=== PATIENT | female | born 1945 | race Caucasian/White ===

== ENCOUNTER 2020-06-01 23:47 | Inpatient (IN) | payer MEDICARE, SELFPAY ==
[2020-06-02] VITALS (10 sets, daily range): BP systolic 89–147; BP diastolic 38–103; PULSE 60–75; RESP 15–21; TEMP 36.6–37.6; O2SAT 94–99; BMI 29.6; BMI 32.3
--- NOTE | 2020-06-02 00:19 | ECG_ITS ---
Test Reason : WEAKNESS Blood Pressure : / mmHG Vent. Rate : 063 BPM Atrial Rate : 063 BPM P-R Int : 222 ms QRS Dur : 092 ms QT Int : 466 ms P-R-T Axes : 085 000 004 degrees QTc Int : 476 ms Sinus rhythm with sinus arrhythmia with 1st degree A-V block RSR' or QR pattern in V1 suggests right ventricular conduction delay Nonspecific ST abnormality Abnormal ECG When compared with ECG of 30-MAY-2017 18:22, [place] interval has increased ST now depressed in Anterior leads Referred By: Suzanna Gregg Electronically Signed By:AUBRIE RAINES MD
--- NOTE | 2020-06-02 00:27 | CT_ITS ---
EXAM: NONCONTRAST CT OF THE CHEST; NONCONTRAST CT OF THE ABDOMEN AND PELVIS INDICATION: Shortness of breath, difficulty walking COMPARISON: 04/10/2008 TECHNIQUE: No IV contrast was utilized. Multidetector helical imaging was performed through the chest, abdomen, and pelvis. Coronal and sagittal reformatted images were created at the technologist workstation. DOSE LOWERING TECHNIQUES: This CT examination was performed using dose optimization techniques as appropriate, variously including the following: - Automated exposure control - Adjustment of mA and/or kV according to patient size (this includes techniques or standardized protocols for targeted exams were dose is matched to indication/reason for exam; i.e. extremities or head) - Use of iterative reconstruction technique DLP: 1110 mGy-cm FINDINGS: Chest: No regions of consolidation bilaterally. There are 2 tiny nodules in the right lower lobe laterally on image 298/460 measuring 2 mm each. No pneumothorax or pleural effusion. The visualized thyroid gland is unremarkable. There are subcentimeter mediastinal lymph nodes within the range of normal variation. Cardiac size is within normal limits; no pericardial effusion. Coronary artery calcifications are present. Scattered atherosclerotic calcifications are present along the aorta. No axillary lymphadenopathy is present. Abdomen/Pelvis: The liver is homogeneous in attenuation without intrahepatic biliary ductal dilatation. The gallbladder is unremarkable. The unenhanced spleen, pancreas, and adrenal glands are within normal limits. No hydronephrosis bilaterally. There is a 3 mm calculus in the mid right kidney. No obstructing ureteral calculi are present. There is asymmetric left-sided perinephric stranding. The urinary bladder is unremarkable. The uterus and adnexa are unremarkable. The small and large bowel are unremarkable without evidence of obstruction or pericolonic inflammatory change. The appendix is unremarkable. No free fluid or free air is present. There is atherosclerotic calcification along the aorta. No retroperitoneal or pelvic lymphadenopathy is seen. No acute osseous findings. There is moderate degenerative change of the right hip and mild degenerative change of the left hip. Small fat-containing umbilical hernia is noted. CT/CT abdomen pelvis wo con IMPRESSION: 1. Asymmetric left-sided perinephric stranding, of uncertain etiology. Correlation with urinalysis is recommended, as pyelonephritis is a possibility with this appearance. No hydronephrosis. 2. Nonobstructing 3 mm right renal calculus. 3. Tiny right lower lobe lung nodules, nonspecific. According to the UPDATED 2017 Fleischner Society recommendations, the advised follow-up imaging for solid nodules < 6 mm is: LOW RISK PATIENT: No routine follow-up. HIGH RISK PATIENT: Optional CT at 12 months.
--- NOTE | 2020-06-02 00:30 | ED.SOB ---
HPI - SOB/Dyspnea General Chief Complaint: Weakness Stated Complaint: leg swelling Time Seen by Provider: 06/02/20 00:19 Source: patient and EMS Mode of arrival: EMS Limitations: no limitations History of Present Illness HPI Narrative: 75-year-old female presents via EMS for shortness of breath, and overall feeling unwell. States that she has been feeling short of breath for 1 year, and reports a gradual decline in function. She presents today because shortness of breath has increased and she was having a difficult time walking. She is having a difficult time answering questions, appears to be word searching but answers with appropriate responses. She states to have chest pain, palpitations, weakness, and cough. MD elicited complaint: shortness of breath and chest pain Pertinent past history: COPD and diabetes Onset (ago): month(s) Timing: constant Severity: moderate Exacerbating factors: exertion and movement Relieving factors: nothing Known history of: diabetes Associated symptoms: cough and wheezing Treatment prior to arrival: none Related Data Home Medications Medication Instructions Recorded Confirmed losartan 06/02/20 Allergies Allergy/AdvReac Type Severity Reaction Status Date / Time latex [Latex] Allergy Mild UNKNOWN Verified 06/02/20 00:47 morphine [Morphine] Allergy Mild VOMITING Verified 06/02/20 00:47 penicillin G Allergy Unknown Rash Verified 06/02/20 00:47 codeine [Codeine] AdvReac Mild VOMITING Verified 06/02/20 00:47 procaine [From Novocain] AdvReac Mild VOMITING Verified 06/02/20 00:47 Review of Systems Review of Systems: Constitutional: No Fever, No Chills ENT/Mouth: No sore throat, No Rhinorrhea, No Swallowing Difficulty Eyes: No Eye Pain, No Swelling, No Redness Cardiovascular: Positive Chest Pain, positive SOB, No Orthopnea, positive Edema Respiratory: positive Cough, No Sputum, positive Wheezing, positive dyspnea Gastrointestinal: No Nausea, No Vomiting, No Diarrhea, No abdominal Pain, No Hematochezia, No Melena Genitourinary: No Dysuria, No Urinary Frequency, No Hematuria Musculoskeletal: No joint pain, No Myalgias Skin: No Skin Lesions, No rash Neuro: positive Weakness, No Numbness, No Dizziness, No Headache Psych: No Anxiety/Panic, No Depression Heme/Lymph: No Bruising, No Lymphadenopathy Endocrine: No Polyuria, No Polydipsia Yes all other systems are reviewed and are negative [facility] Past Medical History Attestation statement: The following information was validated with the patient. Medical History (Updated 06/02/20 @ 03:01 by Suzanna Gregg NP) Hypertension Stroke Surgical History History of knee surgery Social History Social History Smoking Status: Former smoker Use of substances other than those prescribed or required for medical reasons: No Advance Directives: No Physical Exam Vital Signs: Vital Signs: Vital Signs Temp Pulse Resp BP Pulse Ox 06/02/20 02:00 63 16 119/40 L 98 06/02/20 00:32 99.7 F 61 18 89/38 L 94 06/02/20 00:10 99.7 F 61 15 100/84 94 Body Mass Index 29.6 Appearance: Alert. Oriented X3. moderate distress. Head: Normal external exam. Normocephalic. Atraumatic. Eyes: PERRLA. EOMI. Conjunctiva and sclera normal. Eyelids normal. ENT: TM's Normal. Pharynx normal. Uvula midline. Moist mucous membranes. No trismus noted. No drooling noted. No muffled voice noted. Neck: Normal inspection. Neck supple. No adenopathy. No meningeal signs. No neck mass noted. CVS: Normal heart rate and rhythm. Heart sound normal. No murmurs noted. Pulses equal to all extremities. Respiratory: No respiratory distress. Painless inspiration. Breath sounds normal. No wheezes/rales/rhonchi noted. Chest nontender. No accessory muscle usage noted or decreased air movement noted. Abdomen: Soft and nontender. Bowel sounds normal in all 4 quadrants. No distention noted. No organomegaly noted. No visible injury noted. Back: No CVA tenderness. Full range of motion noted. Skin: Skin warm and dry. Normal skin color. Normal skin turgor. No rashes/lesions/lacerations noted. Extremities: No lower extremity edema. Extremities exhibit normal range of motion. Extremities nontender. Neuro: cranial nerves 2-12 intact, no focal neural deficits, strength 5/5 to all extremities, No motor deficit. No sensory deficit. Reflexes normal. Course Course Course Narrative: 75-year-old female with history of stroke, hypertension, diabetes, and chronic anemia presents with multiple complaints. Patient is hypotensive, while she is not tachycardic she is on losartan and other blood pressure medications that regulate heart rate, does not have any acute findings on physical exam however I feel that she is confused and possibly septic. initial orders include fluid resuscitation of 2 L, 2 IVs, chest and abdominal CT, culture, lactic acid and straight cath for urine. CT scan is positive for pyelonephritis and perinephric stranding. Labs are still pending. Reevaluation(s) Reevaluation #1: lab values obtained, patient does meet severe sepsis criteria, 3 L of normal saline infusing, order of ceftriaxone pending infusion. Dr. Lior Basilio at bedside for evaluation and admission. Potassium is 3.2 will replete with 20 mEq of Klor-Con, BUN 49 prior value on 03/21 was 36, creatinine 3.05 prior lab value on 03/21 was 1.75. blood pressures are improving heart rate remains in the 60s , lactic acid is 0.8. Patient will be admitted for pyelonephritis, sepsis, and acute on chronic kidney injury. Time: 02:13 Consultations Consultation #1: Lior Basilio Time: 02:13 MDM - SOB/Dyspnea MDM Narrative Medical decision making narrative: Sepsis, UTI, NERY Differential Diagnosis Differential diagnosis: Likely acute exacerbation of chronic obstructive airways disease, congestive heart failure, pneumonia, asthma with exacerbation, pulmonary embolism, pleural effusion and anemia Medical Records Attestation: I reviewed the patient's medical records. Lab Data Attestation: I reviewed the patient's lab results. Result diagrams: 06/02/20 01:18 06/02/20 01:17 Labs: Lab Results 06/02/20 06/02/20 06/02/20 Range/Units 01:17 01:17 01:17 WBC (4.8-10.8) X10*3/uL RBC (4.20-5.50) X10*6/uL Hgb (12.0-16.0) g/dl Hct (37-47) % MCV (80-98) fL MCH (27.0-33.0) pg MCHC (31.0-35.0) g/dl RDW (11.0-16.0) % Plt Count (160-400) X10*3/uL MPV (9.4-12.3) fL Immature Gran % (Auto) (0.0-0.4) % Neut % (Auto) (45-73) % Lymph % (Auto) (20-40) % [place] % (Auto) (2-11) % Eos % (Auto) (0-4) % Baso % (Auto) (0-2) % Lymph # (Auto) (1.2-4.9) X10*3/uL [place] # (Auto) (0.1-1.2) X10*3/uL Eos # (Auto) (0.0-0.4) X10*3/uL Baso # (Auto) (0.0-0.2) X10*3/uL Abs Immat Gran (auto) (0.00-0.03) X10*3/uL Absolute Neuts (auto) (2.0-8.3) X10*3/uL Absolute Nucleated RBC (0.0-0.012) X10*3/uL Nucleated RBC % (auto) (0.0-0.2) /100WBC PT (10.8-13.0) SEC INR (0.9-1.1) APTT (24.1-38.0) SEC Sodium 135 (135-145) mmol/L Potassium 3.2 L (3.3-5.1) mmol/l Chloride 101 (96-108) mmol/L Carbon Dioxide 21 L (22-29) mmol/L Anion Gap 16 (12-20) BUN 49 H (9-16) mg/dL Creatinine 3.05 H (0.5-1.4) mg/dL Estim Creat Clear Calc 17.9 Estimated GFR 15 Random Glucose 145 H (60-115) mg/dL Lactic Acid 0.8 (0.5-2.0) mmol/L Calcium 7.7 L (8.4-10.2) mg/dL Total Bilirubin 0.2 (0.0-1.0) mg/dL Direct Bilirubin < 0.2 (0.0-0.5) mg/dL AST 32 H (5-31) U/L ALT 40 H (0-31) U/L Alkaline Phosphatase 134 H (39-117) U/L Troponin I High Sens 8.0 (<3.5-17.0) ng/L B-Natriuretic Peptide 206 H (<100) pg/mL Total Protein 5.9 L (6.5-8.0) g/dL Albumin 3.4 L (3.5-5.0) g/dL Lipase 14 (8-78) U/L 06/02/20 06/02/20 Range/Units 01:18 01:18 WBC 17.2 H (4.8-10.8) X10*3/uL RBC 3.01 L (4.20-5.50) X10*6/uL Hgb 8.0 L (12.0-16.0) g/dl Hct 25.1 L (37-47) % MCV 83.4 (80-98) fL MCH 26.6 L (27.0-33.0) pg MCHC 31.9 (31.0-35.0) g/dl RDW 14.7 (11.0-16.0) % Plt Count 339 (160-400) X10*3/uL MPV 9.2 L (9.4-12.3) fL Immature Gran % (Auto) 1.3 H (0.0-0.4) % Neut % (Auto) 84.8 H (45-73) % Lymph % (Auto) 7.4 L (20-40) % [place] % (Auto) 5.9 (2-11) % Eos % (Auto) 0.5 (0-4) % Baso % (Auto) 0.1 (0-2) % Lymph # (Auto) 1.3 (1.2-4.9) X10*3/uL [place] # (Auto) 1.0 (0.1-1.2) X10*3/uL Eos # (Auto) 0.1 (0.0-0.4) X10*3/uL Baso # (Auto) 0.0 (0.0-0.2) X10*3/uL Abs Immat Gran (auto) 0.23 H (0.00-0.03) X10*3/uL Absolute Neuts (auto) 14.6 H (2.0-8.3) X10*3/uL Absolute Nucleated RBC 0.000 (0.0-0.012) X10*3/uL Nucleated RBC % (auto) 0.0 (0.0-0.2) /100WBC PT 14.9 H (10.8-13.0) SEC INR 1.3 H (0.9-1.1) APTT 29.9 (24.1-38.0) SEC Sodium (135-145) mmol/L Potassium (3.3-5.1) mmol/l Chloride (96-108) mmol/L Carbon Dioxide (22-29) mmol/L Anion Gap (12-20) BUN (9-16) mg/dL Creatinine (0.5-1.4) mg/dL Estim Creat Clear Calc Estimated GFR Random Glucose (60-115) mg/dL Lactic Acid (0.5-2.0) mmol/L Calcium (8.4-10.2) mg/dL Total Bilirubin (0.0-1.0) mg/dL Direct Bilirubin (0.0-0.5) mg/dL AST (5-31) U/L ALT (0-31) U/L Alkaline Phosphatase (39-117) U/L Troponin I High Sens (<3.5-17.0) ng/L B-Natriuretic Peptide (<100) pg/mL Total Protein (6.5-8.0) g/dL Albumin (3.5-5.0) g/dL Lipase (8-78) U/L Imaging Data CT scan - abdomen: Attestation: I personally reviewed and interpreted this imaging study as follows: Radiologist's impression: FINDINGS: Chest: No regions of consolidation bilaterally. There are 2 tiny nodules in the right lower lobe laterally on image 298/460 measuring 2 mm each. No pneumothorax or pleural effusion. The visualized thyroid gland is unremarkable. There are subcentimeter mediastinal lymph nodes within the range of normal variation. Cardiac size is within normal limits; no pericardial effusion. Coronary artery calcifications are present. Scattered atherosclerotic calcifications are present along the aorta. No axillary lymphadenopathy is present. Abdomen/Pelvis: The liver is homogeneous in attenuation without intrahepatic biliary ductal dilatation. The gallbladder is unremarkable. The unenhanced spleen, pancreas, and adrenal glands are within normal limits. No hydronephrosis bilaterally. There is a 3 mm calculus in the mid right kidney. No obstructing ureteral calculi are present. There is asymmetric left-sided perinephric stranding. The urinary bladder is unremarkable. The uterus and adnexa are unremarkable. The small and large bowel are unremarkable without evidence of obstruction or pericolonic inflammatory change. The appendix is unremarkable. No free fluid or free air is present. There is atherosclerotic calcification along the aorta. No retroperitoneal or pelvic lymphadenopathy is seen. No acute osseous findings. There is moderate degenerative change of the right hip and mild degenerative change of the left hip. Small fat-containing umbilical hernia is noted. CT/CT abdomen pelvis wo con IMPRESSION: 1. Asymmetric left-sided perinephric stranding, of uncertain etiology. Correlation with urinalysis is recommended, as pyelonephritis is a possibility with this appearance. No hydronephrosis. 2. Nonobstructing 3 mm right renal calculus. 3. Tiny right lower lobe lung nodules, nonspecific. According to the UPDATED 2017 Fleischner Society recommendations, the advised follow-up imaging for solid nodules < 6 mm is: LOW RISK PATIENT: No routine follow-up. HIGH RISK PATIENT: Optional CT at [address] scan - chest: Attestation: I personally reviewed and interpreted this imaging study as follows: Radiologist's impression: FINDINGS: Chest: No regions of consolidation bilaterally. There are 2 tiny nodules in the right lower lobe laterally on image 298/460 measuring 2 mm each. No pneumothorax or pleural effusion. The visualized thyroid gland is unremarkable. There are subcentimeter mediastinal lymph nodes within the range of normal variation. Cardiac size is within normal limits; no pericardial effusion. Coronary artery calcifications are present. Scattered atherosclerotic calcifications are present along the aorta. No axillary lymphadenopathy is present. Abdomen/Pelvis: The liver is homogeneous in attenuation without intrahepatic biliary ductal dilatation. The gallbladder is unremarkable. The unenhanced spleen, pancreas, and adrenal glands are within normal limits. No hydronephrosis bilaterally. There is a 3 mm calculus in the mid right kidney. No obstructing ureteral calculi are present. There is asymmetric left-sided perinephric stranding. The urinary bladder is unremarkable. The uterus and adnexa are unremarkable. The small and large bowel are unremarkable without evidence of obstruction or pericolonic inflammatory change. The appendix is unremarkable. No free fluid or free air is present. There is atherosclerotic calcification along the aorta. No retroperitoneal or pelvic lymphadenopathy is seen. No acute osseous findings. There is moderate degenerative change of the right hip and mild degenerative change of the left hip. Small fat-containing umbilical hernia is noted. CT/CT abdomen pelvis wo con IMPRESSION: 1. Asymmetric left-sided perinephric stranding, of uncertain etiology. Correlation with urinalysis is recommended, as pyelonephritis is a possibility with this appearance. No hydronephrosis. 2. Nonobstructing 3 mm right renal calculus. 3. Tiny right lower lobe lung nodules, nonspecific. According to the UPDATED 2017 Fleischner Society recommendations, the advised follow-up imaging for solid nodules < 6 mm is: LOW RISK PATIENT: No routine follow-up. HIGH RISK PATIENT: Optional CT at 12 months. ECG Data Attestation: I personally reviewed and interpreted this ECG as follows: ECG interpretation date: 06/02/20 ECG interpretation time: 02:32 Prior ECG tracings: available for review Interpretation: Vent. Rate : 063 BPM Atrial Rate : 063 BPM P-R Int : 222 ms QRS Dur : 092 ms QT Int : 466 ms P-R-T Axes : 085 000 004 degrees QTc Int : 476 ms Sinus rhythm with sinus arrhythmia with 1st degree A-V block Otherwise normal ECG When compared with ECG of 30-MAY-2017 18:22, [place] interval has increased ST now depressed in Anterior leads Nonspecific T wave abnormality now evident in Anterior leads Critical Care Time Critical Care Time Critical Care Time: Yes Total Critical Care Time: 65 Attestation: I have personally provided critical care time exclusive of time spent on separately billable procedures. Time includes review of laboratory data, radiology results, discussion with consultants, and monitoring for potential decompensation. Interventions were performed as documented. Discharge Plan Discharge Clinical Impression: Pyelonephritis, Acute kidney injury superimposed on CKD Sepsis Qualifiers: Sepsis type: sepsis due to unspecified organism Sepsis acute organ dysfunction status: with acute organ dysfunction Severe sepsis acute organ dysfunction type: acute renal failure Acute renal failure type: unspecified Severe sepsis shock status: without septic shock Qualified Code(s): A41.9 - Sepsis, unspecified organism Patient Disposition: Admitted As Inpatient
[2020-06-02] MEDS: 0.9 % Sodium Chloride 1,000 ML 999 ML IVCONT ×3 (01:00→02:15)
[2020-06-02 01:26] LABS: MANUAL DIFF FLAG NO
[2020-06-02 01:27] LABS: Basophils Percent Auto 0.1 % (0-2); Eosinophils Absolute Auto 0.1 X10*3/uL (0.0-0.4); Eosinophils Percent Auto 0.5 % (0-4); Hematocrit 25.1 % (37-47); Imm Gran Abs Auto 0.23 X10*3/uL (0.00-0.03); Imm Gran Pct Auto 1.3 % (0.0-0.4); Lymphocytes Absolute Auto 1.3 X10*3/uL (1.2-4.9); Lymphocytes Percent Auto 7.4 % (20-40); Mean Corpuscular HGB Conc 31.9 g/dl (31.0-35.0); Mean Corpuscular Hemoglobin 26.6 pg (27.0-33.0); Mean Corpuscular Volume 83.4 fL (80-98); Mean Platelet Volume 9.2 fL (9.4-12.3); Monocytes Percent Auto 5.9 % (2-11); Neutrophils Absolute Auto 14.6 X10*3/uL (2.0-8.3); Neutrophils Percent Auto 84.8 % (45-73); Platelet Count 339 X10*3/uL (160-400); Red Blood Count 3.01 X10*6/uL (4.20-5.50); Red Cell Distribution Width 14.7 % (11.0-16.0); White Blood Count 17.2 X10*3/uL (4.8-10.8)
[2020-06-02 01:44] LABS: Lactic Acid 0.8 mmol/L (0.5-2.0)
[2020-06-02 01:51] LABS: Alanine Aminotransferase 40 U/L (0-31); Albumin Level 3.4 g/dL (3.5-5.0); Alkaline Phosphatase 134 U/L (39-117); Anion Gap 16 (12-20); Aspartate Amino Transferase 32 U/L (5-31); Bilirubin Direct < 0.2 mg/dL (0.0-0.5); Bilirubin Total 0.2 mg/dL (0.0-1.0); Blood Urea Nitrogen 49 mg/dL (9-16); Calcium 7.7 mg/dL (8.4-10.2); Carbon Dioxide 21 mmol/L (22-29); Chloride 101 mmol/L (96-108); Creatinine Clr Calc Pharmacy 17.9; Estimated Glomerular Filt Rate 15; Glucose Random 145 mg/dL (60-115); Lipase 14 U/L (8-78); Potassium 3.2 mmol/l (3.3-5.1); Sodium 135 mmol/L (135-145); Total Protein 5.9 g/dL (6.5-8.0)
[2020-06-02 01:53] LABS: B Type Natriuretic Peptide 206 pg/mL (<100)
--- NOTE | 2020-06-02 02:34 | PM.IMHP ---
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 Patient reports that for the past 2 days has been feeling malaise with associated fever, chills and nausea. Patient reports intermitted abdominal pain, diffuse with associated left sided back pain at times. Had difficulty urinating at some point which resolved later on. Patient denies any chest pain, SOB, vomiting, diarrhea, constipation, sick contacts or any recent travel. On presentation patient is noted to be hypotensive which was corrected after aggressive IV hydration. Labs showing WBC Of 17.2, Hgb oi 8 (baseline of 12), K of 3.2, Cr of 3.05 (baseline of 1.7), Ca of 7.7 and elevated LFT's./Alk phosp. CT abdomen concerning for left sided pyelonephritis. UA pending. Decision for admissino given. Patient seen and examined face to face, laying down in bed in mild discomfort. ROS as above otherwise negative. Physical exam unremarkable, no evidence of left CV tenderness. 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 PSX: Brain aneurysm repair Toxic habits: NO hx of alcohol abuse, smoking or IVDA Review of Systems Constitutional: Constitutional: Reports as per [facility] Medical History (Updated 06/02/20 @ 03:01 by Suzanna Gregg NP) Hypertension Stroke Functional capacity: independent ambulation Family history: reviewed and not pertinent Surgical History History of knee surgery Social History Smoking Status: Former smoker Use of substances other than those prescribed or required for medical reasons: No Advance Directives: No Meds Allergies Allergy/AdvReac Type Severity Reaction Status Date / Time latex [Latex] Allergy Mild UNKNOWN Verified 06/02/20 00:47 morphine [Morphine] Allergy Mild VOMITING Verified 06/02/20 00:47 penicillin G Allergy Unknown Rash Verified 06/02/20 00:47 codeine [Codeine] AdvReac Mild VOMITING Verified 06/02/20 00:47 procaine [From Novocain] AdvReac Mild VOMITING Verified 06/02/20 00:47 Home Medications Medication Instructions Recorded Confirmed Type losartan 06/02/20 History Physical Exam Vital Signs and Narrative: Vital Signs: Last Vital Signs Temp 99.7 F 06/02/20 00:32 Pulse 63 06/02/20 02:00 Resp 16 06/02/20 02:00 BP 119/40 L 06/02/20 02:00 Pulse Ox 98 06/02/20 02:00 Body Mass Index 29.6 Const: General: cooperative, healthy appearing and comfortable Orientation/consciousness: patient oriented x3 HENMT: Head: Yes normal to inspection Eyes: General: appearance normal, both eyes and all related structures Neck: Yes normal visual inspection Chest: Chest palpation & inspection: normal inspection of the chest Resp: Effort & Inspection: normal respiratory effort Cardio: Jugular venous distension: no JVD Rate: regular rate Rhythm: regular rhythm Heart sounds: S1 normal heart sound present and S2 normal heart sound present GI: Inspection: Yes normal to inspection : General: Yes no CVA tenderness Back/Spine/Pelvis: Back: no CVA tenderness Skin: General skin exam: no rashes or lesions noted Neuro: General: patient oriented x3 Extrem: General: Yes normal to inspection Psych: Appearance: grossly normal and well kempt Results Labs Labs: Laboratory Tests 06/02/20 06/02/20 06/02/20 01:17 01:17 01:17 WBC RBC Hgb Hct MCV MCH MCHC RDW Plt Count MPV Immature Gran % (Auto) Neut % (Auto) Lymph % (Auto) [place] % (Auto) Eos % (Auto) Baso % (Auto) Lymph # (Auto) [place] # (Auto) Eos # (Auto) Baso # (Auto) Abs Immat Gran (auto) Absolute Neuts (auto) Absolute Nucleated RBC Nucleated RBC % (auto) Sodium 135 Potassium 3.2 L Chloride 101 Carbon Dioxide 21 L Anion Gap 16 BUN 49 H Creatinine 3.05 H Estim Creat Clear Calc 17.9 Estimated GFR 15 Random Glucose 145 H Lactic Acid 0.8 Calcium 7.7 L Total Bilirubin 0.2 Direct Bilirubin < 0.2 AST 32 H ALT 40 H Alkaline Phosphatase 134 H Troponin I High Sens 8.0 B-Natriuretic Peptide 206 H Total Protein 5.9 L Albumin 3.4 L Lipase 14 10/23/20 01:18 WBC 17.2 H RBC 3.01 L Hgb 8.0 L Hct 25.1 L MCV 83.4 MCH 26.6 L MCHC 31.9 RDW 14.7 Plt Count 339 MPV 9.2 L Immature Gran % (Auto) 1.3 H Neut % (Auto) 84.8 H Lymph % (Auto) 7.4 L [place] % (Auto) 5.9 Eos % (Auto) 0.5 Baso % (Auto) 0.1 Lymph # (Auto) 1.3 [place] # (Auto) 1.0 Eos # (Auto) 0.1 Baso # (Auto) 0.0 Abs Immat Gran (auto) 0.23 H Absolute Neuts (auto) 14.6 H Absolute Nucleated RBC 0.000 Nucleated RBC % (auto) 0.0 Sodium Potassium Chloride Carbon Dioxide Anion Gap BUN Creatinine Estim Creat Clear Calc Estimated GFR Random Glucose Lactic Acid Calcium Total Bilirubin Direct Bilirubin AST ALT Alkaline Phosphatase Troponin I High Sens B-Natriuretic Peptide Total Protein Albumin Lipase Assessment and Plan (1) Pyelonephritis: Status: Acute Sepsis criteria not met S/p IV hydration in the ED aggressively as well as Rocephin for gram neg coverage Continue with Rocephin as ordered Follow up Bx, UA and Ucx Keep MAP >65 mmHg Infectious disease consult in the ED (Medication reconciliation not done per ED givent that are unable to confirm with outpatient pharmacy at this time. Reconciliation of meds to be done with outpatient pharmacy in the am) (2) Hypokalemia: Status: Acute K of 3.2. ED ordered PO 20 mEq given Renal dysfunction Follow up repeat BMP in the am and monitor electrolytes and renal function closely (3) Acute kidney injury superimposed on CKD: Status: Acute Baseline creatinine of 1.7 now 3.05 likely due to dehydration Follow up repeat BMP after hydration Nephrology consult in the am (4) Anemia: Status: Acute Hgb of 8 Follow up anemia work up (5) Stroke: Status: Acute HX (6) Hypertension: Status: Acute Continue with home BP meds (7) Elevated liver function tests: Status: Acute No evidence of biliary obstruction on imaging folllow up hepatitis work up
[2020-06-02] MEDS: cefTRIAXone sodium 1 GM in 0.9 % Sodium Chloride 50 ML IV (02:36)
[2020-06-02 02:48] LABS: INTERNATIONAL NORM RATIO 1.3 (0.9-1.1); Prothrombin Time 14.9 SEC (10.8-13.0)
[2020-06-02 02:52] LABS: Partial Thromboplastin Time 29.9 SEC (24.1-38.0)
[2020-06-02 03:26] LABS: Glucose Urine UA NEG (NEG); Leukocyte Esterase Urine 1+ (NEG); Nitrite Urine NEG (NEG); PH 5.5 (5.0-8.0); Urine Blood TRACE (NEG); Urine Ketones NEG (NEG); Urine Protein TRACE MG/DL (NEG-TRACE)
[2020-06-02 03:35] LABS: Appearance Urine HAZY; Color Urine STRAW
[2020-06-02 03:51] LABS: Bacteria Urine 1+ /LPF; RBC Urine 0-2 /HPF (0); Squamous Epithelial Cell Urine TRACE /LPF; WBC Urine 30-49 /HPF (0-4)
--- NOTE | 2020-06-02 04:42 | PC.NURSE ---
called to floor to give report and informed that nurse would get back to me
[2020-06-02 07:52] LABS: SARS COV2 PCR INHOUSE NEGATIVE (Negative)
[2020-06-02] MEDS: 0.9 % Sodium Chloride Flush 3 ML SYRINGE IVFLUSH ×3 (08:36→22:32)
[2020-06-02] MEDS: Heparin Sodium,Porcine 5,000 UNIT/ML VIAL 5000 UNIT SUBCUT ×3 (08:36→22:30)
--- NOTE | 2020-06-02 09:41 | MHC.CM.PN ---
IMM 06/01/20 FEMALE 74 DX SEPSIS PYELO LE EDEMA. Lives alone, she is independent all functional mobility. She uses a cane outside. NO HCP. Education provided Pt declined. 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 She states that she has a BLOOD CARD NO BLOOD TRANSFUSION [employer] DP home no services Pt will arrange transport vs [facility]. CM will follow.
[2020-06-02 10:02] LABS: MANUAL DIFF FLAG NO
[2020-06-02 10:05] LABS: Basophils Percent Auto 0.2 % (0-2); Eosinophils Absolute Auto 0.1 X10*3/uL (0.0-0.4); Eosinophils Percent Auto 0.6 % (0-4); Hematocrit 25.1 % (37-47); Hemoglobin 8.1 g/dl (12.0-16.0); Imm Gran Abs Auto 0.14 X10*3/uL (0.00-0.03); Immature Retic Fraction 11.3 % (3.0-15.9); Lymphocytes Absolute Auto 1.5 X10*3/uL (1.2-4.9); Lymphocytes Percent Auto 10.4 % (20-40); Mean Corpuscular HGB Conc 32.3 g/dl (31.0-35.0); Mean Corpuscular Hemoglobin 27.2 pg (27.0-33.0); Mean Corpuscular Volume 84.2 fL (80-98); Mean Platelet Volume 9.2 fL (9.4-12.3); Monocytes Absolute Auto 0.7 X10*3/uL (0.1-1.2); Monocytes Percent Auto 5.2 % (2-11); Neutrophils Absolute Auto 11.8 X10*3/uL (2.0-8.3); Neutrophils Percent Auto 82.6 % (45-73); Platelet Count 323 X10*3/uL (160-400); Red Blood Count 2.98 X10*6/uL (4.20-5.50); Red Cell Distribution Width 14.8 % (11.0-16.0); Retic HGB Equivalent 26.1 pg (30.0-35.0); Reticulocyte Percent 0.8 % (0.5-1.8); Reticulocytes Absolute 0.022 X10*6/uL (0.026-0.095); White Blood Count 14.3 X10*3/uL (4.8-10.8)
[2020-06-02] MEDS: Acetaminophen 325 MG TABLET 650 MG PO (10:10)
[2020-06-02 10:36] LABS: Anion Gap 16 (12-20); Blood Urea Nitrogen 42 mg/dL (9-16); Calcium 7.6 mg/dL (8.4-10.2); Carbon Dioxide 20 mmol/L (22-29); Chloride 106 mmol/L (96-108); Creatinine Clr Calc Pharmacy 24.1; Estimated Glomerular Filt Rate 21; Glucose Random 83 mg/dL (60-115); Iron 16 mcg/dL (30-160); Percent Iron Saturation 7 % (15-50); Potassium 3.1 mmol/l (3.3-5.1); Sodium 139 mmol/L (135-145); Total Iron Binding Capacity 229 mcg/dL (228-428); Unsaturated Iron Binding 213 ug/dL
[2020-06-02 10:53] LABS: Ferritin 249 ng/mL (10-250)
[2020-06-02] MEDS: Flu Vacc QS2020-21(6mos up)/PF 0.5 ML SYRINGE IM (10:55)
--- NOTE | 2020-06-02 11:58 | P.CONNP_ITS ---
History of Present Illness Reason for Consult Consult date: 06/02/20 Reason for consult: NERY Chief Complaint Chief complaint: leg swelling/SEPSIS SECONDARY TO PYELONEPHRITIS History of Present Illness Narrative: Adm with sev day gen naliase note sdehydration n adm and NERY and ques UTI. Overall feeling better now with IVF. Deneis GH/dyurs. 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 PSX: Brain aneurysm repair Review of Systems Review of Systems Yes all other systems are reviewed and are negative [facility] Past Medical History Medical History (Updated 06/02/20 @ 03:01 by Suzanna Gregg NP) Hypertension Stroke Functional capacity: independent ambulation Family History Family history: reviewed and not pertinent Surgical History Surgical History History of knee surgery Social History Social History Household Members: None Do you presently have visiting nurse or other home services: Yes ([employer]) Smoking Status: Former smoker Smoked in Last 30 Days: No Use of substances other than those prescribed or required for medical reasons: No Currently Displaying Signs/Symptoms of Drug Intoxication Withdrawal: No Have you been hit, kicked, punched, or otherwise hurt by someone within the past year? If so, by whom?: No Do you feel safe in your current relationship?: No Current Relationship Is there a partner from a previous relationship who is making you feel unsafe now?: No Are you made to feel afraid or neglected: No [facility] Practices: Jehovahs witness Advance Directives: No Do you have thoughts of harming others: None Do you have a plan to hurt others: No Plan Recently lost weight without trying: No service: No Current occupational status: retired Meds Allergies Allergy/AdvReac Type Severity Reaction Status Date / Time latex [Latex] Allergy Mild UNKNOWN Verified 06/02/20 00:47 morphine [Morphine] Allergy Mild VOMITING Verified 06/02/20 00:47 penicillin G Allergy Unknown Rash Verified 06/02/20 00:47 codeine [Codeine] AdvReac Mild VOMITING Verified 06/02/20 00:47 procaine [From Novocain] AdvReac Mild VOMITING Verified 06/02/20 00:47 Home Medications Medication Instructions Recorded Confirmed Type albuterol sulfate 2.5 mg INHALATION Q8H PRN 06/02/20 06/02/20 History atenolol-chlorthalidone 1 tab PO DAILY 06/02/20 06/02/20 History clonidine HCl 0.2 mg PO DAILY 06/02/20 06/02/20 History fluticasone propionate [Flonase] 1 spray INTRANASAL DAILY 06/02/20 06/02/20 History levothyroxine 150 mcg PO DAILY 06/02/20 06/02/20 History simvastatin 20 mg PO BEDTIME 06/02/20 06/02/20 History tizanidine 6 mg PO BEDTIME 06/02/20 06/02/20 History valsartan 80 mg PO BEDTIME 06/02/20 06/02/20 History venlafaxine 150 mg PO DAILY 06/02/20 06/02/20 History verapamil 120 mg PO BEDTIME 06/02/20 06/02/20 History Physical Exam Vital Signs: Vital Signs Temp Pulse Resp BP Pulse Ox 06/02/20 11:43 98.6 F 71 20 135/79 95 06/02/20 08:00 98.6 F 63 20 127/63 97 06/02/20 06:24 75 18 126/65 96 06/02/20 04:17 63 15 125/68 96 06/02/20 02:00 63 16 119/40 L 98 06/02/20 00:32 99.7 F 61 18 89/38 L 94 06/02/20 00:10 99.7 F 61 15 100/84 94 Body Mass Index 32.3 Appearance: Alert. Oriented X3. moderate distress. Head: Normal external exam. Normocephalic. Atraumatic. Eyes: PERRLA. EOMI. Conjunctiva and sclera normal. Eyelids normal. ENT: TM's Normal. Pharynx normal. Uvula midline. Moist mucous membranes. No trismus noted. No drooling noted. No muffled voice noted. Neck: Normal inspection. Neck supple. No adenopathy. No meningeal signs. No neck mass noted. CVS: Normal heart rate and rhythm. Heart sound normal. No murmurs noted. Pulses equal to all extremities. Respiratory: No respiratory distress. Painless inspiration. Breath sounds normal. No wheezes/rales/rhonchi noted. Chest nontender. No accessory muscle usage noted or decreased air movement noted. Abdomen: Soft and nontender. Bowel sounds normal in all 4 quadrants. No distention noted. No organomegaly noted. No visible injury noted. Back: No CVA tenderness. Full range of motion noted. Skin: Skin warm and dry. Normal skin color. Normal skin turgor. No rashes/lesions/lacerations noted. Extremities: No lower extremity edema. Extremities exhibit normal range of motion. Extremities nontender. Neuro: cranial nerves 2-12 intact, no focal neural deficits, strength 5/5 to all extremities, No motor deficit. No sensory deficit. Reflexes normal. Const General: cooperative, healthy appearing and comfortable Orientation/consciousness: patient oriented x3 HENMT Head: Yes normal to inspection Eyes General: appearance normal, both eyes and all related structures Neck Neck: Yes normal visual inspection Chest Chest palpation & inspection: normal inspection of the chest Resp Effort & Inspection: normal respiratory effort Cardio Jugular venous distension: no JVD Rate: regular rate Rhythm: regular rhythm Heart sounds: S1 normal heart sound present and S2 normal heart sound present GI Inspection: Yes normal to inspection General: Yes no CVA tenderness Back/Spine/Pelvis Back: no CVA tenderness Skin General skin exam: no rashes or lesions noted Neuro General: patient oriented x3 Extrem General: Yes normal to inspection Psych Appearance: grossly normal and well kempt Results Lab Results Result Diagrams: 06/02/20 02:23 06/02/20 09:54 Lab results: Chemistry 06/02/20 06/02/20 01:17 09:54 Sodium 135 139 Potassium 3.2 L 3.1 L Carbon Dioxide 21 L 20 L BUN 49 H 42 H Creatinine 3.05 H 2.25 H Calcium 7.7 L 7.6 L Hematology 06/02/20 06/02/20 01:18 02:23 WBC 17.2 H 14.3 H Hgb 8.0 L 8.1 L Plt Count 339 323 Urinalysis 06/02/20 01:19 Urine Color STRAW Urine Appearance HAZY Urine pH 5.5 Ur Specific [place] 1.020 Urine Protein TRACE Urine Glucose (UA) NEG Urine Ketones NEG Urine Blood TRACE Urine Nitrite NEG Ur Leukocyte Esterase 1+ H Urine RBC 0-2 Urine WBC 30-49 H Ur Squamous Epith Cells TRACE Laboratory Tests 07/03/3003/21/20 06/02/20 12:15 13:15 01:17 Creatinine 1.45 H 1.75 H 3.05 H 06/02/20 09:54 Creatinine 2.25 H Assessment and Plan (1) Pyelonephritis: Status: Acute (2) Hypokalemia: Status: Acute (3) Acute kidney injury superimposed on CKD: Status: Acute (4) Anemia: Status: Acute (5) Stroke: Status: Acute (6) Hypertension: Status: Acute (7) Elevated liver function tests: Status: Acute 1, NERY: c/w dehydration with imporved renal func on IVF; ques sepsis assoc ATN; acute OBS/AIN/AGN all seem unlikely 2. CKD 3: bsl SCr 1.4 3. UTI REC: cont IVF; track UOP/reanl func; avoid NSAIDs; hold cozaar; replace K will follow with team
[2020-06-02] MEDS: 0.9 % Sodium Chloride 1,000 ML 80 ML IVCONT (12:34)
--- NOTE | 2020-06-02 16:01 | P.PNIM_ITS ---
Subjective Subjective Date of Service: 06/02/20 Interval History: seen and examined this Am reports feeling much better today compared to yesterday but still weak overall reports come back pain -- chronic for her denies any fevers or chills denies flank pain Review of Systems General - no fevers or chills Cardiovascular - no chest pain Respiratory - no shortness of breath or cough Abdominal- no abdominal pain, nausea, vomiting, diarrhea Physical Exam Vital Signs: Vital Signs: Vital Signs Temp Pulse Resp BP Pulse Ox 06/02/20 15:18 99 F 74 21 H 147/74 H 99 06/02/20 11:43 98.6 F 71 20 135/79 95 06/02/20 08:00 98.6 F 63 20 127/63 97 06/02/20 06:24 75 18 126/65 96 06/02/20 04:17 63 15 125/68 96 06/02/20 02:00 63 16 119/40 L 98 06/02/20 00:32 99.7 F 61 18 89/38 L 94 06/02/20 00:10 99.7 F 61 15 100/84 94 Body Mass Index 32.3 General - no acute distress, appears comfortable Cardiovascular - regular rate and rhythm, S1-S2 Lungs - normal respiratory effort, clear to auscultation bilaterally, no wheezing Abdomen - soft, nontender, no rebound regarding Extremities - no edema bilaterally Neuro - awake and alert, no focal deficits Objective Data Current Medications Generic Name Dose Route Start Last Admin Trade Name Freq PRN Reason Stop Dose Admin Acetaminophen 650 mg 06/02/20 09:53 06/02/20 10:10 Acetaminophen 325 Mg Tablet PO 650 mg Q6H PRN Administration Pain and Fever Heparin Sodium (Porcine) 5,000 unit 06/02/20 16:00 Heparin Sodium,Porcine 5,000 Unit/Ml Vial SUBCUT Q8H [facility] Ceftriaxone Sodium 1 gm/ 50 mls @ 100 mls/hr 06/02/20 06:00 06/02/20 08:37 Sodium Chloride IV Not Given Q24H [facility] Sodium Chloride 1,000 mls @ 80 mls/hr 06/02/20 12:15 06/02/20 12:34 Ns IVCONT 80 mls/hr .[id number] [facility] Administration Pharmacy Consult 1 each 06/02/20 08:18 Consult Rx Perform Med Rec MISCELLANE ONCE PRN Consult order Sodium Chloride 3 ml 06/02/20 08:00 06/02/20 08:36 0.9 % Sodium Chloride Flush 3 Ml Syringe IVFLUSH 3 ml QSHIFT KAILA Administration Labs CBC & Chem 7: 06/02/20 02:23 06/02/20 09:54 Assessment and Plan (1) Pyelonephritis: Status: Acute Assessment and Plan: This is a 75 yo F who presented to the hospital with complaints of generalized malaise and weakness over the last 1+ week. She was diagnosed with pyelonephritis, NERY on CKD and admitted for further treatment. 1. Pyelonephritis by imaging improving rocephin f/u cultures 2. NERY on CKD stage 3 improving with IVF hold ARB 3. HTN bp soft in the ED, now improving start verapmail tonight, add others slowly 4. Anemia ? of chronic disease monitor 5. history of brain aneurysm s/p rupture and repair (about 10 years ago) no new neuro deficits monitor 6. hypothyroidism synthroid Full Code DVT pptx, subcut. heparin
[2020-06-02 16:07] LABS: Creatinine Urine 77.62 mg/dL
[2020-06-02] MEDS: Potassium Chloride ER 20 MEQ TAB.ER.PRT 40 MEQ PO (16:58)
[2020-06-02] MEDS: TiZANidine HCL 4 MG TABLET 6 MG PO (21:57)
[2020-06-02] MEDS: Atorvastatin Calcium 10 MG TABLET PO (21:57)
[2020-06-02 22:25] LABS: OBS Int Ctl Valid YES; OBS1 POS (NEG)
[2020-06-02] MEDS: VerapamiL HCL SR 120 MG TABLET.ER PO (22:31)
[2020-06-03] VITALS (8 sets, daily range): BP systolic 111–159; BP diastolic 59–90; PULSE 62–83; RESP 16–20; TEMP 36.2–37.2; O2SAT 95–98
[2020-06-03] MEDS: 0.9 % Sodium Chloride 1,000 ML 80 ML IVCONT (05:51)
[2020-06-03] MEDS: cefTRIAXone sodium 1 GM in 0.9 % Sodium Chloride 50 ML IV (05:51)
[2020-06-03 06:53] LABS: MANUAL DIFF FLAG NO
[2020-06-03 07:17] LABS: Basophils Percent Auto 0.2 % (0-2); Eosinophils Absolute Auto 0.3 X10*3/uL (0.0-0.4); Eosinophils Percent Auto 2.6 % (0-4); Hematocrit 25.2 % (37-47); Hemoglobin 7.9 g/dl (12.0-16.0); Imm Gran Abs Auto 0.09 X10*3/uL (0.00-0.03); Imm Gran Pct Auto 0.9 % (0.0-0.4); Lymphocytes Absolute Auto 1.5 X10*3/uL (1.2-4.9); Mean Corpuscular HGB Conc 31.3 g/dl (31.0-35.0); Mean Corpuscular Hemoglobin 26.3 pg (27.0-33.0); Mean Platelet Volume 9.5 fL (9.4-12.3); Monocytes Absolute Auto 0.6 X10*3/uL (0.1-1.2); Monocytes Percent Auto 6.5 % (2-11); Neutrophils Absolute Auto 7.4 X10*3/uL (2.0-8.3); Neutrophils Percent Auto 74.8 % (45-73); Platelet Count 356 X10*3/uL (160-400); Red Cell Distribution Width 14.9 % (11.0-16.0); White Blood Count 9.9 X10*3/uL (4.8-10.8)
[2020-06-03] MEDS: Heparin Sodium,Porcine 5,000 UNIT/ML VIAL 5000 UNIT SUBCUT ×3 (08:03→22:34)
[2020-06-03] MEDS: Venlafaxine HCl ER 150 MG CAP.ER.24H PO (08:03)
[2020-06-03] MEDS: Levothyroxine Sodium 150 MCG TABLET PO (08:03)
[2020-06-03 08:13] LABS: Anion Gap 16 (12-20); Blood Urea Nitrogen 31 mg/dL (9-16); Calcium 7.8 mg/dL (8.4-10.2); Carbon Dioxide 19 mmol/L (22-29); Chloride 108 mmol/L (96-108); Creatinine Clr Calc Pharmacy 36.5; Estimated Glomerular Filt Rate 33; Glucose Random 98 mg/dL (60-115); Sodium 139 mmol/L (135-145)
[2020-06-03] MEDS: Fluticasone Propionate Nasal 16 GM SPRAY 1 SPRAY NOSTRIL-B (08:19)
--- NOTE | 2020-06-03 12:02 | P.PNIM_ITS ---
Subjective Subjective Interval History: seen and examined feeling better daily hoping to go home in the next day or two Physical Exam Vital Signs: Vital Signs: Vital Signs Temp Pulse Resp BP Pulse Ox 06/03/20 11:24 98.5 F 62 18 158/90 H 97 06/03/20 07:26 98.9 F 71 18 138/78 98 06/03/20 03:22 98.7 F 68 20 128/64 98 06/02/20 23:37 98.4 F 60 18 142/95 H 99 06/02/20 19:16 97.9 F 72 18 143/103 H 98 06/02/20 15:18 99 F 74 21 H 147/74 H 99 Body Mass Index 32.3 General - no acute distress, appears comfortable Cardiovascular - regular rate and rhythm, S1-S2 Lungs - normal respiratory effort, clear to auscultation bilaterally, no wheezing Abdomen - soft, nontender, no rebound regarding Extremities - no edema bilaterally Neuro - awake and alert, no focal deficits Objective Data Current Medications Generic Name Dose Route Start Last Admin Trade Name Aldoq PRN Reason Stop Dose Admin Acetaminophen 650 mg 06/02/20 09:53 06/02/20 10:10 Acetaminophen 325 Mg Tablet PO 650 mg Q6H PRN Administration Pain and Fever Atorvastatin Calcium 10 mg 06/02/20 21:00 06/02/20 21:57 Atorvastatin Calcium 10 Mg Tablet PO 10 mg BEDTIME KAILA Administration Fluticasone Propionate 1 spray 06/03/20 09:00 06/03/20 08:19 Fluticasone Propionate Nasal 16 Gm [place] NOSTRIL-B 1 spray DAILY KAILA Administration Heparin Sodium (Porcine) 5,000 unit 06/02/20 16:00 06/03/20 08:03 Heparin Sodium,Porcine 5,000 Unit/Ml Vial SUBCUT 5,000 unit Q8H [facility] Administration Ceftriaxone Sodium 1 gm/ 50 mls @ 100 mls/hr 06/02/20 06:00 06/03/20 06:27 Sodium Chloride IV Infused Q24H [facility] Infusion Sodium Chloride 1,000 mls @ 80 mls/hr 06/02/20 12:15 06/03/20 05:51 Ns IVCONT 80 mls/hr .[id number] [facility] Administration Levothyroxine Sodium 150 mcg 06/03/20 09:00 06/03/20 08:03 Levothyroxine Sodium 150 Mcg Tablet PO 150 mcg DAILY [facility] Administration Pharmacy Consult 1 each 06/02/20 08:18 Consult Rx Perform Med Rec MISCELLANE ONCE PRN Consult order Sodium Chloride 3 ml 06/02/20 08:00 06/03/20 08:07 0.9 % Sodium Chloride Flush 3 Ml Syringe IVFLUSH Not Given QSHIFT KAILA Tizanidine HCl 6 mg 06/02/20 21:00 06/02/20 21:57 Tizanidine Hcl 4 Mg Tablet PO 6 mg BEDTIME [facility] Administration Venlafaxine HCl 150 mg 06/03/20 09:00 06/03/20 08:03 Venlafaxine Hcl Er 150 Mg Cap.Er.24h PO 150 mg DAILY [facility]AILA Administration Verapamil HCl 120 mg 06/03/20 21:00 Verapamil Hcl Sr 120 Mg Tablet.Er PO BEDTIME [facility] Labs CBC & Chem 7: 06/03/20 05:54 06/03/20 05:54 Microbiology Microbiology Results: Microbiology 06/02/20 01:17 Blood - Venous Blood Culture - Preliminary No growth after 24 hours. 06/02/20 01:17 Blood - Venous Blood Culture - Preliminary No growth after 24 hours. Assessment and Plan (1) Pyelonephritis: Status: Acute Assessment and Plan: This is a 75 yo F who presented to the hospital with complaints of generalized malaise and weakness over the last 1+ week. She was diagnosed with pyelonephritis, NERY on CKD and admitted for further treatment. 1. Pyelonephritis urine C&s pending blood cx neg at 24 hours continue rocephin 2. NERY on CKD stage 3 improved, early at baseline with ivf 3. HTN bp rebounding now, added verapamil yesterday 4. Anemia ? of chronic disease monitor 5. history of brain aneurysm s/p rupture and repair (about 10 years ago) no new neuro deficits monitor 6. hypothyroidism synthroid Full Code DVT pptx, subcut. heparin
[2020-06-03] MEDS: atenoloL 50 MG TABLET PO (13:33)
--- NOTE | 2020-06-03 14:50 | PM.PNNEP ---
Subjective Subjective Interval history: seen and examined feeling better today hoping to go home Physical Exam Vital Signs: Vital Signs: Vital Signs Temp Pulse Resp BP Pulse Ox 06/03/20 13:40 67 159/88 H 97 06/03/20 13:33 67 159/88 H 06/03/20 11:24 98.5 F 62 18 158/90 H 97 06/03/20 07:26 98.9 F 71 18 138/78 98 06/03/20 03:22 98.7 F 68 20 128/64 98 06/02/20 23:37 98.4 F 60 18 142/95 H 99 06/02/20 19:16 97.9 F 72 18 143/103 H 98 06/02/20 15:18 99 F 74 21 H 147/74 H 99 Body Mass Index 32.3 Const: General: cooperative and comfortable HENMT: Head: Yes normal to inspection Ears: hearing grossly normal bilaterally Mouth: moist mucous membranes Eyes: General: appearance normal, both eyes and all related structures Chest: Chest palpation & inspection: normal inspection of the chest Resp: Effort & Inspection: normal respiratory effort Auscultation: diminished lung sounds Cardio: Jugular venous distension: no JVD Palpation: normal PMI Heart sounds: S1 normal heart sound present and S2 normal heart sound present GI: Inspection: Yes normal to inspection and Yes obesity Auscultation: normal bowel sounds Extrem: General: Yes normal to inspection Right upper extremity: no edema Assessment & Plan Assessment and plan (1) Acute kidney injury superimposed on CKD: Problem details: Creat is 1.5 stable Status: Acute (2) Hypokalemia: Problem details: Resolved Status: Acute (3) Hypertension: Problem details: Continue Valsartan and other BP meds Status: Acute Time Spent With Patient Time: Total time spent is greater than 50% in coordination of care (as documented) at patient's floor/unit and/or counseling patient:
[2020-06-03] MEDS: 0.9 % Sodium Chloride Flush 3 ML SYRINGE IVFLUSH ×2 (16:03→20:19)
[2020-06-03] MEDS: TiZANidine HCL 4 MG TABLET 6 MG PO (20:19)
[2020-06-03] MEDS: Atorvastatin Calcium 10 MG TABLET PO (20:19)
[2020-06-03] MEDS: VerapamiL HCL SR 120 MG TABLET.ER PO (22:33)
[2020-06-04 04:00] VITALS: BP 155/65; PULSE 66; RESP 16; TEMP 36.4; O2SAT 95
[2020-06-04] MEDS: cefTRIAXone sodium 1 GM in 0.9 % Sodium Chloride 50 ML IV (06:13)
[2020-06-04 08:00] VITALS: BP 157/70; PULSE 72; RESP 20; TEMP 37.1; O2SAT 98
[2020-06-04] MEDS: 0.9 % Sodium Chloride Flush 3 ML SYRINGE IVFLUSH (08:57)
[2020-06-04 09:28] VITALS: BP 157/70; PULSE 72
[2020-06-04] MEDS: atenoloL 50 MG TABLET PO (09:28)
[2020-06-04] MEDS: Venlafaxine HCl ER 150 MG CAP.ER.24H PO (09:29)
[2020-06-04] MEDS: Fluticasone Propionate Nasal 16 GM SPRAY 1 SPRAY NOSTRIL-B (09:29)
[2020-06-04] MEDS: Levothyroxine Sodium 150 MCG TABLET PO (09:29)
--- NOTE | 2020-06-04 10:05 | PM.DS ---
DS: Providers Provider Date of admission: 06/02/20 04:05 Primary care physician: Shravan Grant MD Consults: 06/02/20 04:42 Consult to Infectious Diseases Routine Consulting Provider: Infectious Disease Reason for consultation: Sepsis Has provider been notified: No Consult to Physician Routine Consulting Provider: Farhat Deleon Reason for consultation: NERY on CKD Has provider been notified: No DS: Diagnosis Discharge Diagnosis (1) Acute kidney injury superimposed on CKD: Status: Acute DS: Summary Hospital Course Hospital Course: HPI from the admission H&P: 75 y/o female with PMHX of HTN, CKD, Hypothyroidism, Migraines, 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 Patient reports that for the past 2 days has been feeling malaise with associated fever, chills and nausea. Patient reports intermitted abdominal pain, diffuse with associated left sided back pain at times. Had difficulty urinating at some point which resolved later on. Patient denies any chest pain, SOB, vomiting, diarrhea, constipation, sick contacts or any recent travel. On presentation patient is noted to be hypotensive which was corrected after aggressive IV hydration. Labs showing WBC Of 17.2, Hgb oi 8 (baseline of 12), K of 3.2, Cr of 3.05 (baseline of 1.7), Ca of 7.7 and elevated LFT's./Alk phosp. CT abdomen concerning for left sided pyelonephritis. UA pending. Decision for admissino given. Patient seen and examined face to face, laying down in bed in mild discomfort. ROS as above otherwise negative. Physical exam unremarkable, no evidence of left CV tenderness. Hospital Course - patient was started on IV ceftriaxone for her pyelonephritis and was started on intravenous fluids for acute on chronic kidney disease. Her valsartan was held. Over the course of 3 days in the hospital, patient has renal function improved towards baseline. Her urine cultures resulted positive for E coli which was sensitive to ceftriaxone and blood cultures are negative at 48 hours. She will be discharged home with p.o. cefuroxime for 11 more days, to complete a course of antibiotics for total of 14 days. In regards to her acute kidney injury and valsartan, nephrology was consulted to help guide management. At the time of discharge, her valsartan will be decreased from 80 mg to 40 mg. she will have repeat blood work completed in 4-5 days from discharge. Of note, patient was noted to be significantly anemic. There was no evidence of acute blood loss. this may be related to her chronic kidney disease, alternatively she should also be referred to GI if she has not had a screening colonoscopy. Additionally her imaging studies upon admission showed small right lower lobe lung nodules. Radiology recommendation was for: According to the UPDATED 2017 Fleischner Society recommendations, the advised follow-up imaging for solid nodules < 6 mm is: LOW RISK PATIENT: No routine follow-up. HIGH RISK PATIENT: Optional CT at 12 months. Time Spent with Patient Time attestation: Total time spent providing and/or coordinating discharge services: Physical Exam Vital Signs: Vital Signs: Vital Signs Temp Pulse Resp BP Pulse Ox 06/04/20 09:28 72 157/70 H 06/04/20 08:00 98.8 F 72 20 157/70 H 98 06/04/20 04:00 97.6 F 66 16 155/65 H 95 06/03/20 23:49 98.4 F 64 16 111/59 L 97 06/03/20 20:00 97.2 F 83 16 128/85 97 06/03/20 16:00 98.2 F 71 18 150/60 H 95 06/03/20 13:40 67 159/88 H 97 06/03/20 13:33 67 159/88 H 06/03/20 11:24 98.5 F 62 18 158/90 H 97 Body Mass Index 32.3 General - no acute distress, appears comfortable Cardiovascular - regular rate and rhythm, S1-S2 Lungs - normal respiratory effort, clear to auscultation bilaterally, no wheezing Abdomen - soft, nontender, no rebound regarding; no cva tenderness Extremities - no edema bilaterally Neuro - AAOx3 DS: Data Data Completed and Pending Labs on day of discharge: Preliminary micro results at discharge 06/02/20 01:17 Blood Culture - Preliminary Blood - Venous No growth after 48 hours. 06/02/20 01:17 Blood Culture - Preliminary Blood - Venous No growth after 48 hours. Sodium 139 Potassium 4.2 Chloride 1 weight Bicarb 19 BUN [address] scan - abdomen: Radiologist's impression: 1. Asymmetric left-sided perinephric stranding, of uncertain etiology. Correlation with urinalysis is recommended, as pyelonephritis is a possibility with this appearance. No hydronephrosis. 2. Nonobstructing 3 mm right renal calculus. 3. Tiny right lower lobe lung nodules, nonspecific. According to the UPDATED 2017 Fleischner Society recommendations, the advised follow-up imaging for solid nodules < 6 mm is: LOW RISK PATIENT: No routine follow-up. HIGH RISK PATIENT: Optional CT at 12 months. Discharge Plan Discharge Patient Disposition: Home, Self-Care Referrals: Shravan Grant MD [Primary Care Provider] - Discharge Medications: New cefuroxime axetil 500 mg tablet 500 mg PO Q12H Qty: 22 RF: 0 valsartan 40 mg tablet 40 mg PO DAILY Qty: 30 RF: 0 Continued verapamil 120 mg Tablet Extended Release 120 mg PO BEDTIME RF: 0 albuterol sulfate 2.5 mg /3 mL (0.083 %) Solution For Nebulization 2.5 mg INHALATION Q8H PRN (Reason: Shortness Of Breath Or Wheezing) RF: 0 atenolol-chlorthalidone 50-25 mg Tablet 1 tab PO DAILY RF: 0 venlafaxine 150 mg Capsule,Extended Release 24hr 150 mg PO DAILY RF: 0 clonidine HCl 0.2 mg Tablet 0.2 mg PO DAILY RF: 0 simvastatin 20 mg Tablet 20 mg PO BEDTIME RF: 0 levothyroxine 150 mcg Tablet 150 mcg PO DAILY RF: 0 fluticasone propionate 50 mcg/actuation [place],Suspension 1 spray INTRANASAL DAILY RF: 0 tizanidine 6 mg Capsule 6 mg PO BEDTIME RF: 0 Discontinued valsartan 80 mg Tablet 80 mg PO BEDTIME RF: 0 Discharge Orders: Discharge Order (Routine); Ordered 06/04/20 Ordered By: Bird Kuhn Diet: advance to your usual diet Activity on Discharge: As tolerated Other Ambulatory Orders: Basic Metabolic Panel (Routine) Timeframe: [id number] Facility: [facility] - Location: Laboratory Ordered By: Bird Kuhn Visit Report Forms: Patient Portal Discharge page Care Plan Goals: To have my kidney infection clear up. To follow up with my primary care doctor for anemia work up To follow up with my kidney doctor for my kidneys Health Concerns: Kidney Infection Anemia Kidney Disease Plan of Treatment: For your kidney infection -- complete 11 more days of antibiotics For your anemia -- follow up with your primary care doctor. You may need to have a colonoscopy if you have not recently For your Kidney disease -- follow up with your kidney doctor. Take Valsartan 40mg (stop taking Valsartan 80mg)
--- NOTE | 2020-06-04 10:53 | MHC.CM.PN ---
Addendum entered by Mirta Flores 06/04/20 11:00: AFSANEH spoke to . Pt has had her antibiotics for today and Valsartan should be started in three days. Pt informed Original Note: CM met with pt to discuss DC plan. Pt is aware of recommendations made by PT however she is not interested in any type of rehab including home PT. Pt reports her daughter will be staying with her and will assist her as needed. Pt does not have transportation home. Chair van was offered due to stability concerns however pt declines. Pt reports she would prefer a taxi and her daughter will come down to assist her out of the vehicle and into the building. Pt reports she uses [facility] because they deliver however they are not open on the weekends. MD informed Pt will discharge home today with no services taxi will be provided
[2020-06-04 12:00] VITALS: BP 176/88; PULSE 68; RESP 18; TEMP 37.2; O2SAT 97
[2020-06-05 08:32] LABS: HBsAGNum1 0.17 S/CO (0.00-0.99); Hepatitis B Surface Antigen Negative (Negative)
[2020-06-05 08:52] LABS: HBS Num1 0.31 mIU/mL (0-7.99); HBc Num1 0.08 S/CO (0.00-0.79); Hepatitis B Core Antibody Nonreactive (Nonreactive); ~Hepatitis B Surface Antibody NONREACTIVE (Nonreactive)
--- NOTE | 2020-06-05 09:09 | MHC.CM.PN ---
CM called [facility] ([phone]) and confirmed they received pts prescriptions that were sent yesterday and that they would be able to deliver them today. [facility] billing adjudicatorOlya, indicated they did have enough of the meds in stock to ensure the pt would receive them today. Pt was discharged home yesterday and refused any referrals. Pt also refused an ambulance ride home. Taxi was provided
== END 2020-06-04 14:08 | disposition home or self-care (01) | DRG 690 ==
LOC: HO.ED 06-02 03:01 → HO.IMC 06-02 04:18
PROVIDERS: Internal Medicine Nephrology; Nurse Practitioner Family; Student in an Organized Health Care Education/Training Program; Admitting Provider Internal Medicine; Emergency Provider Emergency Medicine; PCP Internal Medicine; Visit Provider Family Medicine
DX: N12 Tubulo-interstitial nephritis, not specified as acute or chronic (principal); I69.954 Hemiplegia and hemiparesis following unspecified cerebrovascular disease affecting left non-dominant side; I12.9 Hypertensive chronic kidney disease with stage 1 through stage 4 chronic kidney disease, or unspecified chronic kidney disease; N17.9 Acute kidney failure, unspecified; E03.9 Hypothyroidism, unspecified; E87.6 Hypokalemia; D63.1 Anemia in chronic kidney disease; Z20.828 Contact with and (suspected) exposure to other viral communicable diseases; N18.30 Chronic kidney disease, stage 3 unspecified; B96.20 Unspecified Escherichia coli [E. coli] as the cause of diseases classified elsewhere; E86.0 Dehydration; Z23 Encounter for immunization; Z87.891 Personal history of nicotine dependence; Z88.0 Allergy status to penicillin; Z88.5 Allergy status to narcotic agent; Z79.51 Long term (current) use of inhaled steroids; Z79.890 Hormone replacement therapy; Z79.899 Other long term (current) drug therapy
CPT/HCPCS: 36415; 71250; 74176; 80048; 80076; 81001; 82272; 82728; 83540; 83605; 83690; 83880; 84300; 84484; 85025; 85045; 85610; 85730; 86704; 86706; 87040; 87086; 87088; 87186; 87340; 87635; 90686; 93005; 96361; 96365; 97162; 99232; 99285; 99291; C1758

== ENCOUNTER 2020-10-16 12:06 | Outpatient (REF) | payer OTHER, SELFPAY ==
[2020-10-16 14:10] LABS: MANUAL DIFF FLAG NO
[2020-10-16 14:18] LABS: Basophils Absolute Auto 0.1 X10*3/uL (0.0-0.2); Basophils Percent Auto 0.4 % (0-2); Eosinophils Absolute Auto 0.3 X10*3/uL (0.0-0.4); Eosinophils Percent Auto 2.5 % (0-4); Hematocrit 32.7 % (37-47); Hemoglobin 10.2 g/dl (12.0-16.0); Imm Gran Abs Auto 0.08 X10*3/uL (0.00-0.03); Imm Gran Pct Auto 0.6 % (0.0-0.4); Lymphocytes Absolute Auto 1.7 X10*3/uL (1.2-4.9); Lymphocytes Percent Auto 13.6 % (20-40); Mean Corpuscular HGB Conc 31.2 g/dl (31.0-35.0); Mean Corpuscular Hemoglobin 26.5 pg (27.0-33.0); Mean Corpuscular Volume 84.9 fL (80-98); Mean Platelet Volume 9.8 fL (9.4-12.3); Monocytes Absolute Auto 0.7 X10*3/uL (0.1-1.2); Monocytes Percent Auto 5.5 % (2-11); Neutrophils Absolute Auto 9.6 X10*3/uL (2.0-8.3); Neutrophils Percent Auto 77.4 % (45-73); Platelet Count 366 X10*3/uL (160-400); Red Blood Count 3.85 X10*6/uL (4.20-5.50); White Blood Count 12.4 X10*3/uL (4.8-10.8)
[2020-10-16 14:34] LABS: Alanine Aminotransferase 12 U/L (0-31); Albumin Level 4.5 g/dL (3.5-5.0); Alkaline Phosphatase 114 U/L (39-117); Anion Gap 17 (12-20); Aspartate Amino Transferase 10 U/L (5-31); Bilirubin Direct < 0.2 mg/dL (0.0-0.5); Bilirubin Total 0.2 mg/dL (0.0-1.0); Blood Urea Nitrogen 68 mg/dL (9-16); Calcium 9.3 mg/dL (8.4-10.2); Carbon Dioxide 18 mmol/L (22-29); Chloride 109 mmol/L (96-108); Cholesterol 172 mg/dL; Estimated Glomerular Filt Rate 15; Glucose Fasting 100 mg/dL (60-99); HDL Cholesterol 39 mg/dL; LDL Cholesterol Calculated 94 mg/dl; Potassium 4.2 mmol/L (3.3-5.1); Sodium 140 mmol/L (135-145); Total Protein 7.1 g/dL (6.5-8.0); Triglycerides 197 mg/dL
[2020-10-16 14:57] LABS: TSH reflex Free T4 0.37 uIU/mL (0.32-4.0)
== END 2020-10-16 12:07 | disposition home or self-care (01) ==
LOC: HO.HMGCLDS 12:06
PROVIDERS: PCP Internal Medicine; Visit Provider Internal Medicine
DX: I12.9 Hypertensive chronic kidney disease with stage 1 through stage 4 chronic kidney disease, or unspecified chronic kidney disease (principal); N18.9 Chronic kidney disease, unspecified; F41.9 Anxiety disorder, unspecified; F32.9 Major depressive disorder, single episode, unspecified; E78.9 Disorder of lipoprotein metabolism, unspecified; E03.8 Other specified hypothyroidism; D64.9 Anemia, unspecified
CPT/HCPCS: 36415; 80048; 80061; 80076; 84443; 85025

== ENCOUNTER 2021-12-06 23:05 | Emergency (ER) | payer OTHER, SELFPAY ==
--- NOTE | ~2021-12-06 | XR_ITS ---
EXAMINATION: XR CHEST CLINICAL INFORMATION: Hypotension. COMPARISON: CT chest 06/02/2020. TECHNIQUE: Frontal view of the chest was obtained. FINDINGS: Normal appearance of the cardiomediastinal structures. Moderate aortic calcific atherosclerosis. No effusions or pneumothoraces. Normal pattern of pulmonary vasculature. No focal pulmonary consolidation. XR/XR chest 1V IMPRESSION: *No acute cardiopulmonary abnormalities. Lungs clear. *Moderate aortic calcific atherosclerosis.
[2021-12-06 23:32] VITALS: BP 104/62; BP 71/36; PULSE 63; PULSE 66; RESP 14; TEMP 36.6; O2SAT 98; O2SAT 99; BMI 27.4
--- NOTE | 2021-12-06 23:49 | ECG_ITS ---
Test Reason : CHEST PAIN Blood Pressure : / mmHG Vent. Rate : 061 BPM Atrial Rate : 000 BPM P-R Int : 000 ms QRS Dur : 086 ms QT Int : 420 ms P-R-T Axes : 000 -20 150 degrees QTc Int : 422 ms Artifact in tracing Atrial fibrillation Low voltage QRS Inferior infarct , age undetermined Abnormal ECG When compared with ECG of 02-JUN-2020 02:32, Atrial fibrillation has replaced Sinus rhythm QT has shortened Referred By: Daniela Perla Electronically Signed By:CAROLEE SANTOS
--- NOTE | 2021-12-06 23:53 | ED.GENADULT ---
HPI - General Adult General Chief complaint: General Medical Stated complaint: WEAKNESS Time Seen by Provider: 12/06/21 23:40 Source: patient and EMS Mode of arrival: EMS Limitations: no limitations History of Present Illness HPI narrative: Patient comes to the emergency room complaining of not feeling well. [facility] living. Patient states that for last 3 months since she started on some ?medication? every night patient feels weak. Today, patient had trouble getting out of the bathroom. Patient pulled the Life Alert of the bathroom, [facility] helped her up and brought her to the emergency room. Patient's initial blood pressure in the low 70s. Patient denies fever chills, no vomiting or diarrhea, no headache, no chest pain or shortness of breath, no abdominal pain or UTI symptoms. Also, patient states that for years she has been complaining of intermittent and neck locking episodes. Patient says that sometimes her neck ?locks? and then into releases. Patient states sometimes she has trouble holding her head. Patient states this is chronic, has been ongoing for years. Related Data Home Medications Medication Instructions Recorded Confirmed tizanidine 6 mg capsule 6 mg PO BEDTIME 06/02/20 08/29/21 venlafaxine 150 mg 150 mg PO DAILY 06/02/20 08/29/21 capsule,extended release 24 hr amlodipine 5 mg tablet 5 mg PO DAILY 08/29/21 08/29/21 ergocalciferol (vitamin D2) 1,250 1,250 mcg PO QWEEK 08/29/21 08/29/21 mcg (50,000 unit) capsule metoprolol succinate 25 mg 25 mg PO DAILY 08/29/21 08/29/21 tablet,extended release 24 hr topiramate 25 mg tablet 25 mg PO DAILY 08/29/21 08/29/21 Previous Rx's Medication Instructions Recorded valsartan 40 mg tablet 40 mg PO DAILY #28 tab 04/04/21 Updraft machine #1 ea 04/13/21 fluticasone furoate 200 1 inh INHALATION DAILY 30 Days #28 04/30/21 mcg-vilanterol 25 mcg/dose ea inhalation powder (Breo Ellipta) fluticasone propionate 50 1 spray INTRANASAL DAILY #16 g 10/19/21 mcg/actuation nasal spray,suspension simvastatin 20 mg tablet 20 mg PO BEDTIME 90 Days #90 tab 10/19/21 levothyroxine 150 mcg tablet 150 mcg PO DAILY 30 Days #90 tab 11/09/21 Allergies Allergy/AdvReac Type Severity Reaction Status Date / Time latex [Latex] Allergy Mild UNKNOWN Verified 08/29/21 15:33 morphine [Morphine] Allergy Mild VOMITING Verified 08/29/21 15:33 penicillin G Allergy Unknown Rash Verified 08/29/21 15:33 codeine [Codeine] AdvReac Mild VOMITING Verified 08/29/21 15:33 procaine [From Novocain] AdvReac Mild VOMITING Verified 08/29/21 15:33 Review of Systems Review of Systems: Constitutional : No Weight loss, No Fever, No Chills, No Night Sweats, complaining weakness every night after taking her night medication ENT/Mouth : No Hearing loss, No Ear Pain, No Nasal Congestion, No Sinus Pain, No Hoarseness, No sore throat, No Rhinorrhea, No Swallowing Difficulty Eyes: No Eye Pain, No Swelling, No Redness, No Foreign Body, No Discharge, No Vision Changes Cardiovascular : No Chest Pain, No SOB, No Dyspnea on Exertion, No Orthopnea, No Edema, No Palpitations Respiratory : No Cough, No Sputum, No Wheezing, No Smoke Exposure, No Dyspnea Gastrointestinal : No Nausea, No Vomiting, No Diarrhea, No Constipation, No abdominal Pain, No Hematochezia, No Melena Genitourinary : no irregular bleeding, No Dysuria, No Urinary Frequency, No Hematuria, No Urinary Incontinence, No Urgency, No Flank Pain, No Urinary Flow Changes, No Hesitancy Musculoskeletal : No joint pain, No Myalgias, No Joint Swelling Skin : No Skin Lesions, No rash Neuro : No Weakness, No Numbness, No Paresthesias, No Loss of Consciousness, No Dizziness, No Headache Psych : No Anxiety/Panic, No Depression, No SI/HI/AH/VH, No Social Issues, Heme/Lymph: No Bruising, No Bleeding,No Lymphadenopathy Endocrine : No Polyuria, No Polydipsia, No Temperature Intolerance [facility] Past Medical History Medical History Hypertension Stroke Surgical History History of knee surgery Family History Family History Father Tuberculosis Mother No problems noted. Other Substance use disorder Social History Social History Household Members: None Housing: Apartment Do you presently have visiting nurse or other home services: Yes ([employer]) Patient Tobacco Use Status: Former Tobacco user (50 years ago ) Tobacco use type: Cigarette Years Smoked: 10 years Advance Directives: No service: No Current occupational status: retired Physical Exam ED Vital Signs: Vital Signs - 24 hr 12/06/21 23:32 12/07/21 00:30 12/07/21 00:45 Temperature 97.9 F Pulse Rate 63 58 66 Respiratory Rate 14 14 15 Blood Pressure 71/36 L 70/36 L 93/46 L Pulse Oximetry 99 98 99 12/07/21 00:47 12/07/21 02:11 12/07/21 02:20 Temperature Pulse Rate 60 65 69 Respiratory Rate 14 14 Blood Pressure 93/54 L 92/59 L 111/57 L Pulse Oximetry 100 98 12/07/21 02:23 12/07/21 02:28 12/07/21 02:43 Temperature Pulse Rate 76 81 65 Respiratory Rate 14 Blood Pressure 114/64 122/51 L 114/55 L Pulse Oximetry 98 BMI result Body Mass Index 27.4 Const Other: Appearance: Alert. Oriented X3. No acute distress. Eyes: Pupils equal, round and reactive to light. ENT: Pharynx normal. Neck: Normal inspection. Neck supple. No lymph nodes noted. No crepitus CVS: Normal heart rate and rhythm. Pulses normal. Normal S1 and S2 Respiratory: No respiratory distress. Breath sounds normal. No Wheezing. No rales Abdomen: Soft and nontender. No rigidity. No distention. Skin: Skin warm and dry. Pale Extremities: No lower extremity edema. No Lacerations. No Rash Neuro: Oriented X 3. No motor deficit. No sensory deficit. Moving all extremities. No slurred speech. CN 2 through 12 grossly intact Psych: calm, cooperative, normal affect Course Course Course Narrative: Given the patient's history, it is likely that her hypotension is likely secondary to hypertensive medication. At this time, patient states that she has no idea what the name of the new medication is that is making her feel the same way every night since she started taking the medication. Patient is receiving IV fluids, labs pending. With fluids, patient's blood pressure improved to 122/51, heart rate 81. I discussed with the patient to stop taking metoprolol. Only take amlodipine 5 mg. Patient is close follow-up for blood pressure checks with her primary care physician. Regarding her neck, the spasm/locking episodes have been ongoing for several years. Patient will follow-up with her primary care physician, she will likely need an MRI. Patient's urine has +2 leukocyte esterase. However, patient has numerous epithelial cells and white blood cells. No UTI symptoms. At this time, antibiotic/treatment not recommended. Medical Decision Making Lab Data Result diagrams: 12/07/21 00:06 12/07/21 00:06 Labs: Lab Results 12/07/21 12/07/21 12/07/21 Range/Units 00:06 00:06 00:06 WBC 13.0 H (4.8-10.8) X10*3/uL RBC 3.84 L (4.20-5.50) X10*6/uL Hgb 9.8 L (12.0-16.0) g/dl Hct 31.6 L (37.0-47.0) % MCV 82.3 (80.0-98.0) fL MCH 25.5 L (27.0-33.0) pg MCHC 31.0 (31.0-35.0) g/dl RDW 15.7 (11.0-16.0) % Plt Count 446 H (160-400) X10*3/uL MPV 9.0 L (9.4-12.3) fL Immature Gran % (Auto) 0.8 H (0.0-0.4) % Neut % (Auto) 79.8 H (45-73) % Lymph % (Auto) 12.9 L (20-40) % [place] % (Auto) 5.5 (2-11) % Eos % (Auto) 0.8 (0-4) % Baso % (Auto) 0.2 (0-2) % Lymph # (Auto) 1.7 (1.2-4.9) X10*3/uL [place] # (Auto) 0.7 (0.1-1.2) X10*3/uL Eos # (Auto) 0.1 (0.0-0.4) X10*3/uL Baso # (Auto) 0.0 (0.0-0.2) X10*3/uL Abs Immat Gran (auto) 0.11 H (0.00-0.03) X10*3/uL Absolute Neuts (auto) 10.3 H (2.0-8.3) x10*3/uL Absolute Nucleated RBC 0.000 (0.0-0.012) X10*3/uL Nucleated RBC % (auto) 0.0 (0.0-0.2) /100WBC PT 13.1 H (9.9-13.0) SEC INR 1.2 H (0.9-1.1) Sodium 138 (135-145) mmol/L Potassium 4.0 (3.3-5.1) mmol/L Chloride 111 H (96-108) mmol/L Carbon Dioxide 18 L (22-29) mmol/L Anion Gap 13 (12-20) BUN 31 H (9-16) mg/dL Creatinine 1.79 H (0.5-1.4) mg/dL Estim Creat Clear Calc 28.9 Estimated GFR 28 Random Glucose 180 H (60-115) mg/dL Lactic Acid (0.5-2.0) mmol/L Lactic Acid F/U @ 2Hr (0.5-2.0) mmol/L Calcium 9.3 (8.4-10.2) mg/dL Magnesium 2.0 (1.6-2.6) mg/dL Total Bilirubin 0.2 (0.0-1.0) mg/dL Direct Bilirubin < 0.2 (0.0-0.5) mg/dL AST 13 (5-31) U/L ALT 16 (0-31) U/L Alkaline Phosphatase 116 (39-117) U/L Troponin I High Sens (<3.5-17.0) ng/L B-Natriuretic Peptide (<100) pg/mL Total Protein 6.1 L (6.5-8.0) g/dL Albumin 3.7 (3.5-5.0) g/dL TSH (0.32-4.0) uIU/mL Free T4 (0.71-1.85) ng/dL Urine Color Urine Appearance Urine pH (5.0-8.0) Ur Specific [place] (1.005-1.025) Urine Protein (NEG-TRACE) MG/DL Urine Glucose (UA) (NEG) MG/DL Urine Ketones (NEG) MG/DL Urine Blood (NEG) Urine Nitrite (NEG) Ur Leukocyte Esterase (NEG) Urine RBC (0) /HPF Urine WBC (0-4) /HPF Ur Squamous Epith Cells /LPF Urine Bacteria /LPF Urine Mucus /LPF Urine Opiates Screen (Not Detect) Urine Fentanyl Screen (Not Detect) Ur Barbiturates Screen (Not Detect) Ur Phencyclidine Scrn (Not Detect) Ur Amphetamines Screen (Not Detect) U Benzodiazepines Scrn (Not Detect) Urine Cocaine Screen (Not Detect) U Marijuana (THC) Screen (Not Detect) Ethyl Alcohol mg/dL COVID-19 (CRAIG) (Negative) COVID-19 Clin Com 12/07/21 12/07/21 12/07/21 Range/Units 00:06 00:06 00:06 WBC (4.8-10.8) X10*3/uL RBC (4.20-5.50) X10*6/uL Hgb (12.0-16.0) g/dl Hct (37.0-47.0) % MCV (80.0-98.0) fL MCH (27.0-33.0) pg MCHC (31.0-35.0) g/dl RDW (11.0-16.0) % Plt Count (160-400) X10*3/uL MPV (9.4-12.3) fL Immature Gran % (Auto) (0.0-0.4) % Neut % (Auto) (45-73) % Lymph % (Auto) (20-40) % [place] % (Auto) (2-11) % Eos % (Auto) (0-4) % Baso % (Auto) (0-2) % Lymph # (Auto) (1.2-4.9) X10*3/uL [place] # (Auto) (0.1-1.2) X10*3/uL Eos # (Auto) (0.0-0.4) X10*3/uL Baso # (Auto) (0.0-0.2) X10*3/uL Abs Immat Gran (auto) (0.00-0.03) X10*3/uL Absolute Neuts (auto) (2.0-8.3) x10*3/uL Absolute Nucleated RBC (0.0-0.012) X10*3/uL Nucleated RBC % (auto) (0.0-0.2) /100WBC PT (9.9-13.0) SEC INR (0.9-1.1) Sodium (135-145) mmol/L Potassium (3.3-5.1) mmol/L Chloride (96-108) mmol/L Carbon Dioxide (22-29) mmol/L Anion Gap (12-20) BUN (9-16) mg/dL Creatinine (0.5-1.4) mg/dL Estim Creat Clear Calc Estimated GFR Random Glucose (60-115) mg/dL Lactic Acid 2.3 H* (0.5-2.0) mmol/L Lactic Acid F/U @ 2Hr (0.5-2.0) mmol/L Calcium (8.4-10.2) mg/dL Magnesium (1.6-2.6) mg/dL Total Bilirubin (0.0-1.0) mg/dL Direct Bilirubin (0.0-0.5) mg/dL AST (5-31) U/L ALT (0-31) U/L Alkaline Phosphatase (39-117) U/L Troponin I High Sens 9.9 (<3.5-17.0) ng/L B-Natriuretic Peptide 441 H (<100) pg/mL Total Protein (6.5-8.0) g/dL Albumin (3.5-5.0) g/dL TSH 0.04 L (0.32-4.0) uIU/mL Free T4 1.20 (0.71-1.85) ng/dL Urine Color Urine Appearance Urine pH (5.0-8.0) Ur Specific [place] (1.005-1.025) Urine Protein (NEG-TRACE) MG/DL Urine Glucose (UA) (NEG) MG/DL Urine Ketones (NEG) MG/DL Urine Blood (NEG) Urine Nitrite (NEG) Ur Leukocyte Esterase (NEG) Urine RBC (0) /HPF Urine WBC (0-4) /HPF Ur Squamous Epith Cells /LPF Urine Bacteria /LPF Urine Mucus /LPF Urine Opiates Screen (Not Detect) Urine Fentanyl Screen (Not Detect) Ur Barbiturates Screen (Not Detect) Ur Phencyclidine Scrn (Not Detect) Ur Amphetamines Screen (Not Detect) U Benzodiazepines Scrn (Not Detect) Urine Cocaine Screen (Not Detect) U Marijuana (THC) Screen (Not Detect) Ethyl Alcohol mg/dL COVID-19 (CRAIG) (Negative) COVID-19 Clin Com 12/07/21 12/07/21 12/07/21 Range/Units 00:06 00:06 02:45 WBC (4.8-10.8) X10*3/uL RBC (4.20-5.50) X10*6/uL Hgb (12.0-16.0) g/dl Hct (37.0-47.0) % MCV (80.0-98.0) fL MCH (27.0-33.0) pg MCHC (31.0-35.0) g/dl RDW (11.0-16.0) % Plt Count (160-400) X10*3/uL MPV (9.4-12.3) fL Immature Gran % (Auto) (0.0-0.4) % Neut % (Auto) (45-73) % Lymph % (Auto) (20-40) % [place] % (Auto) (2-11) % Eos % (Auto) (0-4) % Baso % (Auto) (0-2) % Lymph # (Auto) (1.2-4.9) X10*3/uL [place] # (Auto) (0.1-1.2) X10*3/uL Eos # (Auto) (0.0-0.4) X10*3/uL Baso # (Auto) (0.0-0.2) X10*3/uL Abs Immat Gran (auto) (0.00-0.03) X10*3/uL Absolute Neuts (auto) (2.0-8.3) x10*3/uL Absolute Nucleated RBC (0.0-0.012) X10*3/uL Nucleated RBC % (auto) (0.0-0.2) /100WBC PT (9.9-13.0) SEC INR (0.9-1.1) Sodium (135-145) mmol/L Potassium (3.3-5.1) mmol/L Chloride (96-108) mmol/L Carbon Dioxide (22-29) mmol/L Anion Gap (12-20) BUN (9-16) mg/dL Creatinine (0.5-1.4) mg/dL Estim Creat Clear Calc Estimated GFR Random Glucose (60-115) mg/dL Lactic Acid (0.5-2.0) mmol/L Lactic Acid F/U @ 2Hr 1.9 (0.5-2.0) mmol/L Calcium (8.4-10.2) mg/dL Magnesium (1.6-2.6) mg/dL Total Bilirubin (0.0-1.0) mg/dL Direct Bilirubin (0.0-0.5) mg/dL AST (5-31) U/L ALT (0-31) U/L Alkaline Phosphatase (39-117) U/L Troponin I High Sens (<3.5-17.0) ng/L B-Natriuretic Peptide (<100) pg/mL Total Protein (6.5-8.0) g/dL Albumin (3.5-5.0) g/dL TSH (0.32-4.0) uIU/mL Free T4 (0.71-1.85) ng/dL Urine Color Urine Appearance Urine pH (5.0-8.0) Ur Specific [place] (1.005-1.025) Urine Protein (NEG-TRACE) MG/DL Urine Glucose (UA) (NEG) MG/DL Urine Ketones (NEG) MG/DL Urine Blood (NEG) Urine Nitrite (NEG) Ur Leukocyte Esterase (NEG) Urine RBC (0) /HPF Urine WBC (0-4) /HPF Ur Squamous Epith Cells /LPF Urine Bacteria /LPF Urine Mucus /LPF Urine Opiates Screen (Not Detect) Urine Fentanyl Screen (Not Detect) Ur Barbiturates Screen (Not Detect) Ur Phencyclidine Scrn (Not Detect) Ur Amphetamines Screen (Not Detect) U Benzodiazepines Scrn (Not Detect) Urine Cocaine Screen (Not Detect) U Marijuana (THC) Screen (Not Detect) Ethyl Alcohol < 10 mg/dL COVID-19 (CRAIG) Negative (Negative) COVID-19 Clin Com See Note 12/07/21 12/07/21 Range/Units Unknown Unknown WBC (4.8-10.8) X10*3/uL RBC (4.20-5.50) X10*6/uL Hgb (12.0-16.0) g/dl Hct (37.0-47.0) % MCV (80.0-98.0) fL MCH (27.0-33.0) pg MCHC (31.0-35.0) g/dl RDW (11.0-16.0) % Plt Count (160-400) X10*3/uL MPV (9.4-12.3) fL Immature Gran % (Auto) (0.0-0.4) % Neut % (Auto) (45-73) % Lymph % (Auto) (20-40) % [place] % (Auto) (2-11) % Eos % (Auto) (0-4) % Baso % (Auto) (0-2) % Lymph # (Auto) (1.2-4.9) X10*3/uL [place] # (Auto) (0.1-1.2) X10*3/uL Eos # (Auto) (0.0-0.4) X10*3/uL Baso # (Auto) (0.0-0.2) X10*3/uL Abs Immat Gran (auto) (0.00-0.03) X10*3/uL Absolute Neuts (auto) (2.0-8.3) x10*3/uL Absolute Nucleated RBC (0.0-0.012) X10*3/uL Nucleated RBC % (auto) (0.0-0.2) /100WBC PT (9.9-13.0) SEC INR (0.9-1.1) Sodium (135-145) mmol/L Potassium (3.3-5.1) mmol/L Chloride (96-108) mmol/L Carbon Dioxide (22-29) mmol/L Anion Gap (12-20) BUN (9-16) mg/dL Creatinine (0.5-1.4) mg/dL Estim Creat Clear Calc Estimated GFR Random Glucose (60-115) mg/dL Lactic Acid (0.5-2.0) mmol/L Lactic Acid F/U @ 2Hr (0.5-2.0) mmol/L Calcium (8.4-10.2) mg/dL Magnesium (1.6-2.6) mg/dL Total Bilirubin (0.0-1.0) mg/dL Direct Bilirubin (0.0-0.5) mg/dL AST (5-31) U/L ALT (0-31) U/L Alkaline Phosphatase (39-117) U/L Troponin I High Sens (<3.5-17.0) ng/L B-Natriuretic Peptide (<100) pg/mL Total Protein (6.5-8.0) g/dL Albumin (3.5-5.0) g/dL TSH (0.32-4.0) uIU/mL Free T4 (0.71-1.85) ng/dL Urine Color YELLOW Urine Appearance HAZY Urine pH 5.5 (5.0-8.0) Ur Specific [place] >= 1.030 H (1.005-1.025) Urine Protein TRACE (NEG-TRACE) MG/DL Urine Glucose (UA) NEG (NEG) MG/DL Urine Ketones 5 (NEG) MG/DL Urine Blood TRACE (NEG) Urine Nitrite NEG (NEG) Ur Leukocyte Esterase 2+ H (NEG) Urine RBC 0-2 (0) /HPF Urine WBC 10-14 H (0-4) /HPF Ur Squamous Epith Cells 3+ /LPF Urine Bacteria 1+ /LPF Urine Mucus 3+ /LPF Urine Opiates Screen Not Detected (Not Detect) Urine Fentanyl Screen Not Detected (Not Detect) Ur Barbiturates Screen Not Detected (Not Detect) Ur Phencyclidine Scrn Not Detected (Not Detect) Ur Amphetamines Screen Not Detected (Not Detect) U Benzodiazepines Scrn Not Detected (Not Detect) Urine Cocaine Screen Not Detected (Not Detect) U Marijuana (THC) Screen Not Detected (Not Detect) Ethyl Alcohol mg/dL COVID-19 (CRAIG) (Negative) COVID-19 Clin Com Discharge Plan Discharge Clinical Impression: Orthostatic hypotension Patient Disposition: Home, Self-Care Instructions: Hypotension (ED) Additional Instructions: Please discontinue taking metoprolol. Only take amlodipine 5 mg. Please follow-up with your primary care physician tomorrow. If you have any worsening or new symptoms, please return to the emergency room or call 911 Prescriptions: No Action valsartan 40 mg tablet 40 mg PO DAILY Qty: 28 0RF (DME) Updraft machine See Rx Instructions .Route .MEDSUPPLY Qty: 1 0RF Rx Instructions: As directed Breo Ellipta 200-25 mcg/dose blister with device 1 inh inhalation DAILY 30 Days Qty: 28 2RF fluticasone propionate 50 mcg/actuation spray,suspension 1 spray intranasal DAILY Qty: 16 5RF simvastatin 20 mg tablet 20 mg PO BEDTIME 90 Days Qty: 90 0RF levothyroxine 150 mcg tablet 150 mcg PO DAILY 30 Days Qty: 90 0RF venlafaxine 150 mg Capsule,Extended Release 24hr 150 mg PO DAILY 0RF tizanidine 6 mg Capsule 6 mg PO BEDTIME 0RF topiramate 25 mg tablet 25 mg PO DAILY 0RF metoprolol succinate 25 mg tablet extended release 24 hr 25 mg PO DAILY 0RF ergocalciferol (vitamin D2) 1,250 mcg (50,000 unit) capsule 1,250 mcg PO QWEEK 0RF amlodipine 5 mg tablet 5 mg PO DAILY 0RF
[2021-12-07] VITALS (10 sets, daily range): BP systolic 70–135; BP diastolic 36–64; PULSE 58–82; RESP 14–15; O2SAT 98–100
[2021-12-07] MEDS: 0.9 % Sodium Chloride 1,000 ML 999 ML IVCONT ×3 (00:10→02:43)
[2021-12-07 00:23] LABS: Basophils Percent Auto 0.2 % (0-2); Eosinophils Absolute Auto 0.1 X10*3/uL (0.0-0.4); Eosinophils Percent Auto 0.8 % (0-4); Hematocrit 31.6 % (37.0-47.0); Hemoglobin 9.8 g/dl (12.0-16.0); Imm Gran Abs Auto 0.11 X10*3/uL (0.00-0.03); Imm Gran Pct Auto 0.8 % (0.0-0.4); Lymphocytes Absolute Auto 1.7 X10*3/uL (1.2-4.9); Lymphocytes Percent Auto 12.9 % (20-40); MANUAL DIFF FLAG NO; Mean Corpuscular Hemoglobin 25.5 pg (27.0-33.0); Mean Corpuscular Volume 82.3 fL (80.0-98.0); Monocytes Absolute Auto 0.7 X10*3/uL (0.1-1.2); Monocytes Percent Auto 5.5 % (2-11); Neutrophils Absolute Auto 10.3 x10*3/uL (2.0-8.3); Neutrophils Percent Auto 79.8 % (45-73); Platelet Count 446 X10*3/uL (160-400); Red Blood Count 3.84 X10*6/uL (4.20-5.50); Red Cell Distribution Width 15.7 % (11.0-16.0)
[2021-12-07 00:37] LABS: Ethanol < 10 mg/dL
[2021-12-07 00:39] LABS: Alanine Aminotransferase 16 U/L (0-31); Albumin Level 3.7 g/dL (3.5-5.0); Alkaline Phosphatase 116 U/L (39-117); Anion Gap 13 (12-20); Aspartate Amino Transferase 13 U/L (5-31); Bilirubin Direct < 0.2 mg/dL (0.0-0.5); Bilirubin Total 0.2 mg/dL (0.0-1.0); Blood Urea Nitrogen 31 mg/dL (9-16); Calcium 9.3 mg/dL (8.4-10.2); Carbon Dioxide 18 mmol/L (22-29); Chloride 111 mmol/L (96-108); Creatinine Clr Calc Pharmacy 28.9; Estimated Glomerular Filt Rate 28; Glucose Random 180 mg/dL (60-115); Sodium 138 mmol/L (135-145); Total Protein 6.1 g/dL (6.5-8.0)
[2021-12-07 00:40] LABS: INTERNATIONAL NORM RATIO 1.2 (0.9-1.1); Lactic Acid 2.3 mmol/L (0.5-2.0); Prothrombin Time 13.1 SEC (9.9-13.0)
[2021-12-07 00:44] LABS: B Type Natriuretic Peptide 441 pg/mL (<100); Troponin-I High Sensitivity 9.9 ng/L (<3.5-17.0)
[2021-12-07 00:49] LABS: COVID-19 Test Negative (Negative)
[2021-12-07 00:59] LABS: TSH reflex Free T4 0.04 uIU/mL (0.32-4.0)
[2021-12-07 02:21] LABS: Reflex Lactate? Lactic Acid Added
[2021-12-07 02:52] LABS: Appearance Urine HAZY; Color Urine YELLOW; Glucose Urine UA NEG (NEG); Leukocyte Esterase Urine 2+ (NEG); Nitrite Urine NEG (NEG); PH 5.5 (5.0-8.0); Specific Gravity - Urine >= 1.030 (1.005-1.025); UACC Culture Trigger YES; Urine Blood TRACE (NEG); Urine Ketones 5 MG/DL (NEG); Urine Protein TRACE MG/DL (NEG-TRACE)
[2021-12-07 02:59] LABS: Amphetamine Screen Urine Not Detected (Not Detect); Bacteria Urine 1+ /LPF; Barbiturates, Urine Not Detected (Not Detect); Benzodiazepines Screen Urine Not Detected (Not Detect); Cannabinoid Screen Urine Not Detected (Not Detect); Cocaine Screen Urine Not Detected (Not Detect); Fentanyl, urine Not Detected (Not Detect); Mucus Urine 3+ /LPF; Opiate Screen Urine Not Detected (Not Detect); Phencyclidine Screen Urine Not Detected (Not Detect); RBC Urine 0-2 /HPF (0); Squamous Epithelial Cell Urine 3+ /LPF
[2021-12-07 03:07] LABS: ~Lactic Acid-LAB USE ONLY 1.9 mmol/L (0.5-2.0)
== END 2021-12-07 04:27 | disposition home or self-care (01) ==
PROVIDERS: Emergency Provider Emergency Medicine; PCP Internal Medicine
DX: I95.1 Orthostatic hypotension (principal); R07.89 Other chest pain; R06.02 Shortness of breath; Z20.822 Contact with and (suspected) exposure to COVID-19; Z79.899 Other long term (current) drug therapy; Z87.891 Personal history of nicotine dependence
CPT/HCPCS: 36415; 71045; 80048; 80076; 80307; 81001; 82077; 83605; 83735; 83880; 84439; 84443; 84484; 85025; 85610; 87040; 87086; 87635; 93005; 96360; 96361; 99284; 99285

== ENCOUNTER 2021-12-21 11:05 | Inpatient (IN) | payer OTHER, SELFPAY ==
[2021-12-21] VITALS (8 sets, daily range): BP systolic 133–189; BP diastolic 47–85; PULSE 62–115; RESP 16–22; TEMP 36.8–36.9; O2SAT 88–98; BMI 29.6
--- NOTE | ~2021-12-21 | XR_ITS ---
EXAMINATION: XR CHEST CLINICAL INFORMATION: Dyspnea. COMPARISON: None TECHNIQUE: Frontal view of the chest was obtained. FINDINGS: The lungs are hypoexpanded with increased bibasilar haziness and increased pulmonary vascularity suspicious for mild pulmonary vascular congestion. And the upper lungs are clear. The heart size is enlarged. No gross bony abnormality seen. XR/XR chest 1V IMPRESSION: Cardiomegaly with mild CHF.
--- NOTE | ~2021-12-21 | NM_ITS ---
EXAMINATION: PULMONARY PERFUSION STUDY CLINICAL INFORMATION: Dyspnea, elevated d-dimer. COMPARISON: No previous lung scan is available for comparison. A radiograph the chest dated 12/21/2021, the same date as this lung scan, is available for comparison. TECHNIQUE: Following the intravenous injection of 4.0 mCi Tc-99m MAA, the lungs were imaged in the anterior and posterior, left and right lateral and BHUTANESE, JENNINGS, LPO, and RPO projections using a gamma scintillation camera. FINDINGS: No segmental perfusion defects are present. There is homogeneous distribution of activity bilaterally. There are no focal anatomic appearing perfusion defects present. Subtle photopenic small rounded defects are present overlying the medial right mid lung on the anterior view and the left lingular region on the BHUTANESE view, and both of these correspond well to the location of ECG electrodes on the chest radiograph. NM/NM pul perfusion IMPRESSION: Normal radionuclide lung perfusion scan.
--- NOTE | 2021-12-21 11:18 | ED.SOB ---
HPI - SOB/Dyspnea General Chief Complaint: Dyspnea Stated Complaint: shortness of breath Time Seen by Provider: 12/21/21 11:18 Source: patient and old records reviewed Mode of arrival: EMS Limitations: no limitations History of Present Illness MD elicited complaint: shortness of breath and cough Pertinent past history: pneumonia Onset (ago): day(s) (3) Context: other (hx of asthma and recurrent pneumonia) Timing: progressively worsening Severity: moderate Exacerbating factors: lying flat and exertion Relieving factors: oxygen and rest Known history of: asthma and recurrent pneumonia Associated symptoms: cough, wheezing and sputum production Treatment prior to arrival: bronchodilator Related Data Home Medications Medication Instructions Recorded Confirmed tizanidine 6 mg capsule 6 mg PO BEDTIME 06/02/20 08/29/21 venlafaxine 150 mg 150 mg PO DAILY 06/02/20 08/29/21 capsule,extended release 24 hr amlodipine 5 mg tablet 5 mg PO DAILY 08/29/21 08/29/21 ergocalciferol (vitamin D2) 1,250 1,250 mcg PO QWEEK 08/29/21 08/29/21 mcg (50,000 unit) capsule metoprolol succinate 25 mg 25 mg PO DAILY 08/29/21 08/29/21 tablet,extended release 24 hr topiramate 25 mg tablet 25 mg PO DAILY 08/29/21 08/29/21 Previous Rx's Medication Instructions Recorded valsartan 40 mg tablet 40 mg PO DAILY #28 tab 04/04/21 Updraft machine #1 ea 04/13/21 fluticasone furoate 200 1 inh INHALATION DAILY 30 Days #28 04/30/21 mcg-vilanterol 25 mcg/dose ea inhalation powder (Breo Ellipta) fluticasone propionate 50 1 spray INTRANASAL DAILY #16 g 10/19/21 mcg/actuation nasal spray,suspension simvastatin 20 mg tablet 20 mg PO BEDTIME 90 Days #90 tab 10/19/21 levothyroxine 150 mcg tablet 150 mcg PO DAILY 30 Days #90 tab 11/09/21 Allergies Allergy/AdvReac Type Severity Reaction Status Date / Time latex [Latex] Allergy Mild UNKNOWN Verified 08/29/21 15:33 morphine [Morphine] Allergy Mild VOMITING Verified 08/29/21 15:33 penicillin G Allergy Unknown Rash Verified 08/29/21 15:33 codeine [Codeine] AdvReac Mild VOMITING Verified 08/29/21 15:33 procaine [From Novocain] AdvReac Mild VOMITING Verified 08/29/21 15:33 Review of Systems Review of Systems: Constitutional : No Fever, No Chills ENT/Mouth : No sore throat, No Rhinorrhea, No Swallowing Difficulty Eyes: No Eye Pain, No Swelling, No Redness Cardiovascular : No Chest Pain, positive SOB, No Orthopnea, no Edema Respiratory : pos Cough, No Sputum, pos Wheezing, positive dyspnea Gastrointestinal : No Nausea, No Vomiting, No Diarrhea, No abdominal Pain, No Hematochezia, No Melena Genitourinary : No Dysuria, No Urinary Frequency, No Hematuria Musculoskeletal : No joint pain, No Myalgias Skin : No Skin Lesions, No rash Neuro : No Weakness, No Numbness, No Dizziness, No Headache Psych : No Anxiety/Panic, No Depression Heme/Lymph: No Bruising, No Lymphadenopathy Endocrine : No Polyuria, No Polydipsia All other systems reviewed and are negative PMFSH Past Medical History Attestation statement: The following information was validated with the patient. Medical History Hypertension Stroke Surgical History History of knee surgery Family History Family History Father Tuberculosis Mother No problems noted. 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 Oriented X3. No acute distress. Eyes: Pupils equal, round and reactive to light. ENT: Pharynx normal. Neck: Normal inspection. Neck supple. CVS: bradycardic heart rate and rhythm. Pulses normal. Respiratory: No respiratory distress. Breath sounds diminished throughout with wheezes noted Abdomen: Soft and non-tender. Skin: Skin warm and dry. Normal skin color. Normal skin turgor. Extremities: No lower extremity edema. Neuro: Oriented X 3. No motor deficit. No sensory deficit. Course Course Course Narrative: 20mg IV lasix ordered - BNP elevated CXR with some pulm edema likely in and out of rapid afib at home hx of anemia in the past guiac negative patient 88% on RA responding to 2L NC MDM - SOB/Dyspnea MDM Narrative Medical decision making narrative: 76 yo female with hx of pneumonia, CKD, HLD, depression, asthma, HTN here with c/o dyspnea, wheezing, productive cough and GALVAN x 3 days. At this time found to be in initial rapid afib but now in slow afib on EKG - not on bblockers was in afib 12/07/21 on last visit but patient not aware noted on comparison EKG. She denies bleeding history but hx of brain aneurysm ?rupture in 2009. At this time will obtain basic labs, CXR for pneumonia, EKG, cultures, albuterol 5mg neb, IV steroids. Dispo per results and findings. Lab Data Result diagrams: 12/21/21 12:17 12/21/21 12:16 Labs: Lab Results 12/21/21 12/21/21 12/21/21 Range/Units 11:57 11:57 12:16 WBC (4.8-10.8) X10*3/uL RBC (4.20-5.50) X10*6/uL Hgb (12.0-16.0) g/dl Hct (37.0-47.0) % MCV (80.0-98.0) fL MCH (27.0-33.0) pg MCHC (31.0-35.0) g/dl RDW (11.0-16.0) % Plt Count (160-400) X10*3/uL MPV (9.4-12.3) fL Immature Gran % (Auto) (0.0-0.4) % Neut % (Auto) (45-73) % Lymph % (Auto) (20-40) % [place] % (Auto) (2-11) % Eos % (Auto) (0-4) % Baso % (Auto) (0-2) % Lymph # (Auto) (1.2-4.9) X10*3/uL [place] # (Auto) (0.1-1.2) X10*3/uL Eos # (Auto) (0.0-0.4) X10*3/uL Baso # (Auto) (0.0-0.2) X10*3/uL Abs Immat Gran (auto) (0.00-0.03) X10*3/uL Absolute Neuts (auto) (2.0-8.3) x10*3/uL Absolute Nucleated RBC (0.0-0.012) X10*3/uL Nucleated RBC % (auto) (0.0-0.2) /100WBC PT 13.5 H (9.9-13.0) SEC INR 1.2 H (0.9-1.1) D-Dimer High Sensitivty NG/ML Sodium 137 (135-145) mmol/L Potassium 3.8 (3.3-5.1) mmol/L Chloride 104 (96-108) mmol/L Carbon Dioxide 24 (22-29) mmol/L Anion Gap 13 (12-20) BUN 17 H (9-16) mg/dL Creatinine 1.01 (0.5-1.4) mg/dL Estim Creat Clear Calc 53.0 Estimated GFR 54 Random Glucose 131 H (60-115) mg/dL Lactic Acid 1.7 (0.5-2.0) mmol/L Calcium 9.0 (8.4-10.2) mg/dL Magnesium 2.0 (1.6-2.6) mg/dL Total Bilirubin 0.2 (0.0-1.0) mg/dL Direct Bilirubin < 0.2 (0.0-0.5) mg/dL AST 9 (5-31) U/L ALT 14 (0-31) U/L Alkaline Phosphatase 121 H (39-117) U/L Troponin I High Sens (<3.5-17.0) ng/L B-Natriuretic Peptide (<100) pg/mL Total Protein 6.0 L (6.5-8.0) g/dL Albumin 3.7 (3.5-5.0) g/dL Lipase 29 (8-78) U/L TSH (0.32-4.0) uIU/mL Free T4 (0.71-1.85) ng/dL Stool Occult Blood (NEGATIVE) COVID-19 (CRAIG) (Negative) COVID-19 Clin Com 12/21/21 12/21/21 12/21/21 Range/Units 12:16 12:16 12:16 WBC (4.8-10.8) X10*3/uL RBC (4.20-5.50) X10*6/uL Hgb (12.0-16.0) g/dl Hct (37.0-47.0) % MCV (80.0-98.0) fL MCH (27.0-33.0) pg MCHC (31.0-35.0) g/dl RDW (11.0-16.0) % Plt Count (160-400) X10*3/uL MPV (9.4-12.3) fL Immature Gran % (Auto) (0.0-0.4) % Neut % (Auto) (45-73) % Lymph % (Auto) (20-40) % [place] % (Auto) (2-11) % Eos % (Auto) (0-4) % Baso % (Auto) (0-2) % Lymph # (Auto) (1.2-4.9) X10*3/uL [place] # (Auto) (0.1-1.2) X10*3/uL Eos # (Auto) (0.0-0.4) X10*3/uL Baso # (Auto) (0.0-0.2) X10*3/uL Abs Immat Gran (auto) (0.00-0.03) X10*3/uL Absolute Neuts (auto) (2.0-8.3) x10*3/uL Absolute Nucleated RBC (0.0-0.012) X10*3/uL Nucleated RBC % (auto) (0.0-0.2) /100WBC PT (9.9-13.0) SEC INR (0.9-1.1) D-Dimer High Sensitivty 747 NG/ML Sodium (135-145) mmol/L Potassium (3.3-5.1) mmol/L Chloride (96-108) mmol/L Carbon Dioxide (22-29) mmol/L Anion Gap (12-20) BUN (9-16) mg/dL Creatinine (0.5-1.4) mg/dL Estim Creat Clear Calc Estimated GFR Random Glucose (60-115) mg/dL Lactic Acid (0.5-2.0) mmol/L Calcium (8.4-10.2) mg/dL Magnesium (1.6-2.6) mg/dL Total Bilirubin (0.0-1.0) mg/dL Direct Bilirubin (0.0-0.5) mg/dL AST (5-31) U/L ALT (0-31) U/L Alkaline Phosphatase (39-117) U/L Troponin I High Sens 4.6 D (<3.5-17.0) ng/L B-Natriuretic Peptide 568 H (<100) pg/mL Total Protein (6.5-8.0) g/dL Albumin (3.5-5.0) g/dL Lipase (8-78) U/L TSH (0.32-4.0) uIU/mL Free T4 (0.71-1.85) ng/dL Stool Occult Blood (NEGATIVE) COVID-19 (CRAIG) (Negative) COVID-19 Clin Com 12/21/21 12/21/21 12/21/21 Range/Units 12:17 12:17 12:41 WBC 10.6 (4.8-10.8) X10*3/uL RBC 3.09 L (4.20-5.50) X10*6/uL Hgb 7.9 L (12.0-16.0) g/dl Hct 25.5 L (37.0-47.0) % MCV 82.5 (80.0-98.0) fL MCH 25.6 L (27.0-33.0) pg MCHC 31.0 (31.0-35.0) g/dl RDW 15.5 (11.0-16.0) % Plt Count 340 (160-400) X10*3/uL MPV 8.9 L (9.4-12.3) fL Immature Gran % (Auto) 0.7 H (0.0-0.4) % Neut % (Auto) 80.4 H (45-73) % Lymph % (Auto) 11.7 L (20-40) % [place] % (Auto) 5.6 (2-11) % Eos % (Auto) 1.4 (0-4) % Baso % (Auto) 0.2 (0-2) % Lymph # (Auto) 1.2 (1.2-4.9) X10*3/uL [place] # (Auto) 0.6 (0.1-1.2) X10*3/uL Eos # (Auto) 0.2 (0.0-0.4) X10*3/uL Baso # (Auto) 0.0 (0.0-0.2) X10*3/uL Abs Immat Gran (auto) 0.07 H (0.00-0.03) X10*3/uL Absolute Neuts (auto) 8.5 H (2.0-8.3) x10*3/uL Absolute Nucleated RBC 0.000 (0.0-0.012) X10*3/uL Nucleated RBC % (auto) 0.0 (0.0-0.2) /100WBC PT (9.9-13.0) SEC INR (0.9-1.1) D-Dimer High Sensitivty NG/ML Sodium (135-145) mmol/L Potassium (3.3-5.1) mmol/L Chloride (96-108) mmol/L Carbon Dioxide (22-29) mmol/L Anion Gap (12-20) BUN (9-16) mg/dL Creatinine (0.5-1.4) mg/dL Estim Creat Clear Calc Estimated GFR Random Glucose (60-115) mg/dL Lactic Acid (0.5-2.0) mmol/L Calcium (8.4-10.2) mg/dL Magnesium (1.6-2.6) mg/dL Total Bilirubin (0.0-1.0) mg/dL Direct Bilirubin (0.0-0.5) mg/dL AST (5-31) U/L ALT (0-31) U/L Alkaline Phosphatase (39-117) U/L Troponin I High Sens (<3.5-17.0) ng/L B-Natriuretic Peptide (<100) pg/mL Total Protein (6.5-8.0) g/dL Albumin (3.5-5.0) g/dL Lipase (8-78) U/L TSH 0.14 L (0.32-4.0) uIU/mL Free T4 1.09 (0.71-1.85) ng/dL Stool Occult Blood (NEGATIVE) COVID-19 (CRAIG) Negative (Negative) COVID-19 Clin Com See Note 12/21/21 Range/Units 14:15 WBC (4.8-10.8) X10*3/uL RBC (4.20-5.50) X10*6/uL Hgb (12.0-16.0) g/dl Hct (37.0-47.0) % MCV (80.0-98.0) fL MCH (27.0-33.0) pg MCHC (31.0-35.0) g/dl RDW (11.0-16.0) % Plt Count (160-400) X10*3/uL MPV (9.4-12.3) fL Immature Gran % (Auto) (0.0-0.4) % Neut % (Auto) (45-73) % Lymph % (Auto) (20-40) % [place] % (Auto) (2-11) % Eos % (Auto) (0-4) % Baso % (Auto) (0-2) % Lymph # (Auto) (1.2-4.9) X10*3/uL [place] # (Auto) (0.1-1.2) X10*3/uL Eos # (Auto) (0.0-0.4) X10*3/uL Baso # (Auto) (0.0-0.2) X10*3/uL Abs Immat Gran (auto) (0.00-0.03) X10*3/uL Absolute Neuts (auto) (2.0-8.3) x10*3/uL Absolute Nucleated RBC (0.0-0.012) X10*3/uL Nucleated RBC % (auto) (0.0-0.2) /100WBC PT (9.9-13.0) SEC INR (0.9-1.1) D-Dimer High Sensitivty NG/ML Sodium (135-145) mmol/L Potassium (3.3-5.1) mmol/L Chloride (96-108) mmol/L Carbon Dioxide (22-29) mmol/L Anion Gap (12-20) BUN (9-16) mg/dL Creatinine (0.5-1.4) mg/dL Estim Creat Clear Calc Estimated GFR Random Glucose (60-115) mg/dL Lactic Acid (0.5-2.0) mmol/L Calcium (8.4-10.2) mg/dL Magnesium (1.6-2.6) mg/dL Total Bilirubin (0.0-1.0) mg/dL Direct Bilirubin (0.0-0.5) mg/dL AST (5-31) U/L ALT (0-31) U/L Alkaline Phosphatase (39-117) U/L Troponin I High Sens (<3.5-17.0) ng/L B-Natriuretic Peptide (<100) pg/mL Total Protein (6.5-8.0) g/dL Albumin (3.5-5.0) g/dL Lipase (8-78) U/L TSH (0.32-4.0) uIU/mL Free T4 (0.71-1.85) ng/dL Stool Occult Blood NEGATIVE (NEGATIVE) COVID-19 (CRAIG) (Negative) COVID-19 Clin Com ECG Data Attestation: I personally reviewed and interpreted this ECG as follows: ECG interpretation date: 12/21/21 ECG interpretation time: 11:38 Interpretation: Rate: 60 Rhythm: afib [place]: normal Normal QRS complex. ST T wave : normal no JASON qTC: normal prior studies: no prior known afib but was in afib on 12/07/21 The study has been interpreted contemporaneously by me. Discharge Plan Discharge Clinical Impression: A-fib, Congestive heart failure, Asthma with exacerbation, Chronic anemia, Hypoxia Prescriptions: No Action valsartan 40 mg tablet 40 mg PO DAILY Qty: 28 0RF (DME) Updraft machine See Rx Instructions .Route .MEDSUPPLY Qty: 1 0RF Rx Instructions: As directed Breo Ellipta 200-25 mcg/dose blister with device 1 inh inhalation DAILY 30 Days Qty: 28 2RF fluticasone propionate 50 mcg/actuation spray,suspension 1 spray intranasal DAILY Qty: 16 5RF simvastatin 20 mg tablet 20 mg PO BEDTIME 90 Days Qty: 90 0RF levothyroxine 150 mcg tablet 150 mcg PO DAILY 30 Days Qty: 90 0RF venlafaxine 150 mg Capsule,Extended Release 24hr 150 mg PO DAILY 0RF tizanidine 6 mg Capsule 6 mg PO BEDTIME 0RF topiramate 25 mg tablet 25 mg PO DAILY 0RF metoprolol succinate 25 mg tablet extended release 24 hr 25 mg PO DAILY 0RF ergocalciferol (vitamin D2) 1,250 mcg (50,000 unit) capsule 1,250 mcg PO QWEEK 0RF amlodipine 5 mg tablet 5 mg PO DAILY 0RF
--- NOTE | 2021-12-21 11:26 | ECG_ITS ---
Test Reason : SOB Blood Pressure : / mmHG Vent. Rate : 060 BPM Atrial Rate : 000 BPM P-R Int : 000 ms QRS Dur : 080 ms QT Int : 428 ms P-R-T Axes : 000 034 033 degrees QTc Int : 428 ms Atrial fibrillation Abnormal ECG When compared with ECG of 07-DEC-2021 00:01, Criteria for Inferior infarct are no longer Present Nonspecific T wave abnormality no longer evident in Inferior leads Nonspecific T wave abnormality no longer evident in Lateral leads Referred By: Camila Bobo Electronically Signed By:DAVID ORTEGA MD
[2021-12-21] MEDS: Albuterol Sulfate (0.083%) 2.5 MG/3 ML VIAL.NEB 5 MG INHALE (11:50)
[2021-12-21] MEDS: methylPREDNISolone Sod Succ 125 MG/2 ML VIAL IVPUSH (12:08)
[2021-12-21 12:12] LABS: INTERNATIONAL NORM RATIO 1.2 (0.9-1.1); Prothrombin Time 13.5 SEC (9.9-13.0)
[2021-12-21 12:17] LABS: Lactic Acid 1.7 mmol/L (0.5-2.0)
[2021-12-21 12:23] LABS: MANUAL DIFF FLAG NO
[2021-12-21 12:26] LABS: Basophils Percent Auto 0.2 % (0-2); Eosinophils Absolute Auto 0.2 X10*3/uL (0.0-0.4); Eosinophils Percent Auto 1.4 % (0-4); Hematocrit 25.5 % (37.0-47.0); Hemoglobin 7.9 g/dl (12.0-16.0); Imm Gran Abs Auto 0.07 X10*3/uL (0.00-0.03); Imm Gran Pct Auto 0.7 % (0.0-0.4); Lymphocytes Absolute Auto 1.2 X10*3/uL (1.2-4.9); Lymphocytes Percent Auto 11.7 % (20-40); Mean Corpuscular Hemoglobin 25.6 pg (27.0-33.0); Mean Corpuscular Volume 82.5 fL (80.0-98.0); Mean Platelet Volume 8.9 fL (9.4-12.3); Monocytes Absolute Auto 0.6 X10*3/uL (0.1-1.2); Monocytes Percent Auto 5.6 % (2-11); Neutrophils Absolute Auto 8.5 x10*3/uL (2.0-8.3); Neutrophils Percent Auto 80.4 % (45-73); Platelet Count 340 X10*3/uL (160-400); Red Blood Count 3.09 X10*6/uL (4.20-5.50); Red Cell Distribution Width 15.5 % (11.0-16.0); White Blood Count 10.6 X10*3/uL (4.8-10.8)
--- NOTE | 2021-12-21 12:30 | PC.NURSE ---
Pt reports improvement of SOB. last few weeks were intermittent SOB, aminah arms and legs paresthesias and weakness. pt denies body aches, fevers, cough.
[2021-12-21 12:40] LABS: Alanine Aminotransferase 14 U/L (0-31); Albumin Level 3.7 g/dL (3.5-5.0); Alkaline Phosphatase 121 U/L (39-117); Anion Gap 13 (12-20); Aspartate Amino Transferase 9 U/L (5-31); Bilirubin Direct < 0.2 mg/dL (0.0-0.5); Bilirubin Total 0.2 mg/dL (0.0-1.0); Blood Urea Nitrogen 17 mg/dL (9-16); Carbon Dioxide 24 mmol/L (22-29); Chloride 104 mmol/L (96-108); Estimated Glomerular Filt Rate 54; Glucose Random 131 mg/dL (60-115); Lipase 29 U/L (8-78); Potassium 3.8 mmol/L (3.3-5.1); Sodium 137 mmol/L (135-145)
[2021-12-21 12:43] LABS: B Type Natriuretic Peptide 568 pg/mL (<100); Troponin-I High Sensitivity 4.6 ng/L (<3.5-17.0)
[2021-12-21 12:48] LABS: D Dimer High Sensitivity 747 NG/ML
[2021-12-21 13:00] LABS: TSH reflex Free T4 0.14 uIU/mL (0.32-4.0)
[2021-12-21 13:08] LABS: COVID-19 Test Negative (Negative); IDNOW Serial# 9DB6401D
--- NOTE | 2021-12-21 13:35 | PC.NURSE ---
patient noted to be 88% RA. placed on 2L NC at this time
[2021-12-21 13:37] LABS: Free T4 (Free Thyroxine) 1.09 ng/dL (0.71-1.85)
[2021-12-21 14:26] LABS: OBS Int Ctl Valid YES; OBS1 NEGATIVE (NEGATIVE)
--- NOTE | 2021-12-21 14:33 | PC.NURSE ---
off unit to Nuc Med.
[2021-12-21] MEDS: Furosemide 20 MG/2 ML VIAL IVPUSH ×2 (15:21→18:04)
--- NOTE | 2021-12-21 15:34 | PHA.MEDREC ---
MED REC COMPLETE, NO ISSUES Pharmacy Consult ? Medication Reconciliation Pharmacy has completed the medication reconciliation.
--- NOTE | 2021-12-21 17:06 | P.HPHOSP_ITS ---
History of Present Illness Date of Service: 12/21/21 Chief Complaint: shortness of breath 76 yo female with hx of cerebral aneurysm ruptured in 2009 that was treated at [place] at that had prolonged coma state for nearly 4 months and is left with some left sided weakness. Other PMH include CKD, HLD, depression, asthma, HTN, hypothyroidism. She presents with dyspnea worse with exertion, wheezing, productive cough for about 3 days now. She was seen here in ED back last month and at that time ECG show AFIB, but treatment plan not well outlined at that time. She is noted to be in afib with RVR but now slow. She is also noted to be anemic but denies blood in stool. Ddimer is over 700, CXR shows cardiomegally and CHF, VQ scan is negaive for PE. Treated with IV Lasix, bronchodilators, steroid and overall feels better. Review of Systems Review of Systems: Gen: no fever Resp: no sob, no cough CV: no chest, no GALVAN, no leg edema GI: No n/v, no abd pain Neuro: No confusion Yes all other systems are reviewed and are negative [facility] Medical History (Updated 12/21/21 @ 17:12 by Ford Sullivan MD) Anxiety and depression Chronic anemia Chronic kidney disease Hypertension Major depression, recurrent Stroke Family History Father Tuberculosis Mother No problems noted. 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) Alcohol intake: never Patient Tobacco Use Status: Former Tobacco user Tobacco use type: Cigarette Years Smoked: 10 years Use of substances other than those prescribed or required for medical reasons: No Advance Directives: Yes Advance Directives on File: Yes Advance Directives Date on File: 12/21/21 service: No Current occupational status: retired Meds Allergies Allergy/AdvReac Type Severity Reaction Status Date / Time latex [Latex] Allergy Mild UNKNOWN Verified 08/29/21 15:33 morphine [Morphine] Allergy Mild VOMITING Verified 08/29/21 15:33 penicillin G Allergy Unknown Rash Verified 08/29/21 15:33 codeine [Codeine] AdvReac Mild VOMITING Verified 08/29/21 15:33 procaine [From Novocain] AdvReac Mild VOMITING Verified 08/29/21 15:33 Active Medications: Current Medications Pharmacy Consult (Consult Rx Perform Med Rec) 1 each MISCELLANE ONCE PRN PRN Reason: Consult order Home Medications Medication Instructions Recorded Confirmed Last Taken Type tizanidine 6 mg capsule 6 mg PO BEDTIME 06/02/20 12/21/21 12/20/21 History venlafaxine 150 mg 150 mg PO DAILY 06/02/20 12/21/21 12/20/21 History capsule,extended release 24 hr amlodipine 5 mg tablet 5 mg PO DAILY 08/29/21 12/21/21 12/20/21 History ergocalciferol (vitamin D2) 1,250 1,250 mcg PO MO@1000 08/29/21 12/21/21 12/17/21 History mcg (50,000 unit) capsule metoprolol succinate 25 mg 25 mg PO DAILY 08/29/21 12/21/21 12/20/21 History tablet,extended release 24 hr topiramate 25 mg tablet 25 mg PO BEDTIME 08/29/21 12/21/21 12/20/21 History fluticasone propionate 50 1 spray INTRANASAL BID 12/21/21 12/21/21 12/20/21 History mcg/actuation nasal spray,suspension spironolactone 50 mg tablet 50 mg PO DAILY 12/21/21 12/21/21 12/20/21 History Physical Exam Vital Signs and Narrative: Vital Signs: Last Vital Signs Temp 98.2 F 12/21/21 14:31 Pulse 86 12/21/21 14:31 Resp 16 12/21/21 14:31 BP 166/68 H 12/21/21 14:31 Pulse Ox 97 12/21/21 14:31 BMI result Body Mass Index 29.6 Const: Other: Constitutional: Alert, in no distress, overweight. Mental Status: Oriented to person, place and time. Eyes: Pupils are equal, round and reactive to light. Ear, Nose and Throat: Oropharynx clear, mucous membranes moist. Ears and nose without eformities. e. Respiratory: Clear to auscultation. No wheezing, rales or rhonchi. Cardiovascular: S1 S2 iregular iregular. No leg edema Gastrointestinal: Abdomen soft, non-tender, non-distended. Normal bowel sounds.? Neurologic: Cranial nerves II-XII grossly intact. No focal neurological deficits. Moves all extremities spontaneously.? Skin: No rashes or lesions.? Musculoskeletal: No cyanosis or clubbing. Psychiatric: Normal mood and affect? Results Labs CBC and Chem 7: 12/22/21 05:41 12/22/21 05:41 Labs: Laboratory Results - last 24 hr 12/21/21 12/21/21 12/21/21 11:57 11:57 12:16 Hgb MCV MCH MCHC RDW Plt Count MPV Immature Gran % (Auto) Neut % (Auto) Lymph % (Auto) [place] % (Auto) Eos % (Auto) Baso % (Auto) Lymph # (Auto) [place] # (Auto) Eos # (Auto) Baso # (Auto) Abs Immat Gran (auto) Absolute Neuts (auto) Absolute Nucleated RBC Nucleated RBC % (auto) PT 13.5 H INR 1.2 H D-Dimer High Sensitivty Anion Gap 13 Estim Creat Clear Calc 53.0 Estimated GFR 54 Random Glucose 131 H Lactic Acid 1.7 Calcium 9.0 Magnesium 2.0 Total Bilirubin 0.2 Direct Bilirubin < 0.2 AST 9 ALT 14 Alkaline Phosphatase 121 H Troponin I High Sens B-Natriuretic Peptide Total Protein 6.0 L Albumin 3.7 Lipase 29 TSH Free T4 Stool Occult Blood COVID-19 (CRAIG) COVID-19 [facility] 12/21/21 12/21/21 12/21/21 12:16 12:16 12:16 Hgb MCV MCH MCHC RDW Plt Count MPV Immature Gran % (Auto) Neut % (Auto) Lymph % (Auto) [place] % (Auto) Eos % (Auto) Baso % (Auto) Lymph # (Auto) [place] # (Auto) Eos # (Auto) Baso # (Auto) Abs Immat Gran (auto) Absolute Neuts (auto) Absolute Nucleated RBC Nucleated RBC % (auto) PT INR D-Dimer High Sensitivty 747 Anion Gap Estim Creat Clear Calc Estimated GFR Random Glucose Lactic Acid Calcium Magnesium Total Bilirubin Direct Bilirubin AST ALT Alkaline Phosphatase Troponin I High Sens 4.6 D B-Natriuretic Peptide 568 H Total Protein Albumin Lipase TSH Free T4 Stool Occult Blood COVID-19 (CRAIG) COVID-19 Clin Com 12/21/21 12/21/21 12/21/21 12:17 12:17 12:41 Hgb 7.9 L MCV 82.5 MCH 25.6 L MCHC 31.0 RDW 15.5 Plt Count 340 MPV 8.9 L Immature Gran % (Auto) 0.7 H Neut % (Auto) 80.4 H Lymph % (Auto) 11.7 L [place] % (Auto) 5.6 Eos % (Auto) 1.4 Baso % (Auto) 0.2 Lymph # (Auto) 1.2 [place] # (Auto) 0.6 Eos # (Auto) 0.2 Baso # (Auto) 0.0 Abs Immat Gran (auto) 0.07 H Absolute Neuts (auto) 8.5 H Absolute Nucleated RBC 0.000 Nucleated RBC % (auto) 0.0 PT INR D-Dimer High Sensitivty Anion Gap Estim Creat Clear Calc Estimated GFR Random Glucose Lactic Acid Calcium Magnesium Total Bilirubin Direct Bilirubin AST ALT Alkaline Phosphatase Troponin I High Sens B-Natriuretic Peptide Total Protein Albumin Lipase TSH 0.14 L Free T4 1.09 Stool Occult Blood COVID-19 (CRAIG) Negative COVID-19 Clin Com See Note 12/21/21 14:15 Hgb MCV MCH MCHC RDW Plt Count MPV Immature Gran % (Auto) Neut % (Auto) Lymph % (Auto) [place] % (Auto) Eos % (Auto) Baso % (Auto) Lymph # (Auto) [place] # (Auto) Eos # (Auto) Baso # (Auto) Abs Immat Gran (auto) Absolute Neuts (auto) Absolute Nucleated RBC Nucleated RBC % (auto) PT INR D-Dimer High Sensitivty Anion Gap Estim Creat Clear Calc Estimated GFR Random Glucose Lactic Acid Calcium Magnesium Total Bilirubin Direct Bilirubin AST ALT Alkaline Phosphatase Troponin I High Sens B-Natriuretic Peptide Total Protein Albumin Lipase TSH Free T4 Stool Occult Blood NEGATIVE COVID-19 (CRAIG) COVID-19 Clin Com Imaging Radiologist's Impressions: Impressions Chest X-Ray 12/21/21 12:47 IMPRESSION: Cardiomegaly with mild CHF. Pulmonary Perfusion Imaging 12/21/21 14:55 IMPRESSION: Normal radionuclide lung perfusion scan. Assessment and Plan (1) A-fib: Qualifiers: Atrial fibrillation type: unspecified Qualified Code(s): I48.91 - Unspecified atrial fibrillation Status: Acute (2) Congestive heart failure: Qualifiers: Heart failure chronicity: acute Heart failure type: unspecified Qualified Code(s): I50.9 - Heart failure, unspecified Status: Acute (3) Asthma with exacerbation: Qualifiers: Asthma persistence: persistent Asthma severity: mild Qualified Code(s): J45.31 - Mild persistent asthma with (acute) exacerbation Status: Acute (4) Anxiety and depression: Status: Inactive (5) Chronic anemia: Status: Acute Plan 76 yo female with hx of cerebral aneurysm ruptured in 2010 with residual left sided weakness, HTN, HLD, CKD, asthma here with Dyspnea, wheeze, and found to have CHF and AFIB with RVR. Dyspnea likely from AFIB, COPD, heart failure.. -Treat these underlying causes AFIB with RVR--Add Metoprolol for rate control, get echo tomorrow, cardiology consult. Hold anticoagulation for now given significant anemia, and rule GI bleed first Heart failure--nature unknown could systolic or diastolic--Echo will help differentiate. Lasix and monitor electrolytes, follow weight and I/O Anemia--Check occult blood, and consider GI and Heme eval HTN--She takes Norvasc, Metoprolol and Aldactone Asthma--bronchodilators, I don't think she needs steroid Anxiety--continue Effextor Hypothyroidism--continue levothyroxine, TSH is low Admission will span at least 2 midnight due new onset of heart failure that will need IV diuretics, fluid management, electrolytes monitoring, Aftiral fib that need medication adjustment for rate controll and cardiology evaluation and further testing. Quality Stroke Does the patient have a stroke diagnosis?: No VTE Prior VTE?: No VTE Risk Level:: Medical - moderate - high VTE Device Contraindication: N/A - Device Ordered VTE Drug Contraindication: Treatment Not Tolerated
[2021-12-21] MEDS: Metoprolol Tartrate 25 MG TABLET PO ×2 (18:04→23:30)
[2021-12-21 19:10] LABS: B Type Natriuretic Peptide 530 pg/mL (<100)
--- NOTE | 2021-12-21 19:37 | MHC.CM.PN ---
IMM 12/21. HCP on file. Pt is Jehovah Witness. No blood products. HCP#1 Kevin Goldstein ([phone]) & HCP #2 Cierra Clemons ([phone]). Pt is not vaccinated against COVID 19. Live alone with cat. Uses a cane. No Services. D/C plan is home without services. Family to transport. CM to follow for d/c needs
[2021-12-21] MEDS: Topiramate 25 MG TABLET PO (21:48)
[2021-12-21] MEDS: TiZANidine HCL 4 MG TABLET 6 MG PO (21:48)
[2021-12-21] MEDS: Fluticasone Propionate Nasal 16 GM SPRAY 1 SPRAY NOSTRIL-B (23:31)
[2021-12-21] MEDS: 0.9 % Sodium Chloride Flush 3 ML SYRINGE IVFLUSH (23:32)
[2021-12-22] VITALS (8 sets, daily range): BP systolic 141–175; BP diastolic 75–97; PULSE 61–90; RESP 16–20; TEMP 36.6–36.8; O2SAT 95–98
[2021-12-22] MEDS: Metoprolol Tartrate 25 MG TABLET PO ×3 (05:33→17:51)
[2021-12-22] MEDS: Levothyroxine Sodium 150 MCG TABLET PO (05:33)
[2021-12-22 06:56] LABS: MANUAL DIFF FLAG NO
[2021-12-22 07:04] LABS: Basophils Percent Auto 0.1 % (0-2); Hematocrit 25.1 % (37.0-47.0); Hemoglobin 7.9 g/dl (12.0-16.0); Imm Gran Abs Auto 0.09 X10*3/uL (0.00-0.03); Imm Gran Pct Auto 0.8 % (0.0-0.4); Lymphocytes Absolute Auto 0.8 X10*3/uL (1.2-4.9); Lymphocytes Percent Auto 7.3 % (20-40); Mean Corpuscular HGB Conc 31.5 g/dl (31.0-35.0); Mean Corpuscular Hemoglobin 25.2 pg (27.0-33.0); Mean Corpuscular Volume 79.9 fL (80.0-98.0); Mean Platelet Volume 9.4 fL (9.4-12.3); Monocytes Absolute Auto 0.3 X10*3/uL (0.1-1.2); Monocytes Percent Auto 2.7 % (2-11); Neutrophils Absolute Auto 9.5 x10*3/uL (2.0-8.3); Neutrophils Percent Auto 89.1 % (45-73); Platelet Count 405 X10*3/uL (160-400); Red Blood Count 3.14 X10*6/uL (4.20-5.50); Red Cell Distribution Width 15.5 % (11.0-16.0); White Blood Count 10.7 X10*3/uL (4.8-10.8)
[2021-12-22 07:31] LABS: Anion Gap 18 (12-20); Blood Urea Nitrogen 22 mg/dL (9-16); Calcium 9.6 mg/dL (8.4-10.2); Carbon Dioxide 24 mmol/L (22-29); Chloride 101 mmol/L (96-108); Creatinine Clr Calc Pharmacy 47.4; Estimated Glomerular Filt Rate 47; Glucose Random 179 mg/dL (60-115); Potassium 4.5 mmol/L (3.3-5.1); Sodium 138 mmol/L (135-145)
[2021-12-22] MEDS: Fluticasone/Vilanterol 200/25 BLST.W.DEV 1 PUFF INHALE (07:46)
[2021-12-22] MEDS: 0.9 % Sodium Chloride Flush 3 ML SYRINGE IVFLUSH ×2 (08:36→17:51)
[2021-12-22] MEDS: Fluticasone Propionate Nasal 16 GM SPRAY 1 SPRAY NOSTRIL-B ×2 (08:36→22:06)
[2021-12-22] MEDS: Spironolactone 25 MG TABLET 50 MG PO (08:36)
[2021-12-22] MEDS: Venlafaxine HCl ER 150 MG CAP.ER.24H PO (08:37)
[2021-12-22] MEDS: Furosemide 20 MG/2 ML VIAL IVPUSH ×2 (08:38→17:51)
--- NOTE | 2021-12-22 12:42 | HO.PM.IMPN ---
Subjective Subjective Date of Service: 12/22/21 Interval History: f/u on afib with RVR, heart failure interval history: she feels better, less sob, HR is better control Review of Systems no sob no palpitation Physical Exam Vital Signs: Vital Signs: Last Vital Signs Temp 97.8 F 12/22/21 11:28 Pulse 77 12/22/21 11:28 Resp 20 12/22/21 11:28 BP 175/78 H 12/22/21 11:28 Pulse Ox 98 12/22/21 11:28 BMI result Body Mass Index 29.6 Const: Other: General: AO X 3, no acute distress Resp: CTA bilateral CVS: S1,SS2, iregular iregular GI: +BS, NT, no distention Skin: No rash Neuro: motor grossly intact Psych: appropriate affect Objective Data Active Medications Ergocalciferol (Ergocalciferol (Vitamin D2) 1,250 Mcg Capsule) 1,250 mcg PO MO@1000 [facility] Fluticasone Propionate (Fluticasone Propionate Nasal 16 [address] [place]) 1 spray NOSTRIL-B BID [facility] Last Admin: 12/22/21 08:36 Dose: 1 spray Documented by: JOSE Fluticasone/Vilanterol (Fluticasone/Vilanterol 200/25 Blst.W.Dev) 1 puff INHALE DAILY [facility] Last Admin: 12/22/21 07:46 Dose: 1 puff Documented by: NGUYỄN Furosemide (Furosemide 20 Mg/2 Ml Vial) 20 mg IVPUSH BIDWM [facility]; Protocol Last Admin: 12/22/21 08:38 Dose: 20 mg Documented by: JOSE Levothyroxine Sodium (Levothyroxine Sodium 150 Mcg Tablet) 150 mcg PO DAILY@0600 [facility] Last Admin: 12/22/21 05:33 Dose: 150 mcg Documented by: PRATIK Metoprolol Tartrate (Metoprolol Tartrate 25 Mg Tablet) 25 mg PO Q6H [facility]; Protocol Last Admin: 12/22/21 11:32 Dose: 25 mg Documented by: JOSE Pharmacy Consult (Consult Rx Perform Med Rec) 1 each MISCELLANE ONCE PRN PRN Reason: Consult order Sodium Chloride (0.9 % Sodium Chloride Flush 3 Ml Syringe) 3 ml IVFLUSH QSHIFT [facility] Last Admin: 12/22/21 08:36 Dose: 3 ml Documented by: JOSE Spironolactone (Spironolactone 25 Mg Tablet) 50 mg PO DAILY [facility]; Protocol Last Admin: 12/22/21 08:36 Dose: 50 mg Documented by: JOSE Tizanidine HCl (Tizanidine Hcl 4 Mg Tablet) 6 mg PO BEDTIME [facility] Last Admin: 12/21/21 21:48 Dose: 6 mg Documented by: PRATIK Topiramate (Topiramate 25 Mg Tablet) 25 mg PO BEDTIME [facility] Last Admin: 12/21/21 21:48 Dose: 25 mg Documented by: PRATIK Venlafaxine HCl (Venlafaxine Hcl Er 150 Mg Cap.Er.24h) 150 mg PO DAILY [facility] Last Admin: 12/22/21 08:37 Dose: 150 mg Documented by: JOSE Labs CBC & Chem 7: 12/22/21 05:41 12/22/21 05:41 Labs: Laboratory Results - last 24 hr 12/21/21 12/21/21 12/21/21 12:16 12:16 12:16 MCV MCH MCHC RDW Plt Count MPV Immature Gran % (Auto) Neut % (Auto) Lymph % (Auto) [place] % (Auto) Eos % (Auto) Baso % (Auto) Lymph # (Auto) [place] # (Auto) Eos # (Auto) Baso # (Auto) Abs Immat Gran (auto) Absolute Neuts (auto) Absolute Nucleated RBC Nucleated RBC % (auto) D-Dimer High Sensitivty 747 Anion Gap Estim Creat Clear Calc Estimated GFR Random Glucose Calcium Troponin I High Sens 4.6 D B-Natriuretic Peptide 568 H TSH Free T4 Stool Occult Blood COVID-19 (CRAIG) COVID-19 Clin Com 12/21/21 12/21/21 12/21/21 12:17 12:41 14:15 MCV MCH MCHC RDW Plt Count MPV Immature Gran % (Auto) Neut % (Auto) Lymph % (Auto) [place] % (Auto) Eos % (Auto) Baso % (Auto) Lymph # (Auto) [place] # (Auto) Eos # (Auto) Baso # (Auto) Abs Immat Gran (auto) Absolute Neuts (auto) Absolute Nucleated RBC Nucleated RBC % (auto) D-Dimer High Sensitivty Anion Gap Estim Creat Clear Calc Estimated GFR Random Glucose Calcium Troponin I High Sens B-Natriuretic Peptide TSH 0.14 L Free T4 1.09 Stool Occult Blood NEGATIVE COVID-19 (CRAIG) Negative COVID-19 Clin Com See Note 12/21/21 12/22/21 12/22/21 18:43 05:41 05:41 MCV 79.9 L MCH 25.2 L MCHC 31.5 RDW 15.5 Plt Count 405 H MPV 9.4 Immature Gran % (Auto) 0.8 H Neut % (Auto) 89.1 H Lymph % (Auto) 7.3 L [place] % (Auto) 2.7 Eos % (Auto) 0.0 Baso % (Auto) 0.1 Lymph # (Auto) 0.8 L [place] # (Auto) 0.3 Eos # (Auto) 0.0 Baso # (Auto) 0.0 Abs Immat Gran (auto) 0.09 H Absolute Neuts (auto) 9.5 H Absolute Nucleated RBC 0.000 Nucleated RBC % (auto) 0.0 D-Dimer High Sensitivty Anion Gap 18 Estim Creat Clear Calc 47.4 Estimated GFR 47 Random Glucose 179 H Calcium 9.6 D Troponin I High Sens B-Natriuretic Peptide 530 H TSH Free T4 Stool Occult Blood COVID-19 (CRAIG) COVID-19 Clin Com 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 Dyspnea likely from AFIB, COPD, heart failure.. -Treat these underlying causes AFIB with RVR-- HR is better now, continue Metoprolol 25 Q6, is recommending echo, anticoagulation if no source of bled Heart failure--nature unknown could systolic or diastolic--Echo will help differentiate. Lasix and monitor electrolytes, follow weight and I/O Anemia--Check occult blood, GI and Heme consult for anemia work up so that she can be anticoagulated, check occult blood HTN--She takes Norvasc, Metoprolol and Aldactone Asthma--bronchodilators, I don't think she needs steroid Anxiety--continue Effextor Hypothyroidism--continue levothyroxine, TSH is low Need for inaptient: need fo iv diuretics for heart failure, med titration with cardiac monitoring for afib Quality Stroke Does the patient have a stroke diagnosis?: No VTE Prior VTE?: No VTE Risk Level:: Medical - moderate - high VTE Device Contraindication: N/A - Device Ordered VTE Drug Contraindication: Treatment Not Tolerated
--- NOTE | 2021-12-22 13:00 | CA_ITS ---
Transthoracic Echocardiogram Patient (Last, First, Middle): Sharon Lara D Gender: Female Date of : 1945 Age: 76 Procedure Date: 12/22/2021 Procedure Type: Transthoracic Echocardiogram Location: ER Height: 167.64 cm Weight: 83.01 kg BSA: 1.93 m2 Heart Rate: bpm BP: 175 / 78 mmHg [place]ane Compressor Operator: SHERRY Referring MD: Ford Sullivan MD Process Trainer: Mikael Gray MD Symptoms: new afib Study Quality: Fair ECG Rhythm: Atrial Fibrillation Conclusions: - 1. Normal LV systolic function is mild LVH with increased filling pressures. 2. Moderate left atrial enlargement 3. Normal cardiac valvular Dopplers 4. Normal RVSP with mildly elevated RA pressures 5. No pericardial effusion Findings Left Ventricle Normal left ventricular size and systolic function. There is mildly increased left ventricular wall thickness. The visually estimated ejection fraction is between 60-65%. Elevated filling pressures. E/E prime ratio is >15, consistent with elevated filling pressures. Right Ventricle Normal right ventricular cavity size and systolic function. Atria The left atrium is moderately dilated. There is no evidence of interatrial shunt. The right atrium is normal in size. Aortic Valve There is mild calcification of the aortic valve. There is no aortic valve stenosis. There is no aortic valve regurgitation. Mitral Valve There is mild anterior and posterior mitral leaflet thickening. There is trace mitral valve regurgitation. There is no mitral valve stenosis. Pulmonic Valve The pulmonic valve was not well visualized. Tricuspid Valve Normal tricuspid valve structure. There is mild tricuspid valve regurgitation. Mildly elevated right atrial pressure. There is no evidence of pulmonary hypertension. Great Vessels All visible segments of the aorta are normal in size. The pulmonary artery was not well visualized. Venous The inferior vena cava is mildly dilated and collapses less than 50% with inspiration. Pericardium/Pleural There is no evidence of pericardial effusion. Prior Study Comparison No prior study available for comparison. Measurements 2D Linear Measurements IVSd: 1.30 0.6-0.9/0.6-1.0 cm LVIDd: 4.38 3.9-5.3/4.2-5.9 cm LVIDd Index: 2.27 2.4-3.2/2.2-3.1 cm/m2 LVIDs: 2.90 2.0-3.6 cm LVPWd: 1.24 0.7-1.1 cm LA Diam: 3.90 2.7-3.8/3.0-4.0 cm LAIDs Index: 2.02 1.5-2.3 cm/m2 LV Mass: 257.24 67-162/88-224 g LV Mass Index: 133.29 43-95/49-115 g/m2 LVOT Diam: 2.00 3.0+(-)1.3 cm 2D Systolic Function EF 4C: 66.90 >55% EF 2C: 68.40 >55% EF BiP: 67.10 >55% Mitral Valve MV Pk E: 1.47 MV Decel Time: 166.00 E'Lateral: 8.59 E'Medial: 8.38 E/E' Med: 17.50 E/E' Lat: 17.10 PHT: 48.00 MVA PHT: 4.58 Decel [place]: 8.91 Aortic Valve AoV Pk Javier: 1.48 AoV Mn Javier: 1.04 AoV VTI: 0.33 AoV Pk Grad: 9.00 Aov Mn Grad: 5.00 MK Cont.VTI: 2.01 LVOT LVOT Pk Javier: 0.88 LVOT Mn Javier: 0.63 LVOT VTI: 0.21 LVOT Pk Grad: 3.00 LVOT Mn Grad: 2.00 LVOT Diam: 2.00 LVOT Area: 3.14 Diastolic Function MV Pk E: 1.47 E'Medial: 8.38 E/E' Med: 17.50 E' Laterial: 8.59 E/E' Lat: 17.10 Right Ventricle TAPSE (mm): 19.90 TVS' Javier: 11.70 Tricuspid Valve TR Pk Javier: 2.48 TR Pk Grad: 25.00 RA Press: 8.00 RVSP: 33.00 Great Vessels Aorta Sinus of Valsalva: 3.00 2.0-3.[address] [place]: 2.75 1.7-3.4 cm Ao Asc: 3.50 2.1-3.4 cm Ao Arch: 3.10 Updated in Other Vendor System with Status of Final Mikael Gray MD electronically signed on 12/24/2021 12:03:49 PM with status of Final
--- NOTE | 2021-12-22 13:18 | PM.CNCAR ---
History of Present Illness History of Present Illness Date of Service: 12/22/21 Requesting physician: Ford [facility] Consult reason: atrial fibrillation and congestive heart failure Chief complaint: AFIB with RVR, heart failure Narrative: I was consulted to see Hsaron in cardiology consultation today for detect atrial fibrillation as well as progressive symptoms of heart failure and decompensation. Patient 76-year-old female with prior history of cerebral aneurysm rupture in 2009 leading to left-sided persistent symptoms, anxiety, labile blood pressure, hyperlipidemia. She has intermittent issues with pulmonary infection as per her starting since the pandemic. She has never had diagnosis of COVID infection the past. Two weeks ago she present hospital with low blood pressure and that time she had EKG consistent with atrial fibrillation. However she was not aware of it. With the last 2 weeks she has been getting progressively more short of breath with minimal activity and also getting symptoms of orthopnea. She also complains of upper abdominal distension. No leg edema. She has not been measuring weight. She came to the hospital and was noted again to be in atrial fibrillation with rapid ventricular response and clinical findings consistent with congestive heart failure with elevated BNP. She was diuresed and treated with bronchodilators due to some bronchospastic airway disease. She says she feels a lot better and wants to go home today. She continues to have some abdominal distension appears to be short of breath. She is very anxious in the hospital. Rate is better controlled with metoprolol. Blood pressure is labile. She is negative balance with 2 L since admission. She also had on presentation chest tightness. Recently she has been getting left arm discomfort radiating to her jaw as well as both scapulae. Review of Systems Constitutional: Constitutional: Reports no additional constitutional complaints Eyes: Eyes: Reports no additional eye complaints Cardiovascular: Cardiovascular: Reports Abdominal Distension, Reports chest pain, Denies leg edema, Denies lightheadedness, Denies Loss of Consciousness, Denies palpitations, Reports dyspnea on exertion and Reports orthopnea Respiratory: Respiratory: Reports no additional respiratory complaints and Reports dyspnea on exertion Gastrointestinal: Gastrointestinal: Reports no additional gastrointestinal complaints Genitourinary: Genitourinary: Reports no additional female genitourinary complaints Musculoskeletal: Musculoskeletal: Reports no additional musculoskeletal complaints Integumentary/Breasts: Skin/Breast: Reports system reviewed and no additional complaints, except as docu Neurologic: Reports system reviewed and no additional complaints, except as documented Psychiatric: Psychiatric: Reports no additional psychiatric complaints Endocrine: Endocrine: Reports no additional endocrine complaints and Denies palpitations Hematologic/Lymphatic: Hematologic/Lymphatic: Reports no additional hematologic/lymphatic complaints ON LICENSE OF [facility] Past Medical History Medical History Anxiety and depression Chronic anemia Chronic kidney disease Hypertension Major depression, recurrent Stroke Family History Family History Father Tuberculosis Mother No problems noted. Other Substance use disorder Surgical History Surgical History History of knee surgery Social History Social History Household Members: None Housing: Apartment Do you presently have visiting nurse or other home services: Yes ([employer]) Alcohol intake: never Patient Tobacco Use Status: Former Tobacco user Tobacco use type: Cigarette Years Smoked: 10 years Use of substances other than those prescribed or required for medical reasons: No Advance Directives: Yes Advance Directives on File: Yes Advance Directives Date on File: 12/21/21 service: No Current occupational status: retired [employer] Allergies Allergy/AdvReac Type Severity Reaction Status Date / Time latex [Latex] Allergy Mild UNKNOWN Verified 08/29/21 15:33 morphine [Morphine] Allergy Mild VOMITING Verified 08/29/21 15:33 penicillin G Allergy Unknown Rash Verified 08/29/21 15:33 codeine [Codeine] AdvReac Mild VOMITING Verified 08/29/21 15:33 procaine [From Novocain] AdvReac Mild VOMITING Verified 08/29/21 15:33 Active Medications: Current Medications Ergocalciferol (Ergocalciferol (Vitamin D2) 1,250 Mcg Capsule) 1,250 mcg PO MO@1000 [facility] Fluticasone Propionate (Fluticasone Propionate Nasal 16 Gm [place]) 1 spray NOSTRIL-B BID [facility] Last Admin: 12/22/21 08:36 Dose: 1 spray Documented by: Fluticasone/Vilanterol (Fluticasone/Vilanterol 200/25 Blst.W.Dev) 1 puff INHALE DAILY [facility] Last Admin: 12/22/21 07:46 Dose: 1 puff Documented by: Furosemide (Furosemide 20 Mg/2 Ml Vial) 20 mg IVPUSH BIDWM [facility]; Protocol Last Admin: 12/22/21 08:38 Dose: 20 mg Documented by: Levothyroxine Sodium (Levothyroxine Sodium 150 Mcg Tablet) 150 mcg PO DAILY@0600 [facility] Last Admin: 12/22/21 05:33 Dose: 150 mcg Documented by: Metoprolol Tartrate (Metoprolol Tartrate 25 Mg Tablet) 25 mg PO Q6H [facility]; Protocol Last Admin: 12/22/21 11:32 Dose: 25 mg Documented by: Pharmacy Consult (Consult Rx Perform Med Rec) 1 each MISCELLANE ONCE PRN PRN Reason: Consult order Sodium Chloride (0.9 % Sodium Chloride Flush 3 Ml Syringe) 3 ml IVFLUSH QSHIFT [facility] Last Admin: 12/22/21 08:36 Dose: 3 ml Documented by: Spironolactone (Spironolactone 25 Mg Tablet) 50 mg PO DAILY [facility]; Protocol Last Admin: 12/22/21 08:36 Dose: 50 mg Documented by: Tizanidine HCl (Tizanidine Hcl 4 Mg Tablet) 6 mg PO BEDTIME [facility] Last Admin: 12/21/21 21:48 Dose: 6 mg Documented by: Topiramate (Topiramate 25 Mg Tablet) 25 mg PO BEDTIME [facility] Last Admin: 12/21/21 21:48 Dose: 25 mg Documented by: Venlafaxine HCl (Venlafaxine Hcl Er 150 Mg Cap.Er.24h) 150 mg PO DAILY [facility] Last Admin: 12/22/21 08:37 Dose: 150 mg Documented by: Home Medications Medication Instructions Recorded Confirmed Last Taken Type tizanidine 6 mg capsule 6 mg PO BEDTIME 06/02/20 12/21/21 12/20/21 History venlafaxine 150 mg 150 mg PO DAILY 06/02/20 12/21/21 12/20/21 History capsule,extended release 24 hr amlodipine 5 mg tablet 5 mg PO DAILY 08/29/21 12/21/21 12/20/21 History ergocalciferol (vitamin D2) 1,250 1,250 mcg PO MO@1000 08/29/21 12/21/21 12/17/21 History mcg (50,000 unit) capsule metoprolol succinate 25 mg 25 mg PO DAILY 08/29/21 12/21/21 12/20/21 History tablet,extended release 24 hr topiramate 25 mg tablet 25 mg PO BEDTIME 08/29/21 12/21/21 12/20/21 History fluticasone propionate 50 1 spray INTRANASAL BID 12/21/21 12/21/21 12/20/21 History mcg/actuation nasal spray,suspension spironolactone 50 mg tablet 50 mg PO DAILY 12/21/21 12/21/21 12/20/21 History Physical Exam Vital Signs: Vital Signs: Last Vital Signs Temp 97.8 F 12/22/21 11:28 Pulse 77 12/22/21 11:28 Resp 20 12/22/21 11:28 BP 175/78 H 12/22/21 11:28 Pulse Ox 98 12/22/21 11:28 BMI result Body Mass Index 29.6 Const: General: cooperative, comfortable, alert, awake, in distress mild and respiratory, anxious and other (Rest less) Nutritional Appearance: overweight Orientation/consciousness: patient oriented x3 HEENT: Head: Yes normocephalic and Yes atraumatic Neck: Neck: Yes trachea midline, Yes supple and Yes JVD Chest: Chest palpation & inspection: normal inspection of the chest Resp: Effort & Inspection: normal respiratory effort Auscultation: clear to auscultation bilaterally Cardio: Jugular venous distension: JVD Rhythm: abnormal rhythm irregularly irregular Heart sounds: S1 normal heart sound present, S2 normal heart sound present, no click, no gallops, no murmurs and no rubs GI: Auscultation: normal bowel sounds Skin: General skin exam: no rashes or lesions noted Neuro: General: patient oriented x3 and no focal motor deficits Extrem: General: No no clubbing, cyanosis or edema Objective Labs and Meds Result diagrams: 12/22/21 05:41 12/22/21 05:41 Lab results: Laboratory Results - last 24 hr 12/21/21 12/21/21 12/21/21 12:17 14:15 18:43 WBC RBC Hgb Hct MCV MCH MCHC RDW Plt Count MPV Immature Gran % (Auto) Neut % (Auto) Lymph % (Auto) [place] % (Auto) Eos % (Auto) Baso % (Auto) Lymph # (Auto) [place] # (Auto) Eos # (Auto) Baso # (Auto) Abs Immat Gran (auto) Absolute Neuts (auto) Absolute Nucleated RBC Nucleated RBC % (auto) Sodium Potassium Chloride Carbon Dioxide Anion Gap BUN Creatinine Estim Creat Clear Calc Estimated GFR Random Glucose Calcium B-Natriuretic Peptide 530 H Free T4 1.09 Stool Occult Blood NEGATIVE 12/22/21 12/22/21 05:41 05:41 WBC 10.7 RBC 3.14 L Hgb 7.9 L Hct 25.1 L MCV 79.9 L MCH 25.2 L MCHC 31.5 RDW 15.5 Plt Count 405 H MPV 9.4 Immature Gran % (Auto) 0.8 H Neut % (Auto) 89.1 H Lymph % (Auto) 7.3 L [place] % (Auto) 2.7 Eos % (Auto) 0.0 Baso % (Auto) 0.1 Lymph # (Auto) 0.8 L [place] # (Auto) 0.3 Eos # (Auto) 0.0 Baso # (Auto) 0.0 Abs Immat Gran (auto) 0.09 H Absolute Neuts (auto) 9.5 H Absolute Nucleated RBC 0.000 Nucleated RBC % (auto) 0.0 Sodium 138 Potassium 4.5 Chloride 101 Carbon Dioxide 24 Anion Gap 18 BUN 22 H Creatinine 1.13 Estim Creat Clear Calc 47.4 Estimated GFR 47 Random Glucose 179 H Calcium 9.6 D B-Natriuretic Peptide Free T4 Stool Occult Blood Imaging Radiologist's impression: Impressions Chest X-Ray 12/21/21 12:47 IMPRESSION: Cardiomegaly with mild CHF. Pulmonary Perfusion Imaging 12/21/21 14:55 IMPRESSION: Normal radionuclide lung perfusion scan. Assessment and Plan (1) Decompensated heart failure: Status: Acute Decompensated congestive after in this elderly woman with new onset atrial fibrillation with the last few weeks. Symptoms also presence in the last few weeks. Most likely due to loss of AV synchrony. Her risk factors include age as well as hypertension which is very labile and difficult control. Heart rate is now controlled on metoprolol therapy although I think eventually she require rhythm control approach. However currently she is significantly anemic which may be contributing to heart failure syndrome. Needs further workup for anemia to make sure this is not related to bleeding. Hematology consult needs to be pursued and if needed GI consult. Will hold off on oral anticoagulation for now but eventually she recall oral anticoagulation for stroke prevention. This was discussed with her. She understands. Better control blood pressure is advised. Continue Aldactone. Continue IV diuresis, she appears to be fluid overloaded. Strict intake and output chart needs to be pursued. Continue monitor renal function as well as BNP. Hopefully discharge by tomorrow. Echocardiogram hopefully will be done later today. (2) A-fib: Qualifiers: Atrial fibrillation type: unspecified Qualified Code(s): I48.91 - Unspecified atrial fibrillation Status: Acute Atrial fibrillation now rate controlled on metoprolol therapy. Continue the same. Her blood pressure is very labile and this is going be a difficult all clinical problem to solve. However she needs better blood pressure control to prevent recurrent heart failure syndrome. Continue Aldactone and metoprolol. Switch amlodipine to nighttime. If her blood pressure remained significantly elevated at nighttime may need addition of short-acting antihypertensive such as hydralazine. Currently not on oral anticoagulation due to significant anemia. Need better evaluation for anemia and consider Hematology consultation. If no contraindication for anticoagulation consider starting on anticoagulation therapy. Echocardiogram today. Will follow with you Procedures Date of Service Date of Service: 12/22/21
--- NOTE | 2021-12-22 19:29 | PC.NURSE ---
Took report from Jeanette to assume care of Pt, Pt resting, call light in reach.
[2021-12-22] MEDS: TiZANidine HCL 4 MG TABLET 6 MG PO (22:07)
[2021-12-22] MEDS: Topiramate 25 MG TABLET PO (22:08)
[2021-12-23] VITALS (11 sets, daily range): BP systolic 80–179; BP diastolic 39–95; PULSE 44–95; RESP 14–20; TEMP 35.6–37.1; O2SAT 94–99
--- NOTE | 2021-12-23 00:10 | PC.NURSE ---
Pt monitored heart rate 34-42, then 160-180 with V tach, Pt A+Ox3, Pt states she feels like she's having an anxiety attack, Pt cool pale diaphoretic BP 106/56, hr 56, Dr Holly made aware.
--- NOTE | 2021-12-23 00:35 | PC.NURSE ---
Pt A+Ox3, hr 32-42, bp 96/51, with chest pain, states she feels like the floor is vibrating cool pale and clammy, Pacer pads placed on PT, code cart at bedside, alarm adjuster Rosey and Dr Holly at bedside, Pt states its the Topamax that drops her heart rate and that it has happened before.
[2021-12-23] MEDS: Furosemide 20 MG/2 ML VIAL IVPUSH ×2 (07:36→17:16)
[2021-12-23] MEDS: 0.9 % Sodium Chloride Flush 3 ML SYRINGE IVFLUSH ×3 (07:37→23:29)
[2021-12-23] MEDS: Fluticasone/Vilanterol 200/25 BLST.W.DEV 1 PUFF INHALE (09:00)
[2021-12-23] MEDS: Venlafaxine HCl ER 150 MG CAP.ER.24H PO (09:50)
[2021-12-23] MEDS: Spironolactone 25 MG TABLET 50 MG PO (09:50)
--- NOTE | 2021-12-23 10:21 | PC.NURSE ---
Patient is alert and oriented x3, pleasant and cooperative. She complains of headache 4/[address] Sullivan update and will put order for Tylenol PRN. VSS. Lungs are diminished. O2 96% von )2 at 2 LPM NC. Pt reports occasional productive cough of thick whitish phlegm. Pt is able to use bedside commode independently.
[2021-12-23] MEDS: Fluticasone Propionate Nasal 16 GM SPRAY 1 SPRAY NOSTRIL-B ×2 (10:31→23:29)
--- NOTE | 2021-12-23 10:32 | PC.NURSE ---
Patient moved her bowels into bedside commode, large brown stool.
[2021-12-23 11:12] LABS: MANUAL DIFF FLAG NO
--- NOTE | 2021-12-23 11:13 | HO.PM.IMPN ---
Subjective Subjective Date of Service: 12/24/21 Interval History: f/u on afib with RVR, heart failure interval history: she feels better, less sob, HR is better control Review of Systems no sob no palpitation Physical Exam Vital Signs: Vital Signs: Last Vital Signs Temp 96.0 F L 12/23/21 08:30 Pulse 77 12/23/21 09:02 Resp 20 12/23/21 09:02 BP 170/74 H 12/23/21 08:30 Pulse Ox 95 12/23/21 08:30 BMI result Body Mass Index 29.6 Const: Other: General: AO X 3, no acute distress Resp: CTA bilateral CVS: S1,SS2, iregular iregular GI: +BS, NT, no distention Skin: No rash Neuro: motor grossly intact Psych: appropriate affect Objective Data Active Medications Ergocalciferol (Ergocalciferol (Vitamin D2) 1,250 Mcg Capsule) 1,250 mcg PO MO@1000 [facility] Fluticasone Propionate (Fluticasone Propionate Nasal 16 Gm [place]) 1 spray NOSTRIL-B BID [facility] Last Admin: 12/23/21 10:31 Dose: 1 spray Documented by: JAMAL Fluticasone/Vilanterol (Fluticasone/Vilanterol 200/25 Blst.W.Dev) 1 puff INHALE DAILY [facility] Last Admin: 12/23/21 09:00 Dose: 1 puff Documented by: NGUYỄN Furosemide (Furosemide 20 Mg/2 Ml Vial) 20 mg IVPUSH BIDWM [facility]; Protocol Last Admin: 12/23/21 07:36 Dose: 20 mg Documented by: JAMAL Levothyroxine Sodium (Levothyroxine Sodium 150 Mcg Tablet) 150 mcg PO DAILY@0600 [facility] Last Admin: 12/23/21 05:42 Dose: Not Given Documented by: PHUC Non-Admin Reason: Med Not Available Metoprolol Tartrate (Metoprolol Tartrate 25 Mg Tablet) 25 mg PO Q6H [facility]; Protocol Last Admin: 12/23/21 05:42 Dose: Not Given Documented by: PHUC Non-Admin Reason: Decreased Heart Rate Pharmacy Consult (Consult Rx Perform Med Rec) 1 each MISCELLANE ONCE PRN PRN Reason: Consult order Sodium Chloride (0.9 % Sodium Chloride Flush 3 Ml Syringe) 3 ml IVFLUSH QSHIFT [facility] Last Admin: 12/23/21 07:37 Dose: 3 ml Documented by: JAMAL Spironolactone (Spironolactone 25 Mg Tablet) 50 mg PO DAILY [facility]; Protocol Last Admin: 12/23/21 09:50 Dose: 50 mg Documented by: JAMAL Tizanidine HCl (Tizanidine Hcl 4 Mg Tablet) 6 mg PO BEDTIME [facility] Last Admin: 12/22/21 22:07 Dose: 6 mg Documented by: PHUC Topiramate (Topiramate 25 Mg Tablet) 25 mg PO BEDTIME [facility] Last Admin: 12/22/21 22:08 Dose: 25 mg Documented by: PHUC Venlafaxine HCl (Venlafaxine Hcl Er 150 Mg Cap.Er.24h) 150 mg PO DAILY [facility] Last Admin: 12/23/21 09:50 Dose: 150 mg Documented by: JAMAL Labs CBC & Chem 7: 12/23/21 11:06 12/22/21 05:41 Microbiology Microbiology Results: Microbiology 12/21/21 12:16 Blood Culture - Preliminary Blood - Venous No growth after 24 hours. 12/21/21 11:57 Blood Culture - Preliminary Blood - Venous No growth after 24 hours. 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 Dyspnea likely from AFIB, COPD, heart failure.. -Treat these underlying causes AFIB with RVR-- HR is better now, continue Metoprolol 25 Q6, is recommending echo, anticoagulation if no source of bled Heart failure--nature unknown could systolic or diastolic--Echo will help differentiate. Lasix and monitor electrolytes, follow weight and I/O Anemia--Check occult blood, GI and Heme consult for anemia work up so that she can be anticoagulated, check occult blood HTN--She takes Norvasc, Metoprolol and Aldactone Asthma--bronchodilators, I don't think she needs steroid Anxiety--continue Effextor Hypothyroidism--continue levothyroxine, TSH is low Need for inaptient: need fo iv diuretics for heart failure, med titration with cardiac monitoring for afib Quality Stroke Does the patient have a stroke diagnosis?: No VTE Prior VTE?: No VTE Risk Level:: Medical - moderate - high VTE Device Contraindication: N/A - Device Ordered VTE Drug Contraindication: Treatment Not Tolerated
[2021-12-23 11:16] LABS: Basophils Percent Auto 0.2 % (0-2); Eosinophils Absolute Auto 0.1 X10*3/uL (0.0-0.4); Eosinophils Percent Auto 0.6 % (0-4); Hematocrit 26.7 % (37.0-47.0); Hemoglobin 8.4 g/dl (12.0-16.0); Imm Gran Abs Auto 0.08 X10*3/uL (0.00-0.03); Imm Gran Pct Auto 0.6 % (0.0-0.4); Lymphocytes Absolute Auto 1.5 X10*3/uL (1.2-4.9); Lymphocytes Percent Auto 12.1 % (20-40); Mean Corpuscular HGB Conc 31.5 g/dl (31.0-35.0); Mean Corpuscular Volume 79.5 fL (80.0-98.0); Mean Platelet Volume 8.8 fL (9.4-12.3); Monocytes Absolute Auto 0.7 X10*3/uL (0.1-1.2); Monocytes Percent Auto 5.5 % (2-11); Neutrophils Absolute Auto 10.3 x10*3/uL (2.0-8.3); Platelet Count 401 X10*3/uL (160-400); Red Blood Count 3.36 X10*6/uL (4.20-5.50); Red Cell Distribution Width 15.5 % (11.0-16.0); White Blood Count 12.7 X10*3/uL (4.8-10.8)
[2021-12-23 11:30] LABS: Iron 24 mcg/dL (30-160); Percent Iron Saturation 7 % (15-50); Total Iron Binding Capacity 364 mcg/dL (228-428); Unsaturated Iron Binding 340 ug/dL
[2021-12-23 11:50] LABS: Ferritin 43 ng/mL (10-250)
[2021-12-23] MEDS: Metoprolol Tartrate 25 MG TABLET PO ×2 (12:49→17:20)
[2021-12-23] MEDS: Acetaminophen 325 MG TABLET 650 MG PO (12:51)
--- NOTE | 2021-12-23 13:53 | PM.PNCARD ---
Subjective Subjective Date of Service: 12/23/21 Principal diagnosis: CHF, atrial fibrillation Interval history: Patient is feeling well at current point time. Says has been diuresing well although eyes and nose are not well charted. Heart rate is controlled. Still remains significantly anemic. GI consult pending Review of Systems Constitutional: Reports no additional constitutional complaints Cardiovascular: Denies chest pain, Denies leg edema and Reports dyspnea on exertion Respiratory: Reports dyspnea on exertion Gastrointestinal: Reports no additional gastrointestinal complaints Genitourinary: Reports no additional female genitourinary complaints Musculoskeletal: Reports no additional musculoskeletal complaints Skin/Breast: Reports system reviewed and no additional complaints, except as docu Reports system reviewed and no additional complaints, except as documented Psychiatric: Reports no additional psychiatric complaints Endocrine: Reports no additional endocrine complaints Physical Exam Vital Signs: Last Vital Signs Temp 98.8 F 12/23/21 12:21 Pulse 77 12/23/21 12:21 Resp 18 12/23/21 12:21 BP 150/71 H 12/23/21 12:21 Pulse Ox 96 12/23/21 12:21 BMI result Body Mass Index 29.6 Const General: cooperative, comfortable, no acute distress, alert and awake Nutritional Appearance: overweight Orientation/consciousness: patient oriented x3 Neck Neck: Yes trachea midline, Yes supple and Yes no JVD Resp Effort & Inspection: normal respiratory effort Auscultation: clear to auscultation bilaterally Cardio Jugular venous distension: no JVD Rhythm: abnormal rhythm irregularly irregular Heart sounds: S1 normal heart sound present, S2 normal heart sound present, no click, no gallops and no murmurs GI Auscultation: normal bowel sounds Skin General skin exam: no rashes or lesions noted Neuro General: patient oriented x3 and no focal motor deficits Extrem General: Yes no clubbing, cyanosis or edema Objective Labs and Meds Result diagrams: 12/23/21 11:06 12/22/21 05:41 Lab results: Laboratory Results - last 24 hr 12/23/21 12/23/21 11:06 11:06 WBC 12.7 H RBC 3.36 L Hgb 8.4 L Hct 26.7 L MCV 79.5 L MCH 25.0 L MCHC 31.5 RDW 15.5 Plt Count 401 H MPV 8.8 L Immature Gran % (Auto) 0.6 H Neut % (Auto) 81.0 H Lymph % (Auto) 12.1 L [place] % (Auto) 5.5 Eos % (Auto) 0.6 Baso % (Auto) 0.2 Lymph # (Auto) 1.5 [place] # (Auto) 0.7 Eos # (Auto) 0.1 Baso # (Auto) 0.0 Abs Immat Gran (auto) 0.08 H Absolute Neuts (auto) 10.3 H Absolute Nucleated RBC 0.000 Nucleated RBC % (auto) 0.0 Iron 24 L TIBC 364 % Saturation 7 L Unsat Iron Binding 340 Ferritin 43 Progress Note: A&P Assessment and plan (1) Decompensated heart failure: Status: Acute Assessment and Plan: Decompensated heart failure in elderly woman due to atrial fibrillation loss of AV synchrony. Echocardiogram still pending and cannot be reviewed due to technical issues with the PAC system. Heart failure appears to be significantly well control at this point time. Continue oral diuretic regimen. Also contributed by significant anemia which needs to be corrected and worked up. Patient can be discharged home from cardiac perspective although I would prefer her to have a GI workup performed and Hematology consult obtain as inpatient if possible. Continue rate control approach. However eventually should pursue rhythm control approach as long as she can take oral anticoagulation therapy after clearance with GI and Hematology. (2) A-fib: Status: Acute Assessment and Plan: New onset atrial fibrillation of unclear duration. Although most likely contributing to heart failure syndrome due to loss of AV synchrony. Heart rate is well controlled at this point time. Cannot use oral anticoagulation given significant anemia possible iron deficiency anemia with GI cause. GI consult Hematology consult needs to be obtained. Once cleared should be started on oral anticoagulation can be done as outpatient. Will follow up as outpatient after Holter monitor. Risk of recurrent heart failure was discussed. Time Spent With Patient Time: Total time spent is greater than 50% in coordination of care (as documented) at patient's floor/unit and/or counseling patient: Progress Note: Quality Stroke Does the patient have a stroke diagnosis?: No Procedures Date of Service Date of Service: 12/23/21
--- NOTE | 2021-12-23 14:50 | PM.EVENT ---
Event Note Date of Service: 12/23/21 Event Note: GI Consult-Full note dictated-Hx via patient, RN, and EMR Imp: Anemia with borderline microcytic indices and iron deficiency of unclear etiology. She has no GI sx whatsoever and has had brown and Heme-negative stool here. Her low Hgb has been stable. She is a [employer] and has not received blood transfusions. She describes a colonoscopy at [facility] at least 5 years ago with removal of polyp by her report. She isn't sure if she had an upper endoscopy. She now requires anticoagulation for her atrial fibrillation. Denies aspirin, NSAIDs, tobacco, nor alcohol. Diff dx: Upper/Colon neoplasm, AVM's, celiac disease. Rec: EGD/Colonoscopy with MAC with me or Dr. Meyer on Friday, 12/25 as long as she is cleared by cardiology and hospitalists. Full consent is obtained for this, including risks of bleeding and perforation. Will start clear liquids and order prep for tomorrow. D/W patient and she is comfortable with this plan(although she wants to go home [place] due to her cat being by itself). Thanks
[2021-12-23] MEDS: TiZANidine HCL 4 MG TABLET 6 MG PO (20:45)
--- NOTE | 2021-12-23 21:05 | MHC.SHP ---
Pre-Procedural Eval Section A Date of Service: 12/25/21 The patient is an INPATIENT: Yes The History & Physical has been completed within 30 days and I have reviewed it.: Yes Section B Chief Complaint: AFIB with RVR, heart failure Allergies: Allergies Allergy/AdvReac Type Severity Reaction Status Date / Time latex [Latex] Allergy Mild UNKNOWN Verified 08/29/21 15:33 morphine [Morphine] Allergy Mild VOMITING Verified 08/29/21 15:33 penicillin G Allergy Unknown Rash Verified 08/29/21 15:33 codeine [Codeine] AdvReac Mild VOMITING Verified 08/29/21 15:33 procaine [From Novocain] AdvReac Mild VOMITING Verified 08/29/21 15:33 Plan I have reviewed the history and physical and performed a pertinent physical examination on my patient. No changes have occurred unless specified.
--- NOTE | 2021-12-23 23:13 | PM.EVENT ---
Event Note Date of Service: 12/23/21 Event Note: hypotension: Patient blood pressure 80/40. Giving gentle fluids total of 250 cc. Held Lasix, Aldactone, metoprolol for now. To be re-evaluated on the blood pressure before resuming Above meds.
--- NOTE | 2021-12-23 23:20 | PC.NURSE ---
Addendum entered by Natalee Styles RN 12/23/21 23:43: 23:42 IVF infusing to PIV, blood pressure rechecked now 93/48 and heart rate 59. Patient states she's feeling a little bit better . Will monitor closely. Original Note: Patient blood heart rate ranging between 47-60 blood pressure 82/39 and rechecked manually and 80/40. Patient states she feels tired and is diaphoretic. Dr Ambrocio called and at bedside. Verbal order for 500cc bag of NS IV fluids given, see MAR.
[2021-12-23] MEDS: 0.9 % Sodium Chloride 500 ML 250 ML IV (23:28)
[2021-12-24] VITALS (10 sets, daily range): BP systolic 98–173; BP diastolic 46–96; PULSE 55–90; RESP 16–22; TEMP 36.4–37.1; O2SAT 94–97
--- NOTE | 2021-12-24 03:30 | CONS_ITS ---
DATE OF SERVICE: 12/23/2021 REQUESTING PHYSICIAN: Ford Sullivan MD REASON FOR CONSULTATION: Iron-deficiency anemia. HISTORY OF PRESENT ILLNESS: The patient is a 76-year-old female, who was admitted here with new onset atrial fibrillation and difficulty breathing. She denies any preceding history of heart disease. She has been noted to be anemic, which actually is relatively chronic and has been present to some degree since 2019. In the early part of 2019, she had a normal CBC. But since that time, her hemoglobin has ranged between 8.0 and 9.8. She is a [employer] but has not required transfusions from a clinical standpoint. She had iron studies in May 2020, revealing an iron of 16 and an iron saturation of 7% with a ferritin of 249. The patient feels well from a GI standpoint. She has had brown stool here in the hospital, which has been heme negative. She enjoys a good appetite without any significant heartburn or dysphagia. She denies any abdominal pains. Her bowel movements are regular at home without any sign of melena nor hematochezia. She describes a colonoscopy over 5 years ago at [facility] with removal of perhaps a polyp. She cannot recall if she has ever had an upper endoscopy. She denies any history of ulcer disease. She denies any known family history of colorectal cancer nor celiac disease. She does not smoke, use any alcohol, use any aspirin, nor use any NSAIDs. Her atrial fibrillation has been stabilized here in the hospital and the plan is for eventual anticoagulation. She is a [employer]ism and therefore will not accept transfusions, but fortunately, her hemoglobin has been stable and she has not required any from a clinical standpoint. CURRENT MEDICATIONS: Here in the hospital include acetaminophen, vitamin D, Flonase, Lasix, levothyroxine, metoprolol, spironolactone, tizanidine, Topamax, and Effexor. PAST MEDICAL HISTORY: She describes a ruptured cerebral aneurysm with need for craniotomy about 10 years ago at [facility]. She denies any other surgeries. Recent diagnosis of atrial fibrillation and congestive heart failure. She does have a history of hypertension and hypothyroidism. She denies any history of [place], lung disease, nor diabetes. She does describe a history of some renal issues, for which she sees a ticket collector. She has depression. She does have left-sided weakness in relation to the ruptured cerebral aneurysm. SOCIAL HISTORY: She is single and lives by herself. She does not smoke nor use any alcohol. FAMILY HISTORY: Noncontributory. There is no family history of colorectal cancer nor celiac disease. REVIEW OF SYSTEMS: CONSTITUTIONAL: She has been feeling well up until the onset of her atrial fibrillation. Appetite is good. SKIN: Without rash. No pruritus. CARDIAC: No chest pain. PULMONARY: No cough, no hemoptysis. GI: As above. URINARY: No dysuria, hematuria. PHYSICAL EXAMINATION: GENERAL: The patient is a pleasant, alert, comfortable-appearing female, in no distress. SKIN: Warm and dry. She is pale. Anicteric sclerae. NECK: Supple without lymphadenopathy. CARDIAC: Normal S1, S2. ABDOMEN: Soft, nondistended, nontender. LABORATORY DATA: Normal electrolytes. BUN 22, creatinine 1.1. Iron is 24, iron saturation 7%, and ferritin of 43. B12 and folate levels are pending. PT 13.5 with INR of 1.2. White blood cell count 12.7, hemoglobin 8.4, MCV 79.5, platelets 401,000. Stool was Hemoccult negative, although she did have heme-positive stool in 2019. COVID was negative. IMPRESSION: The patient is a 76-year-old female with atrial fibrillation and congestive heart failure with a borderline microcytic anemia and iron deficiency. She is not have any localizing GI symptoms and has been Hemoccult negative with brown stool. Nonetheless, the concern would be for some type of chronic GI blood loss and the potential risks of initiating anticoagulation for the atrial fibrillation. As such, she will undergo upper endoscopy and colonoscopy to rule out etiologies such as GI neoplasm, angiodysplasias, or celiac disease with iron malabsorption. I did review the procedures in detail with the patient and advised her that this will be done by either myself or Dr. Meyer with monitored anesthesia care. Full consent has been obtained from her for both procedures, including risks of bleeding and perforation. I did advise her that it would be best to do them while she is an inpatient so as to do the procedures as soon as possible, so as to allow eventual anticoagulation for the atrial fibrillation. Once we are done with the procedures, she will be able to start some iron supplements. If the procedures, including duodenal biopsies, are negative, then I would recommend eventual outpatient small bowel video capsule study. This has all been discussed with the patient and she is comfortable with this plan. Thank you for the consultation. MD ANNA Vasquez/DONALD / [id number] MTDD
[2021-12-24] MEDS: Levothyroxine Sodium 150 MCG TABLET PO (06:06)
--- NOTE | 2021-12-24 07:44 | P.CNHO_ITS ---
Subjective - Subjective Chief complaint: Consult for: 1. Anemia. Holiness. Patient: new to practice Consult date: 12/24/21 Requesting Physician: Nate. Primary Care Provider: Shravan Grant MD Medical Summary: DIAGNOSIS: ANEMIA. RELIGION. HPI - Consult Narrative Reason for consult: Consult for: Anemia. Narrative: Sharon Lara is a pleasant 76 year old lady, who presented on 12/22 with shortness of breath. She has been noted to be anemic, which actually is relatively chronic and has been present to some degree since 2019. since 07/30, her hemoglobin has ranged between 8.0 and 9.8. She had iron studies in May 2020, revealing an iron of 16 and an iron saturation of 7% with a ferritin of 249. CBC on 12/21: WBC 10.6, HGB 7.9, HCT 25.5, platelets 350. Hemoglobin from 12/22: 7.9/hematocrit 25. Hemoglobin from 12/23: 8.4/hematocrit 26.7. She is a Holiness and has not require transfusions, recently although she did receive 1 unit of blood about 10 years ago, at [facility], when she had a ruptured brain aneurysm. Fortunately, her hemoglobin has been stable and she has not required any from a clinical standpoint. She was noted to have new onset atrial fibrillation. She denies any preceding history of heart disease. Her atrial fibrillation has been stabilized here in the hospital and the plan is for eventual anticoagulation. CURRENT MEDICATIONS: Here in the hospital include acetaminophen, vitamin D, Flonase, Lasix, levothyroxine, metoprolol, spironolactone, tizanidine, Topamax, and Effexor. PAST MEDICAL HISTORY: 1. Recent diagnosis of atrial fibrillation and congestive heart failure. 2. She does have a history of hypertension and hypothyroidism. 3. She does describe a history of some renal issues, for which she sees a cinnamon grinder. 4. She has depression. 5. She does have left-sided weakness in relation to the ruptured cerebral aneurysm. She denies any history of OR, lung disease, nor diabetes. Past surgical history: 1. She describes a ruptured cerebral aneurysm with need for craniotomy about 10 years ago at [facility]. She denies any other surgeries. FAMILY HISTORY: Noncontributory. There is no family history of hematological disorder, colorectal cancer nor celiac disease. 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 She is not and lives by herself. She has 2 children and 4 grandkids and to great grandkids. She does not smoke. She denies history of alcohol use. ROS: She has been tired for a few weeks. No fever chills no night sweats. Her appetite has been good. She denies weight loss. Denies any dizziness. She does get frequent headaches. Denies chest pain. She has had shortness of breath for few weeks. No cough no sputum. She denies any abdominal pains. No nausea vomiting heartburn or indigestion. Her bowel movements are regular at home without any sign of melena nor hematochezia. She has had brown stool here in the hospital, which has been heme negative. She describes a colonoscopy over 5 years ago at [place] with removal of perhaps a polyp. She cannot recall she has ever had an upper endoscopy. She denies any history of ulcer disease. Denies using any aspirin, nor use any NSAIDs. No dysuria or hematuria. 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 She has left-sided weakness. She has depression. No skin rashes not pruritus. Review of Systems - Constitutional Reports system reviewed and no additional complaints, except as documented, Reports fatigue, Reports lack of energy, Reports malaise, Reports weakness, Denies fever(s), Denies weight loss - Eyes Reports system reviewed and no additional complaints, except as documented - ENT Reports system reviewed and no additional complaints, except as documented - Cardiovascular Reports system reviewed and no additional complaints, except as documented, Reports shortness of breath, Reports shortness of breath with activity, Denies chest pain - Respiratory Reports no additional respiratory complaints - Gastrointestinal Reports system reviewed and no additional complaints, except as documented, Denies abdominal pain, Denies diarrhea - Genitourinary Reports no additional female genitourinary complaints, Denies abnormal periods - Musculoskeletal Reports system reviewed and no additional complaints, except as documented, Reports joint pain - Integumentary/Breasts Skin/Breast: Reports no additional skin complaints - Neurologic Reports system reviewed and no additional complaints, except as documented, Repo rts weakness - Psychiatric Reports system reviewed and no additional complaints, except as documented, Reports depression - Endocrine Reports no additional endocrine complaints - Hematologic/Lymphatic Reports system reviewed and no additional complaints, except as documented - Allergic/Immunologic Reports system reviewed and no additional complaints, except as documented Oncology Screenings - ECOG Performance Status ECOG Performance Status: 1 [facility] Medical History: Medical History (Last Reviewed 12/25/21 @ 14:09 by Kavitha Negron MD) Anxiety and depression Chronic anemia Chronic kidney disease Hypertension Major depression, recurrent Stroke Functional capacity: uses cane/walker Patient : No Family History: Family History (Last Reviewed 12/25/21 @ 14:09 by Kavitha Negron MD) Father Tuberculosis Mother No problems noted. Other Substance use disorder Surgical History: Surgical History (Last Reviewed 12/25/21 @ 14:09 by Kvaitha Negron MD) History of knee surgery Social History: Social History (Last Reviewed 12/25/21 @ 14:09 by Kavitha Negron MD) Living Situation History: Household Members: None Housing: Apartment Do you presently have visiting nurse or other home services: Yes Do you presently have visiting nurse or other home services comment: [employer] Tobacco History: Patient Tobacco Use Status: Former Tobacco user Tobacco use type: Cigarette Years Smoked: 10 years Advance Directives: Advance Directives Date on File: 12/21/21 Occupation Assessmet: service: No Current occupational status: retired Home Medications and Allergies Current Medications: Current Medications Acetaminophen (Acetaminophen 325 Mg Tablet) 650 mg PO Q6H PRN PRN Reason: Pain, Mild (Pain Scale 1-3) Last Admin: 12/23/21 12:51 Dose: 650 mg Documented by: Bisacodyl (Bisacodyl 5 Mg Tablet.) 10 mg PO ONCE ONE Stop: 12/24/21 12:01 Bisacodyl (Bisacodyl 5 Mg Tablet.) 10 mg PO ONCE ONE Stop: 12/24/21 18:06 Ergocalciferol (Ergocalciferol (Vitamin D2) 1,250 Mcg Capsule) 1,250 mcg PO MO@1000 [facility] Fluticasone Propionate (Fluticasone Propionate Nasal 16 Gm [place]) 1 spray NOSTRIL-B BID [facility] Last Admin: 12/23/21 23:29 Dose: 1 spray Documented by: Fluticasone/Vilanterol (Fluticasone/Vilanterol 200/25 Blst.W.Dev) 1 puff INHALE DAILY [facility] Last Admin: 12/23/21 09:00 Dose: 1 puff Documented by: Furosemide (Furosemide 20 Mg/2 Ml Vial) 20 mg IVPUSH BIDWM [facility]; Protocol Last Admin: 12/23/21 17:16 Dose: 20 mg Documented by: Levothyroxine Sodium (Levothyroxine Sodium 150 Mcg Tablet) 150 mcg PO DAILY@0600 [facility] Last Admin: 12/24/21 06:06 Dose: 150 mcg Documented by: Metoprolol Tartrate (Metoprolol Tartrate 25 Mg Tablet) 25 mg PO Q6H [facility]; Protocol Last Admin: 12/23/21 17:20 Dose: 25 mg Documented by: Pharmacy Consult (Consult Rx Perform Med Rec) 1 each MISCELLANE ONCE PRN PRN Reason: Consult order Polyethylene Glycol/Electrolytes (Peg 3350/Na Sulf,Bicarb,Cl/Kcl 4,000 Ml Soln.Recon) 4,000 ml PO ONCE ONE Stop: 12/24/21 15:01 Sodium Chloride (0.9 % Sodium Chloride Flush 3 Ml Syringe) 3 ml IVFLUSH QSHIFT [facility] Last Admin: 12/23/21 23:29 Dose: 3 ml Documented by: Spironolactone (Spironolactone 25 Mg Tablet) 50 mg PO DAILY [facility]; Protocol Last Admin: 12/23/21 09:50 Dose: 50 mg Documented by: Tizanidine HCl (Tizanidine Hcl 4 Mg Tablet) 6 mg PO BEDTIME [facility] Last Admin: 12/23/21 20:45 Dose: 6 mg Documented by: Topiramate (Topiramate 25 Mg Tablet) 25 mg PO BEDTIME [facility] Last Admin: 12/23/21 20:46 Dose: Not Given Documented by: Venlafaxine HCl (Venlafaxine Hcl Er 150 Mg Cap.Er.24h) 150 mg PO DAILY [facility] Last Admin: 12/23/21 09:50 Dose: 150 mg Documented by: Home Medications Medication Instructions Recorded Confirmed Type tizanidine 6 mg capsule 6 mg PO BEDTIME 06/02/20 12/21/21 History venlafaxine 150 mg 150 mg PO DAILY 06/02/20 12/21/21 History capsule,extended release 24 hr amlodipine 5 mg tablet 5 mg PO DAILY 08/29/21 12/21/21 History ergocalciferol (vitamin D2) 1,250 1,250 mcg PO MO@1000 08/29/21 12/21/21 History mcg (50,000 unit) capsule topiramate 25 mg tablet 25 mg PO BEDTIME 08/29/21 12/21/21 History fluticasone propionate 50 1 spray INTRANASAL BID 12/21/21 12/21/21 History mcg/actuation nasal spray,suspension spironolactone 50 mg tablet 50 mg PO DAILY 12/21/21 12/21/21 History Allergies Allergy/AdvReac Type Severity Reaction Status Date / Time latex [Latex] Allergy Mild UNKNOWN Verified 08/29/21 15:33 morphine [Morphine] Allergy Mild VOMITING Verified 08/29/21 15:33 penicillin G Allergy Unknown Rash Verified 08/29/21 15:33 codeine [Codeine] AdvReac Mild VOMITING Verified 08/29/21 15:33 procaine [From Novocain] AdvReac Mild VOMITING Verified 08/29/21 15:33 Physical Exam Vital signs: Vital Signs Temp 97.9 F 12/23/21 23:33 Pulse 84 12/24/21 06:01 Resp 16 12/24/21 06:01 BP 164/64 H 12/24/21 06:01 Pulse Ox 94 12/24/21 06:01 Intake & Output 12/23/21 12/24/21 12/24/21 18:59 06:59 18:59 Intake Total 500 / 500 Balance 500 / 500 Intake: Intake, IV Amount 500 / 500 0.9 % Sodium Chloride 500 ml @ 500 / 500 250 mls/hr IV .Q2H [facility] Rx#: [id number] Other: Number of Unmeasured Voids 1 Urine Bedside Commode Urine Color Yellow Weight 83.2 kg - Constitutional Present: mild distress - Routine HEENT Exam Head: Present: normal inspection ENT: Present: mucous membranes moist - Routine Neck Exam Present: supple - Routine Respiratory Exam Present: CTAB, rales - Routine Cardiovascular Exam Cardiovascular: Present: S1, S2, irregularly irregular. Absent: RRR - Routine Abdominal Exam Present: normal bowel sounds, nontender - Routine Extremities Exam Present: nontender - Routine Skin Exam Present: intact - Routine Neurological Exam Present: alert, oriented X3 - Detailed Neurological Exam: Coma Scale Eye Opening: Spontaneous (4) Verbal Response: Oriented (5) - Routine Psychiatric Exam Present: depressed Hem/Onc Consult Result - Labs CBC & Chem 7: 12/25/21 05:17 05/17/22 05:17 Labs: Short CBC 12/23/21 Range/Units 11:06 WBC 12.7 H (4.8-10.8) X10*3/uL Hgb 8.4 L (12.0-16.0) g/dl Hct 26.7 L (37.0-47.0) % Plt Count 401 H (160-400) X10*3/uL Assessment and Plan Patient Active problem list reviewed?: Yes (1) Chronic anemia Status: Acute Assessment and plan: This is a pleasant 76-year-old lady who has had chronic anemia. Hemoglobin ranging from 9-10. She presented with progressively increasing shortness of breath. She has been noted to be in new onset AFib. CBC on 12/21: WBC 10.6, HGB 7.9, HCT 25.5, platelets 350. Hemoglobin from 12/22: 7.9/hematocrit 25. Hemoglobin from 12/23: 8.4/hematocrit 26.7. She is a Holiness and would not accept blood transfusion. DIFFERENTIAL DIAGNOSIS: 1. IRON DEFICIENCY ANEMIA: Iron studies: /. She has a microcytic anemia and iron deficiency. She is not have any localizing GI symptoms and has been Hemoccult negative with brown stool. The concern would be for some type of chronic GI blood loss and the potential risks of initiating anticoagulation for the atrial fibrillation. D/D etiologies: such as GI neoplasm, angiodysplasias, or celiac disease with iron malabsorption. 2. ANEMIA OF CHRONIC DISEASE: She does have underlying chronic kidney disease. 3. B12 FOLATE DEFICIENCIES: Could be coexisting especially if she has malabsorption from something like celiac disease. B12 187. Folate 9.6. 4. HEMOLYTIC ANEMIA: Is in the differential. 5. MYELO INFILTRATIVE DISORDER: MDS versus lymphoma versus multiple myeloma, less likely. PLAN: Will proceed with further evaluation. Check hemolytic screen and SIEP. Retic count: 2.7. She will undergo upper endoscopy and colonoscopy on Friday by Dr. Castillo/Mitch. Once we had done with the procedures, she will be able to start some iron supplements. If the procedures, including duodenal biopsies, are negative, then a small bowel video capsule would be recommended. In the meantime give her IV iron, to keep her blood count stable, since she is a Holiness. Thank you for the consult, I will follow along with you, Cc: shravan Castillo. Addendum: Procedure note from 12/25: UPPER ENDOSCOPY; esophagus: The esophagus was normal. Stomach: The stomach showed no evidence of masses, ulcers, or polyps. Duodenum: The bulb and second portion were normal. Biopsies were obtained from the duodenum and antrum. COLONOSCOPY: The terminal ileum was not examined. The procedure was extended and difficult due to multiple polyps that required multiple techniques were removal and sectioning post removal to be aspirated through the endoscope. The largest polyp was located in the cecum measuring approximately 15 x 20 mm and was sessile. This was removed with a snare and a single hemostatic clip was used to close the mucosal defect. There was no bleeding. There were approximately 4 other cecal polyps overall less than 10 mm that were snared and placed in jars for a total of 3 specimens from the cecum. Other polyps were located at 80, 75, and 65 cm; totaling 6. Three of these were more than 10 mm and were snared. The remains were removed with a combination of snare and biopsy forceps and measured less than 10 mm. Retroflexed examination was normal. The quality of the prep was good. IMPRESSION: 1. Normal upper endoscopy. 2. Colon polyps. - Time Spent With Patient Time Spent with Patient (in minutes): 30
[2021-12-24] MEDS: Fluticasone/Vilanterol 200/25 BLST.W.DEV 1 PUFF INHALE (08:03)
[2021-12-24] MEDS: Fluticasone Propionate Nasal 16 GM SPRAY 1 SPRAY NOSTRIL-B ×2 (08:04→20:53)
[2021-12-24] MEDS: 0.9 % Sodium Chloride Flush 3 ML SYRINGE IVFLUSH ×3 (08:04→21:49)
[2021-12-24] MEDS: Venlafaxine HCl ER 150 MG CAP.ER.24H PO (08:05)
--- NOTE | 2021-12-24 08:07 | PC.NURSE ---
patient a&ox3, rn cardiac intact-afib on monitor pt currently normo-tensive 148/62, has no c/o pain or discomfort, pt medicated per order, call gutierrez within reach, will continue to monitor.
[2021-12-24 08:10] LABS: Folate 9.6 ng/mL (> or = 4.0); Vitamin B12 187 pg/mL (200-900)
[2021-12-24 08:33] LABS: Immature Retic Fraction 24.4 % (3.0-15.9); Retic HGB Equivalent 24.4 pg (30.0-35.0); Reticulocyte Percent 2.7 % (0.5-1.8); Reticulocytes Absolute 0.089 X10*6/uL (0.026-0.095)
[2021-12-24 08:40] LABS: Lactate Dehydrogenase 153 U/L (122-220)
[2021-12-24] MEDS: Ergocalciferol (Vitamin D2) 1,250 MCG CAPSULE 1250 MCG PO (09:16)
[2021-12-24] MEDS: Folic Acid 1 MG TABLET PO (09:16)
[2021-12-24] MEDS: Sodium Ferric Gluconat/Sucrose 125 MG in 0.9 % Sodium Chloride 100 ML 100 MG IV (09:17)
[2021-12-24] MEDS: Cyanocobalamin (Vitamin B-12) 1,000 MCG/ML VIAL 1000 MCG IM (09:46)
--- NOTE | 2021-12-24 11:09 | P.PNIM_ITS ---
Subjective Subjective Date of Service: 12/24/21 Interval History: f/u on afib with RVR, heart failure interval history:No sob, no active bleed Review of Systems no sob no palpitation Physical Exam Vital Signs: Vital Signs: Last Vital Signs Temp 97.9 F 12/23/21 23:33 Pulse 84 12/24/21 08:05 Resp 20 12/24/21 08:05 BP 164/64 H 12/24/21 06:01 Pulse Ox 94 12/24/21 06:01 BMI result Body Mass Index 29.6 Const: Other: General: AO X 3, no acute distress Resp: CTA bilateral CVS: S1,SS2, iregular iregular GI: +BS, NT, no distention Skin: No rash Neuro: motor grossly intact Psych: appropriate affect Objective Data Active Medications Acetaminophen (Acetaminophen 325 Mg Tablet) 650 mg PO Q6H PRN PRN Reason: Pain, Mild (Pain Scale 1-3) Last Admin: 12/23/21 12:51 Dose: 650 mg Documented by: JAMAL Bisacodyl (Bisacodyl 5 Mg Tablet.Dr) 10 mg PO ONCE ONE Stop: 12/24/21 12:01 Bisacodyl (Bisacodyl 5 Mg Tablet.Dr) 10 mg PO ONCE ONE Stop: 12/24/21 18:06 Cyanocobalamin (Cyanocobalamin (Vitamin B-12) 1,000 Mcg/Ml Vial) 1,000 mcg IM Q7D [facility] Stop: 01/14/22 09:01 Last Admin: 12/24/21 09:46 Dose: 1,000 mcg Documented by: JOSIANE Ergocalciferol (Ergocalciferol (Vitamin D2) 1,250 Mcg Capsule) 1,250 mcg PO MO@1000 [facility] Last Admin: 12/24/21 09:16 Dose: 1,250 mcg Documented by: JOSIANE Fluticasone Propionate (Fluticasone Propionate Nasal 16 Gm [place]) 1 spray NOST RIL-B BID [facility] Last Admin: 12/24/21 08:04 Dose: 1 spray Documented by: JOSIANE Fluticasone/Vilanterol (Fluticasone/Vilanterol 200/25 Blst.W.Dev) 1 puff INHALE DAILY [facility] Last Admin: 12/24/21 08:03 Dose: 1 puff Documented by: NGUYỄN Folic Acid (Folic Acid 1 Mg Tablet) 1 mg PO DAILY [facility] Last Admin: 12/24/21 09:16 Dose: 1 mg Documented by: JOSIANE Furosemide (Furosemide 20 Mg/2 Ml Vial) 20 mg IVPUSH BIDWM [facility]; Protocol Last Admin: 12/23/21 17:16 Dose: 20 mg Documented by: JAMAL Ferric Sodium Gluconate Complex 125 mg/ Sodium Chloride 110 mls @ 100 mls/hr IV DAILY [facility] Stop: 12/26/21 10:05 Last Admin: 12/24/21 09:17 Dose: 100 mls/hr Documented by: JOSIANE Levothyroxine Sodium (Levothyroxine Sodium 150 Mcg Tablet) 150 mcg PO DAILY@0600 [facility] Last Admin: 12/24/21 06:06 Dose: 150 mcg Documented by: LISETTE Metoprolol Tartrate (Metoprolol Tartrate 25 Mg Tablet) 25 mg PO Q6H [facility]; Protocol Last Admin: 12/23/21 17:20 Dose: 25 mg Documented by: JAMAL Pharmacy Consult (Consult Rx Perform Med Rec) 1 each MISCELLANE ONCE PRN PRN Reason: Consult order Polyethylene Glycol/Electrolytes (Peg 3350/Na Sulf,Bicarb,Cl/Kcl 4,000 Ml Soln.Recon) 4,000 ml PO ONCE ONE Stop: 12/24/21 15:01 Sodium Chloride (0.9 % Sodium Chloride Flush 3 Ml Syringe) [facility] Last Admin: 12/24/21 08:04 Dose: 3 ml Documented by: JOSIANE Spironolactone (Spironolactone 25 Mg Tablet) 50 mg PO DAILY [facility]; Protocol Last Admin: 12/23/21 09:50 Dose: 50 mg Documented by: JAMAL Tizanidine HCl (Tizanidine Hcl 4 Mg Tablet) 6 mg PO BEDTIME [facility] Last Admin: 12/23/21 20:45 Dose: 6 mg Documented by: LISETTE Topiramate (Topiramate 25 Mg Tablet) 25 mg PO BEDTIME [facility] Last Admin: 12/23/21 20:46 Dose: Not Given Documented by: LISETTE Non-Admin Reason: Patient Refused Comments: MD aware Venlafaxine HCl (Venlafaxine Hcl Er 150 Mg Cap.Er.24h) 150 mg PO DAILY [facility] Last Admin: 12/24/21 08:05 Dose: 150 mg Documented by: JOSIANE Labs CBC & Chem 7: 12/23/21 11:06 12/22/21 05:41 Labs: Laboratory Results - last 24 hr 12/23/21 12/23/21 12/23/21 11:06 11:06 11:06 MCV 79.5 L MCH 25.0 L MCHC 31.5 RDW 15.5 Plt Count 401 H MPV 8.8 L Immature Gran % (Auto) 0.6 H Neut % (Auto) 81.0 H Lymph % (Auto) 12.1 L [place] % (Auto) 5.5 Eos % (Auto) 0.6 Baso % (Auto) 0.2 Lymph # (Auto) 1.5 [place] # (Auto) 0.7 Eos # (Auto) 0.1 Baso # (Auto) 0.0 Abs Immat Gran (auto) 0.08 H Absolute Neuts (auto) 10.3 H Absolute Nucleated RBC 0.000 Nucleated RBC % (auto) 0.0 Absolute Retic 0.089 Percent Retic 2.7 H Immature Retic Fraction 24.4 H Retic Hgb Equivalent 24.4 L Iron 24 L TIBC 364 % Saturation 7 L Unsat Iron Binding 340 Ferritin 43 Lactate Dehydrogenase 153 Vitamin B12 187 L Folate 9.6 Microbiology Microbiology Results: Microbiology 12/21/21 12:16 Blood Culture - Preliminary Blood - Venous No growth after 48 hours. 12/21/21 11:57 Blood Culture - Preliminary Blood - Venous No growth after 48 hours. 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 Dyspnea likely from AFIB, COPD, heart failure.. -Treat these underlying causes AFIB with RVR-- HR is better now, continue Metoprolol 25 Q6, is recommending echo, anticoagulation if no source of bled Heart failure--nature unknown could systolic or diastolic--Echo will help differentiate. change to PO Lasix and monitor electrolytes, follow weight and I /O Iron deficiency anemia, no active bleed for EGD and colonoscopy by Dr. Castillo tomorrow HTN--She takes Norvasc, Metoprolol and Aldactone Asthma--bronchodilators, I don't think she needs steroid Anxiety--continue Effextor Hypothyroidism--continue levothyroxine, TSH is low Need for inaptient: Need for EGD/colonoscopy tomorrow to determine if can tolerated anticoagulation Quality Stroke Does the patient have a stroke diagnosis?: No VTE Prior VTE?: No VTE Risk Level:: Medical - moderate - high VTE Device Contraindication: N/A - Device Ordered VTE Drug Contraindication: Treatment Not Tolerated
[2021-12-24] MEDS: bisacodyL 5 MG TABLET.DR 10 MG PO ×2 (12:21→18:33)
--- NOTE | 2021-12-24 12:21 | PC.NURSE ---
patient a&ox3, pt starting bowel prep, pt will be npo after midnight tonight, currently clear liquids, pt watching tv, court monitor intact, will continue to monitor
[2021-12-24] MEDS: Acetaminophen 325 MG TABLET 650 MG PO (14:33)
--- NOTE | 2021-12-24 14:34 | PC.NURSE ---
pt medicated with tylenol for headache 05/20, pt states its too noisy in the unit.
[2021-12-24] MEDS: PEG 3350/Na Sulf,Bicarb,Cl/KCL 4,000 ML SOLN.RECON 4000 ML PO (15:28)
--- NOTE | 2021-12-24 15:40 | PC.NURSE ---
patient a&ox3, pt stated liquid bowel prep and understands she is npo after midnight, quality assurance monitor final intact, call gutierrez within reach, will continue to monitor.
[2021-12-24] MEDS: TiZANidine HCL 4 MG TABLET 6 MG PO (20:55)
[2021-12-25] VITALS (12 sets, daily range): BP systolic 105–173; BP diastolic 56–97; PULSE 74–99; RESP 16–20; TEMP 36.1–37.9; O2SAT 93–98; BMI 28.2
[2021-12-25 05:44] LABS: MANUAL DIFF FLAG NO
[2021-12-25 05:48] LABS: Basophils Percent Auto 0.3 % (0-2); Eosinophils Absolute Auto 0.2 X10*3/uL (0.0-0.4); Eosinophils Percent Auto 1.7 % (0-4); Hematocrit 28.2 % (37.0-47.0); Hemoglobin 8.7 g/dl (12.0-16.0); Imm Gran Pct Auto 0.9 % (0.0-0.4); Lymphocytes Absolute Auto 1.8 X10*3/uL (1.2-4.9); Lymphocytes Percent Auto 15.8 % (20-40); Mean Corpuscular HGB Conc 30.9 g/dl (31.0-35.0); Mean Corpuscular Hemoglobin 24.8 pg (27.0-33.0); Mean Corpuscular Volume 80.3 fL (80.0-98.0); Mean Platelet Volume 9.1 fL (9.4-12.3); Monocytes Absolute Auto 0.7 X10*3/uL (0.1-1.2); Neutrophils Absolute Auto 8.7 x10*3/uL (2.0-8.3); Neutrophils Percent Auto 75.3 % (45-73); Platelet Count 446 X10*3/uL (160-400); Red Blood Count 3.51 X10*6/uL (4.20-5.50); Red Cell Distribution Width 15.2 % (11.0-16.0); White Blood Count 11.5 X10*3/uL (4.8-10.8)
[2021-12-25 06:07] LABS: Anion Gap 14 (12-20); Blood Urea Nitrogen 18 mg/dL (9-16); Calcium 9.2 mg/dL (8.4-10.2); Carbon Dioxide 25 mmol/L (22-29); Chloride 105 mmol/L (96-108); Creatinine Clr Calc Pharmacy 51.4; Estimated Glomerular Filt Rate 53; Glucose Fasting 107 mg/dL (60-99); Potassium 3.3 mmol/L (3.3-5.1); Sodium 141 mmol/L (135-145)
[2021-12-25] MEDS: Fluticasone/Vilanterol 200/25 BLST.W.DEV 1 PUFF INHALE (08:17)
--- NOTE | 2021-12-25 08:53 | P.PNIM_ITS ---
Subjective Subjective Date of Service: 12/25/21 Interval History: f/u on afib with RVR, heart failure interval history:No sob, no active bleed, HR controll, waiting for colonoscopy and EGD Review of Systems no sob no palpitation Physical Exam Vital Signs: Vital Signs: Last Vital Signs Temp 96.9 F 12/25/21 07:06 Pulse 84 12/25/21 08:18 Resp 18 12/25/21 08:18 BP 140/80 H 12/25/21 07:06 Pulse Ox 96 12/25/21 07:06 BMI result Body Mass Index 28.2 Const: Other: General: AO X 3, no acute distress Resp: CTA bilateral CVS: S1,SS2, iregular iregular GI: +BS, NT, no distention Skin: No rash Neuro: motor grossly intact Psych: appropriate affect Objective Data Active Medications Acetaminophen (Acetaminophen 325 Mg Tablet) 650 mg PO Q6H PRN PRN Reason: Pain, Mild (Pain Scale 1-3) Last Admin: 12/24/21 14:33 Dose: 650 mg Documented by: JOSIANE Cyanocobalamin (Cyanocobalamin (Vitamin B-12) 1,000 Mcg/Ml Vial) 1,000 mcg IM Q7D [facility] Stop: 01/14/22 09:01 Last Admin: 12/24/21 09:46 Dose: 1,000 mcg Documented by: JOSIANE Ergocalciferol (Ergocalciferol (Vitamin D2) 1,250 Mcg Capsule) 1,250 mcg PO MO@1000 [facility] Last Admin: 12/24/21 09:16 Dose: 1,250 mcg Documented by: JOSIANE Fluticasone Propionate (Fluticasone Propionate Nasal 16 Gm [place]) 1 spray NOSTRIL-B BID [facility] Last Admin: 12/24/21 20:53 Dose: 1 spray Documented by: HARIKA Fluticasone/Vilanterol (Fluticasone/Vilanterol 200/25 Blst.W.Dev) 1 puff INHALE DAILY [facility] Last Admin: 12/25/21 08:17 Dose: 1 puff Documented by: SAMMIE Folic Acid (Folic Acid 1 Mg Tablet) 1 mg PO DAILY [facility] Last Admin: 12/24/21 09:16 Dose: 1 mg Documented by: JOSIANE Furosemide (Furosemide 20 Mg Tablet) 20 mg PO DAILY [facility]; Protocol Ferric Sodium Gluconate Complex 125 mg/ Sodium Chloride 110 mls @ 100 mls/hr IV DAILY [facility] Stop: 12/26/21 10:05 Last Infusion: 12/24/21 10:23 Dose: 0 mls/hr Documented by: JOSIANE Levothyroxine Sodium (Levothyroxine Sodium 150 Mcg Tablet) 150 mcg PO DAILY@0600 [facility] Last Admin: 12/25/21 05:39 Dose: Not Given Documented by: IRINA Non-Admin Reason: NPO Metoprolol Tartrate (Metoprolol Tartrate 25 Mg Tablet) 25 mg PO Q6H [facility]; Abel col Last Admin: 12/23/21 17:20 Dose: 25 mg Documented by: JAMAL Pharmacy Consult (Consult Rx Perform Med Rec) 1 each MISCELLANE ONCE PRN PRN Reason: Consult order Sodium Chloride (0.9 % Sodium Chloride Flush 3 Ml Syringe) 3 ml IVFLUSH QSHIFT [facility] Last Admin: 12/24/21 21:49 Dose: 3 ml Documented by: HARIKA Spironolactone (Spironolactone 25 Mg Tablet) 50 mg PO DAILY [facility]; Protocol Last Admin: 12/23/21 09:50 Dose: 50 mg Documented by: JAMAL Tizanidine HCl (Tizanidine Hcl 4 Mg Tablet) 6 mg PO BEDTIME [facility] Last Admin: 12/24/21 20:55 Dose: 6 mg Documented by: HARIKA Topiramate (Topiramate 25 Mg Tablet) 25 mg PO BEDTIME [facility] Last Admin: 12/24/21 20:52 Dose: Not Given Documented by: HARIKA Non-Admin Reason: effects blood pressure. Venlafaxine HCl (Venlafaxine Hcl Er 150 Mg Cap.Er.24h) 150 mg PO DAILY [facility] Last Admin: 12/24/21 08:05 Dose: 150 mg Documented by: JOSIANE Labs CBC & Chem 7: 12/25/21 05:17 12/25/21 05:17 Labs: Laboratory Results - last 24 hr 12/25/21 12/25/21 05:17 05:17 MCV 80.3 MCH 24.8 L MCHC 30.9 L RDW 15.2 Plt Count 446 H MPV 9.1 L Immature Gran % (Auto) 0.9 H Neut % (Auto) 75.3 H Lymph % (Auto) 15.8 L [place] % (Auto) 6.0 Eos % (Auto) 1.7 Baso % (Auto) 0.3 Lymph # (Auto) 1.8 [place] # (Auto) 0.7 Eos # (Auto) 0.2 Baso # (Auto) 0.0 Abs Immat Gran (auto) 0.10 H Absolute Neuts (auto) 8.7 H Absolute Nucleated RBC 0.000 Nucleated RBC % (auto) 0.0 Anion Gap 14 Estim Creat Clear Calc 51.4 Estimated GFR 53 Fasting Glucose 107 H Calcium 9.2 Assessment and Plan (1) Decompensated heart failure: Status: Acute (2) Chronic anemia: Status: Acute (3) A-fib: Status: Acute (4) Congestive heart failure: Status: Acute Plan 76 yo female with 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 Dyspnea likely from AFIB, COPD, heart failure.. -Treat these underlying causes AFIB with RVR-- HR is better now, continue Metoprolol change to 50 bid, is recommending echo, anticoagulation if no source of bleed. Echo normal EF of 60 to 65 % Heart failure--nature unknown could systolic or diastolic--Echo will help differentiate. change to PO Lasix and monitor electrolytes, follow weight and I/O Iron deficiency anemia, no active bleed for EGD and colonoscopy by Dr. Castillo tomorrow HTN--She takes Norvasc, Metoprolol and Aldactone Asthma--bronchodilators, I don't think she needs steroid Anxiety--continue Effextor Hypothyroidism--continue levothyroxine, TSH is low Need for inaptient: Need for EGD/colonoscopy tomorrow to determine if can austen erated anticoagulation Quality Stroke Does the patient have a stroke diagnosis?: No VTE Prior VTE?: No VTE Risk Level:: Medical - moderate - high VTE Device Contraindication: N/A - Device Ordered VTE Drug Contraindication: Treatment Not Tolerated
[2021-12-25] MEDS: Venlafaxine HCl ER 150 MG CAP.ER.24H PO (09:04)
[2021-12-25] MEDS: Furosemide 20 MG TABLET PO (09:04)
[2021-12-25] MEDS: Fluticasone Propionate Nasal 16 GM SPRAY 1 SPRAY NOSTRIL-B ×2 (09:05→21:24)
[2021-12-25] MEDS: Folic Acid 1 MG TABLET PO (09:05)
[2021-12-25] MEDS: 0.9 % Sodium Chloride Flush 3 ML SYRINGE IVFLUSH ×3 (09:05→21:26)
[2021-12-25] MEDS: Sodium Ferric Gluconat/Sucrose 125 MG in 0.9 % Sodium Chloride 100 ML 100 MG IV (10:47)
[2021-12-25] MEDS: Acetaminophen 325 MG TABLET 650 MG PO (10:52)
[2021-12-25] MEDS: Metoprolol Tartrate 50 MG TABLET PO ×2 (12:30→21:25)
--- NOTE | 2021-12-25 12:56 | ECG_ITS ---
Test Reason : preop Blood Pressure : / mmHG Vent. Rate : 085 BPM Atrial Rate : 000 BPM P-R Int : 000 ms QRS Dur : 072 ms QT Int : 390 ms P-R-T Axes : 000 -02 005 degrees QTc Int : 464 ms Atrial fibrillation Nonspecific ST abnormality Abnormal ECG When compared with ECG of 23-DEC-2021 00:55, Vent. rate has increased BY 35 BPM Referred By: Kavitha Negron Electronically Signed By:CAROLEE SANTOS
--- NOTE | 2021-12-25 13:03 | PC.NURSE ---
see vital signs comment. procedure being postponed for report of vtach [address] mckeon aware - pt asymptomatic during transport. denied chest pain, sob, light headedness. 12 lead ekg ordered, done 1:05 p.m. by cardiologhy
--- NOTE | 2021-12-25 13:07 | PC.NURSE ---
per nurse report prior to transfer from [place] [id number], pt had just received scheduled metoprolol 50mg po by floor nurse.
--- NOTE | 2021-12-25 13:52 | PM.PNCARD ---
Subjective Subjective Date of Service: 12/25/21 Principal diagnosis: CHF, atrial fibrillation Interval history: Requested to see due to NSVT on tele. Needs to go for colonoscopy today. Patient herself has no specific symptoms like angina or shortness of breath or palpitations or in fact anything cardiac related at all. She states she is very upset because of the colonoscopy getting cancelled. Review of Systems Review of Systems Yes all other systems are reviewed and are negative Constitutional: Reports as per HPI Eyes: Reports as per HPI Reports as per HPI Cardiovascular: Reports as per HPI, Denies acrocyanosis, Denies cool extremities, Denies chest pain, Denies leg edema, Denies lightheadedness, Denies palpitations and Denies dyspnea Respiratory: Reports as per HPI, Reports no additional respiratory complaints and Denies dyspnea Gastrointestinal: Reports as per HPI and Reports no additional gastrointestinal complaints Genitourinary: Reports as per HPI Musculoskeletal: Reports no additional musculoskeletal complaints and Reports as per HPI Skin/Breast: Reports system reviewed and no additional complaints, except as docu Reports system reviewed and no additional complaints, except as documented and Reports as per HPI Psychiatric: Reports no additional psychiatric complaints and Reports as per HPI Endocrine: Reports no additional endocrine complaints, Reports as per HPI and Denies palpitations Hematologic/Lymphatic: Reports no additional hematologic/lymphatic complaints and Reports as per HPI Allergic/Immunologic: Reports no additional allergic/immunologic complaints and Reports as per HPI Physical Exam Vital Signs: Last Vital Signs Temp 100.3 F 12/25/21 12:48 Pulse 85 12/25/21 12:48 Resp 17 12/25/21 12:48 BP 165/93 H 12/25/21 12:48 Pulse Ox 98 12/25/21 12:48 BMI result Body Mass Index 28.2 Const General: comfortable and no acute distress Orientation/consciousness: patient oriented x3 HEENT Other: Unremarkable Head: Yes normal to inspection Neck Neck: Yes normal visual inspection Chest Chest palpation & inspection: normal inspection of the chest Resp Auscultation: clear to auscultation bilaterally Cardio Palpation: normal PMI Heart sounds: S1 normal heart sound present, S2 normal heart sound present, no gallops, no murmurs and no rubs GI Palpation (GI): Soft to palpation Back/Spine/Pelvis Other: unremarkable Skin General skin exam: no rashes or lesions noted Neuro General: patient oriented x3 Extrem General: Yes normal to inspection Psych Mental Status: mental status grossly normal Objective Labs and Meds Result diagrams: 12/25/21 05:17 12/25/21 05:17 Lab results: Laboratory Results - last 24 hr 12/25/21 12/25/21 05:17 05:17 WBC 11.5 H RBC 3.51 L Hgb 8.7 L Hct 28.2 L MCV 80.3 MCH 24.8 L MCHC 30.9 L RDW 15.2 Plt Count 446 H MPV 9.1 L Immature Gran % (Auto) 0.9 H Neut % (Auto) 75.3 H Lymph % (Auto) 15.8 L [place] % (Auto) 6.0 Eos % (Auto) 1.7 Baso % (Auto) 0.3 Lymph # (Auto) 1.8 [place] # (Auto) 0.7 Eos # (Auto) 0.2 Baso # (Auto) 0.0 Abs Immat Gran (auto) 0.10 H Absolute Neuts (auto) 8.7 H Absolute Nucleated RBC 0.000 Nucleated RBC % (auto) 0.0 Sodium 141 Potassium 3.3 D Chloride 105 Carbon Dioxide 25 Anion Gap 14 BUN 18 H Creatinine 1.02 Estim Creat Clear Calc 51.4 Estimated GFR 53 Fasting Glucose 107 H Calcium 9.2 Magnesium 2.0 Progress Note: A&P Assessment and plan (1) Preoperative cardiovascular examination: Status: Acute (2) Persistent atrial fibrillation: Status: Acute (3) Acute diastolic (congestive) heart failure: Status: Acute (4) NSVT (nonsustained ventricular tachycardia): Status: Acute (5) Anemia: Status: Acute Plan Telemetry reviewed. Underlying rhythm is atrial fibrillation, controlled rate in the 80s 90s. One episode of monomorphic VT at 10 beats. No recurrent runs. Patient herself has no symptoms at all. Echocardiogram with LVEF 60-65%, moderate left atrial enlargement but otherwise unremarkable. Recent high sensitivity troponins are within range. Recent hemoglobin trends are reviewed. Overall, GI workup is important for cardiac planning as she will need anticoagulation as well as ischemic workup/future antiplatelet therapy among others. Hence may proceed with the planned colonoscopy. Intermediate cardiac risk. Time Spent With Patient Time: Total time spent is greater than 50% in coordination of care (as documented) at patient's floor/unit and/or counseling patient: Progress Note: Quality Stroke Does the patient have a stroke diagnosis?: No Procedures Date of Service Date of Service: 12/25/21
--- NOTE | 2021-12-25 14:07 | HO.ANESPROP2 ---
HPI - Anesthesia Eval Consult details Narrative: 76yo female patient for EGD, Colonoscopy. Patient with 10 beat run of Vtach earlier this afternoon. Evaluated by Cafeteria Server. OK to proceed at intermediate risk. [facility] Active Problems Active Problems: All Active Problems (Updated 12/25/21 @ 13:59 by Marck Engle MD) NSVT (nonsustained ventricular tachycardia) (Acute) Acute diastolic (congestive) heart failure (Acute) Persistent atrial fibrillation (Acute) Preoperative cardiovascular examination (Acute) Decompensated heart failure (Acute) Chronic anemia (Acute) Congestive heart failure (Acute) Asthma with exacerbation (Acute) Hypoxia (Acute) Shortness of breath (Acute) Persistent shortness of breath after COVID-19 (Acute) Lipid disorder (Acute) Other specified hypothyroidism (Acute) Anemia (Acute) Acute kidney injury superimposed on CKD (Acute) Hypokalemia (Acute) Pyelonephritis (Acute) Hypertension (Acute) H/o cerebral aneurysm with ?rupture 2009. In coma for 4 months> Residual left-sided weakness Yazidism Past Medical History Medical History Anxiety and depression Chronic anemia Chronic kidney disease Hypertension Major depression, recurrent Stroke Functional capacity: uses cane/walker Family History Family History Father Tuberculosis Mother No problems noted. Other Substance use disorder Family history of problems with anesthesia: No Surgical History Surgical History History of knee surgery History of Problems with Anesthesia: No Social History Social History Household Members: None Housing: Apartment Do you presently have visiting nurse or other home services: Yes ([employer]) Alcohol intake: never Patient Tobacco Use Status: Former Tobacco user Tobacco use type: Cigarette Years Smoked: 10 years Advance Directives Date on File: 12/21/21 service: No Current occupational status: retired Meds Allergies Allergy/AdvReac Type Severity Reaction Status Date / Time latex [Latex] Allergy Mild UNKNOWN Verified 08/29/21 15:33 morphine [Morphine] Allergy Mild VOMITING Verified 08/29/21 15:33 penicillin G Allergy Unknown Rash Verified 08/29/21 15:33 codeine [Codeine] AdvReac Mild VOMITING Verified 08/29/21 15:33 procaine [From Novocain] AdvReac Mild VOMITING Verified 08/29/21 15:33 Active Medications: Current Medications Acetaminophen (Acetaminophen 325 Mg Tablet) 650 mg PO Q6H PRN PRN Reason: Pain, Mild (Pain Scale 1-3) Last Admin: 12/25/21 10:52 Dose: 650 mg Documented by: Cyanocobalamin (Cyanocobalamin (Vitamin B-12) 1,000 Mcg/Ml Vial) 1,000 mcg IM Q7D [facility] Stop: 01/14/22 09:01 Last Admin: 12/24/21 09:46 Dose: 1,000 mcg Documented by: Ergocalciferol (Ergocalciferol (Vitamin D2) 1,250 Mcg Capsule) 1,250 mcg PO MO@1000 [facility] Last Admin: 12/24/21 09:16 Dose: 1,250 mcg Documented by: Fluticasone Propionate (Fluticasone Propionate Nasal 16 Gm [place]) 1 spray NOSTRIL-B BID [facility] Last Admin: 12/25/21 09:05 Dose: 1 spray Documented by: Fluticasone/Vilanterol (Fluticasone/Vilanterol 200/25 Blst.W.Dev) 1 puff INHALE DAILY [facility] Last Admin: 12/25/21 08:17 Dose: 1 puff Documented by: Folic Acid (Folic Acid 1 Mg Tablet) 1 mg PO DAILY [facility] Last Admin: 12/25/21 09:05 Dose: 1 mg Documented by: Furosemide (Furosemide 20 Mg Tablet) 20 mg PO DAILY [facility]; Protocol Last Admin: 12/25/21 09:04 Dose: 20 mg Documented by: Ferric Sodium Gluconate Complex 125 mg/ Sodium Chloride 110 mls @ 100 mls/hr IV DAILY [facility] Stop: 12/26/21 10:05 Last Infusion: 12/25/21 11:58 Dose: Infused Documented by: Levothyroxine Sodium (Levothyroxine Sodium 150 Mcg Tablet) 150 mcg PO DAILY@0600 [facility] Last Admin: 12/25/21 05:39 Dose: Not Given Documented by: Metoprolol Tartrate (Metoprolol Tartrate 50 Mg Tablet) 50 mg PO BID [facility]; Protocol Last Admin: 12/25/21 12:30 Dose: 50 mg Documented by: Pharmacy Consult (Consult Rx Perform Med Rec) 1 each MISCELLANE ONCE PRN PRN Reason: Consult order Sodium Chloride (0.9 % Sodium Chloride Flush 3 Ml Syringe) 3 ml IVFLUSH QSHIFT [facility] Last Admin: 12/25/21 09:05 Dose: 3 ml Documented by: Spironolactone (Spironolactone 25 Mg Tablet) 50 mg PO DAILY [facility]; Protocol Last Admin: 12/23/21 09:50 Dose: 50 mg Documented by: Tizanidine HCl (Tizanidine Hcl 4 Mg Tablet) 6 mg PO BEDTIME [facility] Last Admin: 12/24/21 20:55 Dose: 6 mg Documented by: Topiramate (Topiramate 25 Mg Tablet) 25 mg PO BEDTIME [facility] Last Admin: 12/24/21 20:52 Dose: Not Given Documented by: Venlafaxine HCl (Venlafaxine Hcl Er 150 Mg Cap.Er.24h) 150 mg PO DAILY [facility] Last Admin: 12/25/21 09:04 Dose: 150 mg Documented by: Home Medications Medication Instructions Recorded Confirmed Last Taken Type tizanidine 6 mg capsule 6 mg PO BEDTIME 06/02/20 12/21/21 12/20/21 History venlafaxine 150 mg 150 mg PO DAILY 06/02/20 12/21/21 12/20/21 History capsule,extended release 24 hr amlodipine 5 mg tablet 5 mg PO DAILY 08/29/21 12/21/21 12/20/21 History ergocalciferol (vitamin D2) 1,250 1,250 mcg PO MO@1000 08/29/21 12/21/21 12/17/21 History mcg (50,000 unit) capsule metoprolol succinate 25 mg 25 mg PO DAILY 08/29/21 12/21/21 12/20/21 History tablet,extended release 24 hr topiramate 25 mg tablet 25 mg PO BEDTIME 08/29/21 12/21/21 12/20/21 History fluticasone propionate 50 1 spray INTRANASAL BID 12/21/21 12/21/21 12/20/21 History mcg/actuation nasal spray,suspension spironolactone 50 mg tablet 50 mg PO DAILY 12/21/21 12/21/21 12/20/21 History Exam Exam Date and Time: December 25, 2021 1407 Height,Weight and Vital Signs: Height 5 ft 6 in Weight 79.4 kg Last Vital Signs Temp 100.3 F 12/25/21 12:48 Pulse 85 12/25/21 12:48 Resp 17 12/25/21 12:48 BP 165/93 H 12/25/21 12:48 Pulse Ox 98 12/25/21 12:48 Pertinent Lab Results Pertinent Lab Results: Laboratory Tests 12/21/21 12/21/21 12/21/21 11:57 11:57 12:16 WBC RBC Hgb Hct MCV MCH MCHC RDW Plt Count MPV Immature Gran % (Auto) Neut % (Auto) Lymph % (Auto) [place] % (Auto) Eos % (Auto) Baso % (Auto) Lymph # (Auto) [place] # (Auto) Eos # (Auto) Baso # (Auto) Abs Immat Gran (auto) Absolute Neuts (auto) Absolute Nucleated RBC Nucleated RBC % (auto) Absolute Retic Percent Retic Immature Retic Fraction Retic Hgb Equivalent PT 13.5 H INR 1.2 H D-Dimer High Sensitivty Sodium 137 Potassium 3.8 Chloride 104 Carbon Dioxide 24 Anion Gap 13 BUN 17 H Creatinine 1.01 Estim Creat Clear Calc 53.0 Estimated GFR 54 Random Glucose 131 H Fasting Glucose Lactic Acid 1.7 Calcium 9.0 Magnesium 2.0 Iron TIBC % Saturation Unsat Iron Binding Ferritin Total Bilirubin 0.2 Direct Bilirubin < 0.2 AST 9 ALT 14 Alkaline Phosphatase 121 H Lactate Dehydrogenase Troponin I High Sens B-Natriuretic Peptide Total Protein 6.0 L Albumin 3.7 Lipase 29 Vitamin B12 Folate TSH Free T4 Stool Occult Blood COVID-19 ([facility]) COVID-19 Clin Com 12/21/21 12/21/21 12/21/21 12:16 12:16 12:16 WBC RBC Hgb Hct MCV MCH MCHC RDW Plt Count MPV Immature Gran % (Auto) Neut % (Auto) Lymph % (Auto) [place] % (Auto) Eos % (Auto) Baso % (Auto) Lymph # (Auto) [place] # (Auto) Eos # (Auto) Baso # (Auto) Abs Immat Gran (auto) Absolute Neuts (auto) Absolute Nucleated RBC Nucleated RBC % (auto) Absolute Retic Percent Retic Immature Retic Fraction Retic Hgb Equivalent PT INR D-Dimer High Sensitivty 747 Sodium Potassium Chloride Carbon Dioxide Anion Gap BUN Creatinine Estim Creat Clear Calc Estimated GFR Random Glucose Fasting Glucose Lactic Acid Calcium Magnesium Iron TIBC % Saturation Unsat Iron Binding Ferritin Total Bilirubin Direct Bilirubin AST ALT Alkaline Phosphatase Lactate Dehydrogenase Troponin I High Sens 4.6 D B-Natriuretic Peptide 568 H Total Protein Albumin Lipase Vitamin B12 Folate TSH Free T4 Stool Occult Blood COVID-19 (CRAIG) COVID-19 Clin Com 12/21/21 12/21/21 12/21/21 12:17 12:17 12:41 WBC 10.6 RBC 3.09 L Hgb 7.9 L Hct 25.5 L MCV 82.5 MCH 25.6 L MCHC 31.0 RDW 15.5 Plt Count 340 MPV 8.9 L Immature Gran % (Auto) 0.7 H Neut % (Auto) 80.4 H Lymph % (Auto) 11.7 L [place] % (Auto) 5.6 Eos % (Auto) 1.4 Baso % (Auto) 0.2 Lymph # (Auto) 1.2 [place] # (Auto) 0.6 Eos # (Auto) 0.2 Baso # (Auto) 0.0 Abs Immat Gran (auto) 0.07 H Absolute Neuts (auto) 8.5 H Absolute Nucleated RBC 0.000 Nucleated RBC % (auto) 0.0 Absolute Retic Percent Retic Immature Retic Fraction Retic Hgb Equivalent PT INR D-Dimer High Sensitivty Sodium Potassium Chloride Carbon Dioxide Anion Gap BUN Creatinine Estim Creat Clear Calc Estimated GFR Random Glucose Fasting Glucose Lactic Acid Calcium Magnesium Iron TIBC % Saturation Unsat Iron Binding Ferritin Total Bilirubin Direct Bilirubin AST ALT Alkaline Phosphatase Lactate Dehydrogenase Troponin I High Sens B-Natriuretic Peptide Total Protein Albumin Lipase Vitamin B12 Folate TSH 0.14 L Free T4 1.09 Stool Occult Blood COVID-19 (CRAIG) Negative COVID-19 Clin Com See Note 12/21/21 12/21/21 12/22/21 14:15 18:43 05:41 WBC RBC Hgb Hct MCV MCH MCHC RDW Plt Count MPV Immature Gran % (Auto) Neut % (Auto) Lymph % (Auto) [place] % (Auto) Eos % (Auto) Baso % (Auto) Lymph # (Auto) [place] # (Auto) Eos # (Auto) Baso # (Auto) Abs Immat Gran (auto) Absolute Neuts (auto) Absolute Nucleated RBC Nucleated RBC % (auto) Absolute Retic Percent Retic Immature Retic Fraction Retic Hgb Equivalent PT INR D-Dimer High Sensitivty Sodium 138 Potassium 4.5 Chloride 101 Carbon Dioxide 24 Anion Gap 18 BUN 22 H Creatinine 1.13 Estim Creat Clear Calc 47.4 Estimated GFR 47 Random Glucose 179 H Fasting Glucose Lactic Acid Calcium 9.6 D Magnesium Iron TIBC % Saturation Unsat Iron Binding Ferritin Total Bilirubin Direct Bilirubin AST ALT Alkaline Phosphatase Lactate Dehydrogenase Troponin I High Sens B-Natriuretic Peptide 530 H Total Protein Albumin Lipase Vitamin B12 Folate TSH Free T4 Stool Occult Blood NEGATIVE COVID-19 (CRAIG) COVID-19 Clin Com 12/22/21 12/23/21 12/23/21 05:41 11:06 11:06 WBC 10.7 12.7 H RBC 3.14 L 3.36 L Hgb 7.9 L 8.4 L Hct 25.1 L 26.7 L MCV 79.9 L 79.5 L MCH 25.2 L 25.0 L MCHC 31.5 31.5 RDW 15.5 15.5 Plt Count 405 H 401 H MPV 9.4 8.8 L Immature Gran % (Auto) 0.8 H 0.6 H Neut % (Auto) 89.1 H 81.0 H Lymph % (Auto) 7.3 L 12.1 L [place] % (Auto) 2.7 5.5 Eos % (Auto) 0.0 0.6 Baso % (Auto) 0.1 0.2 Lymph # (Auto) 0.8 L 1.5 [place] # (Auto) 0.3 0.7 Eos # (Auto) 0.0 0.1 Baso # (Auto) 0.0 0.0 Abs Immat Gran (auto) 0.09 H 0.08 H Absolute Neuts (auto) 9.5 H 10.3 H Absolute Nucleated RBC 0.000 0.000 Nucleated RBC % (auto) 0.0 0.0 Absolute Retic 0.089 Percent Retic 2.7 H Immature Retic Fraction 24.4 H Retic Hgb Equivalent 24.4 L PT INR D-Dimer High Sensitivty Sodium Potassium Chloride Carbon Dioxide Anion Gap BUN Creatinine Estim Creat Clear Calc Estimated GFR Random Glucose Fasting Glucose Lactic Acid Calcium Magnesium Iron 24 L TIBC 364 % Saturation 7 L Unsat Iron Binding 340 Ferritin 43 Total Bilirubin Direct Bilirubin AST ALT Alkaline Phosphatase Lactate Dehydrogenase 153 Troponin I High Sens B-Natriuretic Peptide Total Protein Albumin Lipase Vitamin B12 Folate TSH Free T4 Stool Occult Blood COVID-19 (CRAIG) COVID-19 Clin Com 12/23/21 12/25/21 12/25/21 11:06 05:17 05:17 WBC 11.5 H RBC 3.51 L Hgb 8.7 L Hct 28.2 L MCV 80.3 MCH 24.8 L MCHC 30.9 L RDW 15.2 Plt Count 446 H MPV 9.1 L Immature Gran % (Auto) 0.9 H Neut % (Auto) 75.3 H Lymph % (Auto) 15.8 L [place] % (Auto) 6.0 Eos % (Auto) 1.7 Baso % (Auto) 0.3 Lymph # (Auto) 1.8 [place] # (Auto) 0.7 Eos # (Auto) 0.2 Baso # (Auto) 0.0 Abs Immat Gran (auto) 0.10 H Absolute Neuts (auto) 8.7 H Absolute Nucleated RBC 0.000 Nucleated RBC % (auto) 0.0 Absolute Retic Percent Retic Immature Retic Fraction Retic Hgb Equivalent PT INR D-Dimer High Sensitivty Sodium 141 Potassium 3.3 D Chloride 105 Carbon Dioxide 25 Anion Gap 14 BUN 18 H Creatinine 1.02 Estim Creat Clear Calc 51.4 Estimated GFR 53 Random Glucose Fasting Glucose 107 H Lactic Acid Calcium 9.2 Magnesium 2.0 Iron TIBC % Saturation Unsat Iron Binding Ferritin Total Bilirubin Direct Bilirubin AST ALT Alkaline Phosphatase Lactate Dehydrogenase Troponin I High Sens B-Natriuretic Peptide Total Protein Albumin Lipase Vitamin B12 187 L Folate 9.6 TSH Free T4 Stool Occult Blood COVID-19 (CRAIG) COVID-19 Clin Com Airway Mallampati Class: II TM Dist: >3cm Neck ROM: Limited (H/o injury some years ago) Denture: Upper and Lower Heart: Irregularly irregular Lungs: CTAB Assessment and Plan Assessment Anesthesia Assessment: Anesthesia Plan Discussed and Chart Reviewed Final Anesthetic Review Family History of Problems with Anesthesia: No History of Problems with Anesthesia: No NPO: Yes ASA Class: III Final Preanesthetic Review: No Changes in Pt Med Stat, Meds/Allgs Chart Reviewed, Consent Obtained/Reviewed and Anes Risks/Benef Reviewed Patient Risk: Intermediate Procedure Risk: Low Assessment/Block/Sedation in SS: Assess/Block/Sedation-SS Anesthetic Plan Anesthetic Plan: MAC: Disposition: Standard PACU and Inp. Admit - IMC
[2021-12-25 14:45] LABS: IgA 124 mg/dL (70-320); IgG 474 mg/dL (600-1540); IgM 35 mg/dL (50-300)
--- NOTE | 2021-12-25 16:07 | PM.EVENT ---
Event Note Date of Service: 12/25/21 Event Note: EGD/Colon dictated normal egd, bxd duodenum and antrum multiple colonic polyps, snared and peicemeal resected large 18-20 mm cecal polyp, snared and base defect closed with clip recommend holding anticoagualation x5 days due to size and number of polyps.
--- NOTE | 2021-12-25 16:11 | PM.OP ---
Brief Operative Note Date of Service: 12/25/21 Pre-op diagnosis: helen Post-op diagnosis: same (colon polyps) Surgeon: Louis Meyer Anesthesia: MAC Was an Trial Management Associate used for this Procedure?: No Estimated blood loss (mL): 5 Pathology: other (see req) Condition: stable Disposition: PACU
[2021-12-25 16:40] LABS: Glucose, Whole Blood 93 mg/dL (60-115)
[2021-12-25] MEDS: Lactated Ringers 1,000 ML 50 ML IVCONT (16:53)
[2021-12-25] MEDS: TiZANidine HCL 4 MG TABLET 6 MG PO (21:24)
[2021-12-26 03:18] VITALS: BP 139/77; PULSE 76; RESP 16; TEMP 36.7; O2SAT 98
[2021-12-26] MEDS: Levothyroxine Sodium 150 MCG TABLET PO (05:58)
[2021-12-26] MEDS: Fluticasone/Vilanterol 200/25 BLST.W.DEV 1 PUFF INHALE (07:31)
[2021-12-26 07:32] VITALS: PULSE 82; RESP 18; O2SAT 97
[2021-12-26 07:38] VITALS: BP 138/72; PULSE 72; RESP 17; TEMP 36.7; O2SAT 96
[2021-12-26 07:43] VITALS: BP 163/72; PULSE 80; RESP 18; TEMP 36.6; O2SAT 99
[2021-12-26] MEDS: 0.9 % Sodium Chloride Flush 3 ML SYRINGE IVFLUSH (09:27)
[2021-12-26] MEDS: Sodium Ferric Gluconat/Sucrose 125 MG in 0.9 % Sodium Chloride 100 ML 250 MG IV (09:27)
--- NOTE | 2021-12-26 09:37 | P.DS_ITS ---
DS: Providers Provider Date of Service: 12/26/21 Date of admission: 12/21/21 17:37 Primary care physician: Shravan Grant MD Consults: 12/21/21 17:37 Consult to Cardiology Routine Consulting Provider: Mikael Gray Reason for consultation: heart failure, new afib Has provider been notified: No 12/22/21 12:39 Consult to Gastroenterology Routine Consulting Provider: Boris Castillo Reason for consultation: iron deficiency anemia and need for anticoagulation Has provider been notified: No Consult to Hematology / Oncology Routine Consulting Provider: Rachelle Catalan Reason for consultation: anemia Has provider been notified: No DS: Diagnosis Discharge Diagnosis (1) Decompensated heart failure: Status: Acute (2) Chronic anemia: Status: Acute (3) A-fib: Status: Acute (4) Congestive heart failure: Status: Acute DS: Summary Hospital Course Hospital Course: Chief Complaint: shortness of breath 76 yo female with hx of cerebral aneurysm? ruptured in 2009 that was treated at [place] at that had prolonged coma state for nearly 4 months and is left with some left sided weakness. Other PMH include? CKD, HLD, depression, asthma, HTN, hypothyroidism. She presents with? dyspnea worse with exertion, wheezing, productive cough for about 3 days now.? She was seen here in ED back last month and at that time ECG show AFIB, but? treatment plan not well outlined at that time. She is noted to be? in? afib with RVR but now slow.? She is also noted to be anemic but denies blood in stool. Ddimer is over 700, CXR shows cardiomegally and CHF, VQ scan is negaive for PE.? Treated with IV Lasix, bronchodilators, steroid and overall feels better. Hospital course: Darell was admitted for management of AFIB with RVR, heart failure and also noted to have significant iron deficiency. Dyspnea likely from AFIB, COPD, heart failure.. -Treated these underlying causes and dyspnea is now resolved. AFIB with RVR--She did not require IV medication, and was started on oral metoprol with good heart rate controll, metoprolol 25 Q6 will be convertted to 50 bid for discharge. She was seen by Dr. Downs (cardiology), and anticoagulation is recommended so as no contraindiccaton given anemi. as such GI is doing EGD and colonosocpy to locate if there is a source of bleed. Echo, anticoagulation if no source of bleed. Echo normal EF of 60 to 65 %. Of note she had one episode of 10 beat of Vtach on 12/25/21, magnesium level ws normal at 2. Seen by cardiology and no further recommendation. She has not had further episode Acute systolic Heart failure-- EF as stated above, treated initially with IV Lasix and will discharge with oral lasix 20 mg daily Iron deficiency anemia, no active bleed for EGD and colonoscopy on 12/[address] Meyer with the following finding and recommendations normal egd, bxd duodenum and antrum multiple colonic polyps, snared and peicemeal resected large 18-20 mm cecal polyp, snared and base defect closed with clip recommend holding anticoagualation x5 days due to size and number of polyps. HTN--continue Norvasc, Metoprolol and Aldactone. BP is a little high this morning but in general has been normal Asthma--stable Anxiety--continue Effextor Hypothyroidism--continue levothyroxine, TSH is low Time Spent with Patient Time attestation: Total time spent providing and/or coordinating discharge services: Discharge coordination time: Greater than 30 minutes Quality: Safe Use of Opioids Does Pt have an Active Cancer Diagnosis on the Problem List?: No Quality: Stroke Does the patient have a stroke diagnosis?: No Physical Exam Vital Signs: Vital Signs: Last Vital Signs Temp 96.9 F 12/25/21 07:06 Pulse 84 12/25/21 08:18 Resp 18 12/25/21 08:18 BP 140/80 H 12/25/21 07:06 Pulse Ox 96 12/25/21 07:06 BMI result Body Mass Index 28.2 DS: Data Data Completed and Pending Labs on day of discharge: Laboratory Results - last 24 hr 12/25/21 12/25/21 05:17 05:17 WBC 11.5 H RBC 3.51 L Hgb 8.7 L Hct 28.2 L MCV 80.3 MCH 24.8 L MCHC 30.9 L RDW 15.2 Plt Count 446 H MPV 9.1 L Immature Gran % (Auto) 0.9 H Neut % (Auto) 75.3 H Lymph % (Auto) 15.8 L [place] % (Auto) 6.0 Eos % (Auto) 1.7 Baso % (Auto) 0.3 Lymph # (Auto) 1.8 [place] # (Auto) 0.7 Eos # (Auto) 0.2 Baso # (Auto) 0.0 Abs Immat Gran (auto) 0.10 H Absolute Neuts (auto) 8.7 H Absolute Nucleated RBC 0.000 Nucleated RBC % (auto) 0.0 Sodium 141 Potassium 3.3 D Chloride 105 Carbon Dioxide 25 Anion Gap 14 BUN 18 H Creatinine 1.02 Estim Creat Clear Calc 51.4 Estimated GFR 53 Fasting Glucose 107 H Calcium 9.2 Preliminary micro results at discharge 12/21/21 12:16 Blood Culture - Preliminary Blood - Venous No growth after 48 hours. 12/21/21 11:57 Blood Culture - Preliminary Blood - Venous No growth after 48 hours. Discharge Plan Discharge Anticipated Discharge Date/Time: 12/26/21 09:22 Patient Disposition: Home, Self-Care Discharge Diagnosis: New AFIB, heart failure and iron deficiency anemia Referrals: Shravan Grant MD [Primary Care Provider] - 1 Week Mikael Gray MD [Physician] - 2 Weeks Boris Castillo [Physician] - 2 Weeks Discharge Medications: New metoprolol tartrate 50 mg Tablet 50 mg PO BID Qty: 60 0RF Protocol: Hold for SBP/HR < HOLD for SBP < : 90 HOLD for HR < : 60 Eliquis 5 mg tablet 5 mg PO BID Qty: 60 0RF Rx Instructions: To start taking on December 31 Continued (DME) Updraft machine See Rx Instructions .Route .MEDSUPPLY Qty: 1 0RF Rx Instructions: As directed Breo Ellipta 200-25 mcg/dose blister with device 1 inh inhalation DAILY 30 Days Qty: 28 2RF levothyroxine 150 mcg tablet 150 mcg PO DAILY 30 Days Qty: 90 0RF venlafaxine 150 mg Capsule,Extended Release 24hr 150 mg PO DAILY 0RF tizanidine 6 mg Capsule 6 mg PO BEDTIME 0RF spironolactone 50 mg Tablet 50 mg PO DAILY 0RF fluticasone propionate 50 mcg/actuation spray,suspension 1 spray intranasal BID 0RF topiramate 25 mg tablet 25 mg PO BEDTIME 0RF ergocalciferol (vitamin D2) 1,250 mcg (50,000 unit) capsule 1,250 mcg PO MO@1000 0RF amlodipine 5 mg tablet 5 mg PO DAILY 0RF Discontinued metoprolol succinate 25 mg tablet extended release 24 hr 25 mg PO DAILY 0RF Discharge Orders: Discharge Order (Routine); Ordered 12/26/21 Ordered By: Ford Sullivan Diet: advance to usual diet Activity on Discharge: As tolerated Stand Alone Forms: Patient Portal Discharge page Care Plan Goals: Rate control for atrial fibrilation and anemia work up Health Concerns: Anemia, GI polyps, AFIB Plan of Treatment: Take Metoprolol 50 mg twice a day Start taking Eliquis Start taking Eliquis 5 mg twice daily, starting December 31 and follow up with Dr. Gray (cardiology) and Mitch STEWART to go over biopsy result. Follow up with your primary care doctor, call for appointment Assessment: As above
[2021-12-26] MEDS: Folic Acid 1 MG TABLET PO (10:41)
[2021-12-26] MEDS: Metoprolol Tartrate 50 MG TABLET PO (10:41)
[2021-12-26] MEDS: Furosemide 20 MG TABLET PO (10:42)
[2021-12-26] MEDS: Venlafaxine HCl ER 150 MG CAP.ER.24H PO (10:42)
[2021-12-26] MEDS: Fluticasone Propionate Nasal 16 GM SPRAY 1 SPRAY NOSTRIL-B (10:42)
--- NOTE | 2021-12-26 10:47 | OP_ITS ---
SURGEON: Louis Meyer MD INDICATIONS: Iron-deficiency anemia. PREOPERATIVE DIAGNOSIS: POSTOPERATIVE DIAGNOSIS: PROCEDURE PERFORMED: 1. Upper endoscopy with biopsy. 2. Colonoscopy to the cecum with biopsy, snare polypectomy, and placement of hemostatic clip. ESTIMATED BLOOD LOSS: COMPLICATIONS: ANESTHESIA: Medications, monitored anesthesia care. ASSISTANTS: SPECIMENS: DESCRIPTION OF PROCEDURE: History and physical was performed. The risks and benefits of the procedure were explained to the patient. Informed consent was obtained. The patient was placed in the left lateral decubitus position. The Olympus videogastroscope was introduced into the esophagus, stomach, and duodenum. Examination was performed. The scope was removed. She was repositioned for colonoscopy. A digital rectal exam was performed and was found to be normal. The Olympus pediatric videocolonoscope was introduced into the rectum and advanced to the cecum without difficulty. The cecum was identified by transillumination, palpation, and identification of ileocecal valve. Examination was performed. The scope was removed. She tolerated both procedures well and was taken to Recovery in stable condition. FINDINGS: UPPER ENDOSCOPY; esophagus: The esophagus was normal. Stomach: The stomach showed no evidence of masses, ulcers, or polyps. Duodenum: The bulb and second portion were normal. Biopsies were obtained from the duodenum and antrum. COLONOSCOPY: The terminal ileum was not examined. The procedure was extended and difficult due to multiple polyps that required multiple techniques for removal and sectioning post removal to be aspirated through the endoscope. The largest polyp was located in the cecum measuring approximately 15 x 20 mm and was sessile. This was removed with a snare and a single hemostatic clip was used to close the mucosal defect. There was no bleeding. There were approximately 4 other cecal polyps overall less than 10 mm that were snared and placed in jars for a total of 3 specimens from the cecum. Other polyps were located at 80, 75, and 65 cm; totaling 6. Three of these were more than 10 mm and were snared. The remains were removed with a combination of snare and biopsy forceps and measured less than 10 mm. Retroflexed examination was normal. The quality of the prep was good. IMPRESSION: 1. Normal upper endoscopy. 2. Colon polyps. RECOMMENDATIONS: 1. Follow up the biopsy results. 2. Hold anticoagulation for 5 days because of the number of polyps that were removed. 3. No NSAIDs. MD EULA Almanzar/DONALD / [id number] ROCKY
--- NOTE | 2021-12-26 11:07 | PM.PNCARD ---
Subjective Subjective Date of Service: 12/26/21 Principal diagnosis: CHF, atrial fibrillation Interval history: She states that she is doing okay. No specific cardiac complaints. Denies any angina or shortness of breath or palpitations or dizzy spells or syncopal episodes or in fact anything cardiac related at all at this time. Review of Systems Review of Systems Yes all other systems are reviewed and are negative Constitutional: Reports as per HPI Eyes: Reports as per HPI Reports as per HPI Cardiovascular: Reports as per HPI, Denies acrocyanosis, Denies cool extremities, Denies chest pain, Denies leg edema, Denies lightheadedness, Denies palpitations and Denies dyspnea Respiratory: Reports as per HPI, Reports no additional respiratory complaints and Denies dyspnea Gastrointestinal: Reports as per HPI and Reports no additional gastrointestinal complaints Genitourinary: Reports as per HPI Musculoskeletal: Reports no additional musculoskeletal complaints and Reports as per HPI Skin/Breast: Reports system reviewed and no additional complaints, except as docu Reports system reviewed and no additional complaints, except as documented and Reports as per HPI Psychiatric: Reports no additional psychiatric complaints and Reports as per HPI Endocrine: Reports no additional endocrine complaints, Reports as per HPI and Denies palpitations Hematologic/Lymphatic: Reports no additional hematologic/lymphatic complaints and Reports as per HPI Allergic/Immunologic: Reports no additional allergic/immunologic complaints and Reports as per HPI Physical Exam Vital Signs: Last Vital Signs Temp 97.9 F 12/26/21 07:43 Pulse 80 12/26/21 07:43 Resp 18 12/26/21 07:43 BP 163/72 H 12/26/21 07:43 Pulse Ox 99 12/26/21 07:43 BMI result Body Mass Index 28.2 Const General: comfortable and no acute distress Orientation/consciousness: patient oriented x3 HEENT Other: Unremarkable Head: Yes normal to inspection Neck Neck: Yes normal visual inspection Chest Chest palpation & inspection: normal inspection of the chest Resp Auscultation: clear to auscultation bilaterally Cardio Palpation: normal PMI Heart sounds: S1 normal heart sound present, S2 normal heart sound present, no gallops, no murmurs and no rubs GI Palpation (GI): Soft to palpation Back/Spine/Pelvis Other: unremarkable Skin General skin exam: no rashes or lesions noted Neuro General: patient oriented x3 Extrem General: Yes normal to inspection Psych Mental Status: mental status grossly normal Objective Labs and Meds Result diagrams: 12/25/21 05:17 12/25/21 05:17 Lab results: Laboratory Results - last 24 hr 12/23/21 12/25/21 12/25/21 11:06 05:17 16:36 POC Glucose 93 Magnesium 2.0 IgG Total 474 L IgA Total 124 IgM 35 L CHANDU Interpretation SEE NOTE Progress Note: A&P Assessment and plan (1) Persistent atrial fibrillation: Status: Acute (2) Acute diastolic (congestive) heart failure: Status: Acute (3) NSVT (nonsustained ventricular tachycardia): Status: Acute (4) Anemia: Status: Acute Plan Cardiac studies reviewed. On telemetry, she is in atrial fibrillation with controlled rate. Has not had any further episodes of NSVT. Yesterday, she had a 10 beat run-monomorphic. Echocardiogram with LVEF 60-65%, moderate left atrial enlargement but otherwise unremarkable. Recent high sensitivity troponins are within range. Recent hemoglobin trends are reviewed. Colonoscopy findings reviewed. She has undergone polyp removal. At this time, she may continue beta-blockers. When cleared by GI and per the recommendations, start anticoagulation. With regard to the heart failure standpoint, she seems quite stable and not clinically having any symptoms or signs. She is on small dose of Lasix and she is also on spironolactone. We will arrange follow-up in the office for further care. If she has recurrent GI bleeding events, then she may qualify for Watchman procedure. Time Spent With Patient Time: Total time spent is greater than 50% in coordination of care (as documented) at patient's floor/unit and/or counseling patient: 37min. Progress Note: Quality Stroke Does the patient have a stroke diagnosis?: No Procedures Date of Service Date of Service: 12/26/21
--- NOTE | 2021-12-26 11:11 | MHC.CM.PN ---
Patient has been medically cleared for dc to home today, self care.IMM addressed with Patient at bedside and original has been given to her and a copy has been placed on the chart.Patient is happy to be going home.
[2021-12-26 11:21] VITALS: BP 142/83; PULSE 93; RESP 17; TEMP 36.9; O2SAT 97
--- NOTE | 2021-12-26 14:09 | HO.POSTANES ---
Post Anesthesia Evaluation Post Anesthesia Evaluation Vital Signs: Vital Signs Temp Pulse Resp BP Pulse Ox 12/26/21 11:21 98.5 F 93 17 142/83 H 97 12/26/21 07:43 97.9 F 80 18 163/72 H 99 12/26/21 07:38 98.1 F 72 17 138/72 96 12/26/21 07:32 82 18 12/26/21 03:18 98.0 F 76 16 139/77 98 Anesthesia: Monitored Mental Status: Awake Pain Control: Satisfactory Nausea/Vomiting: None Hydration: Adequate Anesthesia-Related Issues: No Anes. Related Issues Comments: Patient seen at 645am this morning
[2021-12-27 18:31] LABS: Haptoglobin 422 mg/dL (43-212)
== END 2021-12-26 13:45 | disposition home or self-care (01) | DRG 291 ==
LOC: HO.ED 13:03 → HO.EDOVER 17:55 → HO.IMC 12-25 00:04
PROVIDERS: Internal Medicine; Internal Medicine Gastroenterology; Internal Medicine Medical Oncology; Nurse Practitioner Acute Care; Admitting Provider Internal Medicine; Emergency Provider Emergency Medicine; PCP Internal Medicine; Visit Provider Internal Medicine
DX: I13.0 Hypertensive heart and chronic kidney disease with heart failure and stage 1 through stage 4 chronic kidney disease, or unspecified chronic kidney disease (principal); I50.21 Acute systolic (congestive) heart failure; F33.9 Major depressive disorder, recurrent, unspecified; J45.31 Mild persistent asthma with (acute) exacerbation; I69.854 Hemiplegia and hemiparesis following other cerebrovascular disease affecting left non-dominant side; I48.19 Other persistent atrial fibrillation; I47.1 Supraventricular tachycardia; N18.9 Chronic kidney disease, unspecified; E78.5 Hyperlipidemia, unspecified; E03.9 Hypothyroidism, unspecified; I95.9 Hypotension, unspecified; D63.1 Anemia in chronic kidney disease; J44.9 Chronic obstructive pulmonary disease, unspecified; F41.0 Panic disorder [episodic paroxysmal anxiety]; D50.9 Iron deficiency anemia, unspecified; D12.0 Benign neoplasm of cecum; Z20.822 Contact with and (suspected) exposure to COVID-19; Z87.01 Personal history of pneumonia (recurrent); Z91.040 Latex allergy status; Z88.0 Allergy status to penicillin; Z88.5 Allergy status to narcotic agent; Z79.01 Long term (current) use of anticoagulants; Z79.51 Long term (current) use of inhaled steroids; Z79.899 Other long term (current) drug therapy
CPT/HCPCS: 36415; 71045; 78580; 80048; 80076; 82272; 82607; 82728; 82746; 82784; 82947; 83010; 83540; 83605; 83615; 83690; 83735; 83880; 84439; 84443; 84484; 85025; 85045; 85379; 85610; 86334; 87040; 87635; 88305; 88342; 93005; 93306; 94640; 96374; 99285; A9540; J1940; J2250; J2916; J2930

== ENCOUNTER 2022-01-01 17:38 | Inpatient (IN) | payer OTHER, SELFPAY ==
--- NOTE | ~2022-01-01 | CT_ITS ---
EXAMINATION: CT ABDOMEN AND PELVIS WITHOUT CONTRAST CLINICAL INFORMATION: Sepsis COMPARISON: Previous CT of the abdomen and pelvis May 2020 TECHNIQUE: Multidetector volumetric imaging was performed from the superior aspect of the liver through the pubic symphysis. Sagittal and coronal reformatted images were obtained on the technologist's workstation. This CT examination was performed using dose optimization techniques as appropriate, variously including the following: *Automated exposure control *Adjustment of mA and/or kV according to patient size (this includes techniques or standardized protocols for targeted exams where dose is matched to indication/reason for exam; i.e. extremities or head) *Use of iterative reconstruction technique DLP: 663 mGy-cm FINDINGS: LUNG BASES: There are small bilateral pleural effusions and adjacent lower lobe atelectasis. LIVER, GALLBLADDER, AND BILIARY TREE: The liver is normal in size, shape, and attenuation. No focal hepatic lesion or biliary ductal dilatation is present. The gallbladder is unremarkable with no evidence of radiopaque gallstones, gallbladder wall thickening, or obvious pericholecystic inflammatory changes. PANCREAS: Unremarkable. SPLEEN: Unremarkable. ADRENAL GLANDS: Unremarkable. KIDNEYS AND URETERS: There is left renal cortical thinning or scarring. The kidneys are otherwise normal. BLADDER: Unremarkable. GASTROINTESTINAL TRACT: There is mild wall thickening of the right colon and proximal transverse colon and stranding of the surrounding fat suggestive of colitis. Small and large bowel is otherwise unremarkable. ABDOMINAL WALL: There is an umbilical hernia containing fat. LYMPH NODES: Normal. VASCULAR: There is evidence of atherosclerotic disease. No aneurysm is seen. PELVIC VISCERA: Unremarkable. OSSEOUS STRUCTURES: There are degenerative changes of the spine and hip joints. CT/CT abdomen pelvis wo con IMPRESSION: Mild colitis of the proximal colon. Fleischner guidelines were followed.
--- NOTE | ~2022-01-01 | XR_ITS ---
EXAMINATION: XR CHEST CLINICAL INFORMATION: Shortness of breath. COMPARISON: Most recent chest radiograph dated 12/21/2021. TECHNIQUE: Frontal view of the chest was obtained. FINDINGS: Diffuse interstitial prominence appears similar when compared to the prior examination. Decreased bibasilar patchy opacities. Trace left-sided pleural effusion, unchanged. Decreased right-sided pleural effusion. No pneumothorax. Stable cardiomediastinal silhouette. XR/XR chest 1V IMPRESSION: Decreased patchy bibasilar opacities and right-sided pleural effusion with a stable trace left-sided pleural effusion. No new airspace consolidation.
--- NOTE | ~2022-01-01 | CT_ITS ---
EXAMINATION: CT CHEST WITHOUT CONTRAST CLINICAL INFORMATION: Bilateral pneumonia COMPARISON: Chest radiograph earlier today and CT chest 06/02/2020 TECHNIQUE: Multidetector volumetric CT imaging of the chest was done. Axial MIP volume rendering provided. Sagittal and coronal reformatted images were obtained. This CT examination was performed using dose optimization techniques as appropriate, variously including the following: *Automated exposure control *Adjustment of mA and/or kV according to patient size (this includes techniques or standardized protocols for targeted exams where dose is matched to indication/reason for exam; i.e. extremities or head) *Use of iterative reconstruction technique DLP: 227 mGy-cm FINDINGS: LUNGS AND PLEURA: Some septal thickening is present at the lung bases, new since prior. Small new bilateral pleural effusions are present. No infiltrates or consolidations are seen. Minimal bibasilar atelectasis is present. MEDIASTINUM: The heart size is within normal limits. Coronary artery calcifications are seen. Prominent mediastinal lymph nodes are present with the largest right pretracheal measuring 2.2 x 1.5 x 2.2 cm (5:152).. These are significantly larger when compared to the 06/02/2020 study when the above-mentioned node measured 0.9 x 0.5 x 1.2 cm. AXILLA: No lymphadenopathy. UPPER ABDOMEN: Unremarkable. OSSEOUS STRUCTURES: Mild degenerative changes are present thoracic spine with more moderate degenerative changes in the lower cervical spine. CT/CT chest wo con IMPRESSION: Bilateral pleural effusions and septal thickening suggest possible pulmonary vascular congestion. No significant pneumonia is present. Prominent mediastinal nodes may be reactive. Fleischner guidelines were followed.
[2022-01-01 17:55] VITALS: PULSE 88; O2SAT 97
[2022-01-01 17:59] VITALS: BP 175/82; PULSE 108; RESP 19; TEMP 38.9; O2SAT 95; BMI 28.8
--- NOTE | 2022-01-01 17:59 | ED_ITS ---
HPI - General Adult General Chief complaint: General Medical Stated complaint: BODYACHES,CHILLS, D/C RECENTLY PER EMS Time Seen by Provider: 01/01/22 17:51 Source: patient Mode of arrival: EMS Limitations: no limitations History of Present Illness HPI narrative: Patient is 76 years old with history of CVA with left-sided weakness, CKD, depression, asthma, hypertension, hypothyroidism, AFib with CHF there is disch arged on 12/26 after 5 days of stay in the hospital comes here as she is not feeling well for last 2 days complaining of body ache chills noticed to have fever of 102.1 on arrival has cough which is getting worse no rhinorrhea no sore throat no body rash patient is not vaccinated against COVID no urinary complaints no nausea vomiting or diarrhea no chest pain or palpitation Related Data Home Medications Medication Instructions Recorded Confirmed tizanidine 6 mg capsule 6 mg PO BEDTIME 06/02/20 12/21/21 venlafaxine 150 mg 150 mg PO DAILY 06/02/20 12/21/21 capsule,extended release 24 hr amlodipine 5 mg tablet 5 mg PO DAILY 08/29/21 12/21/21 ergocalciferol (vitamin D2) 1,250 1,250 mcg PO MO@1000 08/29/21 12/21/21 mcg (50,000 unit) capsule topiramate 25 mg tablet 25 mg PO BEDTIME 08/29/21 12/21/21 fluticasone propionate 50 1 spray INTRANASAL BID 12/21/21 12/21/21 mcg/actuation nasal spray,suspension spironolactone 50 mg tablet 50 mg PO DAILY 12/21/21 12/21/21 Previous Rx's Medication Instructions Recorded [facility] #1 ea 04/13/21 fluticasone furoate 200 1 inh INHALATION DAILY 30 Days #28 04/30/21 mcg-vilanterol 25 mcg/dose ea inhalation powder (Breo Ellipta) levothyroxine 150 mcg tablet 150 mcg PO DAILY 30 Days #90 tab 11/09/21 metoprolol tartrate 50 mg tablet 50 mg PO BID #60 tab 12/25/21 apixaban 5 mg tablet (Eliquis) 5 mg PO BID #60 tab 12/26/21 Allergies Allergy/AdvReac Type Severity Reaction Status Date / Time latex [Latex] Allergy Mild UNKNOWN Verified 08/29/21 15:33 morphine [Morphine] Allergy Mild VOMITING Verified 08/29/21 15:33 penicillin G Allergy Unknown Rash Verified 08/29/21 15:33 codeine [Codeine] AdvReac Mild VOMITING Verified 08/29/21 15:33 procaine [From Novocain] AdvReac Mild VOMITING Verified 08/29/21 15:33 Review of Systems Review of Systems: Yes all other systems are reviewed and are negative [facility] Past Medical History Medical History Anxiety and depression Chronic anemia Chronic kidney disease Hypertension Major depression, recurrent Stroke Surgical History History of knee surgery Family History Family History Father Tuberculosis Mother No problems noted. Other Substance use disorder Social History Social History Household Members: None Housing: Apartment Do you presently have visiting nurse or other home services: Yes ([employer]) Alcohol intake: never Patient Tobacco Use Status: Former Tobacco user Tobacco use type: Cigarette Years Smoked: 10 years Advance Directives: Yes Advance Directives on File: Yes Advance Directives Date on File: 12/21/21 service: No Current occupational status: retired Physical Exam ED Vital Signs: Vital Signs - 24 hr 01/01/22 17:59 01/01/22 18:51 01/01/22 20:41 Temperature 102.1 F H 99.8 F 99.5 F Pulse Rate 108 H 99 96 Respiratory Rate 19 16 17 Blood Pressure 175/82 H 162/85 H 176/84 H Pulse Oximetry 95 97 98 01/01/22 22:00 01/01/22 23:54 Temperature 99.3 F 101.5 F H Pulse Rate 93 93 Respiratory Rate 16 24 H Blood Pressure 179/95 H 183/77 H Pulse Oximetry 95 94 BMI result Body Mass Index 28.8 Appearance: Alert. Oriented X3. No acute distress. Eyes: No pallor/ icterus ENT: Pharynx normal. Oral Mucosa moist Neck: Normal inspection. Neck supple. CVS: Tachycardia regular rate and rhythm Pulses normal. Respiratory: No respiratory distress. Equal air entry bilateral, no wheezing/rhonchi , occasional rales Abdomen: Soft and nontender. Bowel sounds are present, no mass palpable, no CVA tenderness Skin: Skin warm and dry. Normal skin color. Normal skin turgor. Extremities: No lower extremity edema. No calf tenderness Neuro: Oriented X 3. No motor deficit. No sensory deficit.No cerebellar signs , cranial nerves II-XII intact Medical Decision Making MDM Narrative Medical decision making narrative: Patient with high-grade fever with slight UTI and possible bilateral infiltrate COVID and flu is negative will admit patient for IV antibiotics Lab Data Lab results reviewed: Yes I reviewed the patient's lab results. Result diagrams: 01/01/22 19:08 01/01/22 19:09 Labs: Lab Results 01/01/22 01/01/22 01/01/22 Range/Units 19:08 19:08 19:08 WBC 15.4 H (4.8-10.8) X10*3/uL RBC 3.27 L (4.20-5.50) X10*6/uL Hgb 8.6 L (12.0-16.0) g/dl Hct 26.8 L (37.0-47.0) % MCV 82.0 (80.0-98.0) fL MCH 26.3 L (27.0-33.0) pg MCHC 32.1 (31.0-35.0) g/dl RDW 16.5 H (11.0-16.0) % Plt Count 367 (160-400) X10*3/uL MPV 9.3 L (9.4-12.3) fL Immature Gran % (Auto) 0.8 H (0.0-0.4) % Neut % (Auto) 90.6 H (45-73) % Lymph % (Auto) 4.3 L (20-40) % [place] % (Auto) 3.8 (2-11) % Eos % (Auto) 0.3 (0-4) % Baso % (Auto) 0.2 (0-2) % Lymph # (Auto) 0.7 L (1.2-4.9) X10*3/uL [place] # (Auto) 0.6 (0.1-1.2) X10*3/uL Eos # (Auto) 0.0 (0.0-0.4) X10*3/uL Baso # (Auto) 0.0 (0.0-0.2) X10*3/uL Abs Immat Gran (auto) 0.13 H (0.00-0.03) X10*3/uL Absolute Neuts (auto) 13.9 H (2.0-8.3) x10*3/uL Absolute Nucleated RBC 0.000 (0.0-0.012) X10*3/uL Nucleated RBC % (auto) 0.0 (0.0-0.2) /100WBC Smear Tech's Comments VERIFIED Sodium (135-145) mmol/L Potassium (3.3-5.1) mmol/L Chloride (96-108) mmol/L Carbon Dioxide (22-29) mmol/L Anion Gap (12-20) BUN (9-16) mg/dL Creatinine (0.5-1.4) mg/dL Estim Creat Clear Calc Estimated GFR Random Glucose (60-115) mg/dL Lactic Acid (0.5-2.0) mmol/L Calcium (8.4-10.2) mg/dL Total Bilirubin (0.0-1.0) mg/dL AST (5-31) U/L ALT (0-31) U/L Alkaline Phosphatase (39-117) U/L Troponin I High Sens 7.1 D (<3.5-17.0) ng/L B-Natriuretic Peptide 502 H (<100) pg/mL Total Protein (6.5-8.0) g/dL Albumin (3.5-5.0) g/dL Urine Color Urine Appearance Urine pH (5.0-8.0) Ur Specific [place] (1.005-1.025) Urine Protein (NEG-TRACE) MG/DL Urine Glucose (UA) (NEG) MG/DL Urine Ketones (NEG) MG/DL Urine Blood (NEG) Urine Nitrite (NEG) Ur Leukocyte Esterase (NEG) Urine RBC (0) /HPF Urine WBC (0-4) /HPF Ur Squamous Epith Cells /LPF Urine Bacteria /LPF Urine Mucus /LPF COVID-19 (CRAIG) (Negative) COVID-19 Clin Com Influenza Type A (CORA) (Negative) Influenza Type B (CORA) (Negative) Influenza A & B Note 01/01/22 01/01/22 01/01/22 Range/Units 19:09 19:09 19:09 WBC (4.8-10.8) X10*3/uL RBC (4.20-5.50) X10*6/uL Hgb (12.0-16.0) g/dl Hct (37.0-47.0) % MCV (80.0-98.0) fL MCH (27.0-33.0) pg MCHC (31.0-35.0) g/dl RDW (11.0-16.0) % Plt Count (160-400) X10*3/uL MPV (9.4-12.3) fL Immature Gran % (Auto) (0.0-0.4) % Neut % (Auto) (45-73) % Lymph % (Auto) (20-40) % [place] % (Auto) (2-11) % Eos % (Auto) (0-4) % Baso % (Auto) (0-2) % Lymph # (Auto) (1.2-4.9) X10*3/uL [place] # (Auto) (0.1-1.2) X10*3/uL Eos # (Auto) (0.0-0.4) X10*3/uL Baso # (Auto) (0.0-0.2) X10*3/uL Abs Immat Gran (auto) (0.00-0.03) X10*3/uL Absolute Neuts (auto) (2.0-8.3) x10*3/uL Absolute Nucleated RBC (0.0-0.012) X10*3/uL Nucleated RBC % (auto) (0.0-0.2) /100WBC Smear Tech's Comments Sodium 138 (135-145) mmol/L Potassium 3.9 (3.3-5.1) mmol/L Chloride 108 (96-108) mmol/L Carbon Dioxide 20 L (22-29) mmol/L Anion Gap 14 (12-20) BUN 17 H (9-16) mg/dL Creatinine 1.12 (0.5-1.4) mg/dL Estim Creat Clear Calc 47.3 Estimated GFR 48 Random Glucose 143 H (60-115) mg/dL Lactic Acid (0.5-2.0) mmol/L Calcium 8.8 (8.4-10.2) mg/dL Total Bilirubin 0.4 (0.0-1.0) mg/dL AST 18 D (5-31) U/L ALT 26 (0-31) U/L Alkaline Phosphatase 125 H (39-117) U/L Troponin I High Sens (<3.5-17.0) ng/L B-Natriuretic Peptide (<100) pg/mL Total Protein 6.3 L (6.5-8.0) g/dL Albumin 3.7 (3.5-5.0) g/dL Urine Color Urine Appearance Urine pH (5.0-8.0) Ur Specific [place] (1.005-1.025) Urine Protein (NEG-TRACE) MG/DL Urine Glucose (UA) (NEG) MG/DL Urine Ketones (NEG) MG/DL Urine Blood (NEG) Urine Nitrite (NEG) Ur Leukocyte Esterase (NEG) Urine RBC (0) /HPF Urine WBC (0-4) /HPF Ur Squamous Epith Cells /LPF Urine Bacteria /LPF Urine Mucus /LPF COVID-19 (CRAIG) Negative (Negative) COVID-19 Clin Com See Note Influenza Type A (CORA) Negative (Negative) Influenza Type B (CORA) Negative (Negative) Influenza A & B Note See Note 01/01/22 01/01/22 Range/Units 19:09 20:46 WBC (4.8-10.8) X10*3/uL RBC (4.20-5.50) X10*6/uL Hgb (12.0-16.0) g/dl Hct (37.0-47.0) % MCV (80.0-98.0) fL MCH (27.0-33.0) pg MCHC (31.0-35.0) g/dl RDW (11.0-16.0) % Plt Count (160-400) X10*3/uL MPV (9.4-12.3) fL Immature Gran % (Auto) (0.0-0.4) % Neut % (Auto) (45-73) % Lymph % (Auto) (20-40) % [place] % (Auto) (2-11) % Eos % (Auto) (0-4) % Baso % (Auto) (0-2) % Lymph # (Auto) (1.2-4.9) X10*3/uL [place] # (Auto) (0.1-1.2) X10*3/uL Eos # (Auto) (0.0-0.4) X10*3/uL Baso # (Auto) (0.0-0.2) X10*3/uL Abs Immat Gran (auto) (0.00-0.03) X10*3/uL Absolute Neuts (auto) (2.0-8.3) x10*3/uL Absolute Nucleated RBC (0.0-0.012) X10*3/uL Nucleated RBC % (auto) (0.0-0.2) /100WBC Smear Tech's Comments Sodium (135-145) mmol/L Potassium (3.3-5.1) mmol/L Chloride (96-108) mmol/L Carbon Dioxide (22-29) mmol/L Anion Gap (12-20) BUN (9-16) mg/dL Creatinine (0.5-1.4) mg/dL Estim Creat Clear Calc Estimated GFR Random Glucose (60-115) mg/dL Lactic Acid 1.2 (0.5-2.0) mmol/L Calcium (8.4-10.2) mg/dL Total Bilirubin (0.0-1.0) mg/dL AST (5-31) U/L ALT (0-31) U/L Alkaline Phosphatase (39-117) U/L Troponin I High Sens (<3.5-17.0) ng/L B-Natriuretic Peptide (<100) pg/mL Total Protein (6.5-8.0) g/dL Albumin (3.5-5.0) g/dL Urine Color YELLOW Urine Appearance CLEAR Urine pH 5.5 (5.0-8.0) Ur Specific [place] 1.020 (1.005-1.025) Urine Protein 1+ H (NEG-TRACE) MG/DL Urine Glucose (UA) NEG (NEG) MG/DL Urine Ketones NEG (NEG) MG/DL Urine Blood TRACE (NEG) Urine Nitrite NEG (NEG) Ur Leukocyte Esterase TRACE H (NEG) Urine RBC 0-2 (0) /HPF Urine WBC 5-9 H (0-4) /HPF Ur Squamous Epith Cells 2+ /LPF Urine Bacteria 1+ /LPF Urine Mucus TRACE /LPF COVID-19 (CRAIG) (Negative) COVID-19 Clin Com Influenza Type A (CORA) (Negative) Influenza Type B (CORA) (Negative) Influenza A & B Note ECG Data Attestation: I personally reviewed and interpreted this ECG as follows: Interpretation: Atrial fibrillation with heart rate 95 beats per minute normal axis no acute ST- T changes no acute ischemia Discharge Plan Discharge Clinical Impression: Fever, Acute UTI, Pneumonia Patient Disposition: Admitted As Inpatient
--- NOTE | 2022-01-01 18:03 | ECG_ITS ---
Test Reason : DYSPENA Blood Pressure : / mmHG Vent. Rate : 095 BPM Atrial Rate : 000 BPM P-R Int : 000 ms QRS Dur : 078 ms QT Int : 340 ms P-R-T Axes : 000 013 018 degrees QTc Int : 427 ms Atrial fibrillation Nonspecific ST abnormality Abnormal ECG When compared with ECG of 25-DEC-2021 13:00, Nonspecific T wave abnormality has replaced inverted T waves in Inferior leads Referred By: Sonny Corona Electronically Signed By:Tera Walker
[2022-01-01] MEDS: Acetaminophen 325 MG TABLET 650 MG PO (18:26)
[2022-01-01 18:51] VITALS: BP 162/85; PULSE 99; RESP 16; TEMP 37.7; O2SAT 97
[2022-01-01 19:25] LABS: Basophils Percent Auto 0.2 % (0-2); Eosinophils Percent Auto 0.3 % (0-4); Hematocrit 26.8 % (37.0-47.0); Hemoglobin 8.6 g/dl (12.0-16.0); Imm Gran Abs Auto 0.13 X10*3/uL (0.00-0.03); Imm Gran Pct Auto 0.8 % (0.0-0.4); Lymphocytes Absolute Auto 0.7 X10*3/uL (1.2-4.9); Lymphocytes Percent Auto 4.3 % (20-40); MANUAL DIFF FLAG SCAN; Mean Corpuscular HGB Conc 32.1 g/dl (31.0-35.0); Mean Corpuscular Hemoglobin 26.3 pg (27.0-33.0); Mean Platelet Volume 9.3 fL (9.4-12.3); Monocytes Absolute Auto 0.6 X10*3/uL (0.1-1.2); Monocytes Percent Auto 3.8 % (2-11); Neutrophils Absolute Auto 13.9 x10*3/uL (2.0-8.3); Neutrophils Percent Auto 90.6 % (45-73); Platelet Count 367 X10*3/uL (160-400); Red Blood Count 3.27 X10*6/uL (4.20-5.50); Red Cell Distribution Width 16.5 % (11.0-16.0); SCAN SMEAR FLAG 1; White Blood Count 15.4 X10*3/uL (4.8-10.8)
[2022-01-01 19:29] LABS: Lactic Acid 1.2 mmol/L (0.5-2.0)
[2022-01-01 19:34] LABS: Alanine Aminotransferase 26 U/L (0-31); Albumin Level 3.7 g/dL (3.5-5.0); Alkaline Phosphatase 125 U/L (39-117); Anion Gap 14 (12-20); Aspartate Amino Transferase 18 U/L (5-31); Bilirubin Total 0.4 mg/dL (0.0-1.0); Blood Urea Nitrogen 17 mg/dL (9-16); Calcium 8.8 mg/dL (8.4-10.2); Carbon Dioxide 20 mmol/L (22-29); Chloride 108 mmol/L (96-108); Creatinine Clr Calc Pharmacy 47.3; Estimated Glomerular Filt Rate 48; Glucose Random 143 mg/dL (60-115); Potassium 3.9 mmol/L (3.3-5.1); Sodium 138 mmol/L (135-145); Total Protein 6.3 g/dL (6.5-8.0)
[2022-01-01 19:35] LABS: COVID-19 Test Negative (Negative); IDNOW Serial# 16C4AD1C
[2022-01-01 19:36] LABS: Influenza A Negative (Negative); Influenza B2 Negative (Negative)
[2022-01-01 19:36] LABS: B Type Natriuretic Peptide 502 pg/mL (<100); Troponin-I High Sensitivity 7.1 ng/L (<3.5-17.0)
[2022-01-01 19:53] LABS: SLIDE REVIEW VERIFIED
[2022-01-01 20:41] VITALS: BP 176/84; PULSE 96; RESP 17; TEMP 37.5; O2SAT 98
[2022-01-01 20:51] LABS: Appearance Urine CLEAR; Color Urine YELLOW; Glucose Urine UA NEG (NEG); Leukocyte Esterase Urine TRACE (NEG); Nitrite Urine NEG (NEG); PH 5.5 (5.0-8.0); UACC Culture Trigger NO; Urine Blood TRACE (NEG); Urine Ketones NEG (NEG); Urine Protein 1+ MG/DL (NEG-TRACE)
[2022-01-01] MEDS: cefTRIAXone sodium 1 GM in 0.9 % Sodium Chloride 50 ML IV (20:56)
[2022-01-01 21:19] LABS: Bacteria Urine 1+ /LPF; Mucus Urine TRACE /LPF; RBC Urine 0-2 /HPF (0); Squamous Epithelial Cell Urine 2+ /LPF; UACC CULT YES
[2022-01-01 22:00] VITALS: BP 179/95; PULSE 93; RESP 16; TEMP 37.4; O2SAT 95
--- NOTE | 2022-01-01 23:34 | P.HPHOSP_ITS ---
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 Patient reports that over the past 2 days she has been not feeling well; also had subjective fevers; patient reports intermittent dry cough; denies any chest pain or palpitations. Denies any nausea vomiting or diarrhea. Denies any urinary symptoms. Review of all other systems is negative except mentioned above ER course: Per ER team patient on presentation noted to be febrile to 102 F; blood cultures were sent; CT chest showed bilateral small pleural effusions; no evidence of pneumonia; noted prominent mediastinal lymph nodes likely reactive; patient was given antibiotics; lab showed mild leukocytosis; admitted to the hospital for further management [facility] Medical History Anxiety and depression Chronic anemia Chronic kidney disease Hypertension Major depression, recurrent Stroke Family History Father Tuberculosis Mother No problems noted. 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) Alcohol intake: never Patient Tobacco Use Status: Former Tobacco user Tobacco use type: Cigarette Years Smoked: 10 years Advance Directives: Yes Advance Directives on File: Yes Advance Directives Date on File: 12/21/21 service: No Current occupational status: retired Meds Allergies Allergy/AdvReac Type Severity Reaction Status Date / Time latex [Latex] Allergy Mild UNKNOWN Verified 08/29/21 15:33 morphine [Morphine] Allergy Mild VOMITING Verified 08/29/21 15:33 penicillin G Allergy Unknown Rash Verified 08/29/21 15:33 codeine [Codeine] AdvReac Mild VOMITING Verified 08/29/21 15:33 procaine [From Novocain] AdvReac Mild VOMITING Verified 08/29/21 15:33 Active Medications: Current Medications Acetaminophen (Acetaminophen 325 Mg Tablet) 650 mg PO Q6H PRN PRN Reason: Pain, Mild (Pain Scale 1-3) Vancomycin HCl 1,000 mg/ (Sodium Chloride) 270 mls @ 270 mls/hr IV Q12H [facility] Cefepime HCl 1 gm/ Sodium (Chloride) 50 mls @ 100 mls/hr IV Q12H [facility] Melatonin (Melatonin 3 Mg Tablet) 6 mg PO BEDTIME PRN PRN Reason: Insomnia Pharmacy Consult (Consult Rx Vancomycin Dosing) 1 each MISCELLANE DAILY PRN PRN Reason: Consult order Senna (Sennosides 8.6 Mg Tablet) 17.2 mg PO BEDTIME PRN PRN Reason: Constipation Sodium Chloride (0.9 % Sodium Chloride Flush 3 Ml Syringe) 3 ml IVFLUSH QSHIFT [facility] Home Medications Medication Instructions Recorded Confirmed Last Taken Type tizanidine 6 mg capsule 6 mg PO BEDTIME 06/02/20 01/02/22 12/31/21 21:00 History venlafaxine 150 mg 150 mg PO DAILY 06/02/20 01/02/22 01/01/22 09:00 History capsule,extended release 24 hr amlodipine 5 mg tablet 5 mg PO DAILY 08/29/21 01/02/22 01/01/22 09:00 History ergocalciferol (vitamin D2) 1,250 1,250 mcg PO MO@1000 08/29/21 01/02/22 12/31/21 09:00 History mcg (50,000 unit) capsule fluticasone propionate 50 1 spray INTRANASAL BID 12/21/21 01/02/22 01/01/22 09:00 History mcg/actuation nasal spray,suspension spironolactone 50 mg tablet 50 mg PO DAILY 12/21/21 01/02/22 01/01/22 09:00 History Physical Exam Vital Signs and Narrative: Vital Signs: Last Vital Signs Temp 99.3 F 01/01/22 22:00 Pulse 93 01/01/22 22:00 Resp 16 01/01/22 22:00 BP 179/95 H 01/01/22 22:00 Pulse Ox 95 01/01/22 22:00 BMI result Body Mass Index 28.8 Gen: Appears be in no acute distress HEENT: NCAT, Moist mucosa. Pulmonary: Vesicular breath sounds, fair air entry CVS: Normal S1-S2 Abdomen: BS+, Soft, Nontender Extremities: Warm well perfused Neuro: Alert and awake. Results Labs CBC and Chem 7: 01/01/22 19:08 01/01/22 19:09 Labs: Laboratory Results - last 24 hr 01/01/22 01/01/22 01/01/22 19:08 19:08 19:08 MCV 82.0 MCH 26.3 L MCHC 32.1 RDW 16.5 H Plt Count 367 MPV 9.3 L Immature Gran % (Auto) 0.8 H Neut % (Auto) 90.6 H Lymph % (Auto) 4.3 L [place] % (Auto) 3.8 Eos % (Auto) 0.3 Baso % (Auto) 0.2 Lymph # (Auto) 0.7 L [place] # (Auto) 0.6 Eos # (Auto) 0.0 Baso # (Auto) 0.0 Abs Immat Gran (auto) 0.13 H Absolute Neuts (auto) 13.9 H Absolute Nucleated RBC 0.000 Nucleated RBC % (auto) 0.0 Smear Tech's Comments VERIFIED Anion Gap Estim Creat Clear Calc Estimated GFR Random Glucose Lactic Acid Calcium Total Bilirubin AST ALT Alkaline Phosphatase Troponin I High Sens 7.1 D B-Natriuretic Peptide 502 H Total Protein Albumin Urine Color Urine Appearance Urine pH Ur Specific [place] Urine Protein Urine Glucose (UA) Urine Ketones Urine Blood Urine Nitrite Ur Leukocyte Esterase Urine RBC Urine WBC Ur Squamous Epith Cells Urine Bacteria Urine Mucus COVID-19 (CRAIG) COVID-19 Clin Com Influenza Type A (CORA) Influenza Type B (CORA) Influenza A & B Note 01/01/22 01/01/22 01/01/22 19:09 19:09 19:09 MCV MCH MCHC RDW Plt Count MPV Immature Gran % (Auto) Neut % (Auto) Lymph % (Auto) [place] % (Auto) Eos % (Auto) Baso % (Auto) Lymph # (Auto) [place] # (Auto) Eos # (Auto) Baso # (Auto) Abs Immat Gran (auto) Absolute Neuts (auto) Absolute Nucleated RBC Nucleated RBC % (auto) Smear Tech's Comments Anion Gap 14 Estim Creat Clear Calc 47.3 Estimated GFR 48 Random Glucose 143 H Lactic Acid Calcium 8.8 Total Bilirubin 0.4 AST 18 D ALT 26 Alkaline Phosphatase 125 H Troponin I High Sens B-Natriuretic Peptide Total Protein 6.3 L Albumin 3.7 Urine Color Urine Appearance Urine pH Ur Specific [place] Urine Protein Urine Glucose (UA) Urine Ketones Urine Blood Urine Nitrite Ur Leukocyte Esterase Urine RBC Urine WBC Ur Squamous Epith Cells Urine Bacteria Urine Mucus COVID-19 (CRAIG) Negative COVID-19 Clin Com See Note Influenza Type A (CORA) Negative Influenza Type B (CORA) Negative Influenza A & B Note See Note 01/01/22 01/01/22 19:09 20:46 MCV MCH MCHC RDW Plt Count MPV Immature Gran % (Auto) Neut % (Auto) Lymph % (Auto) [place] % (Auto) Eos % (Auto) Baso % (Auto) Lymph # (Auto) [place] # (Auto) Eos # (Auto) Baso # (Auto) Abs Immat Gran (auto) Absolute Neuts (auto) Absolute Nucleated RBC Nucleated RBC % (auto) Smear Tech's Comments Anion Gap Estim Creat Clear Calc Estimated GFR Random Glucose Lactic Acid 1.2 Calcium Total Bilirubin AST ALT Alkaline Phosphatase Troponin I High Sens B-Natriuretic Peptide Total Protein Albumin Urine Color YELLOW Urine Appearance CLEAR Urine pH 5.5 Ur Specific [place] 1.020 Urine Protein 1+ H Urine Glucose (UA) NEG Urine Ketones NEG Urine Blood TRACE Urine Nitrite NEG Ur Leukocyte Esterase TRACE H Urine RBC 0-2 Urine WBC 5-9 H Ur Squamous Epith Cells 2+ Urine Bacteria 1+ Urine Mucus TRACE COVID-19 (CRAIG) COVID-19 Clin Com Influenza Type A (CORA) Influenza Type B (CORA) Influenza A & B Note Imaging Radiologist's Impressions: Impressions Chest X-Ray 01/01/22 18:15 IMPRESSION: Decreased patchy bibasilar opacities and right-sided pleural effusion with a stable trace left-sided pleural effusion. No new airspace consolidation. Chest CT 01/01/22 22:17 IMPRESSION: Bilateral pleural effusions and septal thickening suggest possible pulmonary vascular congestion. No significant pneumonia is present. Prominent mediastinal nodes may be reactive. Fleischner guidelines were followed. 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 Prior urine cultures grew mixed organisms. Currently denies any urinary symptoms. ID consult History of CHF: Hold home Lasix for now. Given concerns for sepsis. Monitor for signs of fluid overload. History of AFib: Continue home Eliquis anemia: Patient had recent history of GI bleed. patient Eliquis was had 5 days post EGD/ colonoscopy on 12/25/2021. Patient currently denies any new symptoms of bleeding. History of hypothyroidism: Continue home levothyroxine history of CKD: Creatinine at baseline DVT prophylaxis: Patient on Eliquis Code status: Full code Quality Stroke Does the patient have a stroke diagnosis?: No VTE Prior VTE?: No VTE Risk Level:: Medical - moderate - high VTE Device Contraindication: Treatment Not Indicated VTE Drug Contraindication: N/A - Med Ordered
[2022-01-01 23:54] VITALS: BP 183/77; PULSE 93; RESP 24; TEMP 38.6; O2SAT 94
--- NOTE | 2022-01-01 23:58 | PC.NURSE ---
Pt satting at 94-95% on RA while sitting still in bed. If pt does any moving around O2 sat decreases to 90% or below and pt complains of SOB. Pt put on O2 at 1 L/min via NC. O2 sat at 99% with supplemental O2.
[2022-01-02] VITALS (7 sets, daily range): BP systolic 111–186; BP diastolic 52–87; PULSE 52–96; RESP 14–21; TEMP 36.8–37.8; O2SAT 95–100
--- NOTE | 2022-01-02 00:34 | PC.NURSE ---
Med rec completed with pt at bed side.
[2022-01-02] MEDS: Metoprolol Tartrate 50 MG TABLET PO ×3 (00:37→22:18)
[2022-01-02] MEDS: Acetaminophen 325 MG TABLET 650 MG PO (00:37)
[2022-01-02] MEDS: vancomycin HCL 1,250 MG in 0.9 % Sodium Chloride 250 ML 166.67 MG IV (02:04)
[2022-01-02] MEDS: TiZANidine HCL 4 MG TABLET PO (02:05)
[2022-01-02] MEDS: 0.9 % Sodium Chloride Flush 3 ML SYRINGE IVFLUSH (02:05)
[2022-01-02 06:50] LABS: MANUAL DIFF FLAG NO
[2022-01-02 06:53] LABS: Basophils Percent Auto 0.1 % (0-2); Eosinophils Absolute Auto 0.1 X10*3/uL (0.0-0.4); Eosinophils Percent Auto 0.5 % (0-4); Hematocrit 24.4 % (37.0-47.0); Hemoglobin 7.4 g/dl (12.0-16.0); Imm Gran Abs Auto 0.08 X10*3/uL (0.00-0.03); Imm Gran Pct Auto 0.8 % (0.0-0.4); Lymphocytes Absolute Auto 0.9 X10*3/uL (1.2-4.9); Lymphocytes Percent Auto 8.9 % (20-40); Mean Corpuscular HGB Conc 30.3 g/dl (31.0-35.0); Mean Corpuscular Hemoglobin 25.3 pg (27.0-33.0); Mean Corpuscular Volume 83.3 fL (80.0-98.0); Mean Platelet Volume 9.2 fL (9.4-12.3); Monocytes Absolute Auto 0.6 X10*3/uL (0.1-1.2); Monocytes Percent Auto 5.4 % (2-11); Neutrophils Absolute Auto 8.5 x10*3/uL (2.0-8.3); Neutrophils Percent Auto 84.3 % (45-73); Platelet Count 276 X10*3/uL (160-400); Red Blood Count 2.93 X10*6/uL (4.20-5.50); Red Cell Distribution Width 16.6 % (11.0-16.0); White Blood Count 10.1 X10*3/uL (4.8-10.8)
[2022-01-02 07:06] LABS: Anion Gap 12 (12-20); Blood Urea Nitrogen 16 mg/dL (9-16); Calcium 8.5 mg/dL (8.4-10.2); Carbon Dioxide 24 mmol/L (22-29); Chloride 107 mmol/L (96-108); Creatinine Clr Calc Pharmacy 47.3; Estimated Glomerular Filt Rate 48; Glucose Random 116 mg/dL (60-115); Potassium 4.2 mmol/L (3.3-5.1); Sodium 139 mmol/L (135-145)
--- NOTE | 2022-01-02 07:50 | PHA.MEDREC ---
Pharmacy Consult ? Medication Reconciliation Pharmacy has completed the medication reconciliation.
[2022-01-02] MEDS: Venlafaxine HCl ER 150 MG CAP.ER.24H PO (08:07)
[2022-01-02] MEDS: Apixaban 5 MG TABLET PO ×2 (08:07→22:16)
[2022-01-02] MEDS: amLODIPine Besylate 5 MG TABLET PO (08:08)
[2022-01-02] MEDS: Spironolactone 25 MG TABLET 50 MG PO (08:08)
--- NOTE | 2022-01-02 09:43 | MHC.CM.PN ---
Met with patient in regards to discharge planning. Patient lives alone, uses a cane when ambulating outside and had no services prior to coming to the hospital. PCP verified. Copy of HCP verified to be on file. Patient has not received any Covid vaccines. IMM explained and signed. Patient's family will transport her home when medically stable. Continue to monitor for d/c needs.
[2022-01-02] MEDS: Levothyroxine Sodium 150 MCG TABLET PO (10:18)
[2022-01-02] MEDS: Fluticasone Propionate Nasal 16 GM SPRAY 1 SPRAY NOSTRIL-B ×2 (10:18→22:18)
[2022-01-02] MEDS: cefEPime HCl 1 GM in 0.9 % Sodium Chloride 50 ML IV ×2 (11:22→23:15)
--- NOTE | 2022-01-02 14:00 | P.CNID_ITS ---
History of Present Illness Data of Consult Service Date: 01/02/22 Requesting physician: Duran Jennings Primary Care Provider: MD EUN Gan Reason for consult: fever of unknown origin She presents with fever and malaise for a day. She has not left her house and not around ill people. She had upper and lower endoscopy on 12/26 and multiple polyps removed from colon but no malignancy. She lives in apartment and no tick exposure. Review of Systems Review of Systems: Yes all other systems are reviewed and are negative FORMERLY [facility], [facility] Past Medical History Medical History (Updated 01/02/22 @ 14:03 by Diamond Ricketts MD) Anxiety and depression Chronic anemia Chronic kidney disease Fever of unknown origin Hypertension Major depression, recurrent Stroke Family History Family History Father Tuberculosis Mother No problems noted. Other Substance use disorder Surgical History Surgical History History of knee surgery Social History Social History Household Members: None Housing: Apartment Do you presently have visiting nurse or other home services: Yes ([employer]) Alcohol intake: never Patient Tobacco Use Status: Former Tobacco user Tobacco use type: Cigarette Years Smoked: 10 years Advance Directives: Yes Advance Directives on File: Yes Advance Directives Date on File: 12/21/21 service: No Current occupational status: retired Meds Allergies Allergy/AdvReac Type Severity Reaction Status Date / Time latex [Latex] Allergy Mild UNKNOWN Verified 08/29/21 15:33 morphine [Morphine] Allergy Mild VOMITING Verified 08/29/21 15:33 penicillin G Allergy Unknown Rash Verified 08/29/21 15:33 codeine [Codeine] AdvReac Mild VOMITING Verified 08/29/21 15:33 procaine [From Novocain] AdvReac Mild VOMITING Verified 08/29/21 15:33 Active Medications: Current Medications Acetaminophen (Acetaminophen 325 Mg Tablet) 650 mg PO Q6H PRN PRN Reason: Pain, Mild (Pain Scale 1-3) Last Admin: 01/02/22 00:37 Dose: 650 mg Documented by: Amlodipine Besylate (Amlodipine Besylate 5 Mg Tablet) 5 mg PO DAILY [facility]AILA; Abel col Last Admin: 01/02/22 08:08 Dose: 5 mg Documented by: Apixaban (Apixaban 5 Mg Tablet) 5 mg PO BID [facility] Last Admin: 01/02/22 08:07 Dose: 5 mg Documented by: Ergocalciferol (Ergocalciferol (Vitamin D2) 1,250 Mcg Capsule) 1,250 mcg PO MO@1000 [facility] Fluticasone Propionate (Fluticasone Propionate Nasal 16 Gm [place]) 1 spray NOSTRIL-B BID [facility] Last Admin: 01/02/22 10:18 Dose: 1 spray Documented by: Fluticasone/Vilanterol (Fluticasone/Vilanterol 200/25 Blst.W.Dev) 1 puff INHALE RDAILY [facility] Last Admin: 01/02/22 07:58 Dose: Not Given Documented by: Cefepime HCl 1 gm/ Sodium (Chloride) 50 mls @ 100 mls/hr IV Q12H [facility] Last Admin: 01/02/22 11:22 Dose: 100 mls/hr Documented by: Levothyroxine Sodium (Levothyroxine Sodium 150 Mcg Tablet) 150 mcg PO DAILY@0600 [facility] Last Admin: 01/02/22 10:18 Dose: 150 mcg Documented by: Melatonin (Melatonin 3 Mg Tablet) 6 mg PO BEDTIME PRN PRN Reason: Insomnia Metoprolol Tartrate (Metoprolol Tartrate 50 Mg Tablet) 50 mg PO BID [facility]; Protocol Last Admin: 01/02/22 08:08 Dose: 50 mg Documented by: Senna (Sennosides 8.6 Mg Tablet) 17.2 mg PO BEDTIME PRN PRN Reason: Constipation Sodium Chloride (0.9 % Sodium Chloride Flush 3 Ml Syringe) 3 ml IVFLUSH QSHIFT [facility] Last Admin: 01/02/22 10:41 Dose: Not Given Documented by: Spironolactone (Spironolactone 25 Mg Tablet) 50 mg PO DAILY [facility]; Protocol Last Admin: 01/02/22 08:08 Dose: 50 mg Documented by: Tizanidine HCl (Tizanidine Hcl 4 Mg Tablet) 6 mg PO BEDTIME [facility] Venlafaxine HCl (Venlafaxine Hcl Er 150 Mg Cap.Er.24h) 150 mg PO DAILY [facility] Last Admin: 01/02/22 08:07 Dose: 150 mg Documented by: Home Medications Medication Instructions Recorded Confirmed Last Taken Type tizanidine 6 mg capsule 6 mg PO BEDTIME 06/02/20 01/02/22 12/31/21 21:00 History venlafaxine 150 mg 150 mg PO DAILY 06/02/20 01/02/22 01/01/22 09:00 History capsule,extended release 24 hr amlodipine 5 mg tablet 5 mg PO DAILY 08/29/21 01/02/22 01/01/22 09:00 History ergocalciferol (vitamin D2) 1,250 1,250 mcg PO MO@1000 08/29/21 01/02/22 12/31/21 09:00 History mcg (50,000 unit) capsule fluticasone propionate 50 1 spray INTRANASAL BID 12/21/21 01/02/22 01/01/22 09:00 History mcg/actuation nasal spray,suspension spironolactone 50 mg tablet 50 mg PO DAILY 12/21/21 01/02/22 01/01/22 09:00 History topiramate 25 mg tablet 1 tab PO BEDTIME 01/02/22 01/02/22 Unknown History Physical Exam Vital Signs: Vital Signs: Last Vital Signs Temp 98.8 F 01/02/22 12:38 Pulse 71 01/02/22 12:38 Resp 18 01/02/22 12:38 BP 140/85 H 01/02/22 12:38 Pulse Ox 95 01/02/22 12:38 BMI result Body Mass Index 28.8 Const: General: cooperative Eyes: General: appearance normal, both eyes and all related structures Resp: Effort & Inspection: normal respiratory effort Cardio: Rate: regular rate Rhythm: regular rhythm GI: Palpation (GI): Soft to palpation and nontender Extrem: General: Yes normal to inspection Results Labs CBC & Chem 7: 01/02/22 06:35 01/02/22 06:35 Labs: Short CBC 01/01/22 01/02/22 Range/Units 19:08 06:35 WBC 15.4 H 10.1 (4.8-10.8) X10*3/uL Hgb 8.6 L 7.4 L (12.0-16.0) g/dl Hct 26.8 L 24.4 L (37.0-47.0) % Plt Count 367 276 (160-400) X10*3/uL BMP 01/01/22 01/02/22 19:09 06:35 Sodium 138 139 Potassium 3.9 4.2 Chloride 108 107 Carbon Dioxide 20 L 24 BUN 17 H 16 Creatinine 1.12 1.12 Calcium 8.8 8.5 Liver Function 01/01/22 Range/Units 19:09 Total Bilirubin 0.4 (0.0-1.0) mg/dL AST 18 D (5-31) U/L ALT 26 (0-31) U/L Alkaline Phosphatase 125 H (39-117) U/L Albumin 3.7 (3.5-5.0) g/dL Urine 01/01/22 Range/Units 20:46 Urine Color YELLOW Urine Appearance CLEAR Urine pH 5.5 (5.0-8.0) Ur Specific [place] 1.020 (1.005-1.025) Urine Protein 1+ H (NEG-TRACE) MG/DL Urine Glucose (UA) NEG (NEG) MG/DL Microbiology Microbiology Results: Microbiology 01/01/22 20:46 Urine clean catch - Urine villalobos top Urine Culture - Preliminary No growth to date. Assessment and Plan (1) Fever of unknown origin: Status: Acute She complains of neck pain and ear pain only and declines LP She has less likely meningitis but possible disk disease. She may have abdominal source as well. She may have aspiration pneumonia as had procedure Plan Check CT abdomen and pelvis evaluate any abdominal process ?fluid collecdtion Consider MRI Cspine if pain persistsneck Continue Cefepime for now cover aspiration pneumonia,possible 7 days
--- NOTE | 2022-01-02 16:29 | P.PNIM_ITS ---
Subjective Subjective Date of Service: 01/02/22 Interval History: cc: fevers interval history: no specific complaints Cardiovascular Cardiovascular: Reports no additional cardiovascular complaints Respiratory Respiratory: Reports no additional respiratory complaints Physical Exam Vital Signs: Vital Signs: Last Vital Signs Temp 98.8 F 01/02/22 12:38 Pulse 71 01/02/22 12:38 Resp 18 01/02/22 12:38 BP 140/85 H 01/02/22 12:38 Pulse Ox 95 01/02/22 12:38 BMI result Body Mass Index 28.8 General: AO X 3, no acute distress Resp: CTA bilateral, no accessory muscles used CVS: S1,S2,RRR GI: soft, non tender, non distended Neuro: motor grossly intact, alert Psych: appropriate affect, appropriate insight Objective Data Active Medications Acetaminophen (Acetaminophen 325 Mg Tablet) 650 mg PO Q6H PRN PRN Reason: Pain, Mild (Pain Scale 1-3) Last Admin: 01/02/22 00:37 Dose: 650 mg Documented by: FAYE Amlodipine Besylate (Amlodipine Besylate 5 Mg Tablet) 5 mg PO DAILY [facility]; Protocol Last Admin: 01/02/22 08:08 Dose: 5 mg Documented by: HA Apixaban (Apixaban 5 Mg Tablet) 5 mg PO BID [facility] Last Admin: 01/02/22 08:07 Dose: 5 mg Documented by: HA Ergocalciferol (Ergocalciferol (Vitamin D2) 1,250 Mcg Capsule) 1,250 mcg PO MO@1000 [facility] Fluticasone Propionate (Fluticasone Propionate Nasal 16 Gm [place]) 1 spray NOSTRIL-B BID [facility] Last Admin: 01/02/22 10:18 Dose: 1 spray Documented by: HA Fluticasone/Vilanterol (Fluticasone/Vilanterol 200/25 Blst.W.Dev) 1 puff INHALE RDAILY [facility] Last Admin: 01/02/22 07:58 Dose: Not Given Documented by: NELSON Non-Admin Reason: Med Not Available Cefepime HCl 1 gm/ Sodium (Chloride) 50 mls @ 100 mls/hr IV Q12H [facility] Last Infusion: 01/02/22 15:31 Dose: 0 mls/hr Documented by: HA Levothyroxine Sodium (Levothyroxine Sodium 150 Mcg Tablet) 150 mcg PO DAILY@0600 [facility] Last Admin: 01/02/22 10:18 Dose: 150 mcg Documented by: HA Melatonin (Melatonin 3 Mg Tablet) 6 mg PO BEDTIME PRN PRN Reason: Insomnia Metoprolol Tartrate (Metoprolol Tartrate 50 Mg Tablet) 50 mg PO BID [facility]; Protocol Last Admin: 01/02/22 08:08 Dose: 50 mg Documented by: HA Senna (Sennosides 8.6 Mg Tablet) 17.2 mg PO BEDTIME PRN PRN Reason: Constipation Sodium Chloride (0.9 % Sodium Chloride Flush 3 Ml Syringe) 3 ml IVFLUSH QSHIFT [facility] Last Admin: 01/02/22 10:41 Dose: Not Given Documented by: HA Non-Admin Reason: Med Not Available Spironolactone (Spironolactone 25 Mg Tablet) 50 mg PO DAILY [facility]; Protocol Last Admin: 01/02/22 08:08 Dose: 50 mg Documented by: HA Tizanidine HCl (Tizanidine Hcl 4 Mg Tablet) 6 mg PO BEDTIME [facility] Topiramate (Topiramate 25 Mg Tablet) 25 mg PO BEDTIME [facility] Venlafaxine HCl (Venlafaxine Hcl Er 150 Mg Cap.Er.24h) 150 mg PO DAILY [facility] Last Admin: 01/02/22 08:07 Dose: 150 mg Documented by: HA Labs CBC & Chem 7: 01/02/22 06:35 01/02/22 06:35 Labs: Laboratory Results - last 24 hr 01/01/22 01/01/22 01/01/22 19:08 19:08 19:08 MCV 82.0 MCH 26.3 L MCHC 32.1 RDW 16.5 H Plt Count 367 MPV 9.3 L Immature Gran % (Auto) 0.8 H Neut % (Auto) 90.6 H Lymph % (Auto) 4.3 L [place] % (Auto) 3.8 Eos % (Auto) 0.3 Baso % (Auto) 0.2 Lymph # (Auto) 0.7 L [place] # (Auto) 0.6 Eos # (Auto) 0.0 Baso # (Auto) 0.0 Abs Immat Gran (auto) 0.13 H Absolute Neuts (auto) 13.9 H Absolute Nucleated RBC 0.000 Nucleated RBC % (auto) 0.0 Smear Tech's Comments VERIFIED Anion Gap Estim Creat Clear Calc Estimated GFR Random Glucose Lactic Acid Calcium Total Bilirubin AST ALT Alkaline Phosphatase Troponin I High Sens 7.1 D B-Natriuretic Peptide 502 H Total Protein Albumin Urine Color Urine Appearance Urine pH Ur Specific [place] Urine Protein Urine Glucose (UA) Urine Ketones Urine Blood Urine Nitrite Ur Leukocyte Esterase Urine RBC Urine WBC Ur Squamous Epith Cells Urine Bacteria Urine Mucus COVID-19 (CRAIG) COVID-19 Clin Com Influenza Type A (CORA) Influenza Type B (CORA) Influenza A & B Note 01/01/22 01/01/22 01/01/22 19:09 19:09 19:09 MCV MCH MCHC RDW Plt Count MPV Immature Gran % (Auto) Neut % (Auto) Lymph % (Auto) [place] % (Auto) Eos % (Auto) Baso % (Auto) Lymph # (Auto) [place] # (Auto) Eos # (Auto) Baso # (Auto) Abs Immat Gran (auto) Absolute Neuts (auto) Absolute Nucleated RBC Nucleated RBC % (auto) Smear Tech's Comments Anion Gap 14 Estim Creat Clear Calc 47.3 Estimated GFR 48 Random Glucose 143 H Lactic Acid Calcium 8.8 Total Bilirubin 0.4 AST 18 D ALT 26 Alkaline Phosphatase 125 H Troponin I High Sens B-Natriuretic Peptide Total Protein 6.3 L Albumin 3.7 Urine Color Urine Appearance Urine pH Ur Specific [place] Urine Protein Urine Glucose (UA) Urine Ketones Urine Blood Urine Nitrite Ur Leukocyte Esterase Urine RBC Urine WBC Ur Squamous Epith Cells Urine Bacteria Urine Mucus COVID-19 (CRAIG) Negative COVID-19 Clin Com See Note Influenza Type A (CORA) Negative Influenza Type B (CORA) Negative Influenza A & B Note See Note 01/01/22 01/01/22 01/02/22 19:09 20:46 06:35 MCV 83.3 MCH 25.3 L MCHC 30.3 L RDW 16.6 H Plt Count 276 MPV 9.2 L Immature Gran % (Auto) 0.8 H Neut % (Auto) 84.3 H Lymph % (Auto) 8.9 L [place] % (Auto) 5.4 Eos % (Auto) 0.5 Baso % (Auto) 0.1 Lymph # (Auto) 0.9 L [place] # (Auto) 0.6 Eos # (Auto) 0.1 Baso # (Auto) 0.0 Abs Immat Gran (auto) 0.08 H Absolute Neuts (auto) 8.5 H Absolute Nucleated RBC 0.000 Nucleated RBC % (auto) 0.0 Smear Tech's Comments Anion Gap Estim Creat Clear Calc Estimated GFR Random Glucose Lactic Acid 1.2 Calcium Total Bilirubin AST ALT Alkaline Phosphatase Troponin I High Sens B-Natriuretic Peptide Total Protein Albumin Urine Color YELLOW Urine Appearance CLEAR Urine pH 5.5 Ur Specific [place] 1.020 Urine Protein 1+ H Urine Glucose (UA) NEG Urine Ketones NEG Urine Blood TRACE Urine Nitrite NEG Ur Leukocyte Esterase TRACE H Urine RBC 0-2 Urine WBC 5-9 H Ur Squamous Epith Cells 2+ Urine Bacteria 1+ Urine Mucus TRACE COVID-19 (CRAGI) COVID-19 Clin Com Influenza Type A (CORA) Influenza Type B (CORA) Influenza A & B Note 01/02/22 06:35 MCV MCH MCHC RDW Plt Count MPV Immature Gran % (Auto) Neut % (Auto) Lymph % (Auto) [place] % (Auto) Eos % (Auto) Baso % (Auto) Lymph # (Auto) [place] # (Auto) Eos # (Auto) Baso # (Auto) Abs Immat Gran (auto) Absolute Neuts (auto) Absolute Nucleated RBC Nucleated RBC % (auto) Smear Tech's Comments Anion Gap 12 Estim Creat Clear Calc 47.3 Estimated GFR 48 Random Glucose 116 H Lactic Acid Calcium 8.5 Total Bilirubin AST ALT Alkaline Phosphatase Troponin I High Sens B-Natriuretic Peptide Total Protein Albumin Urine Color Urine Appearance Urine pH Ur Specific [place] Urine Protein Urine Glucose (UA) Urine Ketones Urine Blood Urine Nitrite Ur Leukocyte Esterase Urine RBC Urine WBC Ur Squamous Epith Cells Urine Bacteria Urine Mucus COVID-19 (CRAIG) COVID-19 Clin Com Influenza Type A (CORA) Influenza Type B (CORA) Influenza A & B Note Microbiology Microbiology Results: Microbiology 01/01/22 20:46 Urine Culture - Preliminary Urine clean catch - Urine villalobos top No growth to date. Assessment and Plan (1) Fever of unknown origin: Status: Acute Plan 76F presented with fevers sIRS present on arrival likely sepsis source unclear continue cefepime follow up cultures CT abd id following chronic diastolic chf lasix on hold for possible sepsis chronic afib eliquis chronic iron defeciency anemia po iron hypothyroidism Continue home levothyroxine DVT prophylaxis:? Patient on Eliquis Code status: Full code reason for continued hospitalization: work up for sepsis ongoing, at risk for decompensation due to history of chf, advanced age Quality Stroke Does the patient have a stroke diagnosis?: No VTE Prior VTE?: No VTE Risk Level:: Medical - moderate - high VTE Device Contraindication: Treatment Not Indicated VTE Drug Contraindication: N/A - Med Ordered
[2022-01-02] MEDS: TiZANidine HCL 4 MG TABLET 6 MG PO (22:17)
[2022-01-02] MEDS: Topiramate 25 MG TABLET PO (22:18)
--- NOTE | 2022-01-02 22:20 | PC.NURSE ---
medicated per provider order. pt c/o 01/18 ear/neck pain and increased facial swelling. provider notified. no new orders at this time.
[2022-01-03] MEDS: Acetaminophen 325 MG TABLET 650 MG PO (02:44)
--- NOTE | 2022-01-03 02:44 | PC.NURSE ---
pt medicated for low grade fever and ear pain (6/10).
--- NOTE | 2022-01-03 02:57 | PC.NURSE ---
22G IV placed left hand, patent and flushing well. no blood pressures on left extremity, but IV placement ok'd by pt.
--- NOTE | 2022-01-03 05:26 | PC.NURSE ---
pt is a&o, no sob or chest pain. pt requesting to see provider. Pt wants to be discharge home or will leaving against medical advice. Notified provider. Awaiting disposition.
--- NOTE | 2022-01-03 05:44 | PC.NURSE ---
Called Dr. Ambrocio regarding pt request to go home. Provider stated that the am doctor will be to see and discuss her concerns. Will communicate to pt.
[2022-01-03 06:00] VITALS: BP 142/80; PULSE 71; RESP 15; TEMP 36.9; O2SAT 97
[2022-01-03 07:22] LABS: Hematocrit 25.1 % (37.0-47.0); Hemoglobin 7.7 g/dl (12.0-16.0); Mean Corpuscular HGB Conc 30.7 g/dl (31.0-35.0); Mean Corpuscular Hemoglobin 25.3 pg (27.0-33.0); Mean Corpuscular Volume 82.6 fL (80.0-98.0); Mean Platelet Volume 9.6 fL (9.4-12.3); Platelet Count 305 X10*3/uL (160-400); Red Blood Count 3.04 X10*6/uL (4.20-5.50); Red Cell Distribution Width 16.6 % (11.0-16.0); White Blood Count 9.9 X10*3/uL (4.8-10.8)
[2022-01-03 07:36] LABS: Anion Gap 12 (12-20); Blood Urea Nitrogen 17 mg/dL (9-16); Calcium 9.2 mg/dL (8.4-10.2); Carbon Dioxide 23 mmol/L (22-29); Chloride 108 mmol/L (96-108); Creatinine Clr Calc Pharmacy 47.8; Estimated Glomerular Filt Rate 48; Glucose Fasting 105 mg/dL (60-99); Potassium 3.9 mmol/L (3.3-5.1); Sodium 139 mmol/L (135-145)
[2022-01-03] MEDS: Levothyroxine Sodium 150 MCG TABLET PO (08:07)
[2022-01-03] MEDS: Spironolactone 25 MG TABLET 50 MG PO (08:07)
[2022-01-03] MEDS: Fluticasone Propionate Nasal 16 GM SPRAY 1 SPRAY NOSTRIL-B (08:08)
[2022-01-03] MEDS: Venlafaxine HCl ER 150 MG CAP.ER.24H PO (08:08)
[2022-01-03] MEDS: 0.9 % Sodium Chloride Flush 3 ML SYRINGE IVFLUSH (08:08)
[2022-01-03] MEDS: Apixaban 5 MG TABLET PO (08:08)
[2022-01-03] MEDS: Metoprolol Tartrate 50 MG TABLET PO (08:08)
[2022-01-03] MEDS: Ferrous Sulfate 324 MG TABLET.DR PO (08:08)
[2022-01-03] MEDS: amLODIPine Besylate 5 MG TABLET PO (08:08)
--- NOTE | 2022-01-03 10:54 | PM.DS ---
DS: Providers Provider Date of Service: 01/03/22 Date of admission: 01/01/22 23:22 Primary care physician: Shravan Grant MD Consults: 01/02/22 06:05 Consult to Infectious Diseases Routine Consulting Provider: Diamond Ricketts Reason for consultation: fever DS: Diagnosis Discharge Diagnosis (1) Fever of unknown origin: Status: Acute DS: Summary Hospital Course Hospital Course: from initial hpi: Chief Complaint: ? Not feeling well /fever ?76-year-old female with a past medical history of hypertension, hyperlipidemia, hypothyroidism, asthma/ COPD, atrial fibrillation on Eliquis, CHF, history of cerebral aneurysm status post rupture-prolonged coma state in 2009 with resultant mild left-sided weakness; chronic kidney disease; recent admission to the hospital for AFib with RVR/acute CHF exacerbation/anemia status post EGD/colonoscopy -showing multiple polyps; presented to the hospital today with a chief complaint of not feeling well.? Patient reports that over the past 2 days she has been not feeling well; also had subjective fevers; patient reports intermittent dry cough; denies any chest pain or palpitations.? Denies any nausea vomiting or diarrhea.? Denies any urinary symptoms.? Review of all other systems is negative except mentioned above ER course: Per ER team patient on presentation noted to be febrile to 102 F; blood cultures were sent; CT chest showed bilateral small pleural effusions; no evidence of pneumonia; noted prominent mediastinal lymph nodes likely reactive; patient was given antibiotics; lab showed mild leukocytosis; admitted to the hospital for further management hospital course: Patient was admitted for sepsis, initially source was not clear, she was treated empirically with cefepime. Cultures were unremarkable. Patient had CT abdomen which showed acute colitis. Patient quickly started to feel much better, she became afebrile, and was tolerating solid diet, requesting to be discharged home. She will be transitioned to 7 more days of Ceftin and Flagyl. For her chronic diastolic CHF her Lasix was initially held, can be continued on discharge. For chronic atrial fibrillation she will continue on Eliquis. For chronic iron deficiency anemia she will continue on p.o. iron, for hypothyroidism she will continue on Synthroid. Time Spent with Patient Time attestation: Total time spent providing and/or coordinating discharge services: Discharge coordination time: Greater than 30 minutes Quality: Safe Use of Opioids Does Pt have an Active Cancer Diagnosis on the Problem List?: No Quality: Stroke Does the patient have a stroke diagnosis?: No Physical Exam Vital Signs: Vital Signs: Last Vital Signs Temp 98.5 F 01/03/22 06:00 Pulse 71 01/03/22 06:00 Resp 15 01/03/22 06:00 BP 142/80 H 01/03/22 06:00 Pulse Ox 97 01/03/22 06:00 BMI result Body Mass Index 28.8 General: AO X 3, no acute distress Resp: CTA bilateral, no accessory muscles used CVS: S1,S2,RRR GI: soft, non tender, non distended Neuro: motor grossly intact, alert Psych: appropriate affect, appropriate insight DS: Data Data Completed and Pending Completed studies during hospitalization [Text1]: Procedures Control Bleeding in Gastrointestinal Tract, Via Natural or Artificial Opening Endoscopic (12/21/21) Excision of Cecum, Via Natural or Artificial Opening Endoscopic, Diagnostic (12/21/21) Excision of Duodenum, Via Natural or Artificial Opening Endoscopic, Diagnostic (12/21/21) Excision of Stomach, Pylorus, Via Natural or Artificial Opening Endoscopic, Diagnostic (12/21/21) Labs on day of discharge: Laboratory Results - last 24 hr 01/03/22 01/03/22 06:48 06:48 WBC 9.9 RBC 3.04 L Hgb 7.7 L Hct 25.1 L MCV 82.6 MCH 25.3 L MCHC 30.7 L RDW 16.6 H Plt Count 305 MPV 9.6 Absolute Nucleated RBC 0.000 Nucleated RBC % (auto) 0.0 Sodium 139 Potassium 3.9 Chloride 108 Carbon Dioxide 23 Anion Gap 12 BUN 17 H Creatinine 1.11 Estim Creat Clear Calc 47.8 Estimated GFR 48 Fasting Glucose 105 H Calcium 9.2 D Preliminary micro results at discharge 01/01/22 19:33 Blood Culture - Preliminary Blood - Venous No growth after 24 hours. 01/01/22 19:09 Blood Culture - Preliminary Blood - Venous No growth after 24 hours. Discharge Plan Discharge Patient Disposition: Home, Self-Care Discharge Diagnosis: colitis Referrals: Shravan Grant MD [Primary Care Provider] - 1 Week Discharge Medications: New ferrous sulfate 324 mg (65 mg iron) Tablet,Delayed Release (Dr/Ec) 324 mg PO DAILY Qty: 30 0RF cefuroxime axetil 500 mg tablet 500 mg PO BID Qty: 14 0RF metronidazole 500 mg tablet 500 mg PO BID Qty: 14 0RF Continued (DME) Updraft machine See Rx Instructions .Route .MEDSUPPLY Qty: 1 0RF Rx Instructions: As directed Breo Ellipta 200-25 mcg/dose blister with device 1 inh inhalation DAILY 30 Days Qty: 28 2RF levothyroxine 150 mcg tablet 150 mcg PO DAILY 30 Days Qty: 90 0RF venlafaxine 150 mg Capsule,Extended Release 24hr 150 mg PO DAILY 0RF tizanidine 6 mg Capsule 6 mg PO BEDTIME 0RF spironolactone 50 mg Tablet 50 mg PO DAILY 0RF fluticasone propionate 50 mcg/actuation spray,suspension 1 spray intranasal BID 0RF metoprolol tartrate 50 mg Tablet 50 mg PO BID Qty: 60 0RF Protocol: Hold for SBP/HR < HOLD for SBP < : 90 HOLD for HR < : 60 Eliquis 5 mg tablet 5 mg PO BID Qty: 60 0RF Rx Instructions: To start taking on December 31 topiramate 25 mg tablet 1 tab PO BEDTIME 0RF ergocalciferol (vitamin D2) 1,250 mcg (50,000 unit) capsule 1,250 mcg PO MO@1000 0RF amlodipine 5 mg tablet 5 mg PO DAILY 0RF Discharge Orders: Discharge Order (Routine); Ordered 01/03/22 Ordered By: Duran Jennings Diet: advance to usual diet Activity on Discharge: As tolerated Stand Alone Forms: Patient Portal Discharge page Care Plan Goals: recovery Health Concerns: colitis Plan of Treatment: one week julienin and navi Assessment: see above
--- NOTE | 2022-01-03 11:03 | MHC.CM.PN ---
Received notification from Dr Jennings that patient will be discharged home without services today. Patient will arrange her own transport home.
== END 2022-01-03 11:21 | disposition home or self-care (01) | DRG 872 ==
LOC: HO.ED 23:58 → HO.EDOVER 01-02 00:16
PROVIDERS: Admitting Provider Hospitalist; Emergency Provider Internal Medicine; PCP Internal Medicine; Visit Provider Internal Medicine
DX: A41.9 Sepsis, unspecified organism (principal); I69.354 Hemiplegia and hemiparesis following cerebral infarction affecting left non-dominant side; I50.32 Chronic diastolic (congestive) heart failure; K52.9 Noninfective gastroenteritis and colitis, unspecified; F41.9 Anxiety disorder, unspecified; F32.A Depression, unspecified; D50.9 Iron deficiency anemia, unspecified; E03.9 Hypothyroidism, unspecified; D63.1 Anemia in chronic kidney disease; Z20.822 Contact with and (suspected) exposure to COVID-19; Z86.010 Personal history of colon polyps; Z87.891 Personal history of nicotine dependence; Z91.040 Latex allergy status; Z88.0 Allergy status to penicillin; Z88.5 Allergy status to narcotic agent; Z79.01 Long term (current) use of anticoagulants; Z79.51 Long term (current) use of inhaled steroids; Z79.890 Hormone replacement therapy; Z79.899 Other long term (current) drug therapy
CPT/HCPCS: 36415; 71045; 71250; 74176; 80048; 80053; 81001; 81003; 83605; 83880; 84484; 85025; 85027; 87040; 87086; 87502; 87635; 93005; 96365; 99285; J0692; J0696; J3370

== ENCOUNTER 2022-03-12 09:51 | Outpatient (REF) | payer OTHER, SELFPAY ==
[2022-03-12 11:22] LABS: MANUAL DIFF FLAG NO
[2022-03-12 11:40] LABS: Basophils Percent Auto 0.4 % (0-2); Eosinophils Absolute Auto 0.3 X10*3/uL (0.0-0.4); Eosinophils Percent Auto 2.8 % (0-4); Hematocrit 36.3 % (37.0-47.0); Hemoglobin 10.9 g/dl (12.0-16.0); Imm Gran Abs Auto 0.04 X10*3/uL (0.00-0.03); Imm Gran Pct Auto 0.4 % (0.0-0.4); Lymphocytes Absolute Auto 1.9 X10*3/uL (1.2-4.9); Lymphocytes Percent Auto 16.3 % (20-40); Mean Corpuscular Hemoglobin 23.5 pg (27.0-33.0); Mean Corpuscular Volume 78.2 fL (80.0-98.0); Mean Platelet Volume 9.3 fL (9.4-12.3); Monocytes Absolute Auto 0.8 X10*3/uL (0.1-1.2); Monocytes Percent Auto 6.6 % (2-11); Neutrophils Absolute Auto 8.3 x10*3/uL (2.0-8.3); Neutrophils Percent Auto 73.5 % (45-73); Platelet Count 446 X10*3/uL (160-400); Red Blood Count 4.64 X10*6/uL (4.20-5.50); Red Cell Distribution Width 16.1 % (11.0-16.0); White Blood Count 11.3 X10*3/uL (4.8-10.8)
[2022-03-12 12:08] LABS: TSH reflex Free T4 0.17 uIU/mL (0.32-4.0)
[2022-03-12 12:17] LABS: Alanine Aminotransferase 14 U/L (0-31); Albumin Level 4.4 g/dL (3.5-5.0); Alkaline Phosphatase 133 U/L (39-117); Anion Gap 18 (12-20); Aspartate Amino Transferase 12 U/L (5-31); Bilirubin Total 0.3 mg/dL (0.0-1.0); Blood Urea Nitrogen 26 mg/dL (9-16); Carbon Dioxide 19 mmol/L (22-29); Chloride 109 mmol/L (96-108); Estimated Glomerular Filt Rate 36; Glucose Random 125 mg/dL (60-115); Potassium 4.5 mmol/L (3.3-5.1); Sodium 141 mmol/L (135-145); Total Protein 7.2 g/dL (6.5-8.0)
[2022-03-12 12:49] LABS: Free T4 (Free Thyroxine) 1.22 ng/dL (0.71-1.85)
== END 2022-03-12 09:52 | disposition home or self-care (01) ==
LOC: HO.HMGCLDS 09:51
PROVIDERS: PCP Internal Medicine; Visit Provider Internal Medicine
DX: E78.9 Disorder of lipoprotein metabolism, unspecified (principal); I10 Essential (primary) hypertension; I48.91 Unspecified atrial fibrillation; R06.02 Shortness of breath; E03.8 Other specified hypothyroidism
CPT/HCPCS: 36415; 80053; 84439; 84443; 85025

== ENCOUNTER → 2022-07-24 13:13 | Outpatient (BNVA) | payer OTHER, SELFPAY | PROVIDERS: PCP Internal Medicine; Referring Provider Internal Medicine; Visit Provider Internal Medicine | DX: I48.19 Other persistent atrial fibrillation (principal); I25.10 Atherosclerotic heart disease of native coronary artery without angina pectoris; I11.0 Hypertensive heart disease with heart failure; I50.32 Chronic diastolic (congestive) heart failure | CPT/HCPCS: 93005; 99212 ==

== ENCOUNTER 2022-10-03 11:23 | Outpatient (REF) | payer OTHER, SELFPAY ==
[2022-10-03 12:59] LABS: Blood Urea Nitrogen 19 mg/dL (9-16); Estimated Glomerular Filt Rate 37
== END 2022-10-03 11:24 | disposition home or self-care (01) ==
LOC: HO.LAB 11:23
PROVIDERS: PCP Internal Medicine; Visit Provider Psychiatry & Neurology Neurology
DX: I67.9 Cerebrovascular disease, unspecified (principal)
CPT/HCPCS: 36415; 82565; 84520

== ENCOUNTER 2022-10-30 08:16 | Inpatient (IN) | payer OTHER, SELFPAY ==
[2022-10-30] VITALS (12 sets, daily range): BP systolic 156–242; BP diastolic 83–130; PULSE 74–99; RESP 16–24; TEMP 36.3–37.3; O2SAT 95–99; BMI 30.2; BMI 29.9
--- NOTE | ~2022-10-30 | US_ITS ---
EXAMINATION: US EXTRACRANIAL CAROTID DUPLEX, BILATERAL CLINICAL INFORMATION: CTA with severe stenosis left ICA COMPARISON: None available. TECHNIQUE: Real-time ultrasound and Doppler techniques (integrating B-mode 2-D vascular images, Doppler spectral analysis and color-flow Doppler imaging) were utilized to interrogate the extracranial carotid arteries, the vertebral arteries and proximal subclavian arteries bilaterally. The degree of stenosis is determined by criteria similar to NASCET. FINDINGS: Bilateral carotid arteries are tortuous Right Side: 1. There is soft atherosclerotic plaque seen in the bifurcation/proximal ICA region. 2. The common carotid artery PSV proximally is 102 cm/s and distally 99 cm/s. 3. The proximal internal carotid artery velocities are 102 cm/s systolic and 27 cm/s diastolic. 4. The proximal external carotid artery PSV is 251 cm/s. 5. The vertebral artery shows 77 flow. 6. The subclavian artery waveforms are normal. Left Side: 1. There is hard atherosclerotic shadowing plaque seen in the bifurcation/proximal ICA region. 2. The common carotid artery PSV proximally is 113 cm/s and distally 123 123 cm/s. 3. The proximal internal carotid artery velocities are 134 cm/s systolic and 47 cm/s diastolic. 4. The proximal external carotid artery PSV is 112 cm/s. 5. The vertebral artery is not visualized. 6. The subclavian artery waveforms are normal. US/US carotid duplex BI IMPRESSION: 1. RIGHT: 0-49% stenosis right ICA. 2. LEFT: 50-79% stenosis left ICA.
--- NOTE | ~2022-10-30 | XR_ITS ---
EXAMINATION: XR CHEST CLINICAL INFORMATION: Stroke COMPARISON: 01/01/2022 TECHNIQUE: Frontal view of the chest was obtained. FINDINGS: Low lung volumes. No acute finding. No obvious failure or infiltrate. There is no effusion. Calcified aortic arch and descending aorta. The hilar regions are comparable. XR/XR chest 1V IMPRESSION: Low lung volumes. No acute finding.
--- NOTE | ~2022-10-30 | CT_ITS ---
EXAMINATION: CT HEAD WITHOUT CONTRAST (STROKE PROTOCOL) CLINICAL INFORMATION: Stroke protocol. Right-sided weakness and aphasia COMPARISON: May 30, 2017 TECHNIQUE: Contiguous axial imaging was performed from the skull base to vertex without intravenous administration of contrast. This CT examination was performed using dose optimization techniques as appropriate, variously including the following: *Automated exposure control *Adjustment of mA and/or kV according to patient size (this includes techniques or standardized protocols for targeted exams where dose is matched to indication/reason for exam; i.e. extremities or head) *Use of iterative reconstruction technique DLP: 688 mGy-cm FINDINGS: No intracranial hemorrhage is identified. No significant mass effect. Patient status post left posterior fossa aneurysm clipping in the region of the left PICA branch with left lateral suboccipital craniectomy and mesh reconstruction. This is stable in appearance to previous study of May 30, 2017. There is encephalomalacia present within the left cerebellar hemisphere. There is a region of diminished density about the right frontal lobe which is likely related to kirt hole rather than a right frontal infarct. There is a large amount of periventricular white matter low density consistent with microangiopathy. There is a mucous retention cyst seen within left maxillary sinus. Remainder of paranasal sinuses appear unremarkable. Mastoid air cells unremarkable. CT/CT head for stroke IMPRESSION: No acute intracranial pathology. 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 Changes of microangiopathy. This critical result was discussed with Dr. De La Cruz at 8:45 AM hours on October 30, 2022. It was ascertained that the content and urgency of the report was understood at the time of direct communication.
--- NOTE | ~2022-10-30 | CT_ITS ---
CT ANGIOGRAM NECK WITH CONTRAST CT ANGIOGRAM BRAIN WITH CONTRAST CLINICAL INFORMATION: Right-sided weakness and aphasia. COMPARISON: Head CT performed earlier the same day. Head CT 05/30/2017. TECHNIQUE: Test bolus sequences followed by intravenous administration 70 mL of Omnipaque 350. Helical imaging was performed in the axial plane from the thoracic inlet to the skull vertex. Delayed postcontrast imaging of the head was also performed. The data was processed at the blood bank technologist workstation for generation of MIP sequences. Angled MIPs and volume rendered reformatted images were also generated at an offline 3D workstation under concurrent supervision. Stenoses are assessed in accordance with NASCET criteria unless otherwise indicated. This CT examination was performed using dose optimization techniques as appropriate, variously including the following: *Automated exposure control *Adjustment of mA and/or kV according to patient size (this includes techniques or standardized protocols for targeted exams where dose is matched to indication/reason for exam; i.e. extremities or head) *Use of iterative reconstruction technique FINDINGS: BRAIN: [There is no intracranial hemorrhage, hydrocephalus, extra-axial surface collection, midline shift, or other herniation pattern. There is villalobos to white matter differentiation loss within the left parietal operculum and more superiorly within the left parietal lobe as well as a probable small portion of the left frontal lobe concerning for an evolving acute infarcts in these areas. No mass effect and no hemorrhagic transformation. 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 The basilar cisterns are preserved. No significant soft tissue abnormality. No acute osseous abnormality. There is a retention cyst within the left maxillary sinus and there is mild mucosal thickening within the right maxillary sinus and throughout the ethmoid air cells bilaterally. Degenerative changes involving the TMJs bilaterally. Mastoid air cells and middle ear cavities are clear. CERVICAL SOFT TISSUES AND LUNG APICES: Imaged upper lungs are clear. No significant soft tissue findings within the neck. NECK CTA: This is a limited motion degraded CTA of the neck. There is atherosclerotic calcification throughout the aortic arch and the left common carotid artery arises from the brachiocephalic artery. The right vertebral artery is dominant. The vertebral artery origins are not diagnostically assessed due to artifact. The right cervical vertebral artery remains widely patent. The left cervical vertebral artery is occluded distally, findings described on a CTA from 09/05/2010 for which the images are not available at the time of dictation. There is extensive atherosclerotic calcification involving the left carotid bifurcation resulting in a potential severe stenosis of the proximal left internal carotid artery which is not diagnostically assessed due to the degree of motion artifact. This can be further assessed with a repeat study or with carotid ultrasound. BRAIN CTA: [There is a partially occluded distal posterior left M4 MCA branches associated with focal oligemia within the posterior left MCA territory. The intradural left vertebral artery is mostly occluded. No additional arterial occlusions intracranially. There is atherosclerotic calcification throughout the carotid siphons bilaterally without significant stenosis. CT/CT angio head neck stroke IMPRESSION: - There is villalobos to white matter differentiation loss within the left parietal operculum and more superiorly within the left parietal lobe as well as a probable small portion of the left frontal lobe concerning for an evolving acute infarcts in these areas. No mass effect and no hemorrhagic transformation. - There is a partially occluded distal posterior left M4 MCA branches associated with focal oligemia within the posterior left MCA territory. - A chronic left cerebellar infarct and a chronic infarct within the right frontal lobe are again noted. There is background chronic microangiopathy. 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 Left occipital craniectomy changes. 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 - There is extensive atherosclerotic calcification involving the left carotid bifurcation resulting in a potential severe stenosis of the proximal left internal carotid artery which is not diagnostically assessed due to the degree of motion artifact. This can be further assessed with a repeat study or with carotid ultrasound. Stroke protocol CTA discussed with Dr. De La Cruz at 10:14 AM on 10/30/2022.
--- NOTE | 2022-10-30 08:24 | ECG_ITS ---
Test Reason : STROKE Blood Pressure : / mmHG Vent. Rate : 077 BPM Atrial Rate : 000 BPM P-R Int : 000 ms QRS Dur : 074 ms QT Int : 378 ms P-R-T Axes : 000 003 022 degrees QTc Int : 427 ms Atrial fibrillation Nonspecific ST abnormality Abnormal ECG When compared with ECG of 01-JAN-2022 19:16, No significant change was found Referred By: Mehul De La Cruz Electronically Signed By:DAVID ORTEGA MD
--- NOTE | 2022-10-30 08:26 | ED.NEUROSD ---
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 Came in today for right-sided weakness and unable to express herself last known to be normal was 21:00 patient stated that her right-sided weakness started since last night and she did not seek medical attention because she felt she is going to get better., unknown if patient is compliant with Eliquis. Related Data Home Medications Medication Instructions Recorded Confirmed venlafaxine 150 mg 150 mg PO DAILY 06/02/20 07/24/22 capsule,extended release 24 hr amlodipine 5 mg tablet 5 mg PO DAILY 08/29/21 07/24/22 fluticasone propionate 50 1 spray intranasal BID 12/21/21 07/24/22 mcg/actuation nasal spray,suspension spironolactone 50 mg tablet 50 mg PO DAILY 12/21/21 07/24/22 tizanidine 6 mg capsule 0 mg PO DAILY PRN 07/24/22 07/24/22 Previous Rx's Medication Instructions Recorded [employer] machine #1 ea 04/13/21 fluticasone furoate 200 1 inh inhalation DAILY 30 days #28 01/09/22 mcg-vilanterol 25 mcg/dose ea inhalation powder (Breo Ellipta) ferrous sulfate 324 mg (65 mg 324 mg PO BID 90 days #180 tabs 05/21/22 iron) tablet,delayed release apixaban 5 mg tablet (Eliquis) 5 mg PO BID #180 tabs 06/13/22 levothyroxine 137 mcg tablet 137 mcg PO DAILY 90 days #90 tabs 06/13/22 metoprolol succinate 50 mg 50 mg PO BID 90 days #180 tabs 06/13/22 tablet,extended release 24 hr rosuvastatin 10 mg tablet (Crestor) 10 mg PO DAILY #90 tabs 07/24/22 Allergies Allergy/AdvReac Type Severity Reaction Status Date / Time latex [Latex] Allergy Mild UNKNOWN Verified 07/24/22 13:29 morphine [Morphine] Allergy Mild VOMITING Verified 07/24/22 13:29 penicillin G Allergy Unknown Rash Verified 07/24/22 13:29 codeine [Codeine] AdvReac Mild VOMITING Verified 07/24/22 13:29 procaine [From Novocain] AdvReac Mild VOMITING Verified 07/24/22 13:29 Review of Systems Review of Systems: All other systems are reviewed and are negative Constitutional: Reports as per HPI and Reports no additional constitutional complaints Eyes: Reports as per HPI and Reports no additional eye complaints Reports system reviewed and no additional complaints, except as documented Cardiovascular: Reports as per HPI and Reports no additional cardiovascular complaints Respiratory: Reports as per HPI and Reports no additional respiratory complaints Gastrointestinal: Reports as per HPI and Reports no additional gastrointestinal complaints Genitourinary: Reports no additional female genitourinary complaints Musculoskeletal: Reports no additional musculoskeletal complaints Skin/Breast: Reports system reviewed and no additional complaints, except as docu Psychiatric: Reports no additional psychiatric complaints Endocrine: Reports no additional endocrine complaints Hematologic/Lymphatic: Reports no additional hematologic/lymphatic complaints Allergic/Immunologic: Reports no additional allergic/immunologic complaints Reports system reviewed and no additional complaints, except as documented and Reports Abnormal speech present [facility] Past Medical History Medical History Anemia Anxiety and depression Chronic anemia Chronic kidney disease Fever of unknown origin Hypertension Major depression, recurrent Stroke Surgical History History of knee surgery Family History Family History Father Tuberculosis Mother No problems noted. Other Substance use disorder Social History Social History Household Members: None Housing: Apartment Do you presently have visiting nurse or other home services: Yes ([employer]) Alcohol intake: never Patient Tobacco Use Status: Former Tobacco user Tobacco use type: Cigarette Years Smoked: 10 years e-Cigarette/Vaping Use: Never Used Advance Directives: Yes Advance Directives on File: Yes Advance Directives Date on File: 12/21/21 service: No Current occupational status: retired Cognitive needs: No Hearing needs: No Vision needs: Yes Physical Exam Vital Signs: Vital Signs: Last Vital Signs Temp 98.1 F 10/30/22 10:00 Pulse 85 10/30/22 10:03 Resp 17 10/30/22 10:03 BP 199/116 H 10/30/22 10:03 Pulse Ox 97 10/30/22 10:03 O2 Del Method 10/30/22 10:03 BMI result Body Mass Index 30.2 Vital signs have been reviewed as appeared to be correct. Blood pressure normal. Heart rate normal. Respiration rate normal. Temperature normal. Oxygen saturation normal. Appearance: Alert. Oriented X3. No acute distress. Head: Normal external exam. Normocephalic. Atraumatic. No Bullard signs noted. No raccoon eyes noted Eyes: PERRLA. EOMI. Conjunctiva and sclera normal. Eyelids normal. ENT: TM's Normal. Pharynx normal. Uvula midline. Moist mucous membranes. No trismus noted. No drooling noted. No muffled voice noted. Neck: Normal inspection. Neck supple. FROM. No adenopathy. Thyroid Normal. No meningeal signs. No neck mass noted. CVS: Normal heart rate and rhythm. Heart sound normal. No murmurs noted. Pulses normal throughout. Respiratory: No respiratory distress. Painless inspiration. Breath sounds normal. No wheezes/rales/rhonchi noted. Chest nontender. No accessory muscle usage noted or decreased air movement noted. Abdomen: Soft and nontender. Bowel sounds normal in all 4 quadrants. No distention noted. No organomegaly noted. No visible injury noted. Back: No CVA tenderness. Full range of motion noted. Skin: Skin warm and dry. Normal skin color. Normal skin turgor. No rashes/lesions/lacerations noted. Extremities: No lower extremity edema. Extremities exhibit normal range of motion. Extremities nontender. Neuro: Oriented. Cranial nerve exam: Right facial droop right upper/lower extremities motor deficit. No sensory deficit. Reflexes normal. Course Course Course Narrative: A 77-year-old female came in for evaluation of right-sided weakness patient's symptoms started since last night more than 12 hours before presentation to the hospital, also unknown if patient is still actively taking anticoagulation therapy therefore patient is not a candidate for oral tPA, CTA showing possible occlusion in a.m. for which is too distal for mechanical thrombectomy. The case discussed with Dr. Grant is to admit the patient in the hospital after oral aspirin. Medications Administered Discontinued Medications Generic Name Dose Route Start Last Admin Trade Name Gale PRN Reason Stop Dose Admin Iohexol 70 ml 10/30/22 09:48 10/30/22 09:48 Iohexol 350 Mg/Ml 75 Ml Infus..Btl IV 10/30/22 09:49 70 ml ONCE ONE Administration Medical Decision Making Differential Diagnosis Differential Diagnoses: The differential diagnosis associated with the presentation includes (Dehydration, hypoglycemia, electrolyte disturbance, anemia, ischemic CVA, hemorrhagic CVA, anemia.) Admission/Observation Consideration of admission/observation: Escalation of care including admission/observation considered Consult Healthcare Provider Management of the patient was discussed with: Hospitalist and Help Desk Team Leader (Rudy (neurology).) Lab Data MDM Lab Attestation statement: I reviewed the patient's lab results. 10/30/22 09:26 10/30/22 09:26 Labs: Lab Results 10/30/22 10/30/22 10/30/22 Range/Units 08:25 08:45 09:26 WBC 12.8 H (4.8-10.8) X10*3/uL RBC 3.90 L (4.20-5.50) X10*6/uL Hgb 10.8 L (12.0-16.0) g/dl Hct 33.4 L (37.0-47.0) % MCV 85.6 (80.0-98.0) fL MCH 27.7 (27.0-33.0) pg MCHC 32.3 (31.0-35.0) g/dl RDW 14.2 (11.0-16.0) % Plt Count 312 D (160-400) X10*3/uL MPV 9.1 L (9.4-12.3) fL Immature Gran % (Auto) 0.5 H (0.0-0.4) % Neut % (Auto) 81.0 H (45-73) % Lymph % (Auto) 10.2 L (20-40) % Ramsey % (Auto) 6.2 (2-11) % Eos % (Auto) 1.8 (0-4) % Baso % (Auto) 0.3 (0-2) % Lymph # (Auto) 1.3 (1.2-4.9) X10*3/uL Ramsey # (Auto) 0.8 (0.1-1.2) X10*3/uL Eos # (Auto) 0.2 (0.0-0.4) X10*3/uL Baso # (Auto) 0.0 (0.0-0.2) X10*3/uL Abs Immat Gran (auto) 0.06 H (0.00-0.03) X10*3/uL Absolute Neuts (auto) 10.4 H (2.0-8.3) x10*3/uL Absolute Nucleated RBC 0.000 (0.0-0.012) X10*3/uL Nucleated RBC % (auto) 0.0 (0.0-0.2) /100WBC PT (10.0-13.1) SEC Whole Blood PT 12.6 (11.1-13.5) sec INR (0.9-1.1) Whole Blood INR 1.0 (0.9-1.1) APTT (26.0-36.4) SEC POC Glucose 98 (60-115) mg/dL 10/30/22 Range/Units 09:26 WBC (4.8-10.8) X10*3/uL RBC (4.20-5.50) X10*6/uL Hgb (12.0-16.0) g/dl Hct (37.0-47.0) % MCV (80.0-98.0) fL MCH (27.0-33.0) pg MCHC (31.0-35.0) g/dl RDW (11.0-16.0) % Plt Count (160-400) X10*3/uL MPV (9.4-12.3) fL Immature Gran % (Auto) (0.0-0.4) % Neut % (Auto) (45-73) % Lymph % (Auto) (20-40) % Ramsey % (Auto) (2-11) % Eos % (Auto) (0-4) % Baso % (Auto) (0-2) % Lymph # (Auto) (1.2-4.9) X10*3/uL Ramsey # (Auto) (0.1-1.2) X10*3/uL Eos # (Auto) (0.0-0.4) X10*3/uL Baso # (Auto) (0.0-0.2) X10*3/uL Abs Immat Gran (auto) (0.00-0.03) X10*3/uL Absolute Neuts (auto) (2.0-8.3) x10*3/uL Absolute Nucleated RBC (0.0-0.012) X10*3/uL Nucleated RBC % (auto) (0.0-0.2) /100WBC PT 11.3 (10.0-13.1) SEC Whole Blood PT (11.1-13.5) sec INR 1.0 (0.9-1.1) Whole Blood INR (0.9-1.1) APTT 31.7 (26.0-36.4) SEC POC Glucose (60-115) mg/dL Independent Interpretation I performed an independent interpretation of an: EKG (Atrial fibrillation at 77 beats per minutes, normal axis deviation, normal intervals.), Plain X-Ray (Chest: No acute intrathoracic pathology.) and CT Scan (Head: No acute intracranial pathology.) Radiology Impression Discussion of test interpretation with radiology: I have reviewed the radiologist's reading. Chronic Conditions Patient?s care impacted by: Hypertension and Other (Chronic atrial fibrillation.) NIH Stroke Scale Internal: Initial- Upon Arrival Level of Consciousness: Alert Level of Consciousness Questions: Answers both questions correctly Level of Consciousness Commands: Performs both tasks correctly Best Gaze: Normal Visual: No visual loss Facial Palsy: Minor paralyis Motor Arm (Right): No effort against gravity Motor Arm (Left): No drift Motor Leg (Right): Some effort against gravity Motor Leg (Left): No drift Limb Ataxia: Absent Sensory: Mild to moderate sensory loss Best Language: Mild to moderate aphasia Dysarthia: Normal Extinction and Inattention: No abnormality Score: 8 Discharge Plan Discharge Clinical Impression: Acute CVA (cerebrovascular accident) Patient Disposition: Admitted As Inpatient Prescriptions: No Action (DME) Updraft machine See Rx Instructions .Route .MEDSUPPLY Qty: 1 0RF Rx Instructions: As directed Breo Ellipta 200-25 mcg/dose blister with device 1 inh inhalation DAILY 30 Days Qty: 28 2RF ferrous sulfate 324 mg (65 mg iron) tablet,delayed release (DR/EC) 324 mg PO BID 90 Days Qty: 180 0RF Eliquis 5 mg tablet 5 mg PO BID Qty: 180 0RF levothyroxine 137 mcg tablet 137 mcg PO DAILY 90 Days Qty: 90 0RF metoprolol succinate 50 mg tablet extended release 24 hr 50 mg PO BID 90 Days Qty: 180 0RF venlafaxine 150 mg Capsule,Extended Release 24hr 150 mg PO DAILY spironolactone 50 mg Tablet 50 mg PO DAILY fluticasone propionate 50 mcg/actuation spray,suspension 1 spray intranasal BID amlodipine 5 mg tablet 5 mg PO DAILY tizanidine 6 mg capsule 0 mg PO DAILY PRN rosuvastatin [Crestor] 10 mg tablet 10 mg PO DAILY Qty: 90 3RF
[2022-10-30 08:31] LABS: Glucose, Whole Blood 98 mg/dL (60-115)
[2022-10-30 09:25] LABS: Prothrombin Time Whole Bld POC 12.6 sec (11.1-13.5)
[2022-10-30] MEDS: iohexoL 350 MG/ML 75 ML INFUS..BTL 70 ML IV (09:48)
[2022-10-30 09:58] LABS: MANUAL DIFF FLAG NO
[2022-10-30 10:00] LABS: Basophils Percent Auto 0.3 % (0-2); Eosinophils Absolute Auto 0.2 X10*3/uL (0.0-0.4); Eosinophils Percent Auto 1.8 % (0-4); Hematocrit 33.4 % (37.0-47.0); Hemoglobin 10.8 g/dl (12.0-16.0); Imm Gran Abs Auto 0.06 X10*3/uL (0.00-0.03); Imm Gran Pct Auto 0.5 % (0.0-0.4); Lymphocytes Absolute Auto 1.3 X10*3/uL (1.2-4.9); Lymphocytes Percent Auto 10.2 % (20-40); Mean Corpuscular HGB Conc 32.3 g/dl (31.0-35.0); Mean Corpuscular Hemoglobin 27.7 pg (27.0-33.0); Mean Corpuscular Volume 85.6 fL (80.0-98.0); Mean Platelet Volume 9.1 fL (9.4-12.3); Monocytes Absolute Auto 0.8 X10*3/uL (0.1-1.2); Monocytes Percent Auto 6.2 % (2-11); Neutrophils Absolute Auto 10.4 x10*3/uL (2.0-8.3); Platelet Count 312 X10*3/uL (160-400); Red Cell Distribution Width 14.2 % (11.0-16.0); White Blood Count 12.8 X10*3/uL (4.8-10.8)
--- NOTE | 2022-10-30 10:04 | PC.NURSE ---
pt alert and oriented, has difficulty getting words out. responds to verbal commands and can answer some limited questions, usually yes or no. IV inserted, labs drawn, pt back from CT scan. sleep lab technician intact - afib on the monitor. hand grasps slightly unequal but strength in both sides. Nurse swallow screen fail. Pt swallows water but has a residual cough post swallow.
[2022-10-30 10:08] LABS: Prothrombin Time 11.3 SEC (10.0-13.1)
[2022-10-30 10:11] LABS: Partial Thromboplastin Time 31.7 SEC (26.0-36.4)
[2022-10-30 10:16] LABS: Stroke Lab Use COMPLETE
[2022-10-30 10:38] LABS: Influenza A PCR NEGATIVE (Negative); Influenza B PCR NEGATIVE (Negative); Resp Syncy Virus RNA Qual PCR NEGATIVE (Negative); SARS COV2 PCR INHOUSE NEGATIVE (Negative)
[2022-10-30 10:50] LABS: Troponin-I High Sensitivity 6.7 ng/L (<3.5-17.0)
[2022-10-30 10:52] LABS: Anion Gap 18 (12-20); Blood Urea Nitrogen 17 mg/dL (9-16); Calcium 9.1 mg/dL (8.4-10.2); Carbon Dioxide 20 mmol/L (22-29); Chloride 110 mmol/L (96-108); Creatinine Clr Calc Pharmacy 56.8; Estimated Glomerular Filt Rate 58; Glucose Random 103 mg/dL (60-115); Potassium 4.7 mmol/L (3.3-5.1); Sodium 143 mmol/L (135-145)
[2022-10-30] MEDS: Aspirin 300 MG SUPP.RECT PR (11:07)
--- NOTE | 2022-10-30 11:10 | PC.NURSE ---
pt medicated with MD aspirin per order
--- NOTE | 2022-10-30 11:50 | P.HPHOSP_ITS ---
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 Pt continues to have expressive aphasia at time of interview, HPI thus supplemented by granddaughter at bedside and daughter by phone. Pt was apparently in her normal state of health last night watching TV with her daughter, who has been staying with her the past few weeks. Daughter eventually noticed pt was no longer laughing at the TV show, had a difficult time speaking coherently, and was not using her dominant right hand. Daughter states this can sometime happen with pt's night medications where she becomes less coherent. Daughter did not note any facial droop. Daughter then led pt to her bedroom to sleep; pt was able to ambulate with no noted weakness or deficit. In the morning pt could still not speak coherently and could not walk, even with assistance, to bathroom. Had noted right-sided weakness. Daughter thus called EMS. Of note, pt had a CVA around 13 years ago with residual mild left-sided weakness. Pt also has persistent AFib on Eliquis, though pt has not been taking Eliquis since July 2022 when her prescription ran out. Unclear why it was not renewed, possibly d/t switching PCPs. The ED consulted with Neurology who advised to give the pt p.o. aspirin and admit to the hospital. In the ED patient was hypertensive up to 219/112. Labs were significant for chronic leukocytosis of 12.8, H&H of 10.8/33.4, creatinine of 0.94. CXR showed low lung volume but no acute finding. CT?of head showed no acute intracranial pathology but changes of microangiopathy. 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 EKG demonstrated the AFib with no evidence of ST elevations or depressions. Pt was treated with aspirin per consult with Neurology. Pt will be admitted to the hospital for treatment and further evaluation of possible CVA. Review of Systems Review of Systems: Full HPI difficult to obtain due to patient's expressive aphasia Right-sided weakness Difficulty speaking Denies chest pain/pressure, palpitations No SOB Denies fever, chills, nausea, vomiting, abdominal pain. Yes all other systems are reviewed and are negative [facility] Medical History Anemia Anxiety and depression Chronic anemia Chronic kidney disease Fever of unknown origin Hypertension Major depression, recurrent Stroke Family History Father Tuberculosis Mother No problems noted. Other Substance use disorder Surgical History History of knee surgery Social History Household Members: None Housing: Apartment Do you presently have visiting nurse or other home services: Yes ([employer]) Alcohol intake: never Patient Tobacco Use Status: Former Tobacco user Tobacco use type: Cigarette Years Smoked: 10 years e-Cigarette/Vaping Use: Never Used Advance Directives: Yes Advance Directives on File: Yes Advance Directives Date on File: 12/21/21 service: No Current occupational status: retired Cognitive needs: No Hearing needs: No Vision needs: Yes Meds Allergies Allergy/AdvReac Type Severity Reaction Status Date / Time latex [Latex] Allergy Mild UNKNOWN Verified 07/24/22 13:29 morphine [Morphine] Allergy Mild VOMITING Verified 07/24/22 13:29 penicillin G Allergy Unknown Rash Verified 07/24/22 13:29 codeine [Codeine] AdvReac Mild VOMITING Verified 07/24/22 13:29 procaine [From Novocain] AdvReac Mild VOMITING Verified 07/24/22 13:29 Active Medications: Current Medications Pharmacy Consult (Consult Rx Perform Med Rec) 1 each MISCELLANE ONCE PRN PRN Reason: Consult order Home Medications Medication Instructions Recorded Confirmed Last Taken Type venlafaxine 150 mg 150 mg PO DAILY 06/02/20 10/30/22 01/01/22 09:00 History capsule,extended release 24 hr amlodipine 5 mg tablet 5 mg PO DAILY 08/29/21 10/30/22 01/01/22 09:00 History fluticasone propionate 50 1 spray intranasal BID 12/21/21 10/30/22 01/01/22 09:00 History mcg/actuation nasal spray,suspension spironolactone 50 mg tablet 50 mg PO DAILY 12/21/21 10/30/22 01/01/22 09:00 History tizanidine 6 mg capsule 6 mg PO BEDTIME PRN Muscle Pain 07/24/22 10/30/22 Unknown History ferrous sulfate 324 mg (65 mg 324 mg PO BEDTIME 10/30/22 10/30/22 Unknown Histo ry iron) tablet,delayed release levothyroxine 137 mcg tablet 137 mcg PO DAILY@0630 10/30/22 10/30/22 Unknown History Physical Exam Vital Signs and Narrative: Vital Signs: Last Vital Signs Temp 98.1 F 10/30/22 10:00 Pulse 85 10/30/22 10:03 Resp 17 10/30/22 10:03 BP 199/116 H 10/30/22 10:03 Pulse Ox 97 10/30/22 10:03 O2 Del Method 10/30/22 10:03 BMI result Body Mass Index 30.2 Constitutional: Alert, in no acute distress. Mental Status: Oriented to person, place and time. Eyes: Pupils are equal, round, and reactive to light. Ear, Nose, and Throat: Oropharynx clear, mucous membranes moist. Ears and nose without deformities. Trachea midline. Respiratory: Clear to auscultation bilaterally. No wheezing, rales, or rhonchi. Cardiovascular: Irregularly irregular rhythm. No murmurs, rubs, or gallops. Gastrointestinal: Abdomen soft, non-tender, non-distended. Normal bowel sounds. Neurologic: Expressive aphasia. Chronic sensory deficit to light touch on left face and upper and lower extremities. Moves all extremities spontaneously. Equal 4/5 strength bilaterally to upper and lower extremities. Skin: No rashes or lesions noted. Musculoskeletal: No cyanosis or clubbing. Extremities: No edema. Psychiatric: Normal mood and affect. Results Labs 10/30/22 09:26 10/30/22 09:26 Labs: Laboratory Results - last 24 hr 0310/30/22 10/30/22 08:25 08:45 09:26 MCV 85.6 MCH 27.7 MCHC 32.3 RDW 14.2 Plt Count 312 D MPV 9.1 L Immature Gran % (Auto) 0.5 H Neut % (Auto) 81.0 H Lymph % (Auto) 10.2 L Thurston % (Auto) 6.2 Eos % (Auto) 1.8 Baso % (Auto) 0.3 Lymph # (Auto) 1.3 Thurston # (Auto) 0.8 Eos # (Auto) 0.2 Baso # (Auto) 0.0 Abs Immat Gran (auto) 0.06 H Absolute Neuts (auto) 10.4 H Absolute Nucleated RBC 0.000 Nucleated RBC % (auto) 0.0 PT Whole Blood PT 12.6 INR Whole Blood INR 1.0 APTT Anion Gap Estim Creat Clear Calc Estimated GFR POC Glucose 98 Random Glucose Calcium Total Creatine Kinase Troponin I High Sens Influenza Type A (PCR) Influenza Type B (PCR) RSV RNA Qual (PCR) SARS-CoV-2 RNA (RT-PCR) 10/30/22 10/30/22 10/30/22 09:26 09:26 09:26 MCV MCH MCHC RDW Plt Count MPV Immature Gran % (Auto) Neut % (Auto) Lymph % (Auto) Thurston % (Auto) Eos % (Auto) Baso % (Auto) Lymph # (Auto) Thurston # (Auto) Eos # (Auto) Baso # (Auto) Abs Immat Gran (auto) Absolute Neuts (auto) Absolute Nucleated RBC Nucleated RBC % (auto) PT 11.3 Whole Blood PT INR 1.0 Whole Blood INR APTT 31.7 Anion Gap 18 Estim Creat Clear Calc 56.8 Estimated GFR 58 POC Glucose Random Glucose 103 Calcium 9.1 D Total Creatine Kinase 31 Troponin I High Sens 6.7 Influenza Type A (PCR) Influenza Type B (PCR) RSV RNA Qual (PCR) SARS-CoV-2 RNA (RT-PCR) 10/30/22 09:26 MCV MCH MCHC RDW Plt Count MPV Immature Gran % (Auto) Neut % (Auto) Lymph % (Auto) Thurston % (Auto) Eos % (Auto) Baso % (Auto) Lymph # (Auto) Thurston # (Auto) Eos # (Auto) Baso # (Auto) Abs Immat Gran (auto) Absolute Neuts (auto) Absolute Nucleated RBC Nucleated RBC % (auto) PT Whole Blood PT INR Whole Blood INR APTT Anion Gap Estim Creat Clear Calc Estimated GFR POC Glucose Random Glucose Calcium Total Creatine Kinase Troponin I High Sens Influenza Type A (PCR) NEGATIVE Influenza Type B (PCR) NEGATIVE RSV RNA Qual (PCR) NEGATIVE SARS-CoV-2 RNA (RT-PCR) NEGATIVE Imaging Radiologist's Impressions: Impressions Head CT 10/30/22 08:32 IMPRESSION: No acute intracranial pathology. 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 Changes of microangiopathy. This critical result was discussed with Dr. De La Cruz at 8:45 AM hours on October 30, 2022. It was ascertained that the content and urgency of the report was understood at the time of direct communication. Chest X-Ray 10/30/22 08:55 IMPRESSION: Low lung volumes. No acute finding. Head/Neck CTA 10/30/22 09:57 IMPRESSION: - There is villalobos to white matter differentiation loss within the left parietal operculum and more superiorly within the left parietal lobe as well as a probable small portion of the left frontal lobe concerning for an evolving acute infarcts in these areas. No mass effect and no hemorrhagic transformation. - There is a partially occluded distal posterior left M4 MCA branches associated with focal oligemia within the posterior left MCA territory. - A chronic left cerebellar infarct and a chronic infarct within the right frontal lobe are again noted. There is background chronic microangiopathy. 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 Left occipital craniectomy changes. 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 - There is extensive atherosclerotic calcification involving the left carotid bifurcation resulting in a potential severe stenosis of the proximal left internal carotid artery which is not diagnostically assessed due to the degree of motion artifact. This can be further assessed with a repeat study or with carotid ultrasound. Stroke protocol CTA discussed with Dr. De La Cruz at 10:14 AM on 10/30/2022. 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 Pt will be admitted to the hospital for treatment and further evaluation of possible CVA. Right-sided weakness CTA with evidence of possible evolving acute infarcts in left parietal and frontal lobes; partially occluded distal posterior left M4 MCA branches Possibly secondary to noncompliance with Eliquis Pt given aspirin in ED Lipitor 80mg PT/OT Echocardiogram Carotid US for potential severe stenosis of left internal carotid not assessed on CTA d/t motion artifact Neurology consult Admit to telemetry Persistent AFib Pt not on Eliquis since 07/2022 when prescription not renewed by PCP, ?accidentally Restart Eliquis Echocardiogram Monitor on telemetry Hypertensive urgency Pt with BP up to 219/112 in ED Pt asymptomatic: denies headache, vision changes Pt did not take home meds this morning Amlopidine 5mg now, continue tomorrow Monitor BP History of CHF Not in acute exacerbation Continue spironolactone Anxiety Continue venlafaxine Some Continue levothyroxine Full Code Attending:?Dr. Teague DVT Prophylaxis: On Eliquis Pt will require a hospitalization of at least two nights for treatment of?possible CVA. Time Spent With Patient Time: Total time managing care of this patient today ____ minutes. Quality Stroke Does the patient have a stroke diagnosis?: Yes Reason for No Anti-thrombotic by Day Two: Contraindicated (Pt outside of tPA therapeutic window. Last known well-time last night.) VTE Prior VTE?: No VTE Risk Level:: Medical - moderate - high VTE Device Contraindication: Treatment Not Indicated VTE Drug Contraindication: N/A - Med Ordered
--- NOTE | 2022-10-30 12:19 | PHA.MEDREC ---
Pharmacy Consult ? Medication Reconciliation Pharmacy has completed the medication reconciliation. Patient and granddaughter at bedside reviewed medication list with me. They state that patient is supposed to be on Eliquis but her md stopped refilling it and she ran out sometime in July. She didn't know why they stopped filling it or if she was supposed to take something else. She states she is on no other blood thinners to replace the Eliquis.
--- NOTE | 2022-10-30 12:39 | P.CNNE_ITS ---
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 For some reason she stop taking a blood thinner few months ago. She came to hospital with new onset of difficulty speaking. Her symptoms started last night but she did not come to hospital right away and arrived here more than 6-8 hours. She was not considered a candidate for intravenous treat tPA type of treatment. CTA was performed to look for any intra-arterial lesion and because of the distal nature of the lesion intra-arterial treatment was also not considered. Review of Systems Review of Systems: No recent cold or flu-like illness PMFSH Past Medical History Medical History Anemia Anxiety and depression Chronic anemia Chronic kidney disease Fever of unknown origin Hypertension Major depression, recurrent Stroke Family History Family History Father Tuberculosis Mother No problems noted. Other Substance use disorder Surgical History Surgical History History of knee surgery Social History Social History Household Members: None Housing: Apartment Do you presently have visiting nurse or other home services: Yes ([employer]ICIAN) Alcohol intake: never Patient Tobacco Use Status: Former Tobacco user Tobacco use type: Cigarette Years Smoked: 10 years e-Cigarette/Vaping Use: Never Used Advance Directives: Yes Advance Directives on File: Yes Advance Directives Date on File: 12/21/21 service: No Current occupational status: retired Cognitive needs: No Hearing needs: No Vision needs: Yes Meds Allergies Allergy/AdvReac Type Severity Reaction Status Date / Time latex [Latex] Allergy Mild UNKNOWN Verified 07/24/22 13:29 morphine [Morphine] Allergy Mild VOMITING Verified 07/24/22 13:29 penicillin G Allergy Unknown Rash Verified 07/24/22 13:29 codeine [Codeine] AdvReac Mild VOMITING Verified 07/24/22 13:29 procaine [From Novocain] AdvReac Mild VOMITING Verified 07/24/22 13:29 Active Medications: Current Medications Pharmacy Consult (Consult Rx Perform Med Rec) 1 each MISCELLANE ONCE PRN PRN Reason: Consult order Home Medications Medication Instructions Recorded Confirmed Last Taken Type venlafaxine 150 mg 150 mg PO DAILY 06/02/20 10/30/22 01/01/22 09:00 History capsule,extended release 24 hr amlodipine 5 mg tablet 5 mg PO DAILY 08/29/21 10/30/22 01/01/22 09:00 History fluticasone propionate 50 1 spray intranasal BID 12/21/21 10/30/22 01/01/22 09:00 History mcg/actuation nasal spray,suspension spironolactone 50 mg tablet 50 mg PO DAILY 12/21/21 10/30/22 01/01/22 09:00 History tizanidine 6 mg capsule 6 mg PO BEDTIME PRN Muscle Pain 07/24/22 10/30/22 Unknown History ferrous sulfate 324 mg (65 mg 324 mg PO BEDTIME 10/30/22 10/30/22 Unknown History iron) tablet,delayed release levothyroxine 137 mcg tablet 137 mcg PO DAILY@0630 10/30/22 10/30/22 Unknown History Physical Exam Vital Signs: Vital Signs: Last Vital Signs Temp 98.0 F 10/30/22 12:18 Pulse 91 10/30/22 12:18 Resp 24 H 10/30/22 12:18 BP 187/102 H 10/30/22 12:18 Pulse Ox 95 10/30/22 12:18 O2 Del Method 10/30/22 12:18 BMI result Body Mass Index 30.2 Neuro: Other: She is alert and awake with decreased spontaneity and fluency of speech. She has difficulty repeating and naming. There is mild right-sided facial flatness and mild right hemiparesis. Results Labs 10/30/22 09:26 10/30/22 09:26 Labs: Short CBC 10/30/22 Range/Units 09: WBC 12.8 H (4.8-10.8) X10*3/uL Hgb 10.8 L (12.0-16.0) g/dl Hct 33.4 L (37.0-47.0) % Plt Count 312 D (160-400) X10*3/uL BMP 10/30/22 09:26 Sodium 143 Potassium 4.7 Chloride 110 H Carbon Dioxide 20 L BUN 17 H Creatinine 0.94 Calcium 9.1 D Cardiac Enzymes 10/30/22 Range/Units 09:26 Total Creatine Kinase 31 (26-140) U/L CT and CTA of brain and neck revealed left M4 occlusion and associated subacute ischemic infarction. Other chronic lesions were noted. Assessment and Plan (1) Acute CVA (cerebrovascular accident): Status: Acute 77 years old woman with complicated neurological history including and aneurysm repair in 2010 and more recently CHF and atrial fibrillation. She was off anticoagulation when she has an acute ischemic embolic looking left distal middle cerebral artery area infarct resulting in partial aphasia and right he miparesis. Mainstay of management is anticoagulation for stroke prevention. As far as this stroke is concerned, no treatment can be offered. Fortunately her aphasia was partial and I expect her improvement. She would require PT OT speech and swallowing eval. At this time she can be started on regular dose of and agent like Eliquis. Time Spent With Patient Time: Total time managing care of this patient today ____ minutes. Procedures Date of Service Date of Service: 10/30/22
--- NOTE | 2022-10-30 14:28 | PC.NURSE ---
IV reinserted. pt is finding her words much more easily than she was this morning
--- NOTE | 2022-10-30 14:46 | PC.NURSE ---
this nurse noted PO meds being ordered by Dr. Deutsch, pt failed bedside swallow and needs a formal swallow eval done by speech, dr deutsch was notified to put in IV medications instead of PO
--- NOTE | 2022-10-30 15:47 | PC.NURSE ---
this nurse attempted to call report to the floor was to be transferred to the nurse and was hung up on, attempted to call the floor back without answer.
--- NOTE | 2022-10-30 15:55 | PC.NURSE ---
speech in room performing eval
--- NOTE | 2022-10-30 17:22 | MHC.SL.SWA ---
Addendum entered and electronically signed by Federica Rasmussen MA, CCC-RUSTIC FENCE BUILDER 10/31/22 15:45: D.S. Original Note: Risk of Aspiration Due to: Neurological Condition Dysphasia Diet Status: UPGRADE from NPO Liquid Consistency and Strategies for Safe Swallow: Liquid Intake Recommendation: Thin Liquid Intake Strategies: Small Sips No Straws Solid Food Consistency: Dietary Recommendations: Pureed (NDD1) Oral Medication Intake: Crushed or whole in puree Please contact the pharmacy regarding appropriate crushable or liquid drug formulations that are available whenever modified delivery is recommended. Compensatory Strategies and Precautions to be Taken for Safe Swallow: Sitting Upright (90 deg) No Straw Small Bites and Sips Rate of Ingestion Change Supervision While Eating and Drinking for Safe Swallow: Intermittent Supervision Recommendation for Speech: Further Testing Needed Inpatient Speech Therapy Comment: Recommend diet UPGRADE to PUREE solids (NDD1) and THIN liquids. Recommendation for puree solids based on patient request d/t her dentures. Recommend pills whole or crushed in puree depending on patient preference. Recommend intermittent supervision to monitor for s/s of aspiration. RUSTIC FENCE BUILDER to visit tomorrow to re-evaluate for possible upgrade and to evaluate language. Frequency/Duration: Daily during hospitalization [employer] Truck Driver Clinican/Clinical Fellow: Yes: Josephine Sánchez M.A., CF-RUSTIC FENCE BUILDER Supervisory Statement: I have reviewed and agree with the student/clinical fellow's documentation: Speech Language Pathologist:
--- NOTE | 2022-10-30 17:26 | PC.NURSE ---
carotid duplex being performed at bedside
[2022-10-30] MEDS: hydrALAZINE HCl 20 MG/ML VIAL 5 MG IVPUSH (18:02)
--- NOTE | 2022-10-30 18:24 | PC.NURSE ---
gave report to [facility] RN. Transport here for patient
[2022-10-30] MEDS: Apixaban 5 MG TABLET PO (20:35)
[2022-10-30] MEDS: TiZANidine HCL 4 MG TABLET 6 MG PO (20:35)
[2022-10-30] MEDS: Ferrous Sulfate 324 MG TABLET.DR PO (20:35)
[2022-10-30] MEDS: 0.9 % Sodium Chloride Flush 3 ML SYRINGE IVFLUSH (20:36)
[2022-10-30] MEDS: ondansetron HCL 4 MG/2 ML VIAL IVPUSH (23:00)
[2022-10-30 23:25] LABS: Hematocrit 33.8 % (37.0-47.0)
[2022-10-31] VITALS (7 sets, daily range): BP systolic 129–182; BP diastolic 65–106; PULSE 76–106; RESP 16–18; TEMP 36.6–37.2; O2SAT 95–97
[2022-10-31] MEDS: Levothyroxine Sodium 112 MCG TABLET PO (06:55)
[2022-10-31] MEDS: Levothyroxine Sodium 25 MCG TABLET PO (06:55)
--- NOTE | 2022-10-31 07:00 | CA_ITS ---
Transthoracic Echocardiogram Patient (Last, First, Middle): Sharon Lara D Gender: Female Date of : 1945 Age: 77 Procedure Date: 10/31/2022 Procedure Type: Transthoracic Echocardiogram [place] [facility] [place]: 167.64 cm Weight: 84.82 kg BSA: 1.94 m2 Heart Rate: bpm BP: 140 / 106 mmHg Interventional Tech: TO Referring MD: Claudia WASSERMAN Artists' Model: Mikael Gray MD Symptoms: Persistent AFib not on Eliquis since 07/2022 Study Quality: Fair/Contrast ECG Rhythm: Atrial Fibrillation Conclusions: - 1. Hyperdynamic LV systolic function with LVEF of greater than 70% 2. At least mildly dilated left atrium 3. Normal cardiac valvular Doppler 4. No gross pericardial effusion Findings Procedure Information Contrast agent, definity, is being given per protocol without apparent complications. Left Ventricle Normal left ventricular cavity size. There is normal left ventricular wall thickness. The left ventricular systolic function is hyperdynamic. The visually estimated ejection fraction is >70%. Diastolic function is indeterminate on the basis of available data. Right Ventricle Normal right ventricular cavity size and systolic function. Atria The left atrium is mildly dilated. There is no evidence of interatrial shunt. The right atrium is normal in size. Aortic Valve There is mild calcification of the aortic valve. There is no aortic valve stenosis. There is no aortic valve regurgitation. Mitral Valve There is mild anterior and posterior mitral leaflet thickening. There is mild mitral annular calcification. There is trace mitral valve regurgitation. There is no mitral valve stenosis. Pulmonic Valve The pulmonic valve was not well visualized. Tricuspid Valve Likely normal tricuspid valve structure and function. Tricuspid regurgitation envelope is inadequate for calculation of right ventricular systolic pressure. Normal right atrial pressure. Great Vessels All visible segments of the aorta are normal in size. The pulmonary artery was not well visualized. Venous The inferior vena cava is normal in size and collapses greater than 50% with inspiration. Pericardium/Pleural There is no evidence of pericardial effusion. Prior Study Comparison No significant change compared to prior study dated: 12/22/2021. Measurements 2D Linear Measurements IVSd: 1.13 0.6-0.9/0.6-1.0 cm LVIDd: 4.32 3.9-5.3/4.2-5.9 cm LVIDd Index: 2.23 2.4-3.2/2.2-3.1 cm/m2 LVIDs: 2.29 2.0-3.6 cm LVPWd: 1.02 0.7-1.1 cm LA Diam: 3.90 2.7-3.8/3.0-4.0 cm LAIDs Index: 2.01 1.5-2.3 cm/m2 LV Mass: 197.83 67-162/88-224 g LV Mass Index: 101.97 43-95/49-115 g/m2 LVOT Diam: 2.00 3.0+(-)1.3 cm 2D Systolic Function EF 4C: 77.60 >55% Mitral Valve MV Pk E: 0.94 MV Decel Time: 203.00 E'Lateral: 9.14 E'Medial: 6.20 E/E' Med: 15.10 E/E' Lat: 10.30 PHT: 59.00 MVA PHT: 3.73 Decel [place]: 4.63 Aortic Valve AoV Pk Javier: 1.34 AoV Pk Grad: 7.00 LVOT LVOT Pk Javier: 0.95 LVOT Mn Javier: 0.65 LVOT VTI: 0.19 LVOT Pk Grad: 4.00 LVOT Mn Grad: 2.00 LVOT Diam: 2.00 LVOT Area: 3.14 Diastolic Function MV Pk E: 0.94 E'Medial: 6.20 E/E' Med: 15.10 E' Laterial: 9.14 E/E' Lat: 10.30 Right Ventricle TAPSE (mm): 17.50 TVS' Javier: 11.30 Tricuspid Valve RA Press: 3.00 Great Vessels Aorta Sinus of Valsalva: 3.27 2.0-3.[address] [place]: 2.55 1.7-3.4 cm Ao Asc: 3.10 2.1-3.4 cm Updated in Other Vendor System with Status of Final Mikael Gray MD electronically signed on 10/31/2022 4:13:43 PM with status of Final
[2022-10-31 07:17] LABS: Cholesterol 220 mg/dL; HDL Cholesterol 50 mg/dL; LDL Cholesterol Calculated 140 mg/dl; Triglycerides 150 mg/dL
[2022-10-31] MEDS: Spironolactone 25 MG TABLET 50 MG PO (08:21)
[2022-10-31] MEDS: Apixaban 5 MG TABLET PO ×2 (08:21→20:27)
[2022-10-31] MEDS: Venlafaxine HCl ER 150 MG CAP.ER.24H PO (08:21)
[2022-10-31] MEDS: Atorvastatin Calcium 80 MG TABLET PO (08:21)
[2022-10-31] MEDS: amLODIPine Besylate 5 MG TABLET PO (08:22)
[2022-10-31] MEDS: 0.9 % Sodium Chloride Flush 3 ML SYRINGE IVFLUSH ×2 (08:22→16:22)
--- NOTE | 2022-10-31 09:38 | MHC.CM.PN ---
IMM EXPLAINED TO HCP REENA MARKS, WHITE COPY TO BE MAILED , YELLOW COPY TO CHART. LIVES ALONE IN AN APT, DAUGHTER IS STAYING WITH HER OF LATE. USES CANE FOR MOBILITY. MODIFIED BR AND LIFE ALERT IN APT. + HCP ON FILE, NO COVID VAX. PCP DR. ZOE CH AT [facility].AWAITING PT/OT EVAL FOR DC REC. EARLY REFERRALS FOR SNF/[facility] SENT VIA [facility]. DP: HOME WITH [facility] VS. SNF? REFERRALS SENT. CM WILL CONTINUE TO FOLLOW FOR DC NEEDS. WILL NEED BLS TRANSPORT
[2022-10-31] MEDS: Fluticasone/Vilanterol 200/25 BLST.W.DEV 1 PUFF INHALE (11:23)
--- NOTE | 2022-10-31 13:09 | HO.PM.IMPN ---
Subjective Subjective Date of Service: 10/31/22 Interval History: Difficulty talking Mild RUE weakness Review of Systems Review of Systems: Yes Unobtainable due to mental condition Physical Exam Vital Signs: Vital Signs: Last Vital Signs Temp 99.0 F 10/31/22 11:18 Pulse 97 10/31/22 11:25 Resp 18 10/31/22 11:25 BP 130/80 10/31/22 11:18 Pulse Ox 96 10/31/22 11:18 O2 Del Method Room Air 10/31/22 11:18 BMI result Body Mass Index 29.9 Gen: in no acute distress HEENT: sclera anicteric, moist mucus membranes Neck: supple Lungs: clear to auscultation bilaterally Heart: irregularly irregular, no murmurs Abd: soft, non-tender, non-distended Ext: no edema Skin: warm/well-perfused Neuro: alert, difficulty with speaking, mild R facial droop, no pronator drift Objective Data Active Medications Acetaminophen (Acetaminophen 325 Mg Tablet) 650 mg PO Q4H PRN PRN Reason: mild-mod pain Amlodipine Besylate (Amlodipine Besylate 5 Mg Tablet) 5 mg PO DAILY [facility]; Protocol Last Admin: 10/31/22 08:22 Dose: 5 mg Documented By: AL Apixaban (Apixaban 5 Mg Tablet) 5 mg PO BID [facility] Last Admin: 10/31/22 08:21 Dose: 5 mg Documented By: AL Atorvastatin Calcium (Atorvastatin Calcium 80 Mg Tablet) 80 mg PO DAILY [facility] Last Admin: 10/31/22 08:21 Dose: 80 mg Documented By: AL Docusate Sodium (Docusate Sodium 100 Mg Capsule) 100 mg PO DAILY PRN PRN Reason: Constipation Ferrous Sulfate (Ferrous Sulfate 324 Mg Tablet.Dr) 324 mg PO BEDTIME [facility] Last Admin: 10/30/22 20:35 Dose: 324 mg Documented By: TATIANA Fluticasone Propionate (Fluticasone Propionate Nasal 16 Gm [place]) 1 spray NOSTRIL-B BID [facility] Last Admin: 10/30/22 20:36 Dose: Not Given Documented By: TATIANA Non-Admin Reason: Med Not Available Fluticasone/Vilanterol (Fluticasone/Vilanterol 200/25 Blst.W.Dev) 1 puff INHALE RDAILY [facility] Last Admin: 10/31/22 11:23 Dose: 1 puff Documented By: NGUYỄN Levothyroxine Sodium (Levothyroxine Sodium 112 Mcg Tablet) 112 mcg PO DAILY@0600 [facility] Last Admin: 10/31/22 06:55 Dose: 112 mcg Documented By: TATIANA Levothyroxine Sodium (Levothyroxine Sodium 25 Mcg Tablet) 25 mcg PO DAILY@0600 [facility] Last Admin: 10/31/22 06:55 Dose: 25 mcg Documented By: TATIANA Ondansetron HCl (Ondansetron Hcl 4 Mg/2 Ml Vial) 4 mg IVPUSH Q8H PRN PRN Reason: Nausea and Vomiting Last Admin: 10/30/22 23:00 Dose: 4 mg Documented By: TATIANA Pharmacy Consult (Consult Rx Perform Med Rec) 1 each MISCELLANE ONCE PRN PRN Reason: Consult order Sodium Chloride (0.9 % Sodium Chloride Flush 3 Ml Syringe) 3 ml IVFLUSH QSHIFT [facility] Last Admin: 10/31/22 08:22 Dose: 3 ml Documented By: AL Spironolactone (Spironolactone 25 Mg Tablet) 50 mg PO DAILY [facility]; Protocol Last Admin: 10/31/22 08:21 Dose: 50 mg Documented By: AL Tizanidine HCl (Tizanidine Hcl 4 Mg Tablet) 6 mg PO BEDTIME PRN PRN Reason: Muscle Pain Last Admin: 10/30/22 20:35 Dose: 6 mg Documented By: TATIANA Venlafaxine HCl (Venlafaxine Hcl Er 150 Mg Cap.Er.24h) 150 mg PO DAILY [facility] Last Admin: 10/31/22 08:21 Dose: 150 mg Documented By: AL Labs 10/30/22 22:59 10/30/22 09:26 Labs: Laboratory Results - last 24 hr 10/31/22 06:30 Triglycerides 150 Cholesterol 220 LDL Cholesterol, Calc 140 HDL Cholesterol 50 Assessment and Plan (1) Acute CVA (cerebrovascular accident): Status: Acute Plan d#2 77yo F with AF on apixaban but off for past few months for no clear reason, hx aneurysm repair at 2009 at [facility], HFpEF, HTN, HLD, hypothyroidism, and COPD presenting with R-sided weaknness and aphasia, out of the tPA window, found to have distal MCA acute infarct with partial aphsaia and R hemiparesis. # acute CVA - Neuro consulted, out of tPA window and lesion too distal for intra-arterial treatment, restart apixaban, statin, PT/OT/GEOTHERMAL PLANT MANAGER (NDD1 solids/thin liquids), TTE pending # pesristent AF - apixaban for anticoagulation - rate controlled without medications # HTN - restarted amlodipine after period of permissive hypertension; restart spironolactone eventually # HFpEF, chronic, not in acute exac - euvolemic # hypothyroidism - LT4 # anxiety - continue venlafaxine # COPD - ICS/LABA inhaler - not in acute exac # VTE ppx; apixaban # dispo: anticipate STR Time Spent With Patient Time: Total time managing care of this patient today __35__ minutes. Quality Stroke Does the patient have a stroke diagnosis?: Yes Reason for No Anti-thrombotic by Day Two: Contraindicated (Pt outside of tPA therapeutic window. Last known well-time last night.) VTE Prior VTE?: No VTE Risk Level:: Medical - moderate - high VTE Device Contraindication: Treatment Not Indicated VTE Drug Contraindication: N/A - Med Ordered
--- NOTE | 2022-10-31 17:26 | MHC.SL.SWA ---
Speech Pathologist Impression: Risk of Aspiration Due to: Neurological Condition Dysphasia Diet Status: Recommend UPGRADE diet to REGULAR continue with THIN liquids, pills whole with puree or liquid as tolerated by patient. Patient can self feed, would benefit from periodic supervision to assure that she is managing her meal and progressing well. Liquid Consistency and Strategies for Safe Swallow: Liquid Intake Recommendation: Thin Liquid Intake Strategies: Small Sips Solid Food Consistency: Dietary Recommendations: Regular Additional Modifications to Solid Foods: Avoid tough to chew meats, cut pieces to reasonable size (avoid overly large pieces of food/bites) Oral Medication Intake: Whole with Puree Please contact the pharmacy regarding appropriate crushable or liquid drug formulations that are available whenever modified delivery is recommended. Compensatory Strategies and Precautions to be Taken for Safe Swallow: Sitting Upright (90 deg) Liquids from Cup Small Bites and Sips Alternate Liquids/Solids Supervision While Eating and Drinking for Safe Swallow: Intermittent Supervision Foods to Avoid: Tough to chew meats. Swallowing Recommended Treatments: Compens. Strategy Educat. Recommendation for Speech: Further Testing Needed Inpatient Speech Therapy Comment: Patient was seen for re-assessment of swallow this am. Patient yesterday had requested puree diet because she was without her dentures. Patient had dentures in place at onset of eval, was awake and sitting up in bed, presented as pleasant and cooperative. Patient stated she was feeling better than yesterday, however in communication noted frequent word finding difficulties, paraphasias. Patient was given softened cracker in puree, with patient producing a timely oral phase, timely swallow, no clinical signs of aspiration. Patient was given a dry saltine, with patient producing rotary chew, timely oral transit and swallow, however evident oral residual cleared by sip of liquid. Did notice mild accumulation of spittle on right corner of mouth during assessment which was not cleared by patient. Recommend UPGRADE diet to REGULAR continue with THIN liquids, pills whole with puree or liquid as tolerated by patient. MD RD notified by secure text of recommendation, RN in person. DRIVEWAY ATTENDANT will return for speech language screening. Frequency/Duration: Daily during hospitalization Date Range for Service Req: Timeline to reassess: Field Operations Farm Manager Clinican/Clinical Fellow: No Supervisory Statement: I have reviewed and agree with the student/clinical fellow's documentation: N/A Speech Language Pathologist: Anny Burkett M.A., [facility]-DRIVEWAY ATTENDANT
--- NOTE | 2022-10-31 17:49 | MHC.SP.ADU ---
Referring provider: Dr. Josue Reason for Referral: s/p CVA Type of Treatment: 97692 Evaluation Speech Sound Production WITH Language Date of Plan of Treatment: 10/31/22 Onset of Symptoms/Illness: 10/30/22 Date Treatment Started: 10/31/22 Medical Diagnosis: CVA Primary Speech Language Diagnosis: R47.01 Aphasia Secondary Speech Language Diagnosis: R47.01 Aphasia History Pt presented to ED on 10/30 morning w/ c/o R-sided weakness and difficulty w/ expressive language. NIH score 8. Symptoms reportedly started on 10/[address] found no acute intracranial pathology. Changes of microangiopathy. Sequela of previous L PICA aneurism. CXR found no acute finding. Head/neck CTA found concerning areas for possibly evolving infarcts; findings copied below. Patient failed RN swallow screen on 10/31 morning, hence order for ENGINEERING LIBRARIAN bedside swallow evaluation. CT/CT angio head neck stroke IMPRESSION: - There is villalobos to white matter differentiation loss within the left parietal operculum and more superiorly within the left parietal lobe as well as a probable small portion of the left frontal lobe concerning for an evolving acute infarcts in these areas. No mass effect and no hemorrhagic transformation. - There is a partially occluded distal posterior left M4 MCA branches associated with focal oligemia within the posterior left MCA territory. - A chronic left cerebellar infarct and a chronic infarct within the right frontal lobe are again noted. There is background chronic microangiopathy. 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 Left occipital craniectomy changes. 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 - There is extensive atherosclerotic calcification involving the left carotid bifurcation resulting in a potential severe stenosis of the proximal left internal carotid artery which is not diagnostically assessed due to the degree of motion artifact. This can be further assessed with a repeat study or with carotid ultrasound. 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, HTN, HLD hypothyroidism, COPD, and CHF Anemia Anxiety and depression Chronic anemia Chronic kidney disease Fever of unknown origin Hypertension Major depression, recurrent Stroke Medication List: Recent Hospitalizations: No Respiratory Needs: Room Air Patient Orientation: Alert & Oriented x 4 Social History: Employment Status: Retired Highest level of education obtained: Unknown/Unable to report Current Living Situation: Lives independently in private home Assistive Devices in use: Comment: Patient evidences hearing loss, does not wear/have hearing aids Past Speech Language Therapy: None Other Therapies Seen in Current Calendar Year: Occupational Therapy Physical Therapy Other: Being seen/assessed at [facility] [place] s/p CVA Swallowing History: Dysphagia Specific: Oral Phase Dysphagia Comments: See swallow evaluation Pre-eval Risk for Aspiration: Neurological Condition Pre-evaluation Dietary Consistencies: Regular Pre-eval Liquid Intake: Thin Pre-eval Medication Intake: Whole with Puree Reported Speech, Language, Cognition difficulties: Speaking Comments: Patient presents with moderate anomic aphasia Quality of Life: Good Patient Stated Goal of Speech-Language Therapy: Assess, recommend therapeutic services for next level of care Assessment Speech Production: Aphasic: Nonfluent Clinical Impression: Impaired Observations: Patient presents with articulate speech, however has frequent word finding issues that interrupt clear communication, along with occasional paraphasias Informal Voice Assessment: Voice Loudness: Normal Voice Nasal Resonance: Normal Voice Oral Resonance: Normal Voice Phonatory-based Quality: Normal Voice Pitch: Normal Voice Other Observations: Clinical Impression: Intact Clinicial Observations: Patient speaks at loud volume, likely due to hearing loss. Tests of Speech & Lang Adults: BDAE Clinical Impression: Impaired Observations: On the short form of the BNT, patient correctly labelled 4 of the 15 items. Patient was frequently able to give descriptive information about the items she could not name, however doing so did not trigger the word. She also was not responsive to phonemic cuing. When asked to repeat the word when labelled for her, she again had difficulty saying the word in repetition. On the Short Form of the BDAE, Patient demonstrated evident struggle, word finding issues, use of paraphasias on narrative task, and evidenced difficulty when asked to repeat more complex words or phrases. She was able to fluidly produce automatic sequences. She was mostly accurate on all receptive language tasks. Patient presents with a moderate anomic aphasia, would benefit from ongoing speech/language therapy at the next level of care. Tests of Cognition: Clinical Impression: Observations: Augmentative and Alternative Communication: Observations: Impressions and Recommendations Summary: Impact on Daily Function/Activity Limitations: Daily Activities: Moderate Interpersonal Interactions: Moderate Education: Employment: Community: Moderate Prognosis for Improvement: Good Comment: Patient notes that she has improved since onset of stroke, but continues to have moderate word finding issues/aphasia Recommendation for Speech Therapy: Inpatient Speech Therapy Speech Therapy through [facility] Speech Therapy through Rehab Facility Frequency/Duration: M-F while inpatient. Date Range for Service Requested: Time to Reassess: Burglar Alarm Superintendent Goals: Short Term Goals: Goal # : Goal Status: Goal# : Goal Status: Goal # : Goal Status: Goal # : Goal Status: Recommended Referrals to be Discussed with Primary Care Provider: Patient Education: Completed: Yes Patient/Caregiver Education: Described Results of Evaluation Patient expressed understanding of evaluation Comments/Barriers to Learning: Linux Systems Analyst Clinican/Clinical Fellow: No Supervisory Statement: N/A Speech Language Pathologist: Anny Burkett M.A., CCC-ENGINEERING LIBRARIAN
[2022-10-31] MEDS: Fluticasone Propionate Nasal 16 GM SPRAY 1 SPRAY NOSTRIL-B ×2 (17:56→20:27)
[2022-10-31] MEDS: Ferrous Sulfate 324 MG TABLET.DR PO (20:27)
[2022-10-31] MEDS: TiZANidine HCL 4 MG TABLET 6 MG PO (20:47)
[2022-11-01] VITALS: BP 113/59; PULSE 74; RESP 20; TEMP 35.9; O2SAT 96
[2022-11-01] MEDS: 0.9 % Sodium Chloride Flush 3 ML SYRINGE IVFLUSH ×2 (01:04→08:55)
[2022-11-01 03:27] VITALS: BP 188/96; PULSE 82; RESP 20; TEMP 36.1; O2SAT 94
[2022-11-01] MEDS: Levothyroxine Sodium 112 MCG TABLET PO (06:17)
[2022-11-01] MEDS: Levothyroxine Sodium 25 MCG TABLET PO (06:18)
[2022-11-01 07:50] VITALS: PULSE 95; RESP 16; O2SAT 97
[2022-11-01] MEDS: Fluticasone/Vilanterol 200/25 BLST.W.DEV 1 PUFF INHALE (07:50)
[2022-11-01 07:55] VITALS: BP 178/80; PULSE 95; RESP 20; TEMP 36.6; O2SAT 96
[2022-11-01] MEDS: amLODIPine Besylate 10 MG TABLET PO (08:54)
[2022-11-01] MEDS: Venlafaxine HCl ER 150 MG CAP.ER.24H PO (08:54)
[2022-11-01] MEDS: Atorvastatin Calcium 80 MG TABLET PO (08:54)
[2022-11-01] MEDS: Spironolactone 25 MG TABLET 50 MG PO (08:55)
[2022-11-01] MEDS: Apixaban 5 MG TABLET PO (08:55)
[2022-11-01] MEDS: Fluticasone Propionate Nasal 16 GM SPRAY 1 SPRAY NOSTRIL-B (09:19)
[2022-11-01 09:20] VITALS: BP 178/80; PULSE 95; O2SAT 96
[2022-11-01 11:51] LABS: COVID-19 Test Negative (Negative); IDNOW Serial# 9DB6401D
[2022-11-01 12:00] VITALS: BP 160/84; PULSE 101; RESP 20; TEMP 36.8; O2SAT 94
--- NOTE | 2022-11-01 12:47 | PM.DS ---
DS: Providers Provider Date of Service: 11/01/22 Date of admission: 10/30/22 14:36 Date of discharge: 11/01/22 Primary care physician: Waylon Sykes III, MD Consults: 10/30/22 14:54 Consult to Neurology Routine Consulting Provider: [facility] Reason for consultation: Right-sided weakness, aphasia. 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 Pt continues to have expressive aphasia at time of interview, HPI thus supplemented by granddaughter at bedside and daughter by phone. Pt was apparently in her normal state of health last night watching TV with her daughter, who has been staying with her the past few weeks. Daughter eventually noticed pt was no longer laughing at the TV show, had a difficult time speaking coherently, and was not using her dominant right hand. Daughter states this can sometime happen with pt's night medications where she becomes less coherent. Daughter did not note any facial droop. Daughter then led pt to her bedroom to sleep; pt was able to ambulate with no noted weakness or deficit. In the morning pt could still not speak coherently and could not walk, even with assistance, to bathroom. Had noted right-sided weakness. Daughter thus called EMS. Of note, pt had a CVA around 13 years ago with residual mild left-sided weakness. Pt also has persistent AFib on Eliquis, though pt has not been taking Eliquis since July 2022 when her prescription ran out. Unclear why it was not renewed, possibly d/t switching PCPs. The ED consulted with Neurology who advised to give the pt p.o. aspirin and admit to the hospital. In the ED patient was hypertensive up to 219/112. Labs were significant for chronic leukocytosis of 12.8, H&H of 10.8/33.4, creatinine of 0.94. CXR showed low lung volume but no acute finding. CT?of head showed no acute intracranial pathology but changes of microangiopathy. 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 EKG demonstrated the AFib with no evidence of ST elevations or depressions. Pt was treated with aspirin per consult with Neurology. Pt will be admitted to the hospital for treatment and further evaluation of possible CVA. and hospitalist MD Cintia Teague, 10/30/22: ?77-year-old female with past medical history of hyperlipidemia, hypertension, hypothyroidism, asthma/COPD, atrial fibrillation, history of cerebral aneurysm status post rupture with prolonged coma with resultant mild left-sided weakness, chronic kidney disease was brought in to [facility] with difficulty speaking and was unable to use her right hand question symptoms started last night noted by her daughter, in the ER patient unable to provide history due to word-finding difficulty and noted to have right facial droop and right-sided weakness, and chronic left-sided weakness.? Patient stopped using her Eliquis for unknown duration possibly 4-5 months ago for no clear reason. CTA head and neck showed involving acute infarction of left frontal lobe, chronic left cerebellar infarction and chronic right frontal lobe infarction with chronic microangiopathy Vitals revealed significantly elevated blood pressure Acute CVA patient with chronic left-sided weakness Likely embolic infarction due to not taking Eliquis Will resume Eliquis, statins and blood pressure medications Obtain PT speech therapy and OT consult This 77yo F with AF on apixaban but off for past few months for no clear reason, hx aneurysm repair at 2009 at [facility], HFpEF, HTN, HLD, hypothyroidism, and COPD presenting with R-sided weaknness and aphasia, out of the tPA window, was found to have distal MCA acute infarct with partial aphsaia and R hemiparesis for which she was [place] [facility] [place] was consulted. As she presented outside of the tPA window and the lesion too distal for intra-arterial treatment, the mainstay of treatment was secondary prevention and acute rehabilitation. Apixaban was restarted and she was counseled not to stop it. Statin was continued. She remained rate-controlled without specific AV david blockers. Amlodipine and spironolactone were restarted after an initial period of permissive hypertension. She was discharged to short-term rehabilitation for speech, occupational , and physical therapy. Time Spent with Patient Time attestation: Total time managing care of this patient today __40__ minutes. Discharge coordination time: Greater than 30 minutes Quality: Safe Use of Opioids Does Pt have an Active Cancer Diagnosis on the Problem List?: No Quality: Stroke Does the patient have a stroke diagnosis?: Yes Reason for No Anti-thrombotic at DC: N/A - Med Ordered Reason for No Anticoagulant at DC: N/A - Med Ordered Reason Not Initiating IV-Tpa: Drug treatment not indicated Reason for No Anti-thrombotic by Day Two: N/A - Med Ordered Reason for No Statin at DC: N/A - Med Ordered Physical Exam Vital Signs: Vital Signs: Last Vital Signs Temp 98.3 F 11/01/22 12:00 Pulse 101 H 11/01/22 12:00 Resp 20 11/01/22 12:00 BP 160/84 H 11/01/22 12:00 Pulse Ox 94 11/01/22 12:00 O2 Del Method Room Air 11/01/22 12:00 BMI result Body Mass Index 29.9 Gen: in no acute distress HEENT: sclera anicteric, moist mucus membranes Neck: supple Lungs: clear to auscultation bilaterally Heart: irregularly irregular, no murmurs Abd: soft, non-tender, non-distended Ext: no edema Skin: warm/well-perfused Neuro: alert, difficulty with speaking, mild R facial droop, no pronator drift but R hand quite weak DS: Data Data Completed and Pending Completed studies during hospitalization [Text1]: = Laboratory Results WBC 12.8 X10*3/uL (4.8-10.8) H 10/30/22 09:26 RBC 3.90 X10*6/uL (4.20-5.50) L 10/30/22 09:26 Hgb 11.0 g/dl (12.0-16.0) L 10/30/22 22:59 Hct 33.8 % (37.0-47.0) L 10/30/22 22:59 MCV 85.6 fL (80.0-98.0) 10/30/22 09:26 MCH 27.7 pg (27.0-33.0) 10/30/22 09: MCHC 32.3 g/dl (31.0-35.0) 10/30/22 09: RDW 14.2 % (11.0-16.0) 10/30/22 09: Plt Count 312 X10*3/uL (160-400) D 10/30/22 09: MPV 9.1 fL (9.4-12.3) L 10/30/22 09:26 Immature Gran % (Auto) 0.5 % (0.0-0.4) H 10/30/22 09: Neut % (Auto) 81.0 % (45-73) H 10/30/22 09: Lymph % (Auto) 10.2 % (20-40) L 10/30/22 09: [place] % (Auto) 6.2 % (2-11) 10/30/22 09: Eos % (Auto) 1.8 % (0-4) 10/30/22 09: Baso % (Auto) 0.3 % (0-2) 10/30/22 09: Lymph # (Auto) 1.3 X10*3/uL (1.2-4.9) 10/30/22 09: [place] # (Auto) 0.8 X10*3/uL (0.1-1.2) 10/30/22 09: Eos # (Auto) 0.2 X10*3/uL (0.0-0.4) 10/30/22 09: Baso # (Auto) 0.0 X10*3/uL (0.0-0.2) 10/30/22 09: Abs Immat Gran (auto) 0.06 X10*3/uL (0.00-0.03) H 10/30/22 09:26 Absolute Neuts (auto) 10.4 x10*3/uL (2.0-8.3) H 10/30/22 09:26 Absolute Nucleated RBC 0.000 X10*3/uL (0.0-0.012) 10/30/22 09:26 Nucleated RBC % (auto) 0.0 /100WBC (0.0-0.2) 10/30/22 09:26 PT 11.3 SEC (10.0-13.1) 10/30/22 09:26 Whole Blood PT 12.6 sec (11.1-13.5) 10/30/22 08:45 INR 1.0 (0.9-1.1) 10/30/22 09:26 Whole Blood INR 1.0 (0.9-1.1) 10/30/22 08:45 APTT 31.7 SEC (26.0-36.4) 10/30/22 09:26 Sodium 143 mmol/L (135-145) 10/30/22 09:26 Potassium 4.7 mmol/L (3.3-5.1) 10/30/22 09:26 Chloride 110 mmol/L (96-108) H 10/30/22 09:26 Carbon Dioxide 20 mmol/L (22-29) L 10/30/22 09:26 Anion Gap 18 (12-20) 10/30/22 09:26 BUN 17 mg/dL (9-16) H 10/30/22 09:26 Creatinine 0.94 mg/dL (0.5-1.4) 10/30/22 09:26 Estim Creat Clear Calc 56.8 10/30/22 09:26 Estimated GFR 58 10/30/22 09:26 POC Glucose 98 mg/dL (60-115) 10/30/22 08:25 Random Glucose 103 mg/dL (60-115) 10/30/22 09:26 Calcium 9.1 mg/dL (8.4-10.2) D 10/30/22 09:26 Total Creatine Kinase 31 U/L (26-140) 10/30/22 09:26 Troponin I High Sens 6.7 ng/L (<3.5-17.0) 10/30/22 09:26 Triglycerides 150 mg/dL 10/31/22 06:30 Cholesterol 220 mg/dL 10/31/22 06:30 LDL Cholesterol, Calc 140 mg/dl 10/31/22 06:30 HDL Cholesterol 50 mg/dL 10/31/22 06:30 COVID-19 (CRAIG) Negative (Negative) 11/01/22 10:39 COVID-19 Clin Com See Note 11/01/22 10:39 Influenza Type A (PCR) NEGATIVE (Negative) 10/30/22 09:26 Influenza Type B (PCR) NEGATIVE (Negative) 10/30/22 09:26 RSV RNA Qual (PCR) NEGATIVE (Negative) 10/30/22 09:26 SARS-CoV-2 RNA (RT-PCR) NEGATIVE (Negative) 10/30/22 09:[address] 10/30/22 08:32 IMPRESSION: No acute intracranial pathology. 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 Changes of microangiopathy. This critical result was discussed with Dr. De La Cruz at 8:45 AM hours on October 30, 2022. It was ascertained that the content and urgency of the report was understood at the time of direct communication. Chest X-Ray 10/30/22 08:55 IMPRESSION: Low lung volumes. No acute finding. Head/Neck CTA 10/30/22 09:57 IMPRESSION: - There is villalobos to white matter differentiation loss within the left parietal operculum and more superiorly within the left parietal lobe as well as a probable small portion of the left frontal lobe concerning for an evolving acute infarcts in these areas. No mass effect and no hemorrhagic transformation. - There is a partially occluded distal posterior left M4 MCA branches associated with focal oligemia within the posterior left MCA territory. - A chronic left cerebellar infarct and a chronic infarct within the right frontal lobe are again noted. There is background chronic microangiopathy. 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 Left occipital craniectomy changes. 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 - There is extensive atherosclerotic calcification involving the left carotid bifurcation resulting in a potential severe stenosis of the proximal left internal carotid artery which is not diagnostically assessed due to the degree of motion artifact. This can be further assessed with a repeat study or with carotid ultrasound. Stroke protocol CTA discussed with Dr. De La Cruz at 10:14 AM on 10/30/2022. Carotid Doppler Study 10/30/22 17:38 IMPRESSION: 1. RIGHT: 0-49% stenosis right ICA. 2. LEFT: 50-79% stenosis left ICA. TTE 10/31/22 1. Hyperdynamic LV systolic function with LVEF of greater than 70%? 2. At least mildly dilated left atrium ? 3. Normal cardiac valvular Doppler ? 4. No gross pericardial effusion ? Labs on day of discharge: Laboratory Results - last 24 hr 11/01/22 10:39 COVID-19 (CRAIG) Negative COVID-19 Clin Com See Note Discharge Plan Discharge Anticipated Discharge Date/Time: 11/01/22 12:40 Patient Disposition: Xfer SNF Discharge Diagnosis: acute CVA Referrals: [facility] [Outside] - 1 Week (TRANSFER FOR SHORT TERM REHAB) Waylon Sykes III, MD [Primary Care Provider] - 1 Week Discharge Medications: New amlodipine 10 mg Tablet 10 mg PO DAILY Qty: 30 0RF Protocol: Hold for SBP< HOLD for SBP < : 90 Continued (DME) Updraft machine See Rx Instructions .Route .MEDSUPPLY Qty: 1 0RF Rx Instructions: As directed Breo Ellipta 200-25 mcg/dose blister with device 1 inh inhalation DAILY 30 Days Qty: 28 2RF Eliquis 5 mg tablet 5 mg PO BID Qty: 180 0RF venlafaxine 150 mg Capsule,Extended Release 24hr 150 mg PO DAILY spironolactone 50 mg Tablet 50 mg PO DAILY fluticasone propionate 50 mcg/actuation spray,suspension 1 spray intranasal BID levothyroxine 137 mcg tablet 137 mcg PO DAILY@0630 ferrous sulfate 324 mg (65 mg iron) tablet,delayed release (DR/EC) 324 mg PO BEDTIME tizanidine 6 mg capsule 6 mg PO BEDTIME PRN (Reason: Muscle Pain) rosuvastatin [Crestor] 10 mg tablet 10 mg PO DAILY Qty: 90 3RF Discontinued amlodipine 5 mg tablet 5 mg PO DAILY Discharge Orders: Discharge Order (Routine); Ordered 11/01/22 Ordered By: Alexander Josue Diet: Advance to usual diet Activity on Discharge: As tolerated Stand Alone Forms: Patient Portal Discharge page Care Plan Goals: recovery from stroke prevention of other strokes Health Concerns: acute stroke Plan of Treatment: resume apixaban 5 mg bid and please do not stop continue rosuvastatin 10 mg daily increase amlodipine from 5 mg to 10 mg daily Short-term rehab for speech therapy, PT, and OT Assessment: See Discharge Summary.
[2022-11-01] MEDS: Acetaminophen 325 MG TABLET 650 MG PO (12:55)
--- NOTE | 2022-11-01 13:08 | MHC.CM.PN ---
DP: PT HAS BEEN MEDICALLY CLEARED FOR [facility]. GRANDDAUGHTER/HCP SOCRATES MADE AWARE. BOTH PT AND GRANDDAUGHTER ACCEPT BED OFFER. RN AWARE. [facility] AUTH OBTAINED PER [facility]. BLS TRANSPORT BOOKED FOR 2 PM VIA [facility].
== END 2022-11-01 16:59 | disposition skilled nursing facility (03) | DRG 65 ==
LOC: HO.ED 10:49 → HO.EDOVER 15:07 → HO.IMC 15:08
PROVIDERS: Internal Medicine; Admitting Provider Student in an Organized Health Care Education/Training Program; Emergency Provider Emergency Medicine; PCP Internal Medicine; Visit Provider Family Medicine
DX: I63.49 Cerebral infarction due to embolism of other cerebral artery (principal); F33.9 Major depressive disorder, recurrent, unspecified; G81.91 Hemiplegia, unspecified affecting right dominant side; I13.0 Hypertensive heart and chronic kidney disease with heart failure and stage 1 through stage 4 chronic kidney disease, or unspecified chronic kidney disease; I50.32 Chronic diastolic (congestive) heart failure; I69.954 Hemiplegia and hemiparesis following unspecified cerebrovascular disease affecting left non-dominant side; I48.19 Other persistent atrial fibrillation; E78.5 Hyperlipidemia, unspecified; E03.9 Hypothyroidism, unspecified; R29.810 Facial weakness; T45.516A Underdosing of anticoagulants, initial encounter; I16.0 Hypertensive urgency; N18.9 Chronic kidney disease, unspecified; R29.708 NIHSS score 8; J44.9 Chronic obstructive pulmonary disease, unspecified; I65.22 Occlusion and stenosis of left carotid artery; F41.9 Anxiety disorder, unspecified; Z20.822 Contact with and (suspected) exposure to COVID-19; Z87.891 Personal history of nicotine dependence; Z91.040 Latex allergy status; Z88.0 Allergy status to penicillin; Z88.5 Allergy status to narcotic agent; Z79.01 Long term (current) use of anticoagulants; Z79.51 Long term (current) use of inhaled steroids; Z79.890 Hormone replacement therapy; Z79.899 Other long term (current) drug therapy
CPT/HCPCS: 0241U; 36415; 70450; 70496; 70498; 71045; 80048; 80061; 82550; 82947; 84484; 85014; 85018; 85025; 85610; 85730; 87635; 92523; 92526; 92610; 93005; 93306; 93880; 94640; 97112; 97162; 97166; 97530; 99285; J2405; Q9957; Q9967

== ENCOUNTER 2023-02-19 12:23 | Outpatient (AMB) | payer OTHER, SELFPAY ==
--- NOTE | 2023-02-19 12:25 | A.OFFPC_ITS ---
Vital Signs 02/19/23 12:27 Height 5 ft 6 in Weight 173 lb 4 oz BMI 28.0 BP 132/56 L Blood Pressure Location Rt brachial Position Sitting Pulse 76 Pulse Source Pulse Oximeter Pulse Oximetry (%) 98 Oxygen Delivery Method Room Air Intake Visit Reasons: 3 month Follow UP HTN Allergies latex [Latex] Allergy (Mild, Verified 02/19/23 12:28) UNKNOWN morphine [Morphine] Allergy (Mild, Verified 02/19/23 12:28) VOMITING penicillin G Allergy (Unknown, Verified 02/19/23 12:28) Rash codeine [Codeine] Adverse Reaction (Mild, Verified 02/19/23 12:28) VOMITING procaine [From Novocain] Adverse Reaction (Mild, Verified 02/19/23 12:28) VOMITING Medication List - Last Reconciled 02/19/23 by Shravan Grant MD amlodipine 10 mg See Protocol PO DAILY apixaban (Eliquis) 5 mg PO BID ferrous sulfate 324 mg PO BEDTIME fluticasone furoate-vilanterol 200-25 mcg/dose (Breo Ellipta) 1 inh inhalation DAILY 30 days fluticasone propionate 50 mcg/actuation 1 spray intranasal BID levothyroxine 150 mcg (1.0949 x 137 mcg) PO DAILY@0630 metoprolol succinate ER 25 mg PO DAILY rosuvastatin (Crestor) 10 mg PO DAILY spironolactone 50 mg PO DAILY tizanidine 6 mg PO BEDTIME PRN [Updraft machine As directed] [Wedge Pillow As directed for positioning while sleeping] Tobacco use date assessed: 02/19/23 Fall risk assessment: No Falls in past year Last assessed Fall Risk: 02/19/23 Dental Screening Dental Screen Date: 02/19/23 Did you have a dental visit in the last 12 months?: No Did you have a dental problem in the last 6 months where you did not have access to dental care?: No Was dental information given to patient?: No HPI 3 month Follow UP HTN HPI Details Patient is a 78-year-old female came in today for her regular 3 month follow-up appointment Patient has seen neurologist due to recent CVA and was told that she may tizanidine to b.i.d. she is taking 1 in the evening and 1 before bedtime She is to continue Eliquis Hypertension: Blood pressure is 132/56 today patient is taking amlodipine 10 mg, metoprolol 25 mg, spironolactone 50 mg. Tolerating medication Patient says that she has to have her effects or because if she does not take that she become extremely anxious. Since her blood pressure is stable I have sent the venlafaxine 150 mg for her She says that she was seeing a psychiatrist who was feeling it for her but she is no longer available patient is trying to get in touch with her and no one is calling patient back She was also started on trazodone 150 mg at night to sleep by psychiatrist which I have also sent for the patient Hypothyroidism: Continue levothyroxine 150 mcg, I explained to patient that this is very important that she continue this medication as prescribed and take it on empty stomach in the morning. COPD/asthma: Continue Breo Allergies a stable patient is on Flonase nasal spray. Her H&H has improved she is to continue with the iron supplement. Follow-up 3 months [facility] Medical History Anemia Anxiety and depression Chronic anemia Chronic kidney disease Fever of unknown origin Hypertension Major depression, recurrent Stroke Surgical History History of knee surgery Family History Father Tuberculosis Mother No problems noted. Other Substance use disorder Social History Household Members: None Housing: Apartment Do you presently have visiting nurse or other home services: No Alcohol intake: never Patient Tobacco Use Status: Former Tobacco user Tobacco use type: Cigarette Years Smoked: 10 years e-Cigarette/Vaping Use: Never Used Advance Directives Date on File: 12/21/21 service: No Current occupational status: retired Cognitive needs: No Hearing needs: No Vision needs: Yes Questionnaire Thrive Questionnaire Date Thrive assessed: 08/29/21 AUDIT C Alcohol Use Questionnaire (AUDIT-C) 1. How often do you have a drink containing alcohol?: Never 3. How often do you have six or more drinks on one occasion?: Never Total Score: 0 Score Reviewed/Action Taken: Yes MARY-7 AMB Questionnaire MARY-7 Date MARY - 7 assessed: 03/12/22 Source: Developed by Drs. Boris Lazo, Sonia Cortes, Behzad Quick and colleagues, with an educational portillo from [employer]. Review of Systems Const Denies chills and Denies fever(s) ENT Denies epistaxis and Denies nasal discharge Card Denies chest pain Resp Denies chest congestion, Denies cough and Denies hemoptysis GI Denies diarrhea and Denies nausea Skin/Breast Denies rash Neuro Reports no additional complaints Psych Reports no additional complaints Endo Reports no additional complaints Physical exam (Primary Care) Vital Signs: Last Vital Signs Pulse 76 02/19/23 12:27 BP 132/56 L 02/19/23 12:27 Pulse Ox 98 02/19/23 12:27 Oxygen Delivery Method Room Air 02/19/23 12:27 BMI result Body Mass Index 28.0 Tobacco/Smoking Status: Tobacco use Status Tobacco use date assessed 02/19/23 02/19/23 12:33 Patient Tobacco Use Status Former Tobacco user 02/19/23 12:26 Tobacco use type Cigarette 02/19/23 12:26 e-Cigarette/Vaping Use Never Used 02/19/23 12:26 Thrive Assessment: Date of Thrive Assessment Date Thrive assessed 08/29/21 02/19/23 12:26 Const General: cooperative, comfortable and no acute distress Orientation/consciousness: patient oriented x3 HENMT Head: Yes normocephalic Eyes General: appearance normal, both eyes and all related structures Neck Neck: Yes supple Resp Effort & Inspection: normal respiratory effort, no cough and no stridor Cardio Rhythm: regular rhythm Heart sounds: S1 normal heart sound present and S2 normal heart sound present Skin General skin exam: turgor normal Neuro General: patient oriented x3, tone normal and moves all extremities Extrem Right lower extremity: no edema Left lower extremity: no edema Assessment and Plan Assessment & Plan (1) A-fib: Code(s): I48.91 - Unspecified atrial fibrillation Qualifiers: Atrial fibrillation type: unspecified Qualified Code(s): I48.91 - Unspecified atrial fibrillation (2) Other specified hypothyroidism: Code(s): E03.8 - Other specified hypothyroidism (3) Lipid disorder: Code(s): E78.9 - Disorder of lipoprotein metabolism, unspecified (4) Anemia: Code(s): D64.9 - Anemia, unspecified (5) Atherosclerotic cardiovascular disease: Code(s): I25.10 - Atherosclerotic heart disease of [place] coronary artery without angina pectoris (6) Hypertension, essential: Code(s): I10 - Essential (primary) hypertension (7) Chronic diastolic (congestive) heart failure: Code(s): I50.32 - Chronic diastolic (congestive) heart failure (8) Major depression, recurrent: Code(s): F33.9 - Major depressive disorder, recurrent, unspecified (9) Difficulty sleeping: Code(s): G47.9 - Sleep disorder, unspecified Plan Patient is a 78-year-old female came in today for her regular 3 month follow-up appointment Patient has seen neurologist due to recent CVA and was told that she may tizanidine to b.i.d. she is taking 1 in the evening and 1 before bedtime She is to continue Eliquis Hypertension: Blood pressure is 132/56 today patient is taking amlodipine 10 mg, metoprolol 25 mg, spironolactone 50 mg. Tolerating medication Patient says that she has to have her effects or because if she does not take that she become extremely anxious. Since her blood pressure is stable I have sent the venlafaxine 150 mg for her She says that she was seeing a psychiatrist who was feeling it for her but she is no longer available patient is trying to get in touch with her and no one is calling patient back She was also started on trazodone 150 mg at night to sleep by psychiatrist which I have also sent for the patient Hypothyroidism: Continue levothyroxine 150 mcg, I explained to patient that this is very important that she continue this medication as prescribed and take it on empty stomach in the morning. COPD/asthma: Continue Breo Allergies a stable patient is on Flonase nasal spray. Her H&H has improved she is to continue with the iron supplement. Follow-up 3 months Orders: Orders Comprehensive Met. Panel Today D64.9 - Anemia, unspecified, E03.8 - Other specified hypothyroidism, E78.9 - Disorder of lipoprotein metabolism, unspecified, I10 - Essential (primary) hypertension, I25.10 - Atherosclerotic heart disease of [place] coronary artery without angina pectoris, I48.91 - Unspecified atrial fibrillation TSH reflex Free T4 Today D64.9 - Anemia, unspecified, E03.8 - Other specified hypothyroidism, E78.9 - Disorder of lipoprotein metabolism, unspecified, I10 - Essential (primary) hypertension, I25.10 - Atherosclerotic heart disease of [place] coronary artery without angina pectoris, I48.91 - Unspecified atrial fibrillation Hematocrit Today D64.9 - Anemia, unspecified, E03.8 - Other specified hypothyroidism, E78.9 - Disorder of lipoprotein metabolism, unspecified, I10 - Essential (primary) hypertension, I25.10 - Atherosclerotic heart disease of [place] coronary artery without angina pectoris, I48.91 - Unspecified atrial fibrillation Hemoglobin Today D64.9 - Anemia, unspecified, E03.8 - Other specified hypothyroidism, E78.9 - Disorder of lipoprotein metabolism, unspecified, I10 - Essential (primary) hypertension, I25.10 - Atherosclerotic heart disease of [place] coronary artery without angina pectoris, I48.91 - Unspecified atrial fibrillation Medications: New tizanidine 4 mg PO BID 90 days PRN 180 caps 0RF muscle spasticity trazodone 150 mg PO BEDTIME PRN 30 tabs 0RF sleep venlafaxine ER 150 mg PO DAILY 90 caps 0RF Coding Level of Care Code Est Pt Level 4 (05984) Diagnoses A-fib I48.91 Atrial fibrillation type: unspecified Other specified hypothyroidism E03.8 Lipid disorder E78.9 Anemia D64.9 Atherosclerotic cardiovascular disease I25.10 Hypertension, essential I10 Chronic diastolic (congestive) heart failure I50.32 Major depression, recurrent F33.9 Difficulty sleeping G47.9
[2023-02-19 12:27] VITALS: BP 132/56; PULSE 76; O2SAT 98; BMI 28.0
== END 2023-02-19 12:47 | disposition home or self-care (01) ==
PROVIDERS: Visit Provider Internal Medicine
DX: I48.91 Unspecified atrial fibrillation (principal); E03.8 Other specified hypothyroidism; I11.0 Hypertensive heart disease with heart failure; I50.32 Chronic diastolic (congestive) heart failure; F33.9 Major depressive disorder, recurrent, unspecified; E78.9 Disorder of lipoprotein metabolism, unspecified; D64.9 Anemia, unspecified; I25.10 Atherosclerotic heart disease of native coronary artery without angina pectoris; G47.9 Sleep disorder, unspecified
CPT/HCPCS: 99214

== ENCOUNTER 2023-03-16 11:53 | Inpatient (IN) | payer OTHER, SELFPAY ==
[2023-03-16] VITALS (19 sets, daily range): BP systolic 91–151; BP diastolic 36–75; PULSE 30–75; RESP 13–20; TEMP 36.1–36.6; O2SAT 95–99; BMI 28.6
--- NOTE | ~2023-03-16 | XR_ITS ---
EXAMINATION: XR chest 1V CLINICAL INFORMATION: Reason for Exam chest pain COMPARISON: October 2022 TECHNIQUE: XR chest 1V single portable chest x-ray Tubes and lines: None Lungs and pleura: Diminished lung volume, mild diffuse interstitial opacification possible mild interstitial pneumonitis or edema. Blunting of costophrenic angles bilaterally probably small pleural effusions. Heart and mediastinum: The mediastinum is within normal limits.. Bones/soft tissue: Skeletal structures included are normal for patient's age. XR/XR chest 1V IMPRESSION: * Diminished lung volume. * Mild diffuse interstitial opacification possible mild interstitial pneumonitis or edema. * Blunting of costophrenic angles probably small pleural effusions.
--- NOTE | 2023-03-16 11:58 | ECG_ITS ---
Test Reason : WEAKNESS Blood Pressure : / mmHG Vent. Rate : 035 BPM Atrial Rate : 035 BPM P-R Int : 000 ms QRS Dur : 080 ms QT Int : 544 ms P-R-T Axes : 000 -06 -05 degrees QTc Int : 415 ms Atrial fibrillation with slow ventricular response. Inferior infarct , age undetermined Abnormal ECG When compared with ECG of 30-OCT-2022 09:10, Inferior infarct is now Present T wave amplitude has decreased in Anterior leads Referred By: Generic ED Physician Electronically Signed By:Tera Walker
--- NOTE | 2023-03-16 12:10 | ED_ITS ---
HPI - Weakness General Chief complaint: Weakness Stated complaint: Increased confusion, hallucinations, HR 30 per EMS Time Seen by Provider: 03/16/23 12:21 Source: EMS Mode of arrival: EMS History of Present Illness HPI Narrative: this is a 78 years old female with history of atrial fibrillation anticoagulated with apixaban am a history of congestive heart failure, history of CVA presented to emergency room complaining of generalized weakness she was found to be bradycardic by the EMS. She denies any chest pain she is complaining of shortness of breath MD Complaint: generalized weakness Onset (ago): day(s) (1) Duration: constant Location: generalized Migration: none Severity: moderate Exacerbating factors: none Related Data Previous Rx's Medication Instructions Recorded Updraft machine #1 ea 04/13/21 rosuvastatin 10 mg tablet (Crestor) 10 mg PO DAILY #90 tabs 07/24/22 amlodipine 10 mg tablet 10 mg PO DAILY #90 tabs 11/20/22 levothyroxine 137 mcg tablet 150 mcg PO DAILY@0630 #90 tabs 11/20/22 fluticasone propionate 50 1 spray intranasal BID Nasal 12/17/22 mcg/actuation nasal congestion #16 grams spray,suspension spironolactone 50 mg tablet 50 mg PO DAILY #30 tabs 12/17/22 Wedge Pillow #1 ea 12/26/22 apixaban 5 mg tablet (Eliquis) 5 mg PO BID #180 tabs 02/14/23 ferrous sulfate 324 mg (65 mg 324 mg PO BEDTIME #90 tabs 02/14/23 iron) tablet,delayed release fluticasone furoate 200 1 inh inhalation DAILY 30 days #28 02/14/23 mcg-vilanterol 25 mcg/dose ea inhalation powder (Breo Ellipta) metoprolol succinate 25 mg 25 mg PO DAILY #90 tabs 02/14/23 tablet,extended release 24 hr tizanidine 4 mg capsule 4 mg PO BID PRN muscle spasticity 02/19/23 90 days #180 caps trazodone 150 mg tablet 150 mg PO BEDTIME PRN sleep #30 02/19/23 tabs venlafaxine 150 mg 150 mg PO DAILY #90 caps 02/19/23 capsule,extended release 24 hr Allergies Allergy/AdvReac Type Severity Reaction Status Date / Time latex [Latex] Allergy Mild UNKNOWN Verified 02/19/23 12:28 morphine [Morphine] Allergy Mild VOMITING Verified 02/19/23 12:28 penicillin G Allergy Unknown Rash Verified 02/19/23 12:28 codeine [Codeine] AdvReac Mild VOMITING Verified 02/19/23 12:28 procaine [From Novocain] AdvReac Mild VOMITING Verified 02/19/23 12:28 Review of Systems Constitutional: Constitutional: Reports no additional constitutional com plaints ENT: Reports system reviewed and no additional complaints, except as documented Genitourinary: Genitourinary: Reports no additional female genitourinary complaints [facility] Past Medical History Medical History Anemia Anxiety and depression Chronic anemia Chronic kidney disease Fever of unknown origin Hypertension Major depression, recurrent Stroke Surgical History History of knee surgery Family History Family History Father Tuberculosis Mother No problems noted. Other Substance use disorder Social History Social History Household Members: None Housing: Apartment Do you presently have visiting nurse or other home services: No Alcohol intake: never Patient Tobacco Use Status: Former Tobacco user Tobacco use type: Cigarette Years Smoked: 10 years Smoked in Last 30 Days: No e-Cigarette/Vaping Use: Never Used Use of substances other than those prescribed or required for medical reasons: No Advance Directives: Yes Advance Directives on File: Yes Advance Directives Date on File: 12/21/21 service: No Current occupational status: retired Cognitive needs: No Hearing needs: No Vision needs: Yes Physical Exam Vital Signs: Vital Signs: Last Vital Signs Temp 97.9 F 03/16/23 12:05 Pulse 60 03/16/23 16:00 Resp 18 03/16/23 16:00 BP 150/60 H 03/16/23 16:00 Pulse Ox 99 03/16/23 16:00 O2 Del Method Room Air 03/16/23 16:00 BMI result Body Mass Index 28.6 Const: General: cooperative Orientation/consciousness: oriented to person HEENT: Head: Yes normal to inspection General nose exam: Normal external nose present Face and sinus: Yes normal facial exam Mouth: Normal oral and palatal mucosa present Neck: Neck: Yes normal visual inspection and Yes full ROM Chest: Chest palpation & inspection: normal inspection of the chest Resp: Effort & Inspection: normal respiratory effort Auscultation: clear to auscultation bilaterally Cardio: Jugular venous distension: no JVD Rate: bradycardic GI: Inspection: Yes normal to inspection Palpation (GI): Soft to palpation, not firm and nontender Percussion: Yes normal to percussion : General: Yes no CVA tenderness Back/Spine/Pelvis: Back: no CVA tenderness Skin: General skin exam: no rashes or lesions noted and elasticity normal Neuro: General: oriented to person Cranial nerves: Yes CN's II-XII intact bilaterally Course Reevaluation(s) Reevaluation #1: seen by big data platform architect Dr Engle Time: 12:17 Reevaluation #2: Pt hemoglobin is 6.2 she refuses transfusion for restorationism reason,she is also DNR Time: 12:43 Reevaluation #3: seen by Dr Garcia ICU Medications Administered Generic Name Dose Route Start Last Admin Trade Name Freq PRN Reason Stop Dose Admin Dobutamine HCl/Dextrose 500 mg in 250 mls @ 6.023 mls/hr 03/16/23 13:30 03/16/23 14:31 Dobutrex IVCONT 2.5 mcg/kg/min .Q24H KAILA 6.02 mls/hr Administration Protocol 2.5 MCG/KG/MIN Discontinued Medications Generic Name Dose Route Start Last Admin Trade Name Freq PRN Reason Stop Dose Admin Levothyroxine Sodium 25 mcg 03/16/23 14:41 03/16/23 15:30 Levothyroxine Sodium 100 Mcg/5 Ml Vial IVPUSH 03/16/23 14:42 25 mcg ONCE ONE Administration Levothyroxine Sodium 150 mcg 03/16/23 15:11 03/16/23 15:33 Levothyroxine Sodium 150 Mcg Tablet PO 03/16/23 15:12 150 mcg ONCE ONE Administration Medical Decision Making Medical Decision Making [facility] Narrative: patient presented with weakness found to be bradycardic will get labs/cardiology counslt Differential Diagnosis Differential Diagnoses: The differential diagnosis associated with the presentation includes heart block/hyperkalemia acute OH Admission/Observation Consideration of admission/observation: Escalation of care including admission/observation considered Consult Healthcare Provider Management of the patient was discussed with: Hospitalist (spoke with ICU attendin) and Waste Cotton Cleaner Lab Data MDM Lab Attestation statement: I reviewed the patient's lab results. 03/16/23 12:20 03/16/23 12:20 Labs: Lab Results 03/16/23 03/16/23 03/16/23 Range/Units 12:20 12:20 12:20 WBC 7.6 (4.8-10.8) X10*3/uL RBC 2.65 L D (4.20-5.50) X10*6/uL Hgb 6.2 L* D (12.0-16.0) g/dl Hct 21.9 L D (37.0-47.0) % MCV 82.6 (80.0-98.0) fL MCH 23.4 L (27.0-33.0) pg MCHC 28.3 L (31.0-35.0) g/dl RDW 16.1 H (11.0-16.0) % Plt Count 361 (160-400) X10*3/uL MPV 9.8 (9.4-12.3) fL Immature Gran % (Auto) 0.7 H (0.0-0.4) % Neut % (Auto) 71.5 (45-73) % Lymph % (Auto) 13.1 L (20-40) % [place] % (Auto) 8.2 (2-11) % Eos % (Auto) 6.2 H (0-4) % Baso % (Auto) 0.3 (0-2) % Lymph # (Auto) 1.0 L (1.2-4.9) X10*3/uL [place] # (Auto) 0.6 (0.1-1.2) X10*3/uL Eos # (Auto) 0.5 H (0.0-0.4) X10*3/uL Baso # (Auto) 0.0 (0.0-0.2) X10*3/uL Abs Immat Gran (auto) 0.05 H (0.00-0.03) X10*3/uL Absolute Neuts (auto) 5.4 (2.0-8.3) x10*3/uL Absolute Nucleated RBC 0.000 (0.0-0.012) X10*3/uL Nucleated RBC % (auto) 0.0 (0.0-0.2) /100WBC PT (11.1-13.3) SEC INR (0.9-1.1) APTT (26.0-36.4) SEC VBG pH (7.32-7.43) VBG pCO2 mmHg VBG pO2 mmHg VBG HCO3 (22-26) mmol/L VBG O2 Saturation % VBG Base Excess mmol/L Sodium 138 (135-145) mmol/L Potassium 4.3 (3.3-5.1) mmol/L Chloride 111 H (96-108) mmol/L Carbon Dioxide 14 L (22-29) mmol/L Anion Gap 17 (12-20) BUN 29 H (9-16) mg/dL Creatinine 1.44 H (0.5-1.4) mg/dL Estim Creat Clear Calc 35.4 Estimated GFR 35 Random Glucose 127 H (60-115) mg/dL Lactic Acid (0.5-2.0) mmol/L Calcium 8.8 (8.4-10.2) mg/dL Magnesium 2.3 (1.6-2.6) mg/dL Iron (30-160) mcg/dL TIBC (228-428) mcg/dL % Saturation (15-50) % Unsat Iron Binding ug/dL Total Bilirubin 0.3 (0.0-1.0) mg/dL AST 43 H (5-31) U/L ALT 60 H (0-31) U/L Alkaline Phosphatase 104 (39-117) U/L Troponin I High Sens < 2.7 D (<3.5-17.0) ng/L B-Natriuretic Peptide (<100) pg/mL Total Protein 6.5 (6.5-8.0) g/dL Albumin 3.6 (3.5-5.0) g/dL Folate (> or = 4.0) ng/mL TSH (0.32-4.0) uIU/mL Stool Occult Blood (NEGATIVE) Salicylates (15-30) mg/dL 03/16/23 03/16/23 03/16/23 Range/Units 12:23 13:13 13:13 WBC (4.8-10.8) X10*3/uL RBC (4.20-5.50) X10*6/uL Hgb (12.0-16.0) g/dl Hct (37.0-47.0) % MCV (80.0-98.0) fL MCH (27.0-33.0) pg MCHC (31.0-35.0) g/dl RDW (11.0-16.0) % Plt Count (160-400) X10*3/uL MPV (9.4-12.3) fL Immature Gran % (Auto) (0.0-0.4) % Neut % (Auto) (45-73) % Lymph % (Auto) (20-40) % [place] % (Auto) (2-11) % Eos % (Auto) (0-4) % Baso % (Auto) (0-2) % Lymph # (Auto) (1.2-4.9) X10*3/uL [place] # (Auto) (0.1-1.2) X10*3/uL Eos # (Auto) (0.0-0.4) X10*3/uL Baso # (Auto) (0.0-0.2) X10*3/uL Abs Immat Gran (auto) (0.00-0.03) X10*3/uL Absolute Neuts (auto) (2.0-8.3) x10*3/uL Absolute Nucleated RBC (0.0-0.012) X10*3/uL Nucleated RBC % (auto) (0.0-0.2) /100WBC PT (11.1-13.3) SEC INR (0.9-1.1) APTT (26.0-36.4) SEC VBG pH 7.60 H* (7.32-7.43) VBG pCO2 14 mmHg VBG pO2 86 mmHg VBG HCO3 14 L (22-26) mmol/L VBG O2 Saturation 99.0 % VBG Base Excess -5.8 mmol/L Sodium (135-145) mmol/L Potassium (3.3-5.1) mmol/L Chloride (96-108) mmol/L Carbon Dioxide (22-29) mmol/L Anion Gap (12-20) BUN (9-16) mg/dL Creatinine (0.5-1.4) mg/dL Estim Creat Clear Calc Estimated GFR Random Glucose (60-115) mg/dL Lactic Acid (0.5-2.0) mmol/L Calcium (8.4-10.2) mg/dL Magnesium (1.6-2.6) mg/dL Iron 24 L (30-160) mcg/dL TIBC 298 (228-428) mcg/dL % Saturation 8 L (15-50) % Unsat Iron Binding 274 ug/dL Total Bilirubin (0.0-1.0) mg/dL AST (5-31) U/L ALT (0-31) U/L Alkaline Phosphatase (39-117) U/L Troponin I High Sens (<3.5-17.0) ng/L B-Natriuretic Peptide 451 H (<100) pg/mL Total Protein (6.5-8.0) g/dL Albumin (3.5-5.0) g/dL Folate (> or = 4.0) ng/mL TSH 20.74 H (0.32-4.0) uIU/mL Stool Occult Blood (NEGATIVE) Salicylates (15-30) mg/dL 03/16/23 03/16/23 03/16/23 Range/Units 13:13 13:13 13:13 WBC (4.8-10.8) X10*3/uL RBC (4.20-5.50) X10*6/uL Hgb (12.0-16.0) g/dl Hct (37.0-47.0) % MCV (80.0-98.0) fL MCH (27.0-33.0) pg MCHC (31.0-35.0) g/dl RDW (11.0-16.0) % Plt Count (160-400) X10*3/uL MPV (9.4-12.3) fL Immature Gran % (Auto) (0.0-0.4) % Neut % (Auto) (45-73) % Lymph % (Auto) (20-40) % [place] % (Auto) (2-11) % Eos % (Auto) (0-4) % Baso % (Auto) (0-2) % Lymph # (Auto) (1.2-4.9) X10*3/uL [place] # (Auto) (0.1-1.2) X10*3/uL Eos # (Auto) (0.0-0.4) X10*3/uL Baso # (Auto) (0.0-0.2) X10*3/uL Abs Immat Gran (auto) (0.00-0.03) X10*3/uL Absolute Neuts (auto) (2.0-8.3) x10*3/uL Absolute Nucleated RBC (0.0-0.012) X10*3/uL Nucleated RBC % (auto) (0.0-0.2) /100WBC PT 30.6 H (11.1-13.3) SEC INR 2.5 H (0.9-1.1) APTT 39.6 H D (26.0-36.4) SEC VBG pH (7.32-7.43) VBG pCO2 mmHg VBG pO2 mmHg VBG HCO3 (22-26) mmol/L VBG O2 Saturation % VBG Base Excess mmol/L Sodium (135-145) mmol/L Potassium (3.3-5.1) mmol/L Chloride (96-108) mmol/L Carbon Dioxide (22-29) mmol/L Anion Gap (12-20) BUN (9-16) mg/dL Creatinine (0.5-1.4) mg/dL Estim Creat Clear Calc Estimated GFR Random Glucose (60-115) mg/dL Lactic Acid 1.4 (0.5-2.0) mmol/L Calcium (8.4-10.2) mg/dL Magnesium (1.6-2.6) mg/dL Iron (30-160) mcg/dL TIBC (228-428) mcg/dL % Saturation (15-50) % Unsat Iron Binding ug/dL Total Bilirubin (0.0-1.0) mg/dL AST (5-31) U/L ALT (0-31) U/L Alkaline Phosphatase (39-117) U/L Troponin I High Sens (<3.5-17.0) ng/L B-Natriuretic Peptide (<100) pg/mL Total Protein (6.5-8.0) g/dL Albumin (3.5-5.0) g/dL Folate 5.7 (> or = 4.0) ng/mL TSH (0.32-4.0) uIU/mL Stool Occult Blood (NEGATIVE) Salicylates < 5.0 L (15-30) mg/dL 03/16/23 Range/Units 13:25 WBC (4.8-10.8) X10*3/uL RBC (4.20-5.50) X10*6/uL Hgb (12.0-16.0) g/dl Hct (37.0-47.0) % MCV (80.0-98.0) fL MCH (27.0-33.0) pg MCHC (31.0-35.0) g/dl RDW (11.0-16.0) % Plt Count (160-400) X10*3/uL MPV (9.4-12.3) fL Immature Gran % (Auto) (0.0-0.4) % Neut % (Auto) (45-73) % Lymph % (Auto) (20-40) % [place] % (Auto) (2-11) % Eos % (Auto) (0-4) % Baso % (Auto) (0-2) % Lymph # (Auto) (1.2-4.9) X10*3/uL [place] # (Auto) (0.1-1.2) X10*3/uL Eos # (Auto) (0.0-0.4) X10*3/uL Baso # (Auto) (0.0-0.2) X10*3/uL Abs Immat Gran (auto) (0.00-0.03) X10*3/uL Absolute Neuts (auto) (2.0-8.3) x10*3/uL Absolute Nucleated RBC (0.0-0.012) X10*3/uL Nucleated RBC % (auto) (0.0-0.2) /100WBC PT (11.1-13.3) SEC INR (0.9-1.1) APTT (26.0-36.4) SEC VBG pH (7.32-7.43) VBG pCO2 mmHg VBG pO2 mmHg VBG HCO3 (22-26) mmol/L VBG O2 Saturation % VBG Base Excess mmol/L Sodium (135-145) mmol/L Potassium (3.3-5.1) mmol/L Chloride (96-108) mmol/L Carbon Dioxide (22-29) mmol/L Anion Gap (12-20) BUN (9-16) mg/dL Creatinine (0.5-1.4) mg/dL Estim Creat Clear Calc Estimated GFR Random Glucose (60-115) mg/dL Lactic Acid (0.5-2.0) mmol/L Calcium (8.4-10.2) mg/dL Magnesium (1.6-2.6) mg/dL Iron (30-160) mcg/dL TIBC (228-428) mcg/dL % Saturation (15-50) % Unsat Iron Binding ug/dL Total Bilirubin (0.0-1.0) mg/dL AST (5-31) U/L ALT (0-31) U/L Alkaline Phosphatase (39-117) U/L Troponin I High Sens (<3.5-17.0) ng/L B-Natriuretic Peptide (<100) pg/mL Total Protein (6.5-8.0) g/dL Albumin (3.5-5.0) g/dL Folate (> or = 4.0) ng/mL TSH (0.32-4.0) uIU/mL Stool Occult Blood POSITIVE (NEGATIVE) Salicylates (15-30) mg/dL ABG Data Attestation ABG: I personally reviewed and interpreted this ABG as follows: Interpretation: alcalosis Independent Interpretation I performed an independent interpretation of an: EKG and Rhythm Strip Interpretation: AFib with a slow ventricular response 35 Radiology Impression Radiologist Impression: October 2022? TECHNIQUE: XR chest 1V single portable chest x-ray Tubes and lines: None Lungs and pleura: Diminished lung volume, mild diffuse interstitial opacification possible mild interstitial pneumonitis or edema. Blunting of costophrenic angles bilaterally probably small pleural effusions. Heart and mediastinum: The mediastinum is within normal limits.. Bones/soft tissue: Skeletal structures included are normal for patient's age. XR/XR chest 1V IMPRESSION: ? *? Diminished lung volume. ? *? Mild diffuse interstitial opacification possible mild interstitial pneumonitis or edema. ? *? Blunting of costophrenic angles probably small pleural effusions. ? Dictated By: Birdie Rivas MD Signed By: <Electronically signed by Birdie Rivas MD in OV> 03/16/23 1343 Critical Care Time Critical Care Time Critical Care Time: Yes Total Critical Care Time: 90 Attestation: taking care of the patient ,speaking with big data platform architect and ICU Discharge Plan Discharge Clinical Impression: Bradycardia, Anemia, NERY (acute kidney injury) Patient Disposition: Admitted As Inpatient
[2023-03-16 12:26] LABS: MANUAL DIFF FLAG NO
[2023-03-16 12:30] LABS: Basophils Percent Auto 0.3 % (0-2); Eosinophils Absolute Auto 0.5 X10*3/uL (0.0-0.4); Eosinophils Percent Auto 6.2 % (0-4); Hematocrit 21.9 % (37.0-47.0); Imm Gran Abs Auto 0.05 X10*3/uL (0.00-0.03); Imm Gran Pct Auto 0.7 % (0.0-0.4); Lymphocytes Percent Auto 13.1 % (20-40); Mean Corpuscular HGB Conc 28.3 g/dl (31.0-35.0); Mean Corpuscular Hemoglobin 23.4 pg (27.0-33.0); Mean Corpuscular Volume 82.6 fL (80.0-98.0); Mean Platelet Volume 9.8 fL (9.4-12.3); Monocytes Absolute Auto 0.6 X10*3/uL (0.1-1.2); Monocytes Percent Auto 8.2 % (2-11); Neutrophils Absolute Auto 5.4 x10*3/uL (2.0-8.3); Neutrophils Percent Auto 71.5 % (45-73); Platelet Count 361 X10*3/uL (160-400); Red Blood Count 2.65 X10*6/uL (4.20-5.50); Red Cell Distribution Width 16.1 % (11.0-16.0); White Blood Count 7.6 X10*3/uL (4.8-10.8)
[2023-03-16 12:35] LABS: Venous Blood Gas Refer to POC result
[2023-03-16 12:35] LABS: VBG Base Excess -5.8 mmol/L; VBG HCO3 14 mmol/L (22-26); VBG pCO2 14 mmHg; VBG pO2 86 mmHg
--- NOTE | 2023-03-16 12:35 | PC.NURSE ---
patient bradycardic in the 30s, pacer pads placed on patient, with crash cart/atropine at bedside. pt alert and oriented x3. iv placed in the r wrist #20
[2023-03-16 12:38] LABS: Hemoglobin 6.2 g/dl (12.0-16.0)
--- NOTE | 2023-03-16 12:42 | PC.NURSE ---
PT HAS DECLINED BLOOD TRANSFUSION SECONDARY TO HINDUISM BELIEFS. THIS WAS REAFFIRMED BY DR BLACKWELL WITH THE PATIENT
[2023-03-16 12:50] LABS: Alanine Aminotransferase 60 U/L (0-31); Albumin Level 3.6 g/dL (3.5-5.0); Alkaline Phosphatase 104 U/L (39-117); Anion Gap 17 (12-20); Aspartate Amino Transferase 43 U/L (5-31); Bilirubin Total 0.3 mg/dL (0.0-1.0); Blood Urea Nitrogen 29 mg/dL (9-16); Calcium 8.8 mg/dL (8.4-10.2); Carbon Dioxide 14 mmol/L (22-29); Chloride 111 mmol/L (96-108); Creatinine Clr Calc Pharmacy 35.4; Estimated Glomerular Filt Rate 35; Glucose Random 127 mg/dL (60-115); Magnesium 2.3 mg/dL (1.6-2.6); Potassium 4.3 mmol/L (3.3-5.1); Sodium 138 mmol/L (135-145); Total Protein 6.5 g/dL (6.5-8.0)
--- NOTE | 2023-03-16 13:10 | P.CONCA_ITS ---
History of Present Illness History of Present Illness Date of Service: 03/16/23 Chief complaint: Increased confusion, hallucinations, HR 30 per EMS Narrative: This is a cardiology consultation regarding bradycardia. She has a history of congestive heart failure, history of stroke. Came for generalized weakness. Patient states that she has just been feeling weak recently. She thinks it has been like this for the last couple weeks or so. Generalized fatigue and tiredness. Some shortness of breath as well. Cough. EKG had shown atrial fibrillation with slow ventricular rate. Hence Cardiology is being consulted. Seen in the clinic once last year. Based on that note, she has persistent atrial fibrillation, treated by rate control. Has coronary artery calcifications on CT scan. Chronic diastolic heart failure. And hypertension. Earlier this year, she had a stroke and was admitted. At that time, there is mention that she was not taking Eliquis. Now back on it. Review of Systems Review of Systems: Yes all other systems are reviewed and are negative Constitutional: Constitutional: Reports as per HPI, Reports no additional constitutional complaints, Reports fatigue, Reports lethargy and Reports malaise Eyes: Eyes: Reports as per HPI and Denies no additional eye complaints ENT: Denies system reviewed and no additional complaints, except as documented and Reports as per HPI Cardiovascular: Cardiovascular: Reports as per HPI, Reports no additional cardiovascular complaints, Denies acrocyanosis, Denies cool extremities, Denies chest pain, Denies leg edema, Denies lightheadedness, Denies palpitations and Reports dyspnea Respiratory: Respiratory: Reports as per HPI, Denies no additional respiratory complaints, Reports cough and Reports dyspnea Gastrointestinal: Gastrointestinal: Reports as per HPI and Denies no additional gastrointestinal complaints Genitourinary: Genitourinary: Reports as per HPI Musculoskeletal: Musculoskeletal: Reports no additional musculoskeletal complaints and Reports as per HPI Integumentary/Breasts: Skin/Breast: Reports system reviewed and no additional complaints, except as docu Neurologic: Reports system reviewed and no additional complaints, except as d ocumented and Reports as per HPI Psychiatric: Psychiatric: Reports no additional psychiatric complaints and Reports as per HPI Endocrine: Endocrine: Reports no additional endocrine complaints, Reports as per HPI, Reports fatigue and Denies palpitations Hematologic/Lymphatic: Hematologic/Lymphatic: Reports no additional hematologic/lymphatic complaints and Reports as per HPI Allergic/Immunologic: Allergic/Immunologic: Reports no additional allergic/immunologic complaints and Reports as per HPI [facility] Past Medical History Medical History Anemia Anxiety and depression Chronic anemia Chronic kidney disease Fever of unknown origin Hypertension Major depression, recurrent Stroke Family History Family History Father Tuberculosis Mother No problems noted. Other Substance use disorder Surgical History Surgical History History of knee surgery Social History Social History Household Members: None Housing: Apartment Do you presently have visiting nurse or other home services: No Alcohol intake: never Patient Tobacco Use Status: Former Tobacco user Tobacco use type: Cigarette Years Smoked: 10 years e-Cigarette/Vaping Use: Never Used Advance Directives: Yes Advance Directives on File: Yes Advance Directives Date on File: 12/21/21 service: No Current occupational status: retired Cognitive needs: No Hearing needs: No Vision needs: Yes Meds Allergies Allergy/AdvReac Type Severity Reaction Status Date / Time latex [Latex] Allergy Mild UNKNOWN Verified 02/19/23 12:28 morphine [Morphine] Allergy Mild VOMITING Verified 02/19/23 12:28 penicillin G Allergy Unknown Rash Verified 02/19/23 12:28 codeine [Codeine] AdvReac Mild VOMITING Verified 02/19/23 12:28 procaine [From Novocain] AdvReac Mild VOMITING Verified 02/19/23 12:28 Physical Exam Vital Signs: Vital Signs: Last Vital Signs Temp 97.9 F 03/16/23 12:05 Pulse 36 L 03/16/23 13:08 Resp 18 03/16/23 13:08 BP 97/40 L 03/16/23 13:08 Pulse Ox 98 03/16/23 12:32 O2 Del Method Room Air 03/16/23 12:32 BMI result Body Mass Index 28.6 Const: General: comfortable and no acute distress Orientation/consciousness: patient oriented x3 HEENT: Other: Unremarkable Head: Yes normal to inspection Neck: Neck: Yes normal visual inspection Chest: Chest palpation & inspection: normal inspection of the chest Resp: Auscultation: clear to auscultation bilaterally Cardio: Palpation: normal PMI Heart sounds: S1 normal heart sound present, S2 normal heart sound present, no gallops, no murmurs and no rubs GI: Palpation (GI): Soft to palpation Back/Spine/Pelvis: Other: unremarkable Skin: General skin exam: no rashes or lesions noted Neuro: General: patient oriented x3 Extrem: General: Yes normal to inspection Psych: Mental Status: mental status grossly normal Objective Labs and Meds 03/16/23 12:20 03/16/23 12:20 Lab results: Laboratory Results - last 24 hr 03/16/23 03/16/23 03/16/23 12:20 12:20 12:23 WBC 7.6 RBC 2.65 L D Hgb 6.2 L* D Hct 21.9 L D MCV 82.6 MCH 23.4 L MCHC 28.3 L RDW 16.1 H Plt Count 361 MPV 9.8 Immature Gran % (Auto) 0.7 H Neut % (Auto) 71.5 Lymph % (Auto) 13.1 L [place] % (Auto) 8.2 Eos % (Auto) 6.2 H Baso % (Auto) 0.3 Lymph # (Auto) 1.0 L [place] # (Auto) 0.6 Eos # (Auto) 0.5 H Baso # (Auto) 0.0 Abs Immat Gran (auto) 0.05 H Absolute Neuts (auto) 5.4 Absolute Nucleated RBC 0.000 Nucleated RBC % (auto) 0.0 VBG pH 7.60 H* VBG pCO2 14 VBG pO2 86 VBG HCO3 14 L VBG O2 Saturation 99.0 VBG Base Excess -5.8 Sodium 138 Potassium 4.3 Chloride 111 H Carbon Dioxide 14 L Anion Gap 17 BUN 29 H Creatinine 1.44 H Estim Creat Clear Calc 35.4 Estimated GFR 35 Random Glucose 127 H Calcium 8.8 Magnesium 2.3 Total Bilirubin 0.3 AST 43 H ALT 60 H Alkaline Phosphatase 104 Total Protein 6.5 Albumin 3.6 ECG Interpretation: EKG shows atrial fibrillation with very slow ventricular rate at 35/Min. Cannot exclude old inferior infarct. Assessment and Plan (1) Bradycardia: Status: Acute (2) Persistent atrial fibrillation: Status: Acute (3) Anemia: Status: Acute (4) History of stroke: Status: Acute Plan Labs reviewed. She is profoundly anemic with hemoglobin of 6.2. She has had low hemoglobins last year as well. Last hemoglobin from October of this year was 11. BUN is 29. Creatinine is 1.4. Troponin pending. Echocardiogram with LVEF greater than 70%. Suspected dilated left atrium. Overall, atrial fibrillation slow ventricular rate; severe anemia. With regard to atrial fibrillation, hold off on beta-blockers. She is listed to be on metoprolol ER 25 mg daily. At the time of discharge after the stroke, she was not on any beta-blockers and according to note, she was rate controlled without any medication. For a short time, we may use an agent like dopamine in the ICU. If the rate does not improve, then may need pacemaker. Discussed with Dr. Garcia about this. With regard to the anemia, may need transfusions. Per ER physician Dr. Paulino, patient would not accept due to being Jehovah's. Probably recheck hemoglobin just to be sure. Beyond that, plan per hvac design mechanical engineer. However, from the anti coagulation standpoint, this will be difficult situation as she had a stroke without Eliquis and probably will have more strokes if he stopped completely. May have to temporarily hold and then decide. Probably candidate for Watchman device. Time Spent With Patient Time: Total time managing care of this patient today ____ minutes. Procedures Date of Service Date of Service: 03/16/23
[2023-03-16 13:15] LABS: Troponin-I High Sensitivity < 2.7 ng/L (<3.5-17.0)
--- NOTE | 2023-03-16 13:24 | PC.NURSE ---
pt remains axox3. denies dizziness/lightheadedness and SOB while at rest. states that sx would start if she were to exert herself. repeating her decline of blood products. DNR on file in ED Chart.
[2023-03-16 13:31] LABS: OBS Int Ctl Valid YES; OBS1 POSITIVE (NEGATIVE)
[2023-03-16 13:32] LABS: INTERNATIONAL NORM RATIO 2.5 (0.9-1.1); Prothrombin Time 30.6 SEC (11.1-13.3)
[2023-03-16 13:35] LABS: Lactic Acid 1.4 mmol/L (0.5-2.0); Partial Thromboplastin Time 39.6 SEC (26.0-36.4)
[2023-03-16 13:44] LABS: Salicylate < 5.0 mg/dL (15-30)
[2023-03-16 13:45] LABS: B Type Natriuretic Peptide 451 pg/mL (<100); Iron 24 mcg/dL (30-160); Percent Iron Saturation 8 % (15-50); Total Iron Binding Capacity 298 mcg/dL (228-428); Unsaturated Iron Binding 274 ug/dL
--- NOTE | 2023-03-16 13:53 | PC.NURSE ---
Daughter, Anel Kendrick [phone] lives with Patient since stroke in October. Noticed recent decline in speech and some confusion, wakes in middle of night seeing bugs on gibson, hearing and decrease in sight. no taste (negative covid at home). more difficulty walking. fall last week with lift assist. refused to go to hospital and all rehab facilities.
[2023-03-16 13:59] LABS: Thyroid Stimulating Hormone 20.74 uIU/mL (0.32-4.0)
[2023-03-16 14:15] LABS: Folate 5.7 ng/mL (> or = 4.0)
[2023-03-16] MEDS: DOBUTamine HCL/D5W 500 MG/250 ML IV.SOLN 6.02 MG IVCONT (14:31)
--- NOTE | 2023-03-16 14:48 | PM.CCHP ---
History of Present Illness Date of Service: 03/16/23 Attending physician on admission: Becki Garcia Chief Complaint: weakness 78-year-old female who is a Gnosticist with anemia which is chronic current hemoglobin 6 presents with increasing weakness found to be bradycardic with a narrow QRS but rate of approximately 25-35 appearing to be slow atrial fibrillation which is a chronic and persistent rhythm previous CVA history for which she is on 5 mg of Eliquis currently with an elevated PT INR and PTT but is also a replaced hypothyroid and TSH is currently at 20 so we the noncompliant or just simply an insufficient dose but I do believe myxedema is playing a role as well as the metoprolol contributing to overall symptomatic bradycardia on the blood gas we have a primary respiratory alkalosis but in addition we have a metabolic acidosis as well as a acute on chronic stage III renal failure the blood work also indicates iron deficiency so we are waiting for stool guaiac to see if this is chronic blood loss the orifices a malabsorption issue or just a hypo nutritional problem lungs with diminished bilateral breath sounds but by chest x-ray the lungs look plus Thorek and on bedside echo the IVC is greater than 2 cm PMFSH Past Medical History Medical History Anemia Anxiety and depression Chronic anemia Chronic kidney disease Fever of unknown origin Hypertension Major depression, recurrent Stroke Family History Family History Father Tuberculosis Mother No problems noted. Other Substance use disorder Surgical History Surgical History History of knee surgery Social History Social History Household Members: None Housing: Apartment Do you presently have visiting nurse or other home services: No Alcohol intake: never Patient Tobacco Use Status: Former Tobacco user Tobacco use type: Cigarette Years Smoked: 10 years e-Cigarette/Vaping Use: Never Used Advance Directives: Yes Advance Directives on File: Yes Advance Directives Date on File: 12/21/21 service: No Current occupational status: retired Cognitive needs: No Hearing needs: No Vision needs: Yes Meds Allergies Allergy/AdvReac Type Severity Reaction Status Date / Time latex [Latex] Allergy Mild UNKNOWN Verified 02/19/23 12:28 morphine [Morphine] Allergy Mild VOMITING Verified 02/19/23 12:28 penicillin G Allergy Unknown Rash Verified 02/19/23 12:28 codeine [Codeine] AdvReac Mild VOMITING Verified 02/19/23 12:28 procaine [From Novocain] AdvReac Mild VOMITING Verified 02/19/23 12:28 Active Medications: Current Medications Famotidine (Famotidine/Pf 20 Mg/2 Ml Vial) 20 mg IVPUSH BID KAILA Dobutamine HCl/Dextrose (Dobutrex) 500 mg in 250 mls @ 6.023 mls/hr IVCONT .Q24H KAILA; Protocol Last Admin: 03/16/23 14:31 Dose: 2.5 mcg/kg/min, 6.02 mls/hr Levothyroxine Sodium (Levothyroxine Sodium 100 Mcg/5 Ml Vial) 25 mcg IVPUSH ONCE ONE Stop: 03/16/23 14:42 Physical Exam Vital Signs: Vital Signs: Last Vital Signs Temp 97.9 F 03/16/23 12:05 Pulse 35 L 03/16/23 14:31 Resp 16 03/16/23 14:10 BP 108/45 L 03/16/23 14:31 Pulse Ox 99 03/16/23 14:10 O2 Del Method Room Air 03/16/23 14:10 BMI result Body Mass Index 28.6 left ventricle with hyperdynamic systolic function and borderline LVH and no primary valve or pericardial disease but right heart is at least mildly distended with 1 to 2+ tricuspid regurgitation but no measurable pulmonary hypertension lungs plus Thorek by chest x-ray but no evidence of respiratory distress peripheral edema but no acrocyanosis abdomen benign Results Labs 03/16/23 12:20 03/16/23 12:20 Labs: Laboratory Results - last 24 hr 03/16/23 03/16/23 03/16/23 12:20 12:20 12:23 MCV 82.6 MCH 23.4 L MCHC 28.3 L RDW 16.1 H Plt Count 361 MPV 9.8 Immature Gran % (Auto) 0.7 H Neut % (Auto) 71.5 Lymph % (Auto) 13.1 L [place] % (Auto) 8.2 Eos % (Auto) 6.2 H Baso % (Auto) 0.3 Lymph # (Auto) 1.0 L [place] # (Auto) 0.6 Eos # (Auto) 0.5 H Baso # (Auto) 0.0 Abs Immat Gran (auto) 0.05 H Absolute Neuts (auto) 5.4 Absolute Nucleated RBC 0.000 Nucleated RBC % (auto) 0.0 PT INR APTT VBG pH 7.60 H* VBG pCO2 14 VBG pO2 86 VBG HCO3 14 L VBG O2 Saturation 99.0 VBG Base Excess -5.8 Anion Gap 17 Estim Creat Clear Calc 35.4 Estimated GFR 35 Random Glucose 127 H Lactic Acid Calcium 8.8 Magnesium 2.3 Iron TIBC % Saturation Unsat Iron Binding Total Bilirubin 0.3 AST 43 H ALT 60 H Alkaline Phosphatase 104 B-Natriuretic Peptide Total Protein 6.5 Albumin 3.6 Folate TSH Stool Occult Blood Salicylates 03/16/23 03/16/23 03/16/23 13:13 13:13 13:13 MCV MCH MCHC RDW Plt Count MPV Immature Gran % (Auto) Neut % (Auto) Lymph % (Auto) [place] % (Auto) Eos % (Auto) Baso % (Auto) Lymph # (Auto) [place] # (Auto) Eos # (Auto) Baso # (Auto) Abs Immat Gran (auto) Absolute Neuts (auto) Absolute Nucleated RBC Nucleated RBC % (auto) PT INR APTT VBG pH VBG pCO2 VBG pO2 VBG HCO3 VBG O2 Saturation VBG Base Excess Anion Gap Estim Creat Clear Calc Estimated GFR Random Glucose Lactic Acid Calcium Magnesium Iron 24 L TIBC 298 % Saturation 8 L Unsat Iron Binding 274 Total Bilirubin AST ALT Alkaline Phosphatase B-Natriuretic Peptide 451 H Total Protein Albumin Folate 5.7 TSH 20.74 H Stool Occult Blood Salicylates < 5.0 L 03/16/23 03/16/23 03/16/23 13:13 13:13 13:25 MCV MCH MCHC RDW Plt Count MPV Immature Gran % (Auto) Neut % (Auto) Lymph % (Auto) [place] % (Auto) Eos % (Auto) Baso % (Auto) Lymph # (Auto) [place] # (Auto) Eos # (Auto) Baso # (Auto) Abs Immat Gran (auto) Absolute Neuts (auto) Absolute Nucleated RBC Nucleated RBC % (auto) PT 30.6 H INR 2.5 H APTT 39.6 H D VBG pH VBG pCO2 VBG pO2 VBG HCO3 VBG O2 Saturation VBG Base Excess Anion Gap Estim Creat Clear Calc Estimated GFR Random Glucose Lactic Acid 1.4 Calcium Magnesium Iron TIBC % Saturation Unsat Iron Binding Total Bilirubin AST ALT Alkaline Phosphatase B-Natriuretic Peptide Total Protein Albumin Folate TSH Stool Occult Blood POSITIVE Salicylates Imaging Radiologist's Impressions: Impressions Chest X-Ray 03/16/23 12:45 IMPRESSION: * Diminished lung volume. * Mild diffuse interstitial opacification possible mild interstitial pneumonitis or edema. * Blunting of costophrenic angles probably small pleural effusions. Assessment and Plan (1) Symptomatic bradycardia: Status: Acute (2) Atrial fibrillation with slow ventricular response: Status: Acute (3) Gait instability: Status: Acute (4) Major depression, recurrent: Status: Acute (5) Anemia: Status: Acute (6) History of stroke: Status: Acute (7) Hypertension, essential: Status: Acute (8) Expressive aphasia: Status: Acute (9) Right sided weakness: Status: Acute (10) Chronic diastolic (congestive) heart failure: Status: Acute (11) Atherosclerotic cardiovascular disease: Status: Acute (12) Diastolic congestive heart failure: Status: Acute (13) Acute kidney injury superimposed on CKD: Status: Acute (14) Myxedema: Status: Acute (15) Acute respiratory alkalosis: Status: Acute Plan given the primary respiratory alkalosis I asked for salicylate level in blood cultures and it appears as though the symptomatic bradycardia is a slow atrial fibrillation probably conducting because it is a narrow QRS should therefore respond to a beta 1 agonist and I will start IV dobutamine and titrate and even though I feel the blood thorax chest and the elevated liver transaminases are all on the basis of diastolic CHF the lactic acid is not elevated but the acute on chronic renal insufficiency also part and parcel of systolic as well as diastolic CHF has iron deficiency anemia and at this age probably will have Hemoccult-positive stool I am sure it is a blood loss anemia but will start iron replacement because we are limited in what we can do for her due to being a Gnosticist but in addition I am going to give a stat 25 mcg of IV Synthroid and then when she arrives I will start her on a higher oral dose of replacement Time Spent With Patient Time: Total time managing care of this patient today 60____ minutes.
[2023-03-16] MEDS: Levothyroxine Sodium 100 MCG/5 ML VIAL 25 MCG IVPUSH (15:30)
[2023-03-16] MEDS: Levothyroxine Sodium 150 MCG TABLET PO (15:33)
--- NOTE | 2023-03-16 16:30 | PC.NURSE ---
report to Latisha GARCIA at [facility]. there are no nurses on duty at this time. no transportation available.
--- NOTE | 2023-03-16 18:33 | PHA.MEDREC ---
Pharmacy Consult ? Medication Reconciliation Pharmacy has completed the medication reconciliation. spoke with patient. She reported taking Tizanidine 4mg during the day and 6mg at bedtime. Daughter brought in a list of her medications and it shows Tizanidine 6mg BID. The patient was unsure of the levothyroxine dose. List says 137mcg as well as most recent claim for it. Daughter reports that she found all of the levothyroxine pills all over the floor at the patients house and is not sure if she has been taking them.
[2023-03-16] MEDS: Ferrous Sulfate 324 MG TABLET.DR PO (18:34)
[2023-03-16] MEDS: Famotidine/PF 20 MG/2 ML VIAL IVPUSH (20:35)
[2023-03-16] MEDS: diphenhydrAMINE HCL 50 MG/ML VIAL 25 MG IVPUSH (20:52)
[2023-03-16] MEDS: traZODone HCL 100 MG TABLET PO (23:01)
[2023-03-17] VITALS (25 sets, daily range): BP systolic 127–165; BP diastolic 34–82; PULSE 74–119; RESP 14–27; TEMP 37–37.3; O2SAT 92–98; BMI 28.6
--- NOTE | 2023-03-17 | ECG_ITS ---
Test Reason : chest pain Blood Pressure : / mmHG Vent. Rate : 084 BPM Atrial Rate : 000 BPM P-R Int : 000 ms QRS Dur : 088 ms QT Int : 398 ms P-R-T Axes : 000 022 119 degrees QTc Int : 470 ms Poor data quality Atrial fibrillation ST & T wave abnormality, consider lateral ischemia Abnormal ECG When compared with ECG of 16-MAR-2023 12:08, Criteria for Inferior infarct are no longer Present ST now depressed in Lateral leads QT has lengthened Referred By: Lay Lewis Electronically Signed By:Tera Walker
[2023-03-17] MEDS: Acetaminophen 325 MG TABLET 650 MG PO (03:22)
[2023-03-17 03:40] LABS: MANUAL DIFF FLAG NO
[2023-03-17 03:41] LABS: VBG Base Excess -6.1 mmol/L; VBG HCO3 16 mmol/L (22-26); VBG pCO2 22 mmHg; VBG pH 7.45 (7.32-7.43); VBG pO2 60 mmHg
[2023-03-17 03:50] LABS: Basophils Percent Auto 0.2 % (0-2); Eosinophils Absolute Auto 0.2 X10*3/uL (0.0-0.4); Eosinophils Percent Auto 1.4 % (0-4); Hematocrit 21.7 % (37.0-47.0); Imm Gran Abs Auto 0.14 X10*3/uL (0.00-0.03); Imm Gran Pct Auto 1.2 % (0.0-0.4); Lymphocytes Absolute Auto 0.8 X10*3/uL (1.2-4.9); Lymphocytes Percent Auto 6.4 % (20-40); Mean Corpuscular HGB Conc 29.5 g/dl (31.0-35.0); Mean Corpuscular Hemoglobin 23.8 pg (27.0-33.0); Mean Corpuscular Volume 80.7 fL (80.0-98.0); Mean Platelet Volume 9.4 fL (9.4-12.3); Monocytes Absolute Auto 0.7 X10*3/uL (0.1-1.2); Neutrophils Absolute Auto 9.9 x10*3/uL (2.0-8.3); Neutrophils Percent Auto 84.8 % (45-73); Platelet Count 379 X10*3/uL (160-400); Red Blood Count 2.69 X10*6/uL (4.20-5.50); Red Cell Distribution Width 15.9 % (11.0-16.0); White Blood Count 11.6 X10*3/uL (4.8-10.8)
[2023-03-17 03:51] LABS: Fibrinogen 616 MG/DL (259-690); INTERNATIONAL NORM RATIO 1.9 (0.9-1.1); Prothrombin Time 23.1 SEC (11.1-13.3)
[2023-03-17 03:59] LABS: Hemoglobin 6.4 g/dl (12.0-16.0)
[2023-03-17 04:04] LABS: B Type Natriuretic Peptide 405 pg/mL (<100); Troponin-I High Sensitivity 2.9 ng/L (<3.5-17.0)
[2023-03-17 04:08] LABS: Partial Thromboplastin Time 40.7 SEC (26.0-36.4)
[2023-03-17 04:10] LABS: Alanine Aminotransferase 50 U/L (0-31); Albumin Level 3.9 g/dL (3.5-5.0); Alkaline Phosphatase 104 U/L (39-117); Anion Gap 18 (12-20); Aspartate Amino Transferase 17 U/L (5-31); Bilirubin Total 0.4 mg/dL (0.0-1.0); Blood Urea Nitrogen 21 mg/dL (9-16); Calcium 9.4 mg/dL (8.4-10.2); Carbon Dioxide 13 mmol/L (22-29); Chloride 113 mmol/L (96-108); Creatinine Clr Calc Pharmacy 49.1; Estimated Glomerular Filt Rate 52; Glucose Random 103 mg/dL (60-115); Iron 16 mcg/dL (30-160); Magnesium 2.2 mg/dL (1.6-2.6); Percent Iron Saturation 5 % (15-50); Phosphorus 3.1 mg/dL (2.7-4.5); Potassium 3.4 mmol/L (3.3-5.1); Sodium 141 mmol/L (135-145); Total Iron Binding Capacity 316 mcg/dL (228-428); Total Protein 6.4 g/dL (6.5-8.0); Unsaturated Iron Binding 300 ug/dL
[2023-03-17 04:14] LABS: Venous Blood Gas Refer to POC result
[2023-03-17 04:24] LABS: Thyroid Stimulating Hormone 12.76 uIU/mL (0.32-4.0)
[2023-03-17] MEDS: Levothyroxine Sodium 150 MCG TABLET PO (05:48)
[2023-03-17] MEDS: Potassium Chloride Packet 20 MEQ PACKET 40 MEQ PO (05:49)
--- NOTE | 2023-03-17 06:10 | PM.EVENT ---
Event Note Date of Service: 03/17/23 Event Note: Overnight patient complaining of new chest pain, radiating to left extremity. EKG performed, ST depression on lateral leads but Trop negative, chest pain did improved. Likely demand ischemia from symptomatic anemia Attending Dr Garcia aware Time Spent With Patient Time: Total time managing care of this patient today ____ minutes.
[2023-03-17] MEDS: Nitroglycerin 0.4 MG TAB.SUBL SUBLINGUAL ×3 (06:15→06:25)
[2023-03-17] MEDS: Ferrous Sulfate 324 MG TABLET.DR PO (07:11)
[2023-03-17] MEDS: fentaNYL citrate/PF 100 MCG/2 ML VIAL 25 MCG IVPUSH ×2 (07:11→10:20)
[2023-03-17] MEDS: Famotidine/PF 20 MG/2 ML VIAL IVPUSH (08:36)
[2023-03-17 10:10] LABS: Lactic Acid 1.2 mmol/L (0.5-2.0)
[2023-03-17] MEDS: Iron Sucrose Complex 200 MG in 0.9 % Sodium Chloride 100 ML 440 MG IV (10:11)
[2023-03-17] MEDS: Venlafaxine HCl ER 150 MG CAP.ER.24H PO (10:11)
--- NOTE | 2023-03-17 10:39 | P.PNCC_ITS ---
Subjective Subjective Date of Service: 03/17/23 Interval History: 78-year-old lady, Jainism, with underlying history of CVA and AFib on Eliquis, hypothyroidism, chronic diastolic congestive heart failure admitted on 03/16/2023 with generalized weakness in noted to be bradycardic with elevated TSH, acute renal failure, and with subacute blood loss anemia with positive guaiac id patient admitted to the intensive care unit and started on increase levothyroxine with improvement in TSH; dobutamine with improvement in cardiac output and bradycardia, and p.o. iron. Overnight with chest pain, with no acute changes in ST segments or troponin, resolved with nitroglycerin. Critical Care Time (minutes): 45 Physical Exam Vital Signs: Vital Signs: Last Vital Signs Temp 98.6 F 03/17/23 07:00 Pulse 83 03/17/23 10:00 Resp 18 03/17/23 10:00 BP 158/70 H 03/17/23 10:00 Pulse Ox 95 03/17/23 10:00 O2 Del Method Room Air 03/17/23 10:00 BMI result Body Mass Index 28.6 Const: General: no acute distress, alert and awake Nutritional Appearance: obese Eyes: Sclerae: sclerae normal EOM: EOMs intact bilaterally Neck: Neck: Yes no lymphadenopathy, Yes trachea midline and Yes supple Resp: Effort & Inspection: normal respiratory effort and no respiratory distress Auscultation: clear to auscultation bilaterally Cardio: Rate: regular rate Rhythm: regular rhythm Heart sounds: no gallops, no murmurs and no rubs GI: Palpation (GI): Soft to palpation and Other GI palpation findings present ( Nontender) Auscultation: normal bowel sounds Extrem: General: No clubbing, No cyanosis and Yes edema ( trace bilateral) Objective Data Labs 03/17/23 03:22 03/17/23 03:22 Labs: Laboratory Results - last 24 hr 03/16/23 03/16/23 03/16/23 12:20 12:20 12:20 WBC 7.6 RBC 2.65 L D Hgb 6.2 L* D Hct 21.9 L D MCV 82.6 MCH 23.4 L MCHC 28.3 L RDW 16.1 H Plt Count 361 MPV 9.8 Immature Gran % (Auto) 0.7 H Neut % (Auto) 71.5 Lymph % (Auto) 13.1 L [place] % (Auto) 8.2 Eos % (Auto) 6.2 H Baso % (Auto) 0.3 Lymph # (Auto) 1.0 L [place] # (Auto) 0.6 Eos # (Auto) 0.5 H Baso # (Auto) 0.0 Abs Immat Gran (auto) 0.05 H Absolute Neuts (auto) 5.4 Absolute Nucleated RBC 0.000 Nucleated RBC % (auto) 0.0 PT INR APTT aPTT Heparin Protocol Fibrinogen VBG pH VBG pCO2 VBG pO2 VBG HCO3 VBG O2 Saturation VBG Base Excess Sodium 138 Potassium 4.3 Chloride 111 H Carbon Dioxide 14 L Anion Gap 17 BUN 29 H Creatinine 1.44 H Estim Creat Clear Calc 35.4 Estimated GFR 35 Random Glucose 127 H Lactic Acid Calcium 8.8 Phosphorus Magnesium 2.3 Iron TIBC % Saturation Unsat Iron Binding Total Bilirubin 0.3 AST 43 H ALT 60 H Alkaline Phosphatase 104 Troponin I High Sens < 2.7 D B-Natriuretic Peptide Total Protein 6.5 Albumin 3.6 Folate TSH Stool Occult Blood Salicylates 03/16/23 03/16/23 03/16/23 12:23 13:13 13:13 WBC RBC Hgb Hct MCV MCH MCHC RDW Plt Count MPV Immature Gran % (Auto) Neut % (Auto) Lymph % (Auto) [place] % (Auto) Eos % (Auto) Baso % (Auto) Lymph # (Auto) [place] # (Auto) Eos # (Auto) Baso # (Auto) Abs Immat Gran (auto) Absolute Neuts (auto) Absolute Nucleated RBC Nucleated RBC % (auto) PT INR APTT aPTT Heparin Protocol Fibrinogen VBG pH 7.60 H* VBG pCO2 14 VBG pO2 86 VBG HCO3 14 L VBG O2 Saturation 99.0 VBG Base Excess -5.8 Sodium Potassium Chloride Carbon Dioxide Anion Gap BUN Creatinine Estim Creat Clear Calc Estimated GFR Random Glucose Lactic Acid Calcium Phosphorus Magnesium Iron 24 L TIBC 298 % Saturation 8 L Unsat Iron Binding 274 Total Bilirubin AST ALT Alkaline Phosphatase Troponin I High Sens B-Natriuretic Peptide 451 H Total Protein Albumin Folate TSH 20.74 H Stool Occult Blood Salicylates 03/16/23 03/16/23 03/16/23 13:13 13:13 13:13 WBC RBC Hgb Hct MCV MCH MCHC RDW Plt Count MPV Immature Gran % (Auto) Neut % (Auto) Lymph % (Auto) [place] % (Auto) Eos % (Auto) Baso % (Auto) Lymph # (Auto) [place] # (Auto) Eos # (Auto) Baso # (Auto) Abs Immat Gran (auto) Absolute Neuts (auto) Absolute Nucleated RBC Nucleated RBC % (auto) PT 30.6 H INR 2.5 H APTT 39.6 H D aPTT Heparin Protocol Fibrinogen VBG pH VBG pCO2 VBG pO2 VBG HCO3 VBG O2 Saturation VBG Base Excess Sodium Potassium Chloride Carbon Dioxide Anion Gap BUN Creatinine Estim Creat Clear Calc Estimated GFR Random Glucose Lactic Acid 1.4 Calcium Phosphorus Magnesium Iron TIBC % Saturation Unsat Iron Binding Total Bilirubin AST ALT Alkaline Phosphatase Troponin I High Sens B-Natriuretic Peptide Total Protein Albumin Folate 5.7 TSH Stool Occult Blood Salicylates < 5.0 L 03/16/23 03/17/23 03/17/23 13:25 03:22 03:22 WBC 11.6 H RBC 2.69 L Hgb 6.4 L* Hct 21.7 L MCV 80.7 MCH 23.8 L MCHC 29.5 L RDW 15.9 Plt Count 379 MPV 9.4 Immature Gran % (Auto) 1.2 H Neut % (Auto) 84.8 H Lymph % (Auto) 6.4 L [place] % (Auto) 6.0 Eos % (Auto) 1.4 Baso % (Auto) 0.2 Lymph # (Auto) 0.8 L [place] # (Auto) 0.7 Eos # (Auto) 0.2 Baso # (Auto) 0.0 Abs Immat Gran (auto) 0.14 H Absolute Neuts (auto) 9.9 H Absolute Nucleated RBC 0.000 Nucleated RBC % (auto) 0.0 PT 23.1 H D INR 1.9 H APTT aPTT Heparin Protocol Cancelled Fibrinogen 616 VBG pH VBG pCO2 VBG pO2 VBG HCO3 VBG O2 Saturation VBG Base Excess Sodium Potassium Chloride Carbon Dioxide Anion Gap BUN Creatinine Estim Creat Clear Calc Estimated GFR Random Glucose Lactic Acid Calcium Phosphorus Magnesium Iron TIBC % Saturation Unsat Iron Binding Total Bilirubin AST ALT Alkaline Phosphatase Troponin I High Sens B-Natriuretic Peptide Total Protein Albumin Folate TSH Stool Occult Blood POSITIVE Salicylates 03/17/23 03/17/23 03/17/23 03:22 03:22 03:22 WBC RBC Hgb Hct MCV MCH MCHC RDW Plt Count MPV Immature Gran % (Auto) Neut % (Auto) Lymph % (Auto) [place] % (Auto) Eos % (Auto) Baso % (Auto) Lymph # (Auto) [place] # (Auto) Eos # (Auto) Baso # (Auto) Abs Immat Gran (auto) Absolute Neuts (auto) Absolute Nucleated RBC Nucleated RBC % (auto) PT INR APTT aPTT Heparin Protocol Fibrinogen VBG pH VBG pCO2 VBG pO2 VBG HCO3 VBG O2 Saturation VBG Base Excess Sodium 141 Potassium 3.4 D Chloride 113 H Carbon Dioxide 13 L Anion Gap 18 BUN 21 H Creatinine 1.04 Estim Creat Clear Calc 49.1 Estimated GFR 52 Random Glucose 103 Lactic Acid Calcium 9.4 D Phosphorus 3.1 Magnesium 2.2 Iron 16 L TIBC 316 % Saturation 5 L Unsat Iron Binding 300 Total Bilirubin 0.4 AST 17 ALT 50 H Alkaline Phosphatase 104 Troponin I High Sens 2.9 B-Natriuretic Peptide 405 H Total Protein 6.4 L Albumin 3.9 Folate TSH 12.76 H Stool Occult Blood Salicylates 03/17/23 03/17/23 03/17/23 03:22 03:31 09:48 WBC RBC Hgb Hct MCV MCH MCHC RDW Plt Count MPV Immature Gran % (Auto) Neut % (Auto) Lymph % (Auto) [place] % (Auto) Eos % (Auto) Baso % (Auto) Lymph # (Auto) [place] # (Auto) Eos # (Auto) Baso # (Auto) Abs Immat Gran (auto) Absolute Neuts (auto) Absolute Nucleated RBC Nucleated RBC % (auto) PT INR APTT 40.7 H aPTT Heparin Protocol Fibrinogen VBG pH 7.45 H VBG pCO2 22 VBG pO2 60 VBG HCO3 16 L VBG O2 Saturation 91.0 VBG Base Excess -6.1 Sodium Potassium Chloride Carbon Dioxide Anion Gap BUN Creatinine Estim Creat Clear Calc Estimated GFR Random Glucose Lactic Acid 1.2 Calcium Phosphorus Magnesium Iron TIBC % Saturation Unsat Iron Binding Total Bilirubin AST ALT Alkaline Phosphatase Troponin I High Sens B-Natriuretic Peptide Total Protein Albumin Folate TSH Stool Occult Blood Salicylates Progress Note: A&P Assessment and plan (1) NERY (acute kidney injury): Status: Acute (2) Atrial fibrillation with slow ventricular response: Status: Acute (3) Symptomatic bradycardia: Status: Acute (4) Chronic diastolic (congestive) heart failure: Status: Acute (5) Anemia: Status: Acute Plan Assessment: 78-year-old lady admitted with symptomatic bradycardia, acute renal failure, subacute blood loss anemia Plan: Neuro: No acute issues. Cardiac: symptomatic bradycardia on the background of acute renal failure and beta-juany therapy, resolved. Continue to titrate of dobutamine. Cardiology service care appreciated. Underlying AFib and acute on chronic diastolic congestive heart failure. Improving with diuresis. Pulmonary: No acute issues. Renal: Acute renal failure, improving. Non oliguric. Continue to monitor renal indices and urine output. Endo: Elevated TSH, FT4 is pending. Continue levothyroxine. GI: Guaiac-positive, likely chronic lower rate GI bleed. Apixaban stopped. Will request gastroenterology evaluation. ID: No acute issues Heme/Onc: Subacute blood loss and iron deficiency anemia in Jainism. Poor response to p.o. iron. Started on IV iron. Psych: No acute issues. Miscellaneous: No acute issues. Prophylaxis: pneumatic compression Diet: regular Critical care time spent: 45 minutes Quality Stroke Does the patient have a stroke diagnosis?: No VTE Prior VTE?: No VTE Risk Level:: Medical - moderate - high VTE Device Contraindication: N/A - Device Ordered VTE Drug Contraindication: Treatment Not Tolerated
--- NOTE | 2023-03-17 11:10 | P.PNCA_ITS ---
Subjective Subjective Date of Service: 03/17/23 Interval history: Seen examined at bedside. On dobutamine drip at 2.5 mcg. Heart rate in 90s in AFib. She had non anginal chest pains. 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 Getting iron. Physical Exam Vital Signs: Last Vital Signs Temp 98.6 F 03/17/23 07:00 Pulse 89 03/17/23 10:51 Resp 20 03/17/23 10:51 BP 149/69 H 03/17/23 10:51 Pulse Ox 92 03/17/23 10:51 O2 Del Method Room Air 03/17/23 10:51 BMI result Body Mass Index 28.6 GENERAL APPEARANCE: in no acute distress. NECK: no carotid bruit, no jugular venous distention. SKIN: no suspicious lesions, warm and dry. HEART: no murmurs, irregular rate and rhythm. LUNGS: clear to auscultation bilaterally. ABDOMEN: soft, nontender. EXTREMITIES: no edema. PERIPHERAL PULSES: equal. NEUROLOGIC: No gross deficits, AAO X 3 Objective Labs and Meds 03/17/23 03:22 03/17/23 03:22 Lab results: Laboratory Results - last 24 hr 03/16/23 03/16/23 03/16/23 12:20 12:20 12:20 WBC 7.6 RBC 2.65 L D Hgb 6.2 L* D Hct 21.9 L D MCV 82.6 MCH 23.4 L MCHC 28.3 L RDW 16.1 H Plt Count 361 MPV 9.8 Immature Gran % (Auto) 0.7 H Neut % (Auto) 71.5 Lymph % (Auto) 13.1 L [place] % (Auto) 8.2 Eos % (Auto) 6.2 H Baso % (Auto) 0.3 Lymph # (Auto) 1.0 L [place] # (Auto) 0.6 Eos # (Auto) 0.5 H Baso # (Auto) 0.0 Abs Immat Gran (auto) 0.05 H Absolute Neuts (auto) 5.4 Absolute Nucleated RBC 0.000 Nucleated RBC % (auto) 0.0 Smear Path Review PT INR APTT aPTT Heparin Protocol Fibrinogen VBG pH VBG pCO2 VBG pO2 VBG HCO3 VBG O2 Saturation VBG Base Excess Sodium 138 Potassium 4.3 Chloride 111 H Carbon Dioxide 14 L Anion Gap 17 BUN 29 H Creatinine 1.44 H Estim Creat Clear Calc 35.4 Estimated GFR 35 Random Glucose 127 H Lactic Acid Calcium 8.8 Phosphorus Magnesium 2.3 Iron TIBC % Saturation Unsat Iron Binding Total Bilirubin 0.3 AST 43 H ALT 60 H Alkaline Phosphatase 104 Troponin I High Sens < 2.7 D B-Natriuretic Peptide Total Protein 6.5 Albumin 3.6 Folate TSH Stool Occult Blood Salicylates 03/16/23 03/16/23 03/16/23 12:23 13:13 13:13 WBC RBC Hgb Hct MCV MCH MCHC RDW Plt Count MPV Immature Gran % (Auto) Neut % (Auto) Lymph % (Auto) [place] % (Auto) Eos % (Auto) Baso % (Auto) Lymph # (Auto) [place] # (Auto) Eos # (Auto) Baso # (Auto) Abs Immat Gran (auto) Absolute Neuts (auto) Absolute Nucleated RBC Nucleated RBC % (auto) Smear Path Review PT INR APTT aPTT Heparin Protocol Fibrinogen VBG pH 7.60 H* VBG pCO2 14 VBG pO2 86 VBG HCO3 14 L VBG O2 Saturation 99.0 VBG Base Excess -5.8 Sodium Potassium Chloride Carbon Dioxide Anion Gap BUN Creatinine Estim Creat Clear Calc Estimated GFR Random Glucose Lactic Acid Calcium Phosphorus Magnesium Iron 24 L TIBC 298 % Saturation 8 L Unsat Iron Binding 274 Total Bilirubin AST ALT Alkaline Phosphatase Troponin I High Sens B-Natriuretic Peptide 451 H Total Protein Albumin Folate TSH 20.74 H Stool Occult Blood Salicylates 03/16/23 03/16/23 03/16/23 13:13 13:13 13:13 WBC RBC Hgb Hct MCV MCH MCHC RDW Plt Count MPV Immature Gran % (Auto) Neut % (Auto) Lymph % (Auto) [place] % (Auto) Eos % (Auto) Baso % (Auto) Lymph # (Auto) [place] # (Auto) Eos # (Auto) Baso # (Auto) Abs Immat Gran (auto) Absolute Neuts (auto) Absolute Nucleated RBC Nucleated RBC % (auto) Smear Path Review PT 30.6 H INR 2.5 H APTT 39.6 H D aPTT Heparin Protocol Fibrinogen VBG pH VBG pCO2 VBG pO2 VBG HCO3 VBG O2 Saturation VBG Base Excess Sodium Potassium Chloride Carbon Dioxide Anion Gap BUN Creatinine Estim Creat Clear Calc Estimated GFR Random Glucose Lactic Acid 1.4 Calcium Phosphorus Magnesium Iron TIBC % Saturation Unsat Iron Binding Total Bilirubin AST ALT Alkaline Phosphatase Troponin I High Sens B-Natriuretic Peptide Total Protein Albumin Folate 5.7 TSH Stool Occult Blood Salicylates < 5.0 L 03/16/23 03/17/23 03/17/23 13:25 03:22 03:22 WBC 11.6 H RBC 2.69 L Hgb 6.4 L* Hct 21.7 L MCV 80.7 MCH 23.8 L MCHC 29.5 L RDW 15.9 Plt Count 379 MPV 9.4 Immature Gran % (Auto) 1.2 H Neut % (Auto) 84.8 H Lymph % (Auto) 6.4 L [place] % (Auto) 6.0 Eos % (Auto) 1.4 Baso % (Auto) 0.2 Lymph # (Auto) 0.8 L [place] # (Auto) 0.7 Eos # (Auto) 0.2 Baso # (Auto) 0.0 Abs Immat Gran (auto) 0.14 H Absolute Neuts (auto) 9.9 H Absolute Nucleated RBC 0.000 Nucleated RBC % (auto) 0.0 Smear Path Review SEE NOTE PT 23.1 H D INR 1.9 H APTT aPTT Heparin Protocol Cancelled Fibrinogen 616 VBG pH VBG pCO2 VBG pO2 VBG HCO3 VBG O2 Saturation VBG Base Excess Sodium Potassium Chloride Carbon Dioxide Anion Gap BUN Creatinine Estim Creat Clear Calc Estimated GFR Random Glucose Lactic Acid Calcium Phosphorus Magnesium Iron TIBC % Saturation Unsat Iron Binding Total Bilirubin AST ALT Alkaline Phosphatase Troponin I High Sens B-Natriuretic Peptide Total Protein Albumin Folate TSH Stool Occult Blood POSITIVE Salicylates 03/17/23 03/17/23 03/17/23 03:22 03:22 03:22 WBC RBC Hgb Hct MCV MCH MCHC RDW Plt Count MPV Immature Gran % (Auto) Neut % (Auto) Lymph % (Auto) [place] % (Auto) Eos % (Auto) Baso % (Auto) Lymph # (Auto) [place] # (Auto) Eos # (Auto) Baso # (Auto) Abs Immat Gran (auto) Absolute Neuts (auto) Absolute Nucleated RBC Nucleated RBC % (auto) Smear Path Review PT INR APTT aPTT Heparin Protocol Fibrinogen VBG pH VBG pCO2 VBG pO2 VBG HCO3 VBG O2 Saturation VBG Base Excess Sodium 141 Potassium 3.4 D Chloride 113 H Carbon Dioxide 13 L Anion Gap 18 BUN 21 H Creatinine 1.04 Estim Creat Clear Calc 49.1 Estimated GFR 52 Random Glucose 103 Lactic Acid Calcium 9.4 D Phosphorus 3.1 Magnesium 2.2 Iron 16 L TIBC 316 % Saturation 5 L Unsat Iron Binding 300 Total Bilirubin 0.4 AST 17 ALT 50 H Alkaline Phosphatase 104 Troponin I High Sens 2.9 B-Natriuretic Peptide 405 H Total Protein 6.4 L Albumin 3.9 Folate TSH 12.76 H Stool Occult Blood Salicylates 03/17/23 03/17/23 03/17/23 03:22 03:31 09:48 WBC RBC Hgb Hct MCV MCH MCHC RDW Plt Count MPV Immature Gran % (Auto) Neut % (Auto) Lymph % (Auto) [place] % (Auto) Eos % (Auto) Baso % (Auto) Lymph # (Auto) [place] # (Auto) Eos # (Auto) Baso # (Auto) Abs Immat Gran (auto) Absolute Neuts (auto) Absolute Nucleated RBC Nucleated RBC % (auto) Smear Path Review PT INR APTT 40.7 H aPTT Heparin Protocol Fibrinogen VBG pH 7.45 H VBG pCO2 22 VBG pO2 60 VBG HCO3 16 L VBG O2 Saturation 91.0 VBG Base Excess -6.1 Sodium Potassium Chloride Carbon Dioxide Anion Gap BUN Creatinine Estim Creat Clear Calc Estimated GFR Random Glucose Lactic Acid 1.2 Calcium Phosphorus Magnesium Iron TIBC % Saturation Unsat Iron Binding Total Bilirubin AST ALT Alkaline Phosphatase Troponin I High Sens B-Natriuretic Peptide Total Protein Albumin Folate TSH Stool Occult Blood Salicylates Imaging Radiologist's impression: Impressions Chest X-Ray 03/16/23 12:45 IMPRESSION: * Diminished lung volume. * Mild diffuse interstitial opacification possible mild interstitial pneumonitis or edema. * Blunting of costophrenic angles probably small pleural effusions. 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 Hemoglobin is 6.4. She is short of breath and has been complaining of some chest discomfort which is likely due to anemia. She is getting iron infusion. She is currently on dobutamine drip for bradycardia. Heart rates are in 90s. I think dobutamine can be decreased to see if she continues to get any bradycardic episodes. If in fact her heart rates are slow after cutting back on dobutamine then I think we should continue the infusion and discuss about single-chamber pacemaker placement. I have explained this to the patient. Getting iron infusion for anemia. We will follow along with you. Thank you for allowing me to participate in the care of your patient. Please feel free to contact me if you have any questions. Time Spent With Patient Time: Total time managing care of this patient today ____ minutes. Progress Note: Quality Stroke Does the patient have a stroke diagnosis?: No Procedures Date of Service Date of Service: 03/17/23
[2023-03-17] MEDS: Furosemide 20 MG/2 ML VIAL IVPUSH (11:20)
--- NOTE | 2023-03-17 12:04 | MHC.CM.PN ---
Addendum entered by Amparo Ricks 03/17/23 12:11: IMM given 03/17. Original Note: Pt admitted with increasing weakness/symptomatic bradycardia. Pt lives alone in apartment, states her daughter stays and helps her, she uses a cane. Pt states she has [facility] services. D/C plan to return home with resumption of [facility] services when medically cleared, pt states she will never go to [facility]. Pt states her daughter will transport her home. HCP on file and verified. PCP: Shravan Grant
[2023-03-17 15:01] LABS: Free T4 (Free Thyroxine) 0.87 ng/dL (0.71-1.85)
--- NOTE | 2023-03-17 17:38 | P.EN_ITS ---
Event Note Date of Service: 03/17/23 Event Note: GI Consult-Full note dictated. History via patient, [employer], and EMR. Imp: Recurrent Iron deficiency anemia with Heme + stool in a 78 yo female Anab[employer]ism on Eliquis. She reports compliance with 1 Iron supplement daily. She does not accept blood products. She does not have any pertinent GI sx nor any overt signs of GI bleeding. She denies aspirin nor NSAID usage. She underwent an upper endo and colonoscopy in 12/[address] Meyer. The upper endo was nonrevealing, including duodenal biopsies negative for celiac disease and gastric biopsies negative for H.pylori. The colonoscopy revealed multiple polyps that were removed, but there were no AVM's nor any active bleeding noted at that time. Diff dx: Chronic GI blood loss in relation to small bowel AVM's and concurrent use of Eliquis and/or other colon polyps Rec: Observe, continue with parenteral and po Iron, F/U CBC. Hematology consult regarding any alternative agents to blood products. I don't think she needs an upper endoscopy nor colonoscopy urgently at this time, and will therefore a dvance her diet. However, I did review with her the need for further evaluation as an outpatient with a small bowel video capsule study. If this is negative for any significant findings I would then recommend a follow up colonoscopy sooner, rather than later, given the multiple polyps removed in 12/2021. Given her previous history of a stroke, I would continue her Eliquis due to her Afib as long as there is no obvious evidence of bleeding or acute drops iin Hgb. I will place her on some empiric acid suppression even though there is no definitive history of UGI blood loss. D/W patient in detail. Thanks Time Spent With Patient Time: Total time managing care of this patient today ____ minutes.
[2023-03-17] MEDS: Omeprazole 20 MG CAPSULE.DR PO (18:20)
[2023-03-17] MEDS: traZODone HCL 100 MG TABLET PO (22:07)
[2023-03-17] MEDS: TiZANidine HCL 4 MG TABLET PO (22:07)
[2023-03-18] VITALS: BP 154/66; PULSE 103; RESP 16; TEMP 37.2; O2SAT 96
[2023-03-18 04:00] VITALS: BP 137/66; PULSE 80; RESP 16; TEMP 36.5; O2SAT 95
--- NOTE | 2023-03-18 05:38 | CONS_ITS ---
DATE OF SERVICE: 03/17/2023 REASON FOR CONSULTATION: Iron-deficiency anemia and heme-positive stool. HISTORY OF PRESENT ILLNESS: The patient is a 78-year-old female, who I met in December 2021 when she was admitted with anemia. She is a Religion and does not accept blood products. At that time, she underwent an upper endoscopy and colonoscopy in December [address] Meyer. The upper endoscopy did not reveal any sign of celiac disease on biopsies nor any other significant GI pathology in the upper GI tract. Gastric biopsies were negative for H. pylori. However, her colonoscopy revealed multiple and fairly large either tubular adenomas or tubulovillous adenomas, but without any sign of malignancy. There were no AVMs noted. Since that time, she does report being compliant with 1 oral iron supplement daily. She has been on Eliquis due to previous history of atrial fibrillation and cerebrovascular disease with stroke. She has been doing well from a GI standpoint. She denies any chronic heartburn, dysphagia, early satiety, nausea, no vomiting. She reports that her bowel movements have been fairly regular and without any melena nor hematochezia. She denies any chronic abdominal pain, weight loss, nor jaundice. She came to the hospital primarily for some shortness of breath and fatigue, and was found to be anemic with a hemoglobin of 6.2 and MCV of 82 compared to hemoglobin of 11.0 in October. Her presentation in 2021 had revealed a hemoglobin of 7.9. She was found to have heme-positive stool. Again, there has been no obvious GI bleeding with hematochezia nor melena. This was confirmed by her ICU nurse. The patient has received parenteral iron infusions since admission. She has been tolerating a liquid diet. She denies any known family history of colorectal cancer. MEDICATIONS: Her medications at home included amlodipine, Eliquis, iron, fluticasone furoate and vilanterol inhaler, Flonase, levothyroxine, metoprolol, rosuvastatin, tizanidine, trazodone, venlafaxine. Medications here in the hospital include fentanyl p.r.n., iron infusion, levothyroxine, potassium, venlafaxine, trazodone. PAST MEDICAL HISTORY: Anemia as above. Upper endoscopy and colonoscopy in December 2021 as above. Multiple polyps removed from the December 2021 colonoscopy with tubular adenomas and tubulovillous adenomas. The upper endoscopy was nonrevealing, including normal duodenal biopsies and gastric biopsies negative for H. pylori. She denies history of NH, diabetes, emphysema, nor asthma. She does have history of atrial fibrillation and congestive heart failure. History of stroke. She has had knee surgery. She denies any other significant surgeries. She does have anxiety and depression. Anemia as above. SOCIAL HISTORY: She is single. She denies tobacco nor alcohol. FAMILY HISTORY: Noncontributory. REVIEW OF SYSTEMS: CONSTITUTIONAL: She has been feeling weak at home. SKIN: No rash. No pruritus. CARDIAC: No chest pain. PULMONARY: She has had some shortness of breath and coughing. She denies hemoptysis. GI: As above. NEUROLOGIC: No headache or seizures. PSYCHIATRIC: As above. URINARY: No dysuria, no hematuria. PHYSICAL EXAMINATION: GENERAL: The patient is a pale, alert, pleasant female in no distress. SKIN: Warm and dry. Anicteric sclerae. NECK: Supple. CARDIAC: Normal S1 and S2. ABDOMEN: Soft, nondistended, nontender without mass. LABORATORY DATA: As above. Hemoglobin 6.2 yesterday on admission and repeat 6.4 today. MCV 80.7. Platelets 279,000. White blood cell count 11.6. PT 23.1 with INR 1.9. Sodium 141, potassium 3.4, chloride 113, CO2 13, BUN 21, creatinine 1.0. Iron is 16, iron saturation 5%. Normal LFTs except for an ALT of 50, albumin 3.9. TSH 12.76, free T4 0.87. Chest x-ray revealed diminished lung volumes, mild interstitial pneumonitis or edema, and probably small pleural effusions according to the report. IMPRESSION: From a GI standpoint, the patient does appear stable. She is not having any new, active, nor worrisome GI complaints. At least part of her anemia is related to GI blood loss given the heme-positive stool, chronic use of Eliquis, and the low iron. Based on her workup just over a year ago, I suspect her blood loss could very well be related to some small bowel source of bleeding, such as angiodysplasias. Another possibility would be that of some other colon polyps that were not removed last year due to the multiple number at the time of the exam. At this point, she appears stable and without any signs of active bleeding. I would continue with parenteral and oral iron supplementation. I will continue to follow her CBC. I would recommend Hematology consultation regarding any alternative agents to blood products. Given her clinical history, I do not think she needs an urgent upper endoscopy nor colonoscopy. I would therefore advance her diet. However, she should undergo further GI evaluation with an outpatient small bowel video capsule study sooner, rather than later. If this is negative for any significant findings, I would then recommend a followup colonoscopy after that to rule out a lower GI source of bleeding. I do not think an upper endoscopy is required given the negative findings last year and no active upper GI complaints. I would continue her Eliquis due to her high risk in relation to previous strokes and atrial fibrillation. However, if there is obvious bleeding or significant drop in hemoglobin acutely, I would then hold the Eliquis. I will start her on some empiric acid suppression, even though there is no definitive history of upper GI blood loss nor any upper GI complaints. Please advise if I can be further assistance in the hospital. Otherwise, we would plan to follow her up as an outpatient and arrange for a small bowel video capsule study and possible colonoscopy. This has been discussed with the patient. MD ANNA Vasquez/DONALD / [phone] ROCKY
[2023-03-18] MEDS: Levothyroxine Sodium 150 MCG TABLET PO (05:47)
[2023-03-18] MEDS: Omeprazole 20 MG CAPSULE.DR PO (05:47)
[2023-03-18 06:00] VITALS: BMI 28.2
[2023-03-18 06:57] LABS: MANUAL DIFF FLAG NO
[2023-03-18 07:00] LABS: Basophils Percent Auto 0.2 % (0-2); Eosinophils Absolute Auto 0.3 X10*3/uL (0.0-0.4); Eosinophils Percent Auto 3.8 % (0-4); Imm Gran Abs Auto 0.09 X10*3/uL (0.00-0.03); Imm Gran Pct Auto 1.1 % (0.0-0.4); Lymphocytes Percent Auto 12.2 % (20-40); Mean Corpuscular HGB Conc 29.1 g/dl (31.0-35.0); Mean Corpuscular Hemoglobin 23.4 pg (27.0-33.0); Mean Corpuscular Volume 80.6 fL (80.0-98.0); Mean Platelet Volume 8.8 fL (9.4-12.3); Monocytes Absolute Auto 0.6 X10*3/uL (0.1-1.2); Monocytes Percent Auto 7.1 % (2-11); NRBC Pct Auto 0.2 /100WBC (0.0-0.2); Neutrophils Absolute Auto 6.3 x10*3/uL (2.0-8.3); Neutrophils Percent Auto 75.6 % (45-73); Platelet Count 340 X10*3/uL (160-400); Red Blood Count 2.73 X10*6/uL (4.20-5.50); Red Cell Distribution Width 16.3 % (11.0-16.0); White Blood Count 8.4 X10*3/uL (4.8-10.8)
[2023-03-18 07:05] LABS: Venous Blood Gas Refer to POC result
[2023-03-18 07:08] LABS: VBG Base Excess -2.2 mmol/L; VBG HCO3 20 mmol/L (22-26); VBG pCO2 27 mmHg; VBG pH 7.47 (7.32-7.43); VBG pO2 188 mmHg
[2023-03-18 07:11] LABS: Hemoglobin 6.4 g/dl (12.0-16.0)
[2023-03-18 07:28] LABS: Albumin Level 3.7 g/dL (3.5-5.0); Anion Gap 13 (12-20); Blood Urea Nitrogen 13 mg/dL (9-16); Calcium 9.2 mg/dL (8.4-10.2); Carbon Dioxide 21 mmol/L (22-29); Chloride 114 mmol/L (96-108); Creatinine Clr Calc Pharmacy 51.3; Estimated Glomerular Filt Rate 55; Glucose Random 89 mg/dL (60-115); Phosphorus 2.6 mg/dL (2.7-4.5); Potassium 3.5 mmol/L (3.3-5.1); Sodium 144 mmol/L (135-145)
[2023-03-18 07:30] VITALS: BP 151/73; PULSE 72; RESP 16; TEMP 36.8; O2SAT 95
[2023-03-18] MEDS: Venlafaxine HCl ER 150 MG CAP.ER.24H PO (09:54)
[2023-03-18] MEDS: Iron Sucrose Complex 200 MG in 0.9 % Sodium Chloride 100 ML 440 MG IV (09:54)
[2023-03-18] MEDS: Apixaban 5 MG TABLET PO ×2 (09:57→21:24)
--- NOTE | 2023-03-18 10:22 | MHC.CM.PN ---
Addendum entered by Anny Tovar RN 03/18/23 11:29: CM received call back from a Isiah from [employer] who reports Kevin Ayala is unavailable today, Isiah provided w/pt cell and room phone number, cm verified room phone plugged in and pt on phone w/Isiah when cm left room. Original Note: Cm recieved message from pt to meet w/her d/t needing her orthodoxy person, cm met w/pt at bedside and pt requesting cm contact [employer] [facility] [place] to discuss her cardiac issues and specifically the possibility of a pacemaker, cm attmepted to contact [employer] [facility] [place] [phone] however there was no answer and no voicemail, cm also attempted to contact pt's [facility] Kevin Ayala at 10:21am [phone], detailed message left w/cm contact info and request for return call. Cm will attmept alternate HCP if no response by 12pm.
[2023-03-18 11:17] VITALS: BP 135/79; PULSE 106; RESP 16; TEMP 37.2; O2SAT 94
--- NOTE | 2023-03-18 11:48 | P.PNIM_ITS ---
Subjective Subjective Date of Service: 03/18/23 Interval History: nausea Physical Exam Vital Signs: Vital Signs: Last Vital Signs Temp 98.9 F 03/18/23 11:17 Pulse 106 H 03/18/23 11:17 Resp 16 03/18/23 11:17 BP 135/79 03/18/23 11:17 Pulse Ox 94 03/18/23 11:17 O2 Del Method Room Air 03/18/23 11:17 BMI result Body Mass Index 28.2 GENERAL APPEARANCE: in no acute distress. NECK: no carotid bruit, no jugular venous distention. SKIN: no suspicious lesions, warm and dry. HEART: no murmurs, irregular rate and rhythm. LUNGS: clear to auscultation bilaterally. ABDOMEN: soft, nontender. EXTREMITIES: no edema. PERIPHERAL PULSES: equal. NEUROLOGIC: No gross deficits, AAO X 3 Objective Data Active Medications Apixaban (Apixaban 5 Mg Tablet) 5 mg PO BID [facility] Last Admin: 03/18/23 09:57 Dose: 5 mg Documented By: DINORAH Fentanyl (Fentanyl Citrate/Pf 100 Mcg/2 Ml Vial) 25 mcg IVPUSH Q3H PRN; Protocol PRN Reason: Pain, Severe (Pain Scale 7-10) Last Admin: 03/17/23 10:20 Dose: 25 mcg Documented By: NATALI Iron Sucrose 200 mg/ Sodium (Chloride) 110 mls @ 440 mls/hr IV DAILY [facility] Stop: 03/22/23 09:29 Last Infusion: 03/18/23 10:10 Dose: 0 mls/hr Documented By: DINORAH Levothyroxine Sodium (Levothyroxine Sodium 150 Mcg Tablet) 150 mcg PO RICARDO Y@0600 [facility] Last Admin: 03/18/23 05:47 Dose: 150 mcg Documented By: GWEN Nitroglycerin (Nitroglycerin 0.4 Mg Tab.Subl) 0.4 mg SUBLINGUAL Q5MX3 PRN PRN Reason: Chest Pain Last Admin: 03/17/23 06:25 Dose: 0.4 mg Documented By: KHOA Omeprazole (Omeprazole 20 Mg Capsule.) 20 mg PO DAILY@0630 [facility] Last Admin: 03/18/23 05:47 Dose: 20 mg Documented By: GWEN Ondansetron HCl (Ondansetron Hcl 4 Mg/2 Ml Vial) 4 mg IVPUSH Q6H PRN PRN Reason: Nausea Tizanidine HCl (Tizanidine Hcl 4 Mg Tablet) 4 mg PO BEDTIME [facility] Last Admin: 03/17/23 22:07 Dose: 4 mg Documented By: GENE Trazodone HCl (Trazodone Hcl 100 Mg Tablet) 100 mg PO BEDTIME [facility] Last Admin: 03/17/23 22:07 Dose: 100 mg Documented By: GENE Venlafaxine HCl (Venlafaxine Hcl Er 150 Mg Cap.Er.24h) 150 mg PO DAILY [facility] Last Admin: 03/18/23 09:54 Dose: 150 mg Documented By: DINORAH Labs 03/18/23 06:53 03/18/23 06:53 Labs: Laboratory Results - last 24 hr 03/17/23 03/18/23 03/18/23 03:22 06:53 06:53 MCV 80.6 MCH 23.4 L MCHC 29.1 L RDW 16.3 H Plt Count 340 MPV 8.8 L Immature Gran % (Auto) 1.1 H Neut % (Auto) 75.6 H Lymph % (Auto) 12.2 L [place] % (Auto) 7.1 Eos % (Auto) 3.8 Baso % (Auto) 0.2 Lymph # (Auto) 1.0 L [place] # (Auto) 0.6 Eos # (Auto) 0.3 Baso # (Auto) 0.0 Abs Immat Gran (auto) 0.09 H Absolute Neuts (auto) 6.3 Absolute Nucleated RBC 0.020 H Nucleated RBC % (auto) 0.2 VBG pH VBG pCO2 VBG pO2 VBG HCO3 VBG O2 Saturation VBG Base Excess Anion Gap 13 Estim Creat Clear Calc 51.3 Estimated GFR 55 Random Glucose 89 Calcium 9.2 Phosphorus 2.6 L Magnesium 2.0 Albumin 3.7 Free T4 0.87 03/18/23 06:58 MCV MCH MCHC RDW Plt Count MPV Immature Gran % (Auto) Neut % (Auto) Lymph % (Auto) [place] % (Auto) Eos % (Auto) Baso % (Auto) Lymph # (Auto) [place] # (Auto) Eos # (Auto) Baso # (Auto) Abs Immat Gran (auto) Absolute Neuts (auto) Absolute Nucleated RBC Nucleated RBC % (auto) VBG pH 7.47 H VBG pCO2 27 VBG pO2 188 VBG HCO3 20 L VBG O2 Saturation 99.0 VBG Base Excess -2.2 Anion Gap Estim Creat Clear Calc Estimated GFR Random Glucose Calcium Phosphorus Magnesium Albumin Free T4 Microbiology Microbiology Results: Microbiology 03/16/23 13:13 Blood Culture - Preliminary Blood - Venous No growth after 24 hours. 03/16/23 13:17 Blood Culture - Preliminary Blood - Venous No growth after 24 hours. Assessment and Plan (1) NERY (acute kidney injury): Status: Acute Plan 78F [employer], history of multiple CVAs, permanent afib on eliquis, chronic diastolic chf, hypothyroid, presented with weakness, admitted to ICU for severe bradycardia and hgb 6.2, given dobutamine, metoprolol held. weaned off dobutamine and downgraded to medical floor. symptomatic severe bradycardia resolved after holding metoprolol cardio following nery resolved hypothyroid tsh 12, noraml t4, synthroid increased to 150mcg from 125mcg, repeat tsh in 4 weeks anemia acute iron defeciency patient declines transfusions received iv iron hematology eval gi appreciated - eventual colonoscopy and capsule, ppi, monitor history of cvas, permanent afib eliquis restarted as pateint high risk for further strokes chronic diastolic chf euvolemic dvt prophylaxis - eliquis DNR reason for continued hospitalization: monitoring heart rate, tolerance of AC Time Spent With Patient Time: Total time managing care of this patient today ____ minutes. Quality Stroke Does the patient have a stroke diagnosis?: No VTE Prior VTE?: No VTE Risk Level:: Medical - moderate - high VTE Device Contraindication: N/A - Device Ordered VTE Drug Contraindication: Treatment Not Tolerated
[2023-03-18] MEDS: ondansetron HCL 4 MG/2 ML VIAL IVPUSH (11:52)
--- NOTE | 2023-03-18 13:57 | P.PNCA_ITS ---
Subjective Subjective Date of Service: 03/18/23 Interval history: Seen and examined at bedside. She has been downgraded to [facility] care from ICU. She is denying any chest discomfort. Breathing is stable. Continues to be in atrial fibrillation but heart rates are faster today. Physical Exam Vital Signs: Last Vital Signs Temp 98.9 F 03/18/23 11:17 Pulse 106 H 03/18/23 11:17 Resp 16 03/18/23 11:17 BP 135/79 03/18/23 11:17 Pulse Ox 94 03/18/23 11:17 O2 Del Method Room Air 03/18/23 11:17 BMI result Body Mass Index 28.2 GENERAL APPEARANCE: in no acute distress. NECK: no carotid bruit, no jugular venous distention. SKIN: no suspicious lesions, warm and dry. HEART: no murmurs, irregular rate and rhythm. LUNGS: clear to auscultation bilaterally. ABDOMEN: soft, nontender. EXTREMITIES: no edema. PERIPHERAL PULSES: equal. NEUROLOGIC: No gross deficits, AAO X 3 Objective Labs and Meds 03/18/23 06:53 03/18/23 06:53 Lab results: Laboratory Results - last 24 hr 03/17/23 03/18/23 03/18/23 03:22 06:53 06:53 WBC 8.4 RBC 2.73 L Hgb 6.4 L* Hct 22.0 L MCV 80.6 MCH 23.4 L MCHC 29.1 L RDW 16.3 H Plt Count 340 MPV 8.8 L Immature Gran % (Auto) 1.1 H Neut % (Auto) 75.6 H Lymph % (Auto) 12.2 L [place] % (Auto) 7.1 Eos % (Auto) 3.8 Baso % (Auto) 0.2 Lymph # (Auto) 1.0 L [place] # (Auto) 0.6 Eos # (Auto) 0.3 Baso # (Auto) 0.0 Abs Immat Gran (auto) 0.09 H Absolute Neuts (auto) 6.3 Absolute Nucleated RBC 0.020 H Nucleated RBC % (auto) 0.2 VBG pH VBG pCO2 VBG pO2 VBG HCO3 VBG O2 Saturation VBG Base Excess Sodium 144 Potassium 3.5 Chloride 114 H Carbon Dioxide 21 L Anion Gap 13 BUN 13 Creatinine 0.99 Estim Creat Clear Calc 51.3 Estimated GFR 55 Random Glucose 89 Calcium 9.2 Phosphorus 2.6 L Magnesium 2.0 Albumin 3.7 Free T4 0.87 03/18/23 06:58 WBC RBC Hgb Hct MCV MCH MCHC RDW Plt Count MPV Immature Gran % (Auto) Neut % (Auto) Lymph % (Auto) [place] % (Auto) Eos % (Auto) Baso % (Auto) Lymph # (Auto) [place] # (Auto) Eos # (Auto) Baso # (Auto) Abs Immat Gran (auto) Absolute Neuts (auto) Absolute Nucleated RBC Nucleated RBC % (auto) VBG pH 7.47 H VBG pCO2 27 VBG pO2 188 VBG HCO3 20 L VBG O2 Saturation 99.0 VBG Base Excess -2.2 Sodium Potassium Chloride Carbon Dioxide Anion Gap BUN Creatinine Estim Creat Clear Calc Estimated GFR Random Glucose Calcium Phosphorus Magnesium Albumin Free T4 Progress Note: A&P Assessment and plan (1) Atrial fibrillation with slow ventricular response: Status: Acute (2) Anemia: Status: Acute Plan 78-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 She was on dobutamine in the ICU. She has been taken off dobutamine at this stage and heart rate continues to be well maintained at mostly above 100s. She is asymptomatic. Denying any chest discomfort or shortness of breath. She continues to be significantly anemic but due to her wishes she has not been transfused. She was given iron infusions and hopefully the hemoglobin is start rising. Anticoagulation has been held. Going forward she may need discussion about Watchman device. She does not need pacemaker currently. We will follow along with you. Thank you for allowing me to participate in the care of your patient. Please feel free to contact me if you have any questions. Time Spent With Patient Time: Total time managing care of this patient today ____ minutes. Progress Note: Quality Stroke Does the patient have a stroke diagnosis?: No Procedures Date of Service Date of Service: 03/18/23
[2023-03-18 15:09] VITALS: BP 156/74; PULSE 98; RESP 20; TEMP 36.9; O2SAT 94
[2023-03-18] MEDS: diphenhydrAMINE HCL 50 MG/ML VIAL 25 MG IVPUSH (17:23)
[2023-03-18 19:11] VITALS: BP 137/63; PULSE 88; RESP 20; TEMP 36.7; O2SAT 94
[2023-03-18] MEDS: TiZANidine HCL 4 MG TABLET PO (21:24)
[2023-03-18] MEDS: traZODone HCL 100 MG TABLET PO (21:24)
[2023-03-19] VITALS (8 sets, daily range): BP systolic 130–158; BP diastolic 63–84; PULSE 69–120; RESP 18–24; TEMP 36.2–37; O2SAT 88–98; BMI 27.0
[2023-03-19 06:17] LABS: Mean Corpuscular HGB Conc 28.4 g/dl (31.0-35.0); Mean Corpuscular Hemoglobin 23.4 pg (27.0-33.0); Mean Corpuscular Volume 82.3 fL (80.0-98.0); NRBC Pct Auto 0.4 /100WBC (0.0-0.2); Platelet Count 333 X10*3/uL (160-400); Red Blood Count 2.48 X10*6/uL (4.20-5.50); Red Cell Distribution Width 16.4 % (11.0-16.0)
[2023-03-19 06:35] LABS: Anion Gap 12 (12-20); Blood Urea Nitrogen 14 mg/dL (9-16); Calcium 9.8 mg/dL (8.4-10.2); Carbon Dioxide 24 mmol/L (22-29); Chloride 114 mmol/L (96-108); Creatinine Clr Calc Pharmacy 36.9; Estimated Glomerular Filt Rate 38; Glucose Fasting 133 mg/dL (60-99); Potassium 3.6 mmol/L (3.3-5.1); Sodium 146 mmol/L (135-145)
[2023-03-19 07:10] LABS: Hematocrit 20.4 % (37.0-47.0); Hemoglobin 5.8 g/dl (12.0-16.0)
[2023-03-19] MEDS: Levothyroxine Sodium 150 MCG TABLET PO (09:05)
[2023-03-19] MEDS: Ferrous Sulfate 324 MG TABLET.DR PO ×2 (09:05→16:32)
[2023-03-19] MEDS: Venlafaxine HCl ER 150 MG CAP.ER.24H PO (09:05)
[2023-03-19] MEDS: Iron Sucrose Complex 200 MG in 0.9 % Sodium Chloride 100 ML 440 MG IV (09:05)
[2023-03-19] MEDS: Apixaban 5 MG TABLET PO (09:05)
--- NOTE | 2023-03-19 12:17 | HO.PM.IMPN ---
Subjective Subjective Date of Service: 03/19/23 Interval History: Seen and evaluated this morning Feeling cold Hb dropped to 5.8 No reported bleeding Elevated sodium level Review of Systems Review of Systems: Yes all other systems are reviewed and are negative Physical Exam Vital Signs: Vital Signs: Last Vital Signs Temp 97.1 F 03/19/23 11:29 Pulse 80 03/19/23 11:29 Resp 20 03/19/23 11:29 BP 140/64 H 03/19/23 11:29 Pulse Ox 97 03/19/23 11:29 O2 Del Method Nasal Cannula 03/19/23 11:29 O2 Flow Rate 2 03/19/23 11:29 BMI result Body Mass Index 27.0 Const: Other: Constitutional : Awake, interactive, not in distress Neck : Normal inspection, Supple Cardiovascular : irregular irregular, no JVP, no lower extremity edema Respiratory : good bilateral air entry, no crackles, wheezes or rhonchi Gastrointestinal: soft, lax, Normal bowel sounds, Non tender Skin : Warm, Dry Neurological : Alert & oriented x3, No focal deficit Objective Data Active Medications Apixaban (Apixaban 5 Mg Tablet) 5 mg PO BID [facility] Last Admin: 03/19/23 09:05 Dose: 5 mg Documented By: JESSI Fentanyl (Fentanyl Citrate/Pf 100 Mcg/2 Ml Vial) 25 mcg IVPUSH Q3H PRN; Protocol PRN Reason: Pain, Severe (Pain Scale 7-10) Last Admin: 03/17/23 10:20 Dose: 25 mcg Documented By: NATALI Ferrous Sulfate (Ferrous Sulfate 324 Mg Tablet.) 324 mg PO BIDWM [facility] Last Admin: 03/19/23 09:05 Dose: 324 mg Documented By: JESSI Iron Sucrose 200 mg/ Sodium (Chloride) 110 mls @ 440 mls/hr IV DAILY [facility] Stop: 03/22/23 09:29 Last Infusion: 03/19/23 09:21 Dose: 0 mls/hr Documented By: JESSI Levothyroxine Sodium (Levothyroxine Sodium 150 Mcg Tablet) 150 mcg PO DAILY@0600 [facility] Last Admin: 03/19/23 09:05 Dose: 150 mcg Documented By: JESSI Nitroglycerin (Nitroglycerin 0.4 Mg Tab.Subl) 0.4 mg SUBLINGUAL Q5MX3 PRN PRN Reason: Chest Pain Last Admin: 03/17/23 06:25 Dose: 0.4 mg Documented By: KHOA Omeprazole (Omeprazole 20 Mg Capsule.Dr) 20 mg PO BID@0630,1630 [facility] Ondansetron HCl (Ondansetron Hcl 4 Mg/2 Ml Vial) 4 mg IVPUSH Q6H PRN PRN Reason: Nausea Last Admin: 03/18/23 11:52 Dose: 4 mg Documented By: DINORAH Tizanidine HCl (Tizanidine Hcl 4 Mg Tablet) 4 mg PO BEDTIME [facility] Last Admin: 03/18/23 21:24 Dose: 4 mg Documented By: GENE Trazodone HCl (Trazodone Hcl 100 Mg Tablet) 100 mg PO BEDTIME [facility] Last Admin: 03/18/23 21:24 Dose: 100 mg Documented By: GENE Venlafaxine HCl (Venlafaxine Hcl Er 150 Mg Cap.Er.24h) 150 mg PO DAILY [facility] Last Admin: 03/19/23 09:05 Dose: 150 mg Documented By: MARCIAA Labs 03/19/23 05:48 03/19/23 05:48 Labs: Laboratory Results - last 24 hr 03/19/23 03/19/23 05:48 05:48 MCV 82.3 MCH 23.4 L MCHC 28.4 L RDW 16.4 H Plt Count 333 MPV 9.0 L Absolute Nucleated RBC 0.040 H Nucleated RBC % (auto) 0.4 H Anion Gap 12 Estim Creat Clear Calc 36.9 Estimated GFR 38 Fasting Glucose 133 H Calcium 9.8 D Microbiology Microbiology Results: Microbiology 03/16/23 13:13 Blood Culture - Preliminary Blood - Venous No growth after 48 hours. 03/16/23 13:17 Blood Culture - Preliminary Blood - Venous No growth after 48 hours. Assessment and Plan (1) Symptomatic bradycardia: Status: Acute (2) Symptomatic anemia: Status: Acute (3) Acute hypernatremia: Status: Acute Plan 78F Jehovahs witness, history of multiple CVAs, permanent afib on eliquis, chronic diastolic chf, hypothyroid, presented with weakness, admitted to ICU for severe bradycardia and hgb 6.2, given dobutamine, metoprolol held. weaned off dobutamine and downgraded to medical floor. Iron def. anemia, acute on chronic Worsening Hb to 5.8 Hold Eliquis patient declines transfusions continue PO & iv iron pending hematology eval gi appreciated - no urgent need for inpatient eval. eventual colonoscopy and capsule, ppi, monitor symptomatic severe bradycardia resolved after holding metoprolol cardio following farhan resolved Hypernatremia Na of 146 follow BMP hypothyroid tsh 12, noraml t4, synthroid increased to 150mcg from 125mcg, repeat tsh in 4 weeks history of cvas, permanent afib eliquis restarted as patient high risk for further strokes chronic diastolic chf euvolemic dvt prophylaxis SCDs DNR reason for continued hospitalization: monitoring heart rate, tolerance of AC Time Spent With Patient Time: Total time managing care of this patient today ____ minutes. Quality Stroke Does the patient have a stroke diagnosis?: No VTE Prior VTE?: No VTE Risk Level:: Medical - moderate - high VTE Device Contraindication: N/A - Device Ordered VTE Drug Contraindication: Treatment Not Tolerated
--- NOTE | 2023-03-19 12:25 | MHC.CM.PN ---
EMR REVIEWED, CM RECEIVED CALL FROM [facility] REQUESTING UPDATE FOR CASE CONFERENCE, PT H&H LOW HOWEVER PT IS A JEHOVAHS WITNESS AND DECLINING BLOOD TRANSFUSION, PT RECIEVING IV IRON, CM AWAITING PLAN FROM HOSPITALIST FOR DISPO, CM WILL CONT TO FOLLOW D/C NEEDS.
[2023-03-19] MEDS: diphenhydrAMINE HCL 50 MG/ML VIAL 25 MG IVPUSH (13:41)
[2023-03-19 15:11] LABS: Mean Corpuscular HGB Conc 28.2 g/dl (31.0-35.0); Mean Corpuscular Hemoglobin 23.5 pg (27.0-33.0); Mean Corpuscular Volume 83.3 fL (80.0-98.0); Mean Platelet Volume 8.8 fL (9.4-12.3); NRBC Pct Auto 0.3 /100WBC (0.0-0.2); Platelet Count 340 X10*3/uL (160-400); Red Blood Count 2.64 X10*6/uL (4.20-5.50); Red Cell Distribution Width 16.5 % (11.0-16.0); White Blood Count 10.9 X10*3/uL (4.8-10.8)
[2023-03-19 15:43] LABS: Anion Gap 12 (12-20); Blood Urea Nitrogen 13 mg/dL (9-16); Calcium 9.9 mg/dL (8.4-10.2); Carbon Dioxide 24 mmol/L (22-29); Chloride 113 mmol/L (96-108); Creatinine Clr Calc Pharmacy 45.3; Estimated Glomerular Filt Rate 48; Glucose Random 137 mg/dL (60-115); Potassium 3.7 mmol/L (3.3-5.1); Sodium 145 mmol/L (135-145)
[2023-03-19 15:50] LABS: Hemoglobin 6.2 g/dl (12.0-16.0)
[2023-03-19] MEDS: Omeprazole 20 MG CAPSULE.DR PO (16:32)
[2023-03-19] MEDS: TiZANidine HCL 4 MG TABLET PO (21:19)
[2023-03-19] MEDS: traZODone HCL 100 MG TABLET PO (21:19)
[2023-03-20 04:00] VITALS: BP 147/78; PULSE 78; RESP 18; TEMP 36.7; O2SAT 97
[2023-03-20 06:00] VITALS: BMI 27.4
[2023-03-20] MEDS: Levothyroxine Sodium 150 MCG TABLET PO (06:29)
[2023-03-20] MEDS: Omeprazole 20 MG CAPSULE.DR PO ×2 (06:29→16:58)
--- NOTE | 2023-03-20 06:31 | PC.NURSE ---
Day shift RN removed mathis catheter at 1700. Pt bladder scanned at due to void time of 0100 for 310ml. Rescanned at 0445 for 359ml. Pt (fully oriented) refused to get OOB or attempt to void. Pt refused again at 0630, fell instantly asleep after PO meds. aware, repeat bladder scan later in am.
[2023-03-20 07:26] VITALS: BP 138/65; PULSE 75; RESP 16; TEMP 36.5; O2SAT 97
[2023-03-20 07:35] LABS: Mean Corpuscular HGB Conc 28.2 g/dl (31.0-35.0); Mean Corpuscular Hemoglobin 23.7 pg (27.0-33.0); Mean Corpuscular Volume 83.9 fL (80.0-98.0); Mean Platelet Volume 9.1 fL (9.4-12.3); Platelet Count 321 X10*3/uL (160-400); Red Blood Count 2.49 X10*6/uL (4.20-5.50); White Blood Count 9.4 X10*3/uL (4.8-10.8)
[2023-03-20 07:46] LABS: Hemoglobin 5.9 g/dl (12.0-16.0)
[2023-03-20 07:47] LABS: Hematocrit 20.9 % (37.0-47.0)
[2023-03-20 07:56] LABS: Anion Gap 11 (12-20); Blood Urea Nitrogen 14 mg/dL (9-16); Carbon Dioxide 25 mmol/L (22-29); Chloride 112 mmol/L (96-108); Creatinine Clr Calc Pharmacy 46.4; Estimated Glomerular Filt Rate 49; Glucose Random 101 mg/dL (60-115); Potassium 3.8 mmol/L (3.3-5.1); Sodium 144 mmol/L (135-145)
--- NOTE | 2023-03-20 08:10 | PM.HEMONCCN ---
Subjective - Subjective Chief complaint: Consult for: Significant anemia. Orthodoxy. Patient: new to practice Consult date: 03/20/23 Requesting Physician: Felix. Primary Care Provider: Shravan Grant MD Medical Summary: DIAGNOSIS: Symptomatic anemia. Mosque. HPI - Consult Narrative Reason for consult: Consult for: Anemia in a Mosque. Narrative: Sharon Lara is a 78 year old lady who is a Mosque with anemia which is acute on chronic. She tells me that lately she has noticed easy fatigability. She has been feeling short of breath. She was having a difficult time getting out of bed. Hemoglobin: 6. Here she was found to be bradycardic with a narrow QRS but rate of approximately 25-35 appearing to be slow atrial fibrillation which is a chronic and persistent rhythm. She has had a CVA for which she is on 5 mg of Eliquis. DATABASE: On presentation she had an elevated PT INR and PTT. History of hypothyroidism, TSH is currently at 20 so noncompliant or just simply an insufficient dose. I do believe myxedema is playing a role as well as the metoprolol contributing to overall symptomatic bradycardia. ABGs: primary respiratory alkalosis but in addition we have a metabolic acidosis as well as a acute on chronic stage III renal failure. The Labs: Iron deficiency. Stool guaiac: positive. ?malabsorption issue or just a hypo nutritional problem. Lungs with diminished bilateral breath sounds. Chest x-ray: * Diminished lung volume. * Mild diffuse interstitial opacification possible mild interstitial pneumonitis or edema. * Blunting of costophrenic angles probably small pleural effusions. Bedside echo the IVC is greater than 2 cm [facility] Medical History: Anemia Anxiety and depression Chronic anemia Chronic kidney disease Fever of unknown origin Hypertension Major depression, recurrent Stroke Surgical History: History of knee surgery Family History: Father due to Tuberculosis Mother No problems noted. Other Substance use disorder Social History: She did or jobs. Most recently she was working at a [employer]. She is not . She has 2 children. Household Members: None Housing: Apartment. Denies smoking. Denies alcohol. ROS: She has been feeling extremely fatigued lately. Denies fever chills no night sweats. Appetite has not been good. She has lost weight. She has had headaches. Denies dizziness. She denies chest pain. She has been short of breath. She has had nausea and vomiting. Has heartburn indigestion. Denies gross blood in the stools. However she did have guaiac-positive stools. No dysuria or hematuria. She has aches and pains related to old age. Denies any focal weakness. She has depression. She has a skin rash over her neck. Review of Systems - Constitutional Reports system reviewed and no additional complaints, except as documented, Reports anorexia, Reports fatigue, Reports headache(s), Reports lack of energy, Reports malaise, Reports weakness, Denies fever(s) - Eyes Reports system reviewed and no additional complaints, except as documented, Reports blurry vision - ENT Reports system reviewed and no additional complaints, except as documented - Cardiovascular Reports system reviewed and no additional complaints, except as documented, Denies chest pain - Respiratory Reports no additional respiratory complaints, Denies cough - Gastrointestinal Reports system reviewed and no additional complaints, except as documented, Denies abdominal pain, Denies nausea, Denies pain with swallowing - Genitourinary Reports no additional female genitourinary complaints, Reports absent period - Musculoskeletal Reports system reviewed and no additional complaints, except as documented - Integumentary/Breasts Skin/Breast: Reports no additional skin complaints - Neurologic Reports system reviewed and no additional complaints, except as documented - Psychiatric Reports system reviewed and no additional complaints, except as documented, Reports anxiety - Endocrine Reports no additional endocrine complaints, Reports cold intolerance - Hematologic/Lymphatic Reports system reviewed and no additional complaints, except as documented, Reports easy bruising - Allergic/Immunologic Reports system reviewed and no additional complaints, except as documented Oncology Screenings - ECOG Performance Status ECOG Performance Status: 1 [facility] Medical History: Medical History (Last Reviewed 03/19/23 @ 13:19 by Purvi Steele, PT) Anemia Anxiety and depression Chronic anemia Chronic kidney disease Fever of unknown origin Hypertension Major depression, recurrent Stroke Functional capacity: uses cane/walker Patient : No Family History: Family History (Last Reviewed 03/16/23 @ 12:11 by Krishna Paulino MD) Father Tuberculosis Mother No problems noted. Other Substance use disorder Surgical History: Surgical History (Last Reviewed 03/19/23 @ 13:19 by Purvi Steele, PT) History of knee surgery Social History: Social History (Last Reviewed 03/16/23 @ 12:11 by Krishna Paulino MD) Living Situation History: Household Members: Children Housing: Apartment Do you presently have visiting nurse or other home services: No Tobacco History: Patient Tobacco Use Status: Former Tobacco user Tobacco use type: Cigarette Years Smoked: 10 years e-Cigarette/Vaping Use: Never Used Second Hand Smoke Exposure: No Advance Directives: Advance Directives Date on File: 12/21/21 Occupation Assessmet: service: No Current occupational status: retired Home Medications and Allergies Current Medications: Current Medications Diphenhydramine HCl (Diphenhydramine Hcl 50 Mg/Ml Vial) 25 mg IVPUSH Q6H PRN PRN Reason: Itching Last Admin: 03/19/23 13:41 Dose: 25 mg Fentanyl (Fentanyl Citrate/Pf 100 Mcg/2 Ml Vial) 25 mcg IVPUSH Q3H PRN; Protocol PRN Reason: Pain, Severe (Pain Scale 7-10) Last Admin: 03/17/23 10:20 Dose: 25 mcg Ferrous Sulfate (Ferrous Sulfate 324 Mg Tablet.) 324 mg PO BIDWM [facility] Last Admin: 03/19/23 16:32 Dose: 324 mg Iron Sucrose 200 mg/ Sodium (Chloride) 110 mls @ 440 mls/hr IV DAILY [facility] Stop: 03/22/23 09:29 Last Infusion: 03/19/23 09:21 Dose: Infused Levothyroxine Sodium (Levothyroxine Sodium 150 Mcg Tablet) 150 mcg PO DAILY@0600 [facility] Last Admin: 03/20/23 06:29 Dose: 150 mcg Nitroglycerin (Nitroglycerin 0.4 Mg Tab.Subl) 0.4 mg SUBLINGUAL Q5MX3 PRN PRN Reason: Chest Pain Last Admin: 03/17/23 06:25 Dose: 0.4 mg Omeprazole (Omeprazole 20 Mg Capsule.) 20 mg PO BID@0630,1630 [facility] Last Admin: 03/20/23 06:29 Dose: 20 mg Ondansetron HCl (Ondansetron Hcl 4 Mg/2 Ml Vial) 4 mg IVPUSH Q6H PRN PRN Reason: Nausea Last Admin: 03/18/23 11:52 Dose: 4 mg Tizanidine HCl (Tizanidine Hcl 4 Mg Tablet) 4 mg PO BEDTIME [facility] Last Admin: 03/19/23 21:19 Dose: 4 mg Trazodone HCl (Trazodone Hcl 100 Mg Tablet) 100 mg PO BEDTIME [facility] Last Admin: 03/19/23 21:19 Dose: 100 mg Venlafaxine HCl (Venlafaxine Hcl Er 150 Mg Cap.Er.24h) 150 mg PO DAILY [facility] Last Admin: 03/19/23 09:05 Dose: 150 mg Home Medications Medication Instructions Recorded Confirmed Type tizanidine 4 mg capsule 4 mg PO DAILY 03/16/23 03/16/23 History tizanidine 6 mg capsule 6 mg PO BEDTIME 03/16/23 03/16/23 History trazodone 150 mg tablet 150 mg PO BEDTIME 03/16/23 03/16/23 History Allergies Allergy/AdvReac Type Severity Reaction Status Date / Time latex [Latex] Allergy Mild UNKNOWN Verified 02/19/23 12:28 morphine [Morphine] Allergy Mild VOMITING Verified 02/19/23 12:28 penicillin G Allergy Unknown Rash Verified 02/19/23 12:28 codeine [Codeine] AdvReac Mild VOMITING Verified 02/19/23 12:28 procaine [From Novocain] AdvReac Mild VOMITING Verified 02/19/23 12:28 Physical Exam Vital signs: Vital Signs Temp 97.7 F 03/20/23 07:26 Pulse 75 03/20/23 07:26 Resp 16 03/20/23 07:26 BP 138/65 03/20/23 07:26 Pulse Ox 97 03/20/23 07:26 O2 Del Method Nasal Cannula 03/20/23 07:26 O2 Flow Rate 2 03/20/23 07:26 Intake & Output 03/19/23 03/20/23 03/20/23 18:59 06:59 18:59 Intake Total 730 / 970 240 / 970 Output Total 200 / 200 0 / 200 Balance 530 / 770 240 / 770 Urine Output (Average ml/kg/hr) 0.22 0.00 Intake: Intake, Oral Amount 620 / 860 240 / 860 Intake, IV Amount 110 / 110 Iron Sucrose Complex 200 mg In 110 / 110 0.9 % Sodium Chloride 100 ml @ 440 mls/hr IV DAILY [facility] Rx#: [id number] Output: Output, Urine Amount 200 / 200 0 / 200 Other: Breakfast % Eaten 0% Lunch % Eaten 0% Urine mathis Urine Color Yellow Weight 77 kg Weight in Grams [id number] Weight 77 kg - Constitutional Present: mild distress - Routine HEENT Exam Head: Present: normal inspection, normocephalic Eye: Present: normal appearance ENT: Present: normal exam - Routine Neck Exam Present: supple - Routine Respiratory Exam Present: CTAB - Routine Cardiovascular Exam Cardiovascular: Present: RRR, S1, S2 - Routine Abdominal Exam Present: normal bowel sounds, nontender - Routine Extremities Exam Present: nontender - Routine Skin Exam Present: intact - Routine Neurological Exam Present: oriented X3 - Detailed Neurological Exam: Coma Scale Eye Opening: Spontaneous (4) Hem/Onc Consult Result - Labs CBC & Chem 7: 03/21/23 06:46 03/20/23 07:08 Labs: Short CBC 03/19/23 03/20/23 Range/Units 14:56 07:08 WBC 10.9 H 9.4 (4.8-10.8) X10*3/uL Hgb 6.2 L* 5.9 L* (12.0-16.0) g/dl Hct 22.0 L 20.9 L* (37.0-47.0) % Plt Count 340 321 (160-400) X10*3/uL BMP 03/19/23 03/20/23 14:56 07:08 Sodium 145 144 Potassium 3.7 3.8 Chloride 113 H 112 H Carbon Dioxide 24 25 BUN 13 14 Creatinine 1.10 1.08 Calcium 9.9 10.0 Assessment and Plan Patient Active problem list reviewed?: Yes (1) Anemia Status: Acute Assessment and plan: This is a pleasant 78-year-old lady who is a Mosque. She presents with normochromic normocytic anemia. DIFFERENTIAL DIAGNOSIS: 1. IRON DEFICIENCY ANEMIA: This is most likely. She has been on Eliquis. Stool for guaiac is positive. 2. B12/FOLATE DEFICIENCY: She has had a low B12 level in the past. 3. ANEMIA OF CHRONIC DISEASE: Possibility, related to CKD. 4. HEMOLYTIC ANEMIA: Is in the differential. 5. UNDERLYING MYELO INFILTRATIVE DISORDER: MDS versus lymphoma versus myeloma. Less likely. PLAN: Will proceed with further evaluation. Check iron studies and ferritin level: 16/316/5/240. Check B12 and folate levels: >2000, folate: 3.4. Check a hemolytic screen. Retic: 4.4. Check SIEP. Patient has been started on IV iron. Will start her on B12 and folate replacement therapy, pending results. Procrit has been shown to be effective for patients with anemia in this setting. [place] with [id number] units Friday. Hopefully the GI bleed will be self-limited, and she will recover. Thank you for the consult, CC: Addendum: Patient's hemoglobin improved to 6.5. She was sent home on oral iron replacement. Hopefully GI bleeding will resolve now that she is off the Eliquis. She will be followed as an outpatient. - Time Spent With Patient Time Spent with Patient (in minutes): 30
[2023-03-20] MEDS: Iron Sucrose Complex 200 MG in 0.9 % Sodium Chloride 100 ML 440 MG IV (08:27)
[2023-03-20] MEDS: Ferrous Sulfate 324 MG TABLET.DR PO ×2 (08:27→16:58)
[2023-03-20] MEDS: Venlafaxine HCl ER 150 MG CAP.ER.24H PO (08:27)
[2023-03-20] MEDS: Cyanocobalamin (Vitamin B-12) 1,000 MCG/ML VIAL 1000 MCG IM (09:37)
[2023-03-20] MEDS: Folic Acid 1 MG TABLET PO (09:37)
[2023-03-20 09:54] LABS: Immature Retic Fraction 37.3 % (3.0-15.9); Reticulocyte Percent 4.4 % (0.5-1.8)
[2023-03-20 10:01] LABS: Ferritin 240 ng/mL (10-250)
[2023-03-20 10:49] LABS: Ferritin 248 ng/mL (10-250)
--- NOTE | 2023-03-20 10:54 | P.PNIM_ITS ---
Subjective Subjective Date of Service: 03/20/23 Interval History: Seen and evaluated this morning Feeling ok but gets dyspneic with minimal exertion Hb dropped to 5.9 No reported bleeding normal sodium level Review of Systems Review of Systems: Yes all other systems are reviewed and are negative Physical Exam Vital Signs: Vital Signs: Last Vital Signs Temp 97.7 F 03/20/23 07:26 Pulse 75 03/20/23 07:26 Resp 16 03/20/23 07:26 BP 138/65 03/20/23 07:26 Pulse Ox 97 03/20/23 07:26 O2 Del Method Nasal Cannula 03/20/23 07:26 O2 Flow Rate 2 03/20/23 07:26 BMI result Body Mass Index 27.4 Const: Other: Constitutional : Awake, interactive, not in distress Neck : Normal inspection, Supple Cardiovascular : irregular irregular, no JVP, no lower extremity edema Respiratory : good bilateral air entry, no crackles, wheezes or rhonchi Gastrointestinal: soft, lax, Normal bowel sounds, Non tender Skin : Warm, Dry Neurological : Alert & oriented x3, No focal deficit Objective Data Active Medications Diphenhydramine HCl (Diphenhydramine Hcl 50 Mg/Ml Vial) 25 mg IVPUSH Q6H PRN PRN Reason: Itching Last Admin: 03/19/23 13:41 Dose: 25 mg Documented By: JESSI Fentanyl (Fentanyl Citrate/Pf 100 Mcg/2 Ml Vial) 25 mcg IVPUSH Q3H PRN; Protocol PRN Reason: Pain, Severe (Pain Scale 7-10) Last Admin: 03/17/23 10:20 Dose: 25 mcg Documented By: NATALI Ferrous Sulfate (Ferrous Sulfate 324 Mg Tablet.) 324 mg PO BIDWM [facility] Last Admin: 03/20/23 08:27 Dose: 324 mg Documented By: JESSI Folic Acid (Folic Acid 1 Mg Tablet) 1 mg PO DAILY [facility] Last Admin: 03/20/23 09:37 Dose: 1 mg Documented By: JESSI Iron Sucrose 200 mg/ Sodium (Chloride) 110 mls @ 440 mls/hr IV DAILY [facility] Stop: 03/22/23 09:29 Last Infusion: 03/20/23 08:45 Dose: 0 mls/hr Documented By: JESSI Levothyroxine Sodium (Levothyroxine Sodium 150 Mcg Tablet) 150 mcg PO DAILY@0600 [facility] Last Admin: 03/20/23 06:29 Dose: 150 mcg Documented By: ERLIN Nitroglycerin (Nitroglycerin 0.4 Mg Tab.Subl) 0.4 mg SUBLINGUAL Q5MX3 PRN PRN Reason: Chest Pain Last Admin: 03/17/23 06:25 Dose: 0.4 mg Documented By: KHOA Omeprazole (Omeprazole 20 Mg Capsule.Dr) 20 mg PO BID@0630,1630 [facility] Last Admin: 03/20/23 06:29 Dose: 20 mg Documented By: ERLIN Ondansetron HCl (Ondansetron Hcl 4 Mg/2 Ml Vial) 4 mg IVPUSH Q6H PRN PRN Reason: Nausea Last Admin: 03/18/23 11:52 Dose: 4 mg Documented By: DINORAH Tizanidine HCl (Tizanidine Hcl 4 Mg Tablet) 4 mg PO BEDTIME [facility] Last Admin: 03/19/23 21:19 Dose: 4 mg Documented By: ERLIN Trazodone HCl (Trazodone Hcl 100 Mg Tablet) 100 mg PO BEDTIME [facility] Last Admin: 03/19/23 21:19 Dose: 100 mg Documented By: ERLIN Venlafaxine HCl (Venlafaxine Hcl Er 150 Mg Cap.Er.24h) 150 mg PO DAILY [facility] Last Admin: 03/20/23 08:27 Dose: 150 mg Documented By: SOFFAA Labs 03/20/23 07:08 03/20/23 07:08 Labs: Laboratory Results - last 24 hr 03/19/23 03/19/23 03/20/23 14:56 14:56 07:08 MCV 83.3 83.9 MCH 23.5 L 23.7 L MCHC 28.2 L 28.2 L RDW 16.5 H 17.0 H Plt Count 340 321 MPV 8.8 L 9.1 L Absolute Nucleated RBC 0.030 H 0.000 Nucleated RBC % (auto) 0.3 H 0.0 Absolute Retic 0.110 H Percent Retic 4.4 H Immature Retic Fraction 37.3 H Retic Hgb Equivalent 29.0 L Anion Gap 12 Estim Creat Clear Calc 45.3 Estimated GFR 48 Random Glucose 137 H Calcium 9.9 Ferritin 03/20/23 03/20/23 03/20/23 07:08 09:43 09:43 MCV MCH MCHC RDW Plt Count MPV Absolute Nucleated RBC Nucleated RBC % (auto) Absolute Retic Cancelled Percent Retic Cancelled Immature Retic Fraction Cancelled Retic Hgb Equivalent Cancelled Anion Gap 11 L Estim Creat Clear Calc 46.4 Estimated GFR 49 Random Glucose 101 Calcium 10.0 Ferritin 240 248 Assessment and Plan (1) Acute hypernatremia: Status: Acute (2) Symptomatic anemia: Status: Acute (3) Acute on chronic blood loss anemia: Status: Acute Plan 78F Jehovahs witness, history of multiple CVAs, permanent afib on eliquis, chronic diastolic chf, hypothyroid, presented with weakness, admitted to ICU for severe bradycardia and hgb 6.2, given dobutamine, metoprolol held. weaned off dobutamine and downgraded to medical floor. Iron def. anemia, acute on chronic Worsening Hb to 5.9 Hold Eliquis patient declines transfusions continue PO & iv iron BID PPI hematology eval, SPEP, Haptoglobin gi appreciated - no urgent need for inpatient eval. eventual colonoscopy and capsule as outpatient monitor cbc symptomatic severe bradycardia resolved after holding metoprolol cardio following farhan resolved Hypernatremia Na of 144 follow BMP hypothyroid tsh 12, normal t4, synthroid increased to 150mcg from 137 mcg repeat tsh in 4 weeks history of cvas, permanent afib eliquis held after discussing the the patient who understand that she is at high risk for further strokes but the need to stop it to prevent further blood loss given the fact that she doesn't want blood products transfusion. chronic diastolic chf euvolemic dvt prophylaxis SCDs DNR reason for continued hospitalization: monitoring heart rate, tolerance of AC Time Spent With Patient Time: Total time managing care of this patient today ____ minutes. Quality Stroke Does the patient have a stroke diagnosis?: No VTE Prior VTE?: No VTE Risk Level:: Medical - moderate - high VTE Device Contraindication: N/A - Device Ordered VTE Drug Contraindication: Treatment Not Tolerated
[2023-03-20 11:10] LABS: Folate 3.4 ng/mL (> or = 4.0); Vitamin B12 > 2000 pg/mL (200-900)
[2023-03-20 11:30] VITALS: BP 161/70; PULSE 94; RESP 16; TEMP 37; O2SAT 96
--- NOTE | 2023-03-20 14:47 | P.PNCA_ITS ---
Subjective Subjective Date of Service: 03/20/23 Interval history: Seen examined at bedside. Continues to be significant anemic with hemoglobin 5.9. Getting iron infusion and Epo. Physical Exam Vital Signs: Last Vital Signs Temp 98.6 F 03/20/23 11:30 Pulse 94 03/20/23 11:30 Resp 16 03/20/23 11:30 BP 161/70 H 03/20/23 11:30 Pulse Ox 96 03/20/23 11:30 O2 Del Method Nasal Cannula 03/20/23 11:30 O2 Flow Rate 2 03/20/23 11:30 BMI result Body Mass Index 27.4 GENERAL APPEARANCE: in no acute distress. Pale. NECK: no carotid bruit, no jugular venous distention. SKIN: no suspicious lesions, warm and dry. HEART: no murmurs, irregular rate and rhythm. LUNGS: clear to auscultation bilaterally. ABDOMEN: soft, nontender. EXTREMITIES: no edema. PERIPHERAL PULSES: equal. NEUROLOGIC: No gross deficits, AAO X 3 Objective Labs and Meds 03/20/23 07:08 03/20/23 07:08 Lab results: Laboratory Results - last 24 hr 03/19/23 03/19/23 03/20/23 14:56 14:56 07:08 WBC 10.9 H 9.4 RBC 2.64 L 2.49 L Hgb 6.2 L* 5.9 L* Hct 22.0 L 20.9 L* MCV 83.3 83.9 MCH 23.5 L 23.7 L MCHC 28.2 L 28.2 L RDW 16.5 H 17.0 H Plt Count 340 321 MPV 8.8 L 9.1 L Absolute Nucleated RBC 0.030 H 0.000 Nucleated RBC % (auto) 0.3 H 0.0 Absolute Retic 0.110 H Percent Retic 4.4 H Immature Retic Fraction 37.3 H Retic Hgb Equivalent 29.0 L Haptoglobin Sodium 145 Potassium 3.7 Chloride 113 H Carbon Dioxide 24 Anion Gap 12 BUN 13 Creatinine 1.10 Estim Creat Clear Calc 45.3 Estimated GFR 48 Random Glucose 137 H Calcium 9.9 Ferritin Vitamin B12 Folate 03/20/23 03/20/23 03/20/23 07:08 09:43 09:43 WBC RBC Hgb Hct MCV MCH MCHC RDW Plt Count MPV Absolute Nucleated RBC Nucleated RBC % (auto) Absolute Retic Cancelled Percent Retic Cancelled Immature Retic Fraction Cancelled Retic Hgb Equivalent Cancelled Haptoglobin Sodium 144 Potassium 3.8 Chloride 112 H Carbon Dioxide 25 Anion Gap 11 L BUN 14 Creatinine 1.08 Estim Creat Clear Calc 46.4 Estimated GFR 49 Random Glucose 101 Calcium 10.0 Ferritin 240 248 Vitamin B12 Folate 03/20/23 03/20/23 09:43 09:43 WBC RBC Hgb Hct MCV MCH MCHC RDW Plt Count MPV Absolute Nucleated RBC Nucleated RBC % (auto) Absolute Retic Percent Retic Immature Retic Fraction Retic Hgb Equivalent Haptoglobin Cancelled Sodium Potassium Chloride Carbon Dioxide Anion Gap BUN Creatinine Estim Creat Clear Calc Estimated GFR Random Glucose Calcium Ferritin Vitamin B12 > 2000 H Folate 3.4 L Progress Note: A&P Assessment and plan (1) Acute on chronic blood loss anemia: Status: Acute (2) A-fib: Status: Acute Plan 78-year-old female with atrial fibrillation who presented with acute blood loss anemia. She is a Christian and will not accept any blood transfusion. She has been given iron infusion as well as Epo and.Hemoglobin currently is steady at 5.9. She is significantly anemic. I have explained to her that with significant anemia I feel holding Eliquis is the right approach as she has no reserve for further bleeding and blood loss is the likely etiology for her anemia. As hemoglobin starts rising may be we can resume the Eliquis at that stage. Eventually she would benefit from Watchman device. Thank you for allowing me to participate in the care of your patient. Please feel free to contact me if you have any questions. Time Spent With Patient Time: Total time managing care of this patient today ____ minutes. Progress Note: Quality Stroke Does the patient have a stroke diagnosis?: No Procedures Date of Service Date of Service: 03/20/23
[2023-03-20 15:44] VITALS: BP 157/75; PULSE 96; RESP 17; TEMP 37.5; O2SAT 96
[2023-03-20] MEDS: ondansetron HCL 4 MG/2 ML VIAL IVPUSH (17:01)
[2023-03-20 21:16] VITALS: BP 146/71; PULSE 101; RESP 15; TEMP 37.2; O2SAT 95
--- NOTE | 2023-03-20 21:29 | PM.EVENT ---
Event Note Date of Service: 03/20/23 Event Note: Patient tachycardic with heart rate reaching to 125. Will give 1 dose of IV metoprolol pushed. May need evaluation by Cardiology for possible sick sinus syndrome Time Spent With Patient Time: Total time managing care of this patient today ____ minutes.
[2023-03-20] MEDS: Metoprolol Tartrate 5 MG/5 ML VIAL IVPUSH (21:58)
[2023-03-20] MEDS: traZODone HCL 100 MG TABLET PO (21:58)
[2023-03-20] MEDS: TiZANidine HCL 4 MG TABLET PO (21:58)
[2023-03-21] VITALS: BP 150/66; PULSE 95; RESP 15; TEMP 37.4; O2SAT 96
[2023-03-21 03:34] VITALS: BP 148/52; PULSE 64; RESP 18; TEMP 37; O2SAT 98
[2023-03-21] MEDS: Omeprazole 20 MG CAPSULE.DR PO (05:47)
[2023-03-21] MEDS: Levothyroxine Sodium 150 MCG TABLET PO (05:47)
[2023-03-21 06:00] VITALS: BMI 27.4
[2023-03-21 07:14] LABS: Hematocrit 22.3 % (37.0-47.0); Mean Corpuscular HGB Conc 29.1 g/dl (31.0-35.0); Mean Corpuscular Hemoglobin 24.9 pg (27.0-33.0); Mean Corpuscular Volume 85.4 fL (80.0-98.0); Mean Platelet Volume 9.2 fL (9.4-12.3); NRBC Pct Auto 0.2 /100WBC (0.0-0.2); Platelet Count 343 X10*3/uL (160-400); Red Blood Count 2.61 X10*6/uL (4.20-5.50); Red Cell Distribution Width 18.4 % (11.0-16.0); White Blood Count 10.5 X10*3/uL (4.8-10.8)
[2023-03-21 07:42] VITALS: BP 166/81; PULSE 81; RESP 20; TEMP 36.1; O2SAT 98
[2023-03-21 07:44] LABS: Hemoglobin 6.5 g/dl (12.0-16.0)
[2023-03-21] MEDS: Folic Acid 1 MG TABLET PO (09:14)
[2023-03-21] MEDS: Ferrous Sulfate 324 MG TABLET.DR PO (09:14)
[2023-03-21] MEDS: Iron Sucrose Complex 200 MG in 0.9 % Sodium Chloride 100 ML 440 MG IV (09:14)
[2023-03-21] MEDS: Venlafaxine HCl ER 150 MG CAP.ER.24H PO (09:14)
[2023-03-21 11:25] VITALS: BP 140/71; PULSE 94; RESP 20; TEMP 36.9; O2SAT 94
--- NOTE | 2023-03-21 11:26 | MHC.CM.PN ---
Second IMM given 03/21. Pt medically cleared for D/C home with her daughters support. Transportation set up via [employer] at 3pm today.
--- NOTE | 2023-03-21 12:33 | PM.DS ---
DS: Providers Provider Date of Service: 03/21/23 Date of admission: 03/16/23 14:43 Primary care physician: Shravan Grant MD Consults: 03/16/23 12:15 Consult to Cardiology Stat Consulting Provider: Marck Engle Reason for consultation: slow a fib Has provider been notified: Yes 03/17/23 11:42 Consult to Gastroenterology Routine Consulting [place] [facility] [place] [facility] Reason for consultation: subacute GI bleed Has provider been notified: No 03/18/23 07:23 Consult to Hematology / Oncology Routine Consulting Provider: Dimple Munson Reason for consultation: anemia in J-witness DS: Diagnosis Discharge Diagnosis (1) Acute on chronic blood loss anemia: Status: Acute (2) A-fib: Status: Acute (3) Acute hypernatremia: Status: Acute (4) Symptomatic anemia: Status: Acute (5) NERY (acute kidney injury): Status: Acute (6) Symptomatic bradycardia: Status: Acute DS: Summary Hospital Course Hospital Course: Admission note HPI ?78-year-old female who is a Episcopalian with anemia which is chronic current hemoglobin 6 presents with increasing weakness found to be bradycardic with a narrow QRS but rate of approximately 25-35 appearing to be slow atrial fibrillation which is a chronic and persistent rhythm ?previous CVA history for which she is on 5 mg of Eliquis currently with an elevated PT INR and PTT but is also a replaced hypothyroid and TSH is currently at 20 so we the noncompliant or just simply an insufficient dose but I do believe myxedema is playing a role as well as the metoprolol contributing to overall symptomatic bradycardia ?on the blood gas we have a primary respiratory alkalosis but in addition we have a metabolic acidosis as well as a acute on chronic stage III renal failure ?the blood work also indicates iron deficiency so we are waiting for stool guaiac to see if this is chronic blood loss the orifices a malabsorption issue or just a hypo nutritional problem ?lungs with diminished bilateral breath sounds but by chest x-ray the lungs look plus Thorek and on bedside echo the IVC is greater than 2 cm Hospital course The patient was admitted to ICU for symptomatic severe bradycardia which was resolved after holding metoprolol as she was followed by cardiology team as he heart rate improved back to normal values. noticed to have high TSH and normal T4 so her Levothyroxin dose was increased to 150 mcg from 137. rate controlled 70-100. TSH to be followed as outpatient in 3 months. She was also noted to have a drop in her Hemoglobin level between October and now from 13 to 6. Iron deficiency with concern over GI loss as Occult stool came back positive with no overt bleeding or melena. Evaluated by GI who recommended no urgent need for inpatient eval. eventual colonoscopy and capsule as outpatient. BID PPI. Patient refuses blood transfusion as caodaism belief. evaluated by Hematology who prescribed EPO and placed on IV and PO Iron. Hb improved to 6.5. She was able to participate with PT who felt she is safe enough to be home with family support. Eliquis was held with cardiology recommendations to follow as outpatient to decide if it can be restarted while we wait for Watchman procedure. Acute kideny injury and hypernatremia treated and fixed. Increased Levothyroxine dosage to 150mcg daily Start Omeprazole twice daily Start Iron and folic acid supplement Hold Eliquis for now Repeat blood test next week. Follow with cardiology to decide if Eliquis can be restarted or no Follow up with cardiology for arrangements for Watchman device To follow up with dr Catalan from hematology for further eval of anemia and possible outpatient IV iron supplement Time Spent with Patient Time attestation: Total time managing care of this patient today ____ minutes. Discharge coordination time: Greater than 30 minutes Quality: Safe Use of Opioids Does Pt have an Active Cancer Diagnosis on the Problem List?: No Quality: Stroke Does the patient have a stroke diagnosis?: No Physical Exam Vital Signs: Vital Signs: Last Vital Signs Temp 98.5 F 03/21/23 11:25 Pulse 94 03/21/23 11:25 Resp 20 03/21/23 11:25 BP 140/71 H 03/21/23 11:25 Pulse Ox 94 03/21/23 11:25 O2 Del Method Room Air 03/21/23 11:25 O2 Flow Rate 2 03/21/23 07:42 BMI result Body Mass Index 27.4 Const: Other: Constitutional : Awake, interactive, not in distress Neck : Normal inspection, Supple Cardiovascular : irregular irregular, no JVP, no lower extremity edema Respiratory : good bilateral air entry, no crackles, wheezes or rhonchi Gastrointestinal: soft, lax, Normal bowel sounds, Non tender Skin : Warm, Dry Neurological : Alert & oriented x3, No focal deficit DS: Data Data Completed and Pending Completed studies during hospitalization [Text1]: Procedures Control Bleeding in Gastrointestinal Tract, Via Natural or Artificial Opening Endoscopic (12/21/21) Excision of Cecum, Via Natural or Artificial Opening Endoscopic, Diagnostic (12/21/21) Excision of Duodenum, Via Natural or Artificial Opening Endoscopic, Diagnostic (12/21/21) Excision of Stomach, Pylorus, Via Natural or Artificial Opening Endoscopic, Diagnostic (12/21/21) Labs on day of discharge: Laboratory Results - last 24 hr 03/21/23 06:46 WBC 10.5 RBC 2.61 L Hgb 6.5 L* Hct 22.3 L MCV 85.4 MCH 24.9 L MCHC 29.1 L RDW 18.4 H Plt Count 343 MPV 9.2 L Absolute Nucleated RBC 0.020 H Nucleated RBC % (auto) 0.2 Preliminary micro results at discharge 03/16/23 13:13 Blood Culture - Preliminary Blood - Venous No growth after 48 hours. 03/16/23 13:17 Blood Culture - Preliminary Blood - Venous No growth after 48 hours. Imaging Chest x-ray: Radiologist's impression: ITS Impressions Chest X-Ray 03/16/23 12:45 IMPRESSION: * Diminished lung volume. * Mild diffuse interstitial opacification possible mild interstitial pneumonitis or edema. * Blunting of costophrenic angles probably small pleural effusions. Discharge Plan Discharge Anticipated Discharge Date/Time: 03/21/23 12:24 Patient Disposition: Home, Self-Care Discharge Diagnosis: Symptomatic bradycardia acute blood loss anemia Referrals: Shravan Grant MD [Primary Care Provider] - 1 Week Discharge Medications: New levothyroxine 150 mcg Tablet 150 mcg PO DAILY@0600 Qty: 90 0RF omeprazole 20 mg Capsule,Delayed Release(Dr/Ec) 20 mg PO BID@0630,1630 Qty: 60 0RF folic acid 1 mg Tablet 1 mg PO DAILY Qty: 90 0RF Continued (DME) Updraft machine See Rx Instructions .Route .MEDSUPPLY Qty: 1 0RF Rx Instructions: As directed fluticasone propionate 50 mcg/actuation spray,suspension 1 spray intranasal BID Qty: 16 2RF (DME) Wedge Pillow See Rx Instructions .Route .MEDSUPPLY Qty: 1 0RF Rx Instructions: As directed for positioning while sleeping Breo Ellipta 200-25 mcg/dose blister with device 1 inh inhalation DAILY 30 Days Qty: 28 2RF trazodone 150 mg tablet 150 mg PO BEDTIME tizanidine 6 mg capsule 6 mg PO BEDTIME tizanidine 4 mg capsule 4 mg PO DAILY amlodipine 10 mg tablet 10 mg PO DAILY Qty: 90 1RF Protocol: Hold for SBP< HOLD for SBP < : 90 venlafaxine 150 mg capsule,extended release 24hr 150 mg PO DAILY Qty: 90 0RF rosuvastatin [Crestor] 10 mg tablet 10 mg PO DAILY Qty: 90 3RF Changed ferrous sulfate 324 mg (65 mg iron) tablet,delayed release (DR/EC) 324 mg PO BID Qty: 60 0RF Held Eliquis 5 mg tablet 5 mg PO BID Qty: 180 0RF Hold Instructions: Discuss with your mannequin wig maker after repeat blood work next week if it can be started or should discontinue completely Discontinued metoprolol succinate 25 mg tablet extended release 24 hr 25 mg PO DAILY Qty: 90 0RF levothyroxine 137 mcg tablet 137 mcg PO DAILY Discharge Orders: Discharge Order (Routine); Ordered 03/21/23 Ordered By: Marcelle Washington Diet: Low salt diet Activity on Discharge: As tolerated Stand Alone Forms: Patient Portal Discharge page Other Ambulatory Orders: Complete Blood Count Auto Diff (Routine) Timeframe: 1 Week Facility: [facility] - Location: Laboratory Ordered By: Marcelle Washington Care Plan Goals: Read below Health Concerns: Read below Plan of Treatment: Read below Assessment: You were admitted for evaluation of weakness. found to have slow heart rate and evidence of blood loss anemia. evaluated by mannequin wig maker as Metoprolol was stopped with good recovery of heart rate to normal range. Increased Levothyroxine dosage to 150mcg daily Start Omeprazole twice daily Start Iron and folic acid supplement Hold Eliquis for now Repeat blood test next week. Follow with cardiology to decide if Eliquis can be restarted or no Follow up with cardiology for arrangements for Watchman device To follow up with dr Catalan from hematology for further eval of anemia and possible outpatient IV iron supplement Discharge Date/Time: 03/21/23 15:09
[2023-03-24 11:53] LABS: Prot Elec - Albumin 3.4 g/dL (3.8-4.8); Prot Elec - Alpha1 0.5 g/dL (0.2-0.3); Prot Elec - Alpha2 0.8 g/dL (0.5-0.9); Prot Elec - Beta 1 0.4 g/dL (0.4-0.6); Prot Elec - Beta 2 0.3 g/dL (0.2-0.5); Prot Elec - Gamma 0.5 g/dL (0.8-1.7); Prot Elec - Total Protein 5.8 g/dL (6.1-8.1)
[2023-03-24 15:48] LABS: Haptoglobin 287 mg/dL (43-212)
[2023-03-25 13:07] LABS: IgA 145 mg/dL (70-320); IgG 499 mg/dL (600-1540); IgM 36 mg/dL (50-300)
--- NOTE | 2023-03-27 12:53 | HE.ONCSEC ---
LVM for pt regarding f/u appt 04/11/23 at 1:20pm.
== END 2023-03-21 15:09 | disposition home or self-care (01) | DRG 811 ==
LOC: HO.ED 13:18 → HO.EDOVER 14:56 → HO.ICU 16:51 → HO.IMC 03-17 18:21
PROVIDERS: Internal Medicine; Internal Medicine Medical Oncology; Internal Medicine Pulmonary Disease; Physician Assistant Medical; Registered Nurse Community Health; Admitting Provider Internal Medicine Cardiovascular Disease; Emergency Provider Emergency Medicine; PCP Internal Medicine; Visit Provider Student in an Organized Health Care Education/Training Program
DX: D62 Acute posthemorrhagic anemia (principal); I50.33 Acute on chronic diastolic (congestive) heart failure; I13.0 Hypertensive heart and chronic kidney disease with heart failure and stage 1 through stage 4 chronic kidney disease, or unspecified chronic kidney disease; E87.3 Alkalosis; N17.9 Acute kidney failure, unspecified; I24.8 Other forms of acute ischemic heart disease; E87.0 Hyperosmolality and hypernatremia; F33.9 Major depressive disorder, recurrent, unspecified; E87.4 Mixed disorder of acid-base balance; I48.19 Other persistent atrial fibrillation; R00.1 Bradycardia, unspecified; I25.10 Atherosclerotic heart disease of native coronary artery without angina pectoris; N18.30 Chronic kidney disease, stage 3 unspecified; E03.9 Hypothyroidism, unspecified; R00.0 Tachycardia, unspecified; Z66 Do not resuscitate; D63.1 Anemia in chronic kidney disease; Z87.891 Personal history of nicotine dependence; Z86.73 Personal history of transient ischemic attack (TIA), and cerebral infarction without residual deficits; Z91.040 Latex allergy status; Z79.01 Long term (current) use of anticoagulants; Z79.51 Long term (current) use of inhaled steroids; Z79.890 Hormone replacement therapy; Z79.899 Other long term (current) drug therapy
CPT/HCPCS: 36415; 71045; 80048; 80053; 80179; 82040; 82272; 82607; 82728; 82746; 82784; 82803; 83010; 83540; 83605; 83735; 83880; 84100; 84165; 84439; 84443; 84484; 85025; 85027; 85045; 85384; 85610; 85730; 86334; 87040; 93005; 97163; 99285; C1758; J0885; J1200; J1250; J1756; J1940; J2405; J3010

== ENCOUNTER → 2023-03-16 12:32 | Outpatient (BNV) | payer OTHER, SELFPAY | PROVIDERS: Emergency Provider Emergency Medicine; PCP Internal Medicine; Visit Provider Internal Medicine | DX: I48.91 Unspecified atrial fibrillation (principal); D62 Acute posthemorrhagic anemia | CPT/HCPCS: 93010; 99223; 99232 ==

== ENCOUNTER 2023-03-16 14:43 | Outpatient (BNV) | payer OTHER, SELFPAY | END 2023-03-17 03:07 | PROVIDERS: Admitting Provider Internal Medicine Cardiovascular Disease; Emergency Provider Emergency Medicine; PCP Internal Medicine; Visit Provider Internal Medicine Cardiovascular Disease | DX: I48.19 Other persistent atrial fibrillation (principal) | CPT/HCPCS: 93010 ==

== ENCOUNTER → 2023-03-16 14:43 | Outpatient (BNV) | payer OTHER, SELFPAY | PROVIDERS: Admitting Provider Internal Medicine Cardiovascular Disease; Emergency Provider Emergency Medicine; PCP Internal Medicine; Visit Provider Internal Medicine | DX: D62 Acute posthemorrhagic anemia (principal); I48.91 Unspecified atrial fibrillation; E87.0 Hyperosmolality and hypernatremia; N17.9 Acute kidney failure, unspecified; R00.1 Bradycardia, unspecified | CPT/HCPCS: 99232; 99233; 99239; 99499 ==

== ENCOUNTER → 2023-03-16 14:43 | Outpatient (BNV) | payer OTHER, SELFPAY | PROVIDERS: Admitting Provider Internal Medicine Cardiovascular Disease; Emergency Provider Emergency Medicine; PCP Internal Medicine; Visit Provider Internal Medicine Cardiovascular Disease | DX: R00.1 Bradycardia, unspecified (principal); I48.91 Unspecified atrial fibrillation; R26.81 Unsteadiness on feet; F33.9 Major depressive disorder, recurrent, unspecified; D64.9 Anemia, unspecified; Z86.73 Personal history of transient ischemic attack (TIA), and cerebral infarction without residual deficits; I12.9 Hypertensive chronic kidney disease with stage 1 through stage 4 chronic kidney disease, or unspecified chronic kidney disease; R47.01 Aphasia; R53.1 Weakness; I50.32 Chronic diastolic (congestive) heart failure; I25.10 Atherosclerotic heart disease of native coronary artery without angina pectoris; I50.30 Unspecified diastolic (congestive) heart failure | CPT/HCPCS: 99291 ==

== ENCOUNTER → 2023-03-16 14:43 | Outpatient (BNV) | payer OTHER, SELFPAY | PROVIDERS: Admitting Provider Internal Medicine Cardiovascular Disease; Emergency Provider Emergency Medicine; PCP Internal Medicine; Visit Provider Internal Medicine Medical Oncology | DX: D64.9 Anemia, unspecified (principal) | CPT/HCPCS: 99222 ==

== ENCOUNTER → 2023-03-16 14:43 | Outpatient (BNV) | payer OTHER, SELFPAY | PROVIDERS: Admitting Provider Internal Medicine Cardiovascular Disease; Emergency Provider Emergency Medicine; PCP Internal Medicine; Visit Provider Internal Medicine Pulmonary Disease | DX: N17.9 Acute kidney failure, unspecified (principal); I48.91 Unspecified atrial fibrillation; R00.1 Bradycardia, unspecified; I50.32 Chronic diastolic (congestive) heart failure; D64.9 Anemia, unspecified | CPT/HCPCS: 99291 ==

== ENCOUNTER 2023-04-08 12:44 | Outpatient (AMB) | payer OTHER, SELFPAY ==
--- NOTE | 2023-04-08 12:45 | MHC.OFFVIS ---
Intake Vital Signs 04/08/23 12:46 Height 5 ft 6 in Weight 165 lb 12.602 oz BMI 26.8 BP 116/64 Blood Pressure Location Lt brachial Position Sitting Pulse 83 [place] [facility] [place] [facility] [place] Water Treatment Specialist Required: No Accompanied by: Daughter Allergies latex [Latex] Allergy (Mild, Verified 04/08/23 12:49) UNKNOWN morphine [Morphine] Allergy (Mild, Verified 04/08/23 12:49) VOMITING penicillin G Allergy (Unknown, Verified 04/08/23 12:49) Rash codeine [Codeine] Adverse Reaction (Mild, Verified 04/08/23 12:49) VOMITING procaine [From Novocain] Adverse Reaction (Mild, Verified 04/08/23 12:49) VOMITING Medication List - Last Reconciled 04/08/23 by Marck Engle MD amlodipine 10 mg See Protocol PO DAILY ferrous sulfate 324 mg PO BID fluticasone furoate-vilanterol 200-25 mcg/dose (Breo Ellipta) 1 inh inhalation DAILY 30 days fluticasone propionate 50 mcg/actuation 1 spray intranasal BID folic acid 1 mg PO DAILY levothyroxine 150 mcg PO DAILY@0600 omeprazole 20 mg PO BID@0630,1630 tizanidine 6 mg PO BEDTIME tizanidine 4 mg PO DAILY trazodone 150 mg PO BEDTIME [Updraft machine As directed] venlafaxine ER 150 mg PO DAILY [Wedge Pillow As directed for positioning while sleeping] HPI HPI Comments History of Present Illness Details Sharon returns for follow-up. She had a recent hospitalization with atrial fibrillation slow ventricular rate. Her beta-blockers were held at the heart rate improved. She was also profoundly anemic at that time. She was on anticoagulation with Eliquis but there was a lot of irregularity in use. Any case, she did not want any blood transfusions as she was Gnosticism. She was discharged eventually with a hemoglobin of 6.5. Overall, she states she is feeling okay. She is able to walk without much difficulty. No angina or any other clear-cut cardiac symptoms. According to patient, she does not want any form of invasive procedures or blood transfusions, even if it means she will without these. We spent several minutes discussing these things. [facility] Medical History A-fib Acute kidney injury superimposed on CKD Anemia Anemia Anxiety and depression Atherosclerotic cardiovascular disease Atrial fibrillation with slow ventricular response Bradycardia Chronic anemia Chronic diastolic (congestive) heart failure Chronic kidney disease Diastolic congestive heart failure Expressive aphasia Fever of unknown origin Gait instability History of stroke Hypertension Hypertension, essential Major depression, recurrent Myxedema Persistent atrial fibrillation Right sided weakness Stroke Surgical History History of knee surgery Family History Father Tuberculosis Mother No problems noted. Other Substance use disorder Social History Household Members: Children Housing: Apartment Do you presently have visiting nurse or other home services: No Alcohol intake: never Patient Tobacco Use Status: Former Tobacco user Tobacco use type: Cigarette Years Smoked: 10 years e-Cigarette/Vaping Use: Never Used Second Hand Smoke Exposure: No Advance Directives Date on File: 12/21/21 service: No Current occupational status: retired Cognitive needs: No Hearing needs: No Vision needs: Yes Review of Systems Const Denies weakness ENT Denies dizziness Card Denies chest pain, Denies chest pain with activity, Denies syncope, Denies rapid heart rate, Denies pedal edema, Denies edema, Denies leg edema, Denies lightheadedness, Denies palpitations, Denies dyspnea, Denies dyspnea on exertion and Denies orthopnea Resp Denies cough, Denies dyspnea and Denies dyspnea on exertion GI Denies hematochezia and Denies change in stool character Musc Denies abnormal gait, Denies muscle cramps, Denies muscle weakness, Denies numbness, Denies radiating pain into limb and Denies tingling Neuro Denies abnormal gait, Denies dizziness, Denies syncope, Denies numbness, Denies tingling and Denies weakness Endo Denies palpitations Physical Exam Vital Signs: Last Vital Signs Pulse 83 04/08/23 12:46 BP 116/64 04/08/23 12:46 BMI result Body Mass Index 26.8 Const General: comfortable and no acute distress Orientation/consciousness: patient oriented x3 HEENT Other: Unremarkable Head: Yes normal to inspection Neck Neck: Yes normal visual inspection Chest Chest palpation & inspection: normal inspection of the chest Resp Auscultation: clear to auscultation bilaterally Cardio Palpation: normal PMI Heart sounds: S1 normal heart sound present, S2 normal heart sound present, no gallops, no murmurs and no rubs GI Palpation (GI): Soft to palpation Back/Spine/Pelvis Other: unremarkable Skin General skin exam: no rashes or lesions noted Neuro General: patient oriented x3 Extrem General: Yes normal to inspection Psych Mental Status: mental status grossly normal Office Procedures EKG Details: EKG with atrial fibrillation at a rate of 83/Min. Nonspecific ST-T changes. [id number], Complete Assessment & Plan Assessment & Plan (1) Persistent atrial fibrillation: Code(s): I48.19 - Other persistent atrial fibrillation Plan: Seems rate controlled. May stay off beta-blockers due to recent bradycardia. Due to severe anemia, off Eliquis. She does not want blood transfusions due to being Gnosticism. Even if the hemoglobin goes extremely low she still does not want anything done -even if it leads to . Not interested in any invasive procedures and hence not recommending Watchman. (2) Anemia: Code(s): D64.9 - Anemia, unspecified Plan: Hemoglobin at the time of discharge 6.5. Advised to go to lab today and get it redone. She does not want blood transfusions. (3) Hypertension: Code(s): I10 - Essential (primary) hypertension Plan: Stable. No changes. Plan Discussed with daughter came for appointment as well as patient in great detail. Overall, patient wants only simple conservative care and nothing aggressive. She specifically does not want any form of procedures. She does not want any blood transfusions. She is willing to accept as a consequence. Orders: Orders Complete Blood Count Auto Diff 1 Week D62 - Acute posthemorrhagic anemia Medications: Changed From amlodipine 10 mg See Protocol PO DAILY 90 tabs 1RF To amlodipine 10 mg See Protocol PO DAILY From venlafaxine ER 150 mg PO DAILY 90 caps 0RF To venlafaxine ER 150 mg PO DAILY Coding Level of Care Code Est Pt Level 4 (34124) Diagnoses Persistent atrial fibrillation I48.19 Anemia D64.9 Hypertension I10 CPT Codes EKG - CPT: 30658-[id number], Complete ([id number])
[2023-04-08 12:46] VITALS: BP 116/64; PULSE 83; BMI 26.8
== END 2023-04-08 13:14 | disposition home or self-care (01) ==
PROVIDERS: PCP Internal Medicine; Visit Provider Internal Medicine
DX: I48.19 Other persistent atrial fibrillation (principal); D64.9 Anemia, unspecified; I10 Essential (primary) hypertension
CPT/HCPCS: 93010; 99214

== ENCOUNTER → 2023-04-08 12:44 | Outpatient (BNVA) | payer OTHER, SELFPAY | LOC: CF 13:19 | PROVIDERS: PCP Internal Medicine; Visit Provider Internal Medicine | DX: I48.19 Other persistent atrial fibrillation (principal); D64.9 Anemia, unspecified; I10 Essential (primary) hypertension | CPT/HCPCS: 93005; 99212 ==

== ENCOUNTER 2023-04-18 14:32 | Outpatient (REF) | payer OTHER, SELFPAY | END 2023-04-18 14:33 | disposition home or self-care (01) | LOC: HO.LAB 14:32 | PROVIDERS: PCP Internal Medicine; Visit Provider Internal Medicine | DX: Z13.89 Encounter for screening for other disorder (principal) ==

== ENCOUNTER → 2023-04-18 14:41 | Outpatient (BNV) | payer OTHER, SELFPAY | PROVIDERS: PCP Internal Medicine; Visit Provider Internal Medicine Medical Oncology | DX: D64.9 Anemia, unspecified (principal) | CPT/HCPCS: 99213 ==

== ENCOUNTER 2023-05-01 12:23 | Outpatient (REF) | payer OTHER, SELFPAY ==
[2023-05-01 16:10] LABS: MANUAL DIFF FLAG NO
[2023-05-01 16:20] LABS: Basophils Percent Auto 0.5 % (0-2); Eosinophils Absolute Auto 0.3 X10*3/uL (0.0-0.4); Eosinophils Percent Auto 5.5 % (0-4); Hematocrit 32.2 % (37.0-47.0); Hemoglobin 9.6 g/dl (12.0-16.0); Imm Gran Abs Auto 0.03 X10*3/uL (0.00-0.03); Imm Gran Pct Auto 0.5 % (0.0-0.4); Lymphocytes Absolute Auto 0.9 X10*3/uL (1.2-4.9); Lymphocytes Percent Auto 14.4 % (20-40); Mean Corpuscular HGB Conc 29.8 g/dl (31.0-35.0); Mean Corpuscular Hemoglobin 25.5 pg (27.0-33.0); Mean Corpuscular Volume 85.4 fL (80.0-98.0); Mean Platelet Volume 9.1 fL (9.4-12.3); Monocytes Absolute Auto 0.5 X10*3/uL (0.1-1.2); Monocytes Percent Auto 8.9 % (2-11); Neutrophils Absolute Auto 4.2 x10*3/uL (2.0-8.3); Neutrophils Percent Auto 70.2 % (45-73); Platelet Count 296 X10*3/uL (160-400); Red Blood Count 3.77 X10*6/uL (4.20-5.50); Red Cell Distribution Width 18.3 % (11.0-16.0)
[2023-05-01 16:38] LABS: Alanine Aminotransferase 7 U/L (0-31); Alkaline Phosphatase 95 U/L (39-117); Anion Gap 15 (12-20); Aspartate Amino Transferase 11 U/L (5-31); Bilirubin Total 0.2 mg/dL (0.0-1.0); Blood Urea Nitrogen 12 mg/dL (9-16); Calcium 9.7 mg/dL (8.4-10.2); Carbon Dioxide 24 mmol/L (22-29); Chloride 108 mmol/L (96-108); Estimated Glomerular Filt Rate 50; Glucose Random 104 mg/dL (60-115); Potassium 3.5 mmol/L (3.3-5.1); Sodium 143 mmol/L (135-145)
[2023-05-01 16:39] LABS: Alanine Aminotransferase 8 U/L (0-31); Alkaline Phosphatase 97 U/L (39-117); Aspartate Amino Transferase 11 U/L (5-31); Bilirubin Direct < 0.2 mg/dL (0.0-0.5); Bilirubin Total 0.2 mg/dL (0.0-1.0); Cholesterol 115 mg/dL (<200); HDL Cholesterol 56 mg/dL (>40); LDL Cholesterol Calculated 41 mg/dL (<100); Total Protein 7.1 g/dL (6.5-8.0); Triglycerides 90 mg/dL (<150)
[2023-05-01 16:53] LABS: Ferritin 81 ng/mL (10-250)
[2023-05-01 16:54] LABS: TSH reflex Free T4 17.81 uIU/mL (0.32-4.0)
[2023-05-01 17:11] LABS: Folate 12.4 ng/mL (> or = 4.0); Vitamin B12 395 pg/mL (200-900)
[2023-05-01 18:34] LABS: Free T4 (Free Thyroxine) 0.57 ng/dL (0.71-1.85)
== END 2023-05-01 12:24 | disposition home or self-care (01) ==
LOC: HO.HMGCLDS 12:23
PROVIDERS: Absent Provider Internal Medicine Medical Oncology; PCP Internal Medicine; Visit Provider Internal Medicine
DX: E03.8 Other specified hypothyroidism (principal); I48.91 Unspecified atrial fibrillation; D64.9 Anemia, unspecified; I25.10 Atherosclerotic heart disease of native coronary artery without angina pectoris; I10 Essential (primary) hypertension; E78.5 Hyperlipidemia, unspecified
CPT/HCPCS: 36415; 80053; 80061; 80076; 82248; 82607; 82728; 82746; 84439; 84443; 85025

== ENCOUNTER 2023-06-05 08:17 | Outpatient (AMB) | payer OTHER, SELFPAY ==
--- NOTE | 2023-06-05 10:33 | MHC.PC.OV ---
Intake Visit Reasons: Med Follow Up~ Allergies latex [Latex] Allergy (Mild, Verified 06/05/23 10:34) UNKNOWN morphine [Morphine] Allergy (Mild, Verified 06/05/23 10:34) VOMITING penicillin G Allergy (Unknown, Verified 06/05/23 10:34) Rash codeine [Codeine] Adverse Reaction (Mild, Verified 06/05/23 10:34) VOMITING procaine [From Novocain] Adverse Reaction (Mild, Verified 06/05/23 10:34) VOMITING Medication List - Last Reconciled 06/05/23 by Shravan Grant MD amlodipine 10 mg See Protocol PO DAILY ferrous sulfate 324 mg PO BID fluticasone furoate-vilanterol 200-25 mcg/dose (Breo Ellipta) 1 inh inhalation DAILY 30 days fluticasone propionate 50 mcg/actuation 1 spray intranasal BID folic acid 1 mg PO DAILY levothyroxine 150 mcg PO DAILY@0600 metoprolol succinate ER 50 mg PO BID 90 days omeprazole 20 mg PO BID@0630,1630 tizanidine 6 mg PO BEDTIME trazodone 150 mg PO BEDTIME [Updraft machine As directed] venlafaxine ER 75 mg PO DAILY [Wedge Pillow As directed for positioning while sleeping] Tobacco use date assessed: 06/05/23 Fall risk assessment: 1 Fall in past year Last assessed Fall Risk: 06/05/23 Dental Screening Dental Screen Date: 06/05/23 Did you have a dental visit in the last 12 months?: No Was dental information given to patient?: Patient declined HPI Med Follow Up~ HPI Details Patient is an 78-year-old female this is a tele medicine video conference in presence of her daughter Patient says that she did not receive her medications so she did not take them for past 2 days Her blood pressure was 160 systolic why I was talking to her her daughter checked it with a heart rate of 67 Patient does not have any headache dizziness chest pain She is on metoprolol 50 mg b.i.d. and amlodipine 10 mg daily Difficulty sleeping at night patient is doing very well with trazodone 150 mg COPD/asthma overlap: Patient is supposed to be on maintenance inhaler but she is not taking it regularly she said that she take it only if she feels she needed. Patient is noncompliant with medical advice She had a stroke, she has seen neurology medication was prescribed patient does not know the name of the medication she said that she does not want a see the neurologist and she does not want take the medication One medications sent for 90 days Depression/anxiety: Patient has been on venlafaxine 150 mg for a while I am reducing the dose to 75 mg and then I would like to change venlafaxine to Lexapro injury due to history of hypertension Chronic muscle spasms: I am also reducing the dose of denies any to 4 mg Hypothyroidism: Patient is supposed to be on levothyroxine 150 mcg daily them not sure if she is taking it regularly Her TSH level was of in April I would like to repeat the labs again patient was notified to do them as soon as possible Patient have severe anemia and currently she is seeing hematology [facility] Medical History Myxedema Atrial fibrillation with slow ventricular response Anemia Bradycardia Gait instability History of stroke Hypertension, essential Expressive aphasia Right sided weakness Chronic diastolic (congestive) heart failure Atherosclerotic cardiovascular disease Diastolic congestive heart failure Fever of unknown origin Persistent atrial fibrillation Chronic anemia A-fib Major depression, recurrent Anxiety and depression Chronic kidney disease Anemia Acute kidney injury superimposed on CKD Stroke Hypertension Surgical History History of knee surgery Family History Father Tuberculosis Mother No problems noted. Other Substance use disorder Social History Household Members: Children Housing: Apartment Do you presently have visiting nurse or other home services: No Alcohol intake: never Patient Tobacco Use Status: Former Tobacco user Tobacco use type: Cigarette Years Smoked: 10 years e-Cigarette/Vaping Use: Never Used Second Hand Smoke Exposure: No Advance Directives Date on File: 12/21/21 service: No Current occupational status: retired Cognitive needs: No Hearing needs: No Vision needs: Yes Questionnaire Thrive Questionnaire Date Thrive assessed: 03/17/23 MARY-7 AMB Questionnaire MARY-7 Date MARY - 7 assessed: 03/12/22 Source: Developed by Drs. Boris Lazo, Sonia Cortes, Behzad Quick and colleagues, with an educational portillo from [employer]. Review of Systems Const Denies chills and Denies fever(s) ENT Denies epistaxis and Denies nasal discharge Card Denies chest pain Resp Denies chest congestion, Denies cough and Denies hemoptysis GI Denies diarrhea and Denies nausea Skin/Breast Denies rash Neuro Reports no additional complaints Psych Reports no additional complaints Endo Reports no additional complaints Physical exam (Primary Care) Tobacco/Smoking Status: Tobacco use Status Tobacco use date assessed 06/05/23 06/05/23 10:38 Patient Tobacco Use Status Former Tobacco user 06/05/23 10:38 Tobacco use type Cigarette 06/05/23 10:38 e-Cigarette/Vaping Use Never Used 06/05/23 10:38 Thrive Assessment: Date of Thrive Assessment Date Thrive assessed 03/17/23 06/05/23 10:38 Telehealth Telehealth Location of provider rendering services: practice address Location of patient: address on file Patient Identification confirmed using: Name, : Yes Telehealth method: video Patient verbally consented to treatment: Yes Patient verbally consented to billing insurance company: Yes Patient informed of any privacy concerns related to visit: Yes Assessment and Plan Assessment & Plan (1) Hypertension: Code(s): I10 - Essential (primary) hypertension Qualifiers: Hypertension type: primary hypertension Qualified Code(s): I10 - Essential (primary) hypertension (2) Other specified hypothyroidism: Code(s): E03.8 - Other specified hypothyroidism (3) Lipid disorder: Code(s): E78.9 - Disorder of lipoprotein metabolism, unspecified (4) Acute CVA (cerebrovascular accident): Code(s): I63.9 - Cerebral infarction, unspecified (5) Difficulty sleeping: Code(s): G47.9 - Sleep disorder, unspecified (6) Anemia: Code(s): D64.9 - Anemia, unspecified Qualifiers: Anemia type: iron deficiency Iron deficiency anemia type: other iron deficiency Qualified Code(s): D50.8 - Other iron deficiency anemias (7) Talking trouble: Code(s): R47.9 - Unspecified speech disturbances Qualifiers: Speech disturbance type: aphasia Qualified Code(s): R47.01 - Aphasia (8) A-fib: Code(s): I48.91 - Unspecified atrial fibrillation Qualifiers: Atrial fibrillation type: unspecified Qualified Code(s): I48.91 - Unspecified atrial fibrillation (9) Anemia: Code(s): D64.9 - Anemia, unspecified Qualifiers: Anemia type: iron deficiency Iron deficiency anemia type: chronic blood loss Qualified Code(s): D50.0 - Iron deficiency anemia secondary to blood loss (chronic) (10) Atherosclerotic cardiovascular disease: Code(s): I25.10 - Atherosclerotic heart disease of [place] coronary artery without angina pectoris (11) Hypertension, essential: Code(s): I10 - Essential (primary) hypertension (12) Chronic diastolic (congestive) heart failure: Code(s): I50.32 - Chronic diastolic (congestive) heart failure (13) Major depression, recurrent: Code(s): F33.9 - Major depressive disorder, recurrent, unspecified Qualifiers: Active/Remission status: in partial remission Qualified Code(s): F33.41 - Major depressive disorder, recurrent, in partial remission Plan Patient is an 78-year-old female this is a tele medicine video conference in presence of her daughter Patient says that she did not receive her medications so she did not take them for past 2 days Her blood pressure was 160 systolic why I was talking to her her daughter checked it with a heart rate of 67 Patient does not have any headache dizziness chest pain She is on metoprolol 50 mg b.i.d. and amlodipine 10 mg daily and spironolactone Difficulty sleeping at night patient is doing very well with trazodone 150 mg COPD/asthma overlap: Patient is supposed to be on maintenance inhaler but she is not taking it regularly she said that she take it only if she feels she needed. Patient is noncompliant with medical advice She had a stroke, she has seen neurology medication was prescribed patient does not know the name of the medication she said that she does not want a see the neurologist and she does not want take the medication, she also have A fib, and is suppose to be on elaquis, but I see that she is no longer taking it, i have sent the refil for the patient, she has apt coming up with Cardio, not sure if she will show up One medications sent for 90 days Depression/anxiety: Patient has been on venlafaxine 150 mg for a while I am reducing the dose to 75 mg and then I would like to change venlafaxine to Lexapro injury due to history of hypertension Chronic muscle spasms: I am also reducing the dose of denies any to 4 mg Hypothyroidism: Patient is supposed to be on levothyroxine 150 mcg daily them not sure if she is taking it regularly Her TSH level was of in April I would like to repeat the labs again patient was notified to do them as soon as possible Patient have severe anemia and currently she is seeing hematology [facility] Orders: Orders TSH reflex Free T4 Today D64.9 - Anemia, unspecified, E03.8 - Other specified hypothyroidism, E78.9 - Disorder of lipoprotein metabolism, unspecified, G47.9 - Sleep disorder, unspecified, I10 - Essential (primary) hypertension, I63.9 - Cerebral infarction, unspecified, R47.9 - Unspecified speech disturbances Complete Blood Count Auto Diff Today D64.9 - Anemia, unspecified, E03.8 - Other specified hypothyroidism, E78.9 - Disorder of lipoprotein metabolism, unspecified, G47.9 - Sleep disorder, unspecified, I10 - Essential (primary) hypertension, I63.9 - Cerebral infarction, unspecified, R47.9 - Unspecified speech disturbances Comprehensive Met. Panel Today D64.9 - Anemia, unspecified, E03.8 - Other specified hypothyroidism, E78.9 - Disorder of lipoprotein metabolism, unspecified, G47.9 - Sleep disorder, unspecified, I10 - Essential (primary) hypertension, I63.9 - Cerebral infarction, unspecified, R47.9 - Unspecified speech disturbances IRON PROFILE Today D64.9 - Anemia, unspecified, E03.8 - Other specified hypothyroidism, E78.9 - Disorder of lipoprotein metabolism, unspecified, G47.9 - Sleep disorder, unspecified, I10 - Essential (primary) hypertension, I63.9 - Cerebral infarction, unspecified, R47.9 - Unspecified speech disturbances Medications: New spironolactone 50 mg PO DAILY 90 tabs 0RF Changed From fluticasone furoate-vilanterol 200-25 mcg/dose (Breo Ellipta) 1 inh inhalation DAILY 30 days 28 ea 2RF To Breo Ellipta 200-25 mcg/dose (fluticasone furoate-vilanterol) 1 inh inhalation DAILY 90 days 3 multiple units 2RF NS From levothyroxine 150 mcg PO DAILY@0600 90 tabs 0RF To levothyroxine 150 mcg PO DAILY 90 days 90 tabs 0RF From omeprazole 20 mg PO BID@0630,1630 60 caps 0RF To omeprazole 20 mg PO BID 90 days 180 caps 0RF From tizanidine 6 mg PO BEDTIME To tizanidine 4 mg PO BEDTIME 90 days 90 caps 0RF From venlafaxine ER 75 mg PO DAILY 30 caps 0RF To venlafaxine ER 75 mg PO DAILY 90 days 90 caps 0RF From apixaban (Eliquis) To start taking on December 31 5 mg PO BID 60 tabs 0RF To apixaban (Eliquis) 5 mg PO BID 90 days 180 tabs 0RF Refilled trazodone 150 mg PO BEDTIME 90 tabs 0RF amlodipine 10 mg See Protocol PO DAILY 90 tabs 1RF metoprolol succinate ER 50 mg PO BID 90 days 180 tabs 0RF Coding Level of Care Code Tele Est Pt Level 5 (26367) Diagnoses Primary hypertension I10 Hypertension type: primary hypertension Other specified hypothyroidism E03.8 Lipid disorder E78.9 Acute CVA (cerebrovascular accident) I63.9 Difficulty sleeping G47.9 Other iron deficiency anemia D50.8 Anemia type: iron deficiency Iron deficiency anemia type: other iron deficiency Aphasia R47.01 Speech disturbance type: aphasia A-fib I48.91 Atrial fibrillation type: unspecified Atherosclerotic cardiovascular disease I25.10 Hypertension, essential I10 Chronic diastolic (congestive) heart failure I50.32 Recurrent major depressive disorder, in partial remission F33.41 Active/Remission status: in partial remission Time Spent (min) 46 Comment 7 min prep, 30 with patient, 9 min charting. meds
== END 2023-06-05 14:08 | disposition home or self-care (01) ==
PROVIDERS: PCP Internal Medicine; Visit Provider Internal Medicine
DX: I11.0 Hypertensive heart disease with heart failure (principal); I48.91 Unspecified atrial fibrillation; F33.41 Major depressive disorder, recurrent, in partial remission; I50.32 Chronic diastolic (congestive) heart failure; I63.9 Cerebral infarction, unspecified; E03.8 Other specified hypothyroidism; E78.9 Disorder of lipoprotein metabolism, unspecified; G47.9 Sleep disorder, unspecified; D50.8 Other iron deficiency anemias; R47.01 Aphasia; I25.10 Atherosclerotic heart disease of native coronary artery without angina pectoris; D50.0 Iron deficiency anemia secondary to blood loss (chronic)
CPT/HCPCS: 99215

== ENCOUNTER 2023-08-20 11:10 | Outpatient (AMB) | payer OTHER, SELFPAY ==
[2023-08-20 12:22] VITALS: BP 128/70; PULSE 74; O2SAT 97; BMI 23.9
--- NOTE | 2023-08-20 12:22 | A.OFFPC_ITS ---
Vital Signs 3 08/20/23 12:22 Height 5 ft 6 in Weight 148 lb 6 oz BMI 23.9 BP 128/70 Blood Pressure Location Rt brachial Position Sitting Pulse 74 Pulse Source Pulse Oximeter Pulse Oximetry (%) 97 Oxygen Delivery Method Room Air Intake Visit Reasons: med follow up missed appointment Allergies latex [Latex] Allergy (Mild, Verified 08/20/23 12:26) UNKNOWN morphine [Morphine] Allergy (Mild, Verified 08/20/23 12:26) VOMITING penicillin G Allergy (Unknown, Verified 08/20/23 12:26) Rash codeine [Codeine] Adverse Reaction (Mild, Verified 08/20/23 12:26) VOMITING procaine [From Novocain] Adverse Reaction (Mild, Verified 08/20/23 12:26) VOMITING Medication List - Last Reconciled 08/20/23 by Shravan Grant MD amlodipine 10 mg See Protocol PO DAILY apixaban (Eliquis) 5 mg PO BID 90 days Breo Ellipta 200-25 mcg/dose (fluticasone furoate-vilanterol) 1 inh inhalation DAILY 90 days NS ferrous sulfate 324 mg PO BID fluticasone propionate 50 mcg/actuation 1 spray intranasal BID folic acid 1 mg PO DAILY levothyroxine 150 mcg PO DAILY 90 days metoprolol succinate ER 50 mg PO BID 90 days omeprazole 20 mg PO BID 90 days spironolactone 50 mg PO DAILY tizanidine 4 mg PO BEDTIME 90 days trazodone 150 mg PO BEDTIME [Updraft machine As directed] venlafaxine ER 75 mg PO DAILY 90 days [Wedge Pillow As directed for positioning while sleeping] Tobacco use date assessed: 08/20/23 Fall risk assessment: 1 Fall in past year Last assessed Fall Risk: 08/20/23 Dental Screening Dental Screen Date: 08/20/23 Did you have a dental visit in the last 12 months?: No Did you have a dental problem in the last 6 months where you did not have access to dental care?: No Was dental information given to patient?: No HPI med follow up missed appointment 2 HPI0 Details Patient is an 78-year-old female came in to office today with her daughter for follow-up appointment Blood pressure is stable, She is on metoprolol 50 mg b.i.d. and amlodipine 10 mg daily and spironolactone 50 mg Difficulty sleeping at night patient is doing very well with trazodone 150 mg, patient says that medication is not helping her and she is up all night I have increased it to 200 mg COPD/asthma overlap: Patient is supposed to be on maintenance inhaler but she is not taking it regularly she said that she take it only if she feels she needed. Patient is noncompliant with medical advice She had a stroke, she has seen neurology medication was prescribed patient does not know the name of the medication she said that she does not want a see the neurologist and she does not want take the medication, History of AFib, however she is in regular rhythm today. Patient has stopped taking Plavix she tells me that it was stopped in hospital. However it was started by tomahawk weapon system operator, patient does not want to see tomahawk weapon system operator anymore. And she does not want to take Plavix as well. Depression/anxiety: Patient is on venlafaxine 75 mg , she is reluctant to change the medication would like to continue that at 75 mg Chronic muscle spasms: She is on denies any 4 mg and is telling me that this is not enough she would like to take more however I do not think that will be appropriate Two weeks ago patient tripped and fell as well and now has ecchymosis around her left eye. Daughter was not at home, and patient did not notify her and did not go to the hospital either. She tells me that she is fine. She continued to have weakness in her right leg I have offered physical therapy at home which she declined. She is able to walk without assistance though. And her speech has improved she can speak clearly. Hypothyroidism: Patient is supposed to be on levothyroxine 150 mcg daily them not sure if she is taking it regularly Patient have severe anemia she just had labs done today we will see the H and H report She was supposed to be seeing hematology but she does not want to see. She is taking iron supplement Follow-up 3 months [facility] Medical History Myxedema Atrial fibrillation with slow ventricular response Anemia Bradycardia Gait instability History of stroke Hypertension, essential Expressive aphasia Right sided weakness Chronic diastolic (congestive) heart failure Atherosclerotic cardiovascular disease Diastolic congestive heart failure Fever of unknown origin Persistent atrial fibrillation Chronic anemia A-fib Major depression, recurrent Anxiety and depression Chronic kidney disease Anemia Acute kidney injury superimposed on CKD Stroke Hypertension Surgical History History of knee surgery Family History Father Tuberculosis Mother No problems noted. Other Substance use disorder Social History Household Members: Children Housing: Apartment Do you presently have visiting nurse or other home services: No Alcohol intake: never Patient Tobacco Use Status: Former Tobacco user Tobacco use type: Cigarette Years Smoked: 10 years e-Cigarette/Vaping Use: Never Used Second Hand Smoke Exposure: No Advance Directives Date on File: 12/21/21 service: No Current occupational status: retired Cognitive needs: No Hearing needs: No Vision needs: Yes Questionnaire Thrive Questionnaire Date Thrive assessed: 03/17/23 AUDIT C Alcohol Use Questionnaire (AUDIT-C) 1. How often do you have a drink containing alcohol?: Never 3. How often do you have six or more drinks on one occasion?: Never Total Score: 0 Score Reviewed/Action Taken: Yes MARY-7 AMB Questionnaire MARY-7 Date MARY - 7 assessed: 03/12/22 Source: Developed by Drs. Boris Lazo, Sonia Cortes, Behzad Quick and colleagues, with an educational portillo from [employer]. Review of Systems Const Denies chills and Denies fever(s) ENT Denies epistaxis and Denies nasal discharge Card Denies chest pain Resp Denies chest congestion, Denies cough and Denies hemoptysis GI Denies diarrhea and Denies nausea Skin/Breast Denies rash Neuro Reports no additional complaints Psych Reports no additional complaints Endo Reports no additional complaints Physical exam (Primary Care) Vital Signs: Last Vital Signs Pulse 74 08/20/23 12:22 BP 128/70 08/20/23 12:22 Pulse Ox 97 08/20/23 12:22 Oxygen Delivery Method Room Air 08/20/23 12:22 BMI result Body Mass Index 23.9 Tobacco/Smoking Status: Tobacco use Status Tobacco use date assessed 08/20/23 08/20/23 12:27 Patient Tobacco Use Status Former Tobacco user 08/20/23 12:27 Tobacco use type Cigarette 08/20/23 12:27 e-Cigarette/Vaping Use Never Used 08/20/23 12:27 Thrive Assessment: Date of Thrive Assessment Date Thrive assessed 03/17/23 08/20/23 12:27 Const General: cooperative, comfortable and no acute distress Orientation/consciousness: patient oriented x3 HENMT Head: Yes normocephalic Head images: 2 1. Healing ecchymosis, I function intact pupils reactive to light extraocular movement intact Eyes General: appearance normal, both eyes and all related structures Neck Neck: Yes supple Resp Effort & Inspection: normal respiratory effort, no cough and no stridor Cardio Rhythm: regular rhythm Heart sounds: S1 normal heart sound present and S2 normal heart sound present Skin General skin exam: turgor normal Neuro General: patient oriented x3, tone normal and moves all extremities Extrem Right lower extremity: no edema Left lower extremity: no edema Assessment and Plan Assessment & Plan (1) Traumatic ecchymosis of face: Code(s): S00.83XA - Contusion of other part of head, initial encounter Qualifiers: Encounter type: initial encounter Qualified Code(s): S00.83XA - Contusion of other part of head, initial encounter (2) Fall: Code(s): W19.XXXA - Unspecified fall, initial encounter Qualifiers: Encounter type: initial encounter Qualified Code(s): W19.XXXA - Unspecified fall, initial encounter (3) Hypertension: Code(s): I10 - Essential (primary) hypertension Qualifiers: Hypertension type: primary hypertension Qualified Code(s): I10 - Essential (primary) hypertension (4) Other specified hypothyroidism: Code(s): E03.8 - Other specified hypothyroidism (5) Lipid disorder: Code(s): E78.9 - Disorder of lipoprotein metabolism, unspecified (6) Acute CVA (cerebrovascular accident): Code(s): I63.9 - Cerebral infarction, unspecified (7) Difficulty sleeping: Code(s): G47.9 - Sleep disorder, unspecified (8) Talking trouble: Code(s): R47.9 - Unspecified speech disturbances Qualifiers: Speech disturbance type: aphasia Qualified Code(s): R47.01 - Aphasia (9) Anemia: Code(s): D64.9 - Anemia, unspecified Qualifiers: Anemia type: iron deficiency Iron deficiency anemia type: chronic blood loss Qualified Code(s): D50.0 - Iron deficiency anemia secondary to blood loss (chronic) (10) Atherosclerotic cardiovascular disease: Code(s): I25.10 - Atherosclerotic heart disease of [place] coronary artery without angina pectoris (11) Chronic diastolic (congestive) heart failure: Code(s): I50.32 - Chronic diastolic (congestive) heart failure (12) Major depression, recurrent: Code(s): F33.9 - Major depressive disorder, recurrent, unspecified Qualifiers: Active/Remission status: in partial remission Qualified Code(s): F33.41 - Major depressive disorder, recurrent, in partial remission (13) Right leg weakness: Code(s): R29.898 - Other symptoms and signs involving the musculoskeletal system Plan Patient is an 78-year-old female came in to office today with her daughter for follow-up appointment Blood pressure is stable, She is on metoprolol 50 mg b.i.d. and amlodipine 10 mg daily and spironolactone 50 mg Difficulty sleeping at night patient is doing very well with trazodone 150 mg, patient says that medication is not helping her and she is up all night I have increased it to 200 mg COPD/asthma overlap: Patient is supposed to be on maintenance inhaler but she is not taking it regularly she said that she take it only if she feels she needed. Patient is noncompliant with medical advice She had a stroke, she has seen neurology medication was prescribed patient does not know the name of the medication she said that she does not want a see the neurologist and she does not want take the medication, History of AFib, however she is in regular rhythm today. Patient has stopped taking Plavix she tells me that it was stopped in hospital. However it was started by tomahawk weapon system operator, patient does not want to see tomahawk weapon system operator anymore. And she does not want to take Plavix as well. Depression/anxiety: Patient is on venlafaxine 75 mg , she is reluctant to change the medication would like to continue that at 75 mg Chronic muscle spasms: She is on denies any 4 mg and is telling me that this is not enough she would like to take more however I do not think that will be appropriate Two weeks ago patient tripped and fell as well and now has ecchymosis around her left eye. Daughter was not at home, and patient did not notify her and did not go to the hospital either. She tells me that she is fine. She continued to have weakness in her right leg I have offered physical therapy at home which she declined. She is able to walk without assistance though. And her speech has improved she can speak clearly. Hypothyroidism: Patient is supposed to be on levothyroxine 150 mcg daily them not sure if she is taking it regularly Patient have severe anemia she just had labs done today we will see the H and H report She was supposed to be seeing hematology but she does not want to see. She is taking iron supplement Follow-up 3 months Medications: Changed 2 From Breo Ellipta 200-25 mcg/dose (fluticasone furoate-vilanterol) 1 inh inhalation DAILY 90 days 3 multiple units 2RF NS To Breo Ellipta 200-25 mcg/dose (fluticasone furoate-vilanterol) 1 inh inhalation DAILY 30 days 1 units 0RF NS From levothyroxine 150 mcg PO DAILY 90 days 90 tabs 0RF To levothyroxine 150 mcg PO DAILY 30 days 30 tabs 0RF From metoprolol succinate ER 50 mg PO BID 90 days 180 tabs 0RF To metoprolol succinate ER 50 mg PO BID 30 days 60 tabs 0RF From omeprazole 20 mg PO BID 90 days 180 caps 0RF To omeprazole 20 mg PO BID 30 days 60 caps 0RF From tizanidine 4 mg PO BEDTIME 90 days 90 caps 0RF To tizanidine 4 mg PO BEDTIME 30 days 30 caps 0RF From trazodone 150 mg PO BEDTIME 90 tabs 0RF To trazodone 200 mg (2 x 100 mg) PO BEDTIME 30 days 60 tabs 0RF From venlafaxine ER 75 mg PO DAILY 90 days 90 caps 0RF To venlafaxine ER 75 mg PO DAILY 30 days 30 caps 0RF Refilled 2 folic acid 1 mg PO DAILY 30 tabs 0RF spironolactone 50 mg PO DAILY 30 tabs 0RF amlodipine 10 mg See Protocol PO DAILY 30 tabs 0RF ferrous sulfate 324 mg PO BID 60 tabs 0RF fluticasone propionate 50 mcg/actuation 1 spray intranasal BID 16 grams 0RF Nasal congestion Coding Level of Care Code Est Pt Level 5 (44117) Diagnoses Traumatic ecchymosis of face, initial encounter S00.83XA Encounter type: initial encounter Fall, initial encounter W19.XXXA Encounter type: initial encounter Primary hypertension I10 Hypertension type: primary hypertension Other specified hypothyroidism E03.8 Lipid disorder E78.9 Acute CVA (cerebrovascular accident) I63.9 Difficulty sleeping G47.9 Aphasia R47.01 Speech disturbance type: aphasia Iron deficiency anemia due to chronic blood loss D50.0 Anemia type: iron deficiency Iron deficiency anemia type: chronic blood loss Atherosclerotic cardiovascular disease I25.10 Chronic diastolic (congestive) heart failure I50.32 Recurrent major depressive disorder, in partial remission F33.41 Active/Remission status: in partial remission Right leg weakness R29.898 Time Spent (min) 42 Comment 7 minute prep, 25 with patient, 10 minute charting coordination care
== END 2023-08-20 12:49 | disposition home or self-care (01) ==
LOC: HO.HMGC 11:10
PROVIDERS: PCP Internal Medicine; Visit Provider Internal Medicine
DX: S00.83XA Contusion of other part of head, initial encounter (principal); W19.XXXA Unspecified fall, initial encounter; I11.0 Hypertensive heart disease with heart failure; I50.32 Chronic diastolic (congestive) heart failure; E03.8 Other specified hypothyroidism; E78.9 Disorder of lipoprotein metabolism, unspecified; G47.9 Sleep disorder, unspecified; R47.01 Aphasia; D50.0 Iron deficiency anemia secondary to blood loss (chronic); I25.10 Atherosclerotic heart disease of native coronary artery without angina pectoris; R29.898 Other symptoms and signs involving the musculoskeletal system
CPT/HCPCS: 99215

== ENCOUNTER 2023-08-20 11:17 | Outpatient (REF) | payer OTHER, SELFPAY ==
[2023-08-20 13:31] LABS: MANUAL DIFF FLAG NO
[2023-08-20 13:35] LABS: Basophils Percent Auto 0.7 % (0-2); Eosinophils Absolute Auto 0.2 X10*3/uL (0.0-0.4); Eosinophils Percent Auto 6.3 % (0-4); Hematocrit 31.5 % (37.0-47.0); Hemoglobin 9.9 g/dl (12.0-16.0); Imm Gran Abs Auto 0.01 X10*3/uL (0.00-0.03); Imm Gran Pct Auto 0.3 % (0.0-0.4); Lymphocytes Absolute Auto 0.7 X10*3/uL (1.2-4.9); Mean Corpuscular HGB Conc 31.4 g/dl (31.0-35.0); Mean Corpuscular Hemoglobin 26.2 pg (27.0-33.0); Mean Corpuscular Volume 83.3 fL (80.0-98.0); Mean Platelet Volume 9.5 fL (9.4-12.3); Monocytes Absolute Auto 0.5 X10*3/uL (0.1-1.2); Monocytes Percent Auto 17.4 % (2-11); Neutrophils Absolute Auto 1.5 x10*3/uL (2.0-8.3); Neutrophils Percent Auto 52.3 % (45-73); Platelet Count 296 X10*3/uL (160-400); Red Blood Count 3.78 X10*6/uL (4.20-5.50); Red Cell Distribution Width 16.6 % (11.0-16.0); White Blood Count 2.9 X10*3/uL (4.8-10.8)
[2023-08-20 14:01] LABS: Alanine Aminotransferase 6 U/L (0-31); Albumin Level 3.3 g/dL (3.5-5.0); Alkaline Phosphatase 106 U/L (39-117); Anion Gap 15 (12-20); Aspartate Amino Transferase 6 U/L (5-31); Bilirubin Total 0.5 mg/dL (0.0-1.0); Blood Urea Nitrogen 16 mg/dL (9-16); Calcium 9.4 mg/dL (8.4-10.2); Carbon Dioxide 24 mmol/L (22-29); Chloride 107 mmol/L (96-108); Estimated Glomerular Filt Rate > 60; Glucose Random 114 mg/dL (60-115); Potassium 3.6 mmol/L (3.3-5.1); Sodium 142 mmol/L (135-145); Total Protein 6.3 g/dL (6.5-8.0)
[2023-08-20 14:22] LABS: Ferritin 196 ng/mL (10-250)
== END 2023-08-20 11:18 | disposition home or self-care (01) ==
LOC: HO.HMGCLDS 11:17
PROVIDERS: Internal Medicine Medical Oncology; PCP Internal Medicine; Visit Provider Internal Medicine
DX: D64.9 Anemia, unspecified (principal)
CPT/HCPCS: 36415; 80053; 82728; 85025

== ENCOUNTER 2023-11-19 14:05 | Outpatient (REF) | payer OTHER, SELFPAY ==
[2023-11-19 16:25] LABS: Basophils Percent Auto 1.4 % (0-2); Eosinophils Absolute Auto 0.2 X10*3/uL (0.0-0.4); Eosinophils Percent Auto 10.6 % (0-4); Hematocrit 28.7 % (37.0-47.0); Hemoglobin 9.1 g/dl (12.0-16.0); Lymphocytes Absolute Auto 0.4 X10*3/uL (1.2-4.9); Lymphocytes Percent Auto 29.6 % (20-40); MANUAL DIFF FLAG SCAN; Mean Corpuscular HGB Conc 31.7 g/dl (31.0-35.0); Mean Corpuscular Hemoglobin 29.4 pg (27.0-33.0); Mean Corpuscular Volume 92.6 fL (80.0-98.0); Mean Platelet Volume 9.3 fL (9.4-12.3); Monocytes Absolute Auto 0.4 X10*3/uL (0.1-1.2); Monocytes Percent Auto 26.1 % (2-11); Neutrophils Absolute Auto 0.5 x10*3/uL (2.0-8.3); Neutrophils Percent Auto 32.3 % (45-73); Platelet Count 314 X10*3/uL (160-400); Red Cell Distribution Width 14.4 % (11.0-16.0); SCAN SMEAR FLAG 1
[2023-11-19 16:36] LABS: White Blood Count 1.4 X10*3/uL (4.8-10.8)
[2023-11-19 17:18] LABS: SLIDE REVIEW VERIFIED
[2023-11-19 17:27] LABS: Alanine Aminotransferase 7 U/L (0-31); Albumin Level 3.6 g/dL (3.5-5.0); Alkaline Phosphatase 80 U/L (39-117); Anion Gap 14 (12-20); Aspartate Amino Transferase 6 U/L (5-31); Bilirubin Total 0.2 mg/dL (0.0-1.0); Blood Urea Nitrogen 25 mg/dL (9-16); Calcium 9.3 mg/dL (8.4-10.2); Carbon Dioxide 19 mmol/L (22-29); Chloride 110 mmol/L (96-108); Estimated Glomerular Filt Rate 50; Glucose Random 101 mg/dL (60-115); Potassium 4.2 mmol/L (3.3-5.1); Sodium 139 mmol/L (135-145); Total Protein 6.3 g/dL (6.5-8.0)
[2023-11-19 17:45] LABS: Ferritin 395 ng/mL (10-250); TSH reflex Free T4 0.28 uIU/mL (0.32-4.0)
[2023-11-19 18:15] LABS: Free T4 (Free Thyroxine) 1.33 ng/dL (0.71-1.85)
[2023-11-20 09:47] LABS: LDL Cholesterol Direct 119 mg/dL (<100)
== END 2023-11-19 14:06 | disposition home or self-care (01) ==
LOC: HO.HMGCLDS 14:05
PROVIDERS: PCP Internal Medicine; Visit Provider Internal Medicine
DX: E03.8 Other specified hypothyroidism (principal); E78.9 Disorder of lipoprotein metabolism, unspecified; I63.9 Cerebral infarction, unspecified; D50.0 Iron deficiency anemia secondary to blood loss (chronic)
CPT/HCPCS: 36415; 80053; 82728; 83721; 84439; 84443; 85025

== ENCOUNTER 2024-07-10 22:45 | Inpatient (IN) | payer OTHER, SELFPAY ==
--- NOTE | ~2024-07-10 | CT_ITS ---
EXAMINATION: CT ABDOMEN AND PELVIS WITHOUT CONTRAST CLINICAL INFORMATION: Pain. COMPARISON: January 02, 2022 TECHNIQUE: Multidetector volumetric imaging was performed from the superior aspect of the liver through the pubic symphysis. Sagittal and coronal reformatted images were obtained on the technologist's workstation. This CT examination was performed using dose optimization techniques as appropriate, variously including the following: *Automated exposure control *Adjustment of mA and/or kV according to patient size (this includes techniques or standardized protocols for targeted exams where dose is matched to indication/reason for exam; i.e. extremities or head) *Use of iterative reconstruction technique DLP: 567 mGy-cm FINDINGS: LUNG BASES: The visualized lung bases are unremarkable. LIVER, GALLBLADDER, AND BILIARY TREE: The liver is normal in size, shape, and attenuation. No focal hepatic lesion or biliary ductal dilatation is present. The gallbladder is unremarkable with no evidence of radiopaque gallstones, gallbladder wall thickening, or obvious pericholecystic inflammatory changes. PANCREAS: Unremarkable. SPLEEN: Unremarkable. ADRENAL GLANDS: Unremarkable. KIDNEYS AND URETERS: The kidneys are normal in size, shape, and attenuation. No hydronephrosis, hydroureter, or calculi seen. No perinephric stranding. BLADDER: Unremarkable. GASTROINTESTINAL TRACT: The small and large bowel are unremarkable. The appendix is unremarkable. ABDOMINAL WALL: There is a small umbilical hernia containing fat. LYMPH NODES: Normal. VASCULAR: There is atherosclerotic plaque of the abdominal aorta and proximal branches. PELVIC VISCERA: Unremarkable. OSSEOUS STRUCTURES: Unremarkable. CT/CT abdomen pelvis wo IV con IMPRESSION: 1. No acute abnormality. 2. Atherosclerotic plaque of the abdominal aorta and proximal branches. 3. Small umbilical hernia containing fat. Fleischner guidelines were followed. Electronically signed by: Donny Mcdowell MD 07/11/2024 03:28 AM EST
[2024-07-10 22:52] VITALS: BP 105/67; BP 119/76; PULSE 81; PULSE 82; RESP 18; TEMP 37.2; O2SAT 93; O2SAT 97; BMI 19.1
--- NOTE | 2024-07-10 23:11 | ED_ITS ---
HPI - Nausea/Vomiting/Diarrhea General Chief complaint: Nausea/Vomiting/Diarrhea Stated complaint: N/V X 5 DAYS Time Seen by Provider: 07/10/24 22:59 Source: patient and EMS Mode of arrival: EMS Limitations: no limitations History of Present Illness ED Provider: Dr. Daniela Perla HPI Narrative: Patient comes to the emergency room complaining of nausea vomiting and diarrhea for 5 days. Patient states that she has diffuse abdominal cramping. Patient states that anything that she eats or drinks she either vomits it or has diarrhea shortly after. Patient states that she has been feeling weaker than usual. Patient known to have chronic anemia, refuses blood transfusions due to christianity beliefs. Patient denies any chest pain or shortness of breath. Related Data Home Medications ?Medication ?Instructions ?Recorded ?Confirmed bed liners 01/13/24 diaper,brief,-jason,disp 01/13/24 Previous Rx's ?Medication ?Instructions ?Recorded Wedge Pillow #1 ea 12/26/22 amlodipine 10 mg tablet 10 mg PO DAILY #90 tabs 11/20/23 folic acid 1 mg tablet 1 mg PO DAILY #90 tabs 11/20/23 metoprolol succinate 50 mg 50 mg PO BID 30 days #180 tabs 11/20/23 tablet,extended release 24 hr omeprazole 20 mg capsule,delayed 20 mg PO BID 30 days #180 caps 11/20/23 release spironolactone 50 mg tablet 50 mg PO DAILY #90 tabs 11/20/23 trazodone 100 mg tablet 200 mg (2 x 100 mg) PO BEDTIME 90 11/20/23 days #180 tabs venlafaxine 75 mg capsule,extended 75 mg PO DAILY 30 days #90 caps 11/20/23 release 24 hr albuterol sulfate 0.63 mg/3 mL 0.63 mg (3 mL) inhalation QID PRN 12/09/23 solution for nebulization shortness of breath or wheezing #75 mL Updraft machine #1 ea 01/02/24 albuterol sulfate 90 mcg/actuation 1 inh inhalation QID PRN shortness 02/06/24 aerosol inhaler of breath or wheezing 30 days #18 grams fluticasone propionate 50 1 spray intranasal BID Nasal 04/28/24 mcg/actuation nasal congestion #16 grams spray,suspension Breo Ellipta 200 mcg-25 mcg/dose 1 inh inhalation DAILY 30 days #60 05/12/24 powder for inhalation (fluticasone ea furoate-vilanterol) levothyroxine 137 mcg tablet 137 mcg PO DAILY 90 days #90 tabs 05/12/24 Allergies Allergy/AdvReac Type Severity Reaction Status Date / Time latex [Latex] Allergy Mild UNKNOWN Verified 07/10/24 22:56 morphine [Morphine] Allergy Mild VOMITING Verified 07/10/24 22:56 penicillin G Allergy Unknown Rash Verified 07/10/24 22:56 codeine [Codeine] AdvReac Mild VOMITING Verified 07/10/24 22:56 procaine [From Novocain] AdvReac Mild VOMITING Verified 07/10/24 22:56 Review of Systems 2 Review of Systems: Constitutional : No Weight loss, No Fever, No Chills, No Night Sweats, No Fatigue, No Malaise ENT/Mouth : No Hearing loss, No Ear Pain, No Nasal Congestion, No Sinus Pain, No Hoarseness, No sore throat, No Rhinorrhea, No Swallowing Difficulty Eyes: No Eye Pain, No Swelling, No Redness, No Foreign Body, No Discharge, No Vision Changes Cardiovascular : No Chest Pain, No SOB, No Dyspnea on Exertion, No Orthopnea, No Edema, No Palpitations Respiratory : No Cough, No Sputum, No Wheezing, No Smoke Exposure, No Dyspnea Gastrointestinal complaining of nausea vomiting abdominal cramping Genitourinary : no irregular bleeding, No Dysuria, No Urinary Frequency, No Hematuria, No Urinary Incontinence, No Urgency, No Flank Pain, No Urinary Flow Changes, No Hesitancy Musculoskeletal : No joint pain, No Myalgias, No Joint Swelling Skin : No Skin Lesions, No rash Neuro : No Weakness, No Numbness, No Paresthesias, No Loss of Consciousness, No Dizziness, No Headache Psych : No Anxiety/Panic, No Depression, No SI/HI/AH/VH, No Social Issues, Heme/Lymph: No Bruising, No Bleeding,No Lymphadenopathy Endocrine : No Polyuria, No Polydipsia, No Temperature Intolerance PMFSH Past Medical History Medical History Atrial fibrillation with slow ventricular response Gait instability History of stroke Hypertension, essential Expressive aphasia Right sided weakness Myxedema Anemia Bradycardia Chronic diastolic (congestive) heart failure Atherosclerotic cardiovascular disease Diastolic congestive heart failure Fever of unknown origin Persistent atrial fibrillation Chronic anemia A-fib Major depression, recurrent Anxiety and depression Chronic kidney disease Anemia Acute kidney injury superimposed on CKD Stroke Hypertension Surgical History History of knee surgery Family History Family History Father Tuberculosis Mother No problems noted. Other Substance use disorder Social History Social History Household Members: Children Housing: Apartment Do you presently have visiting nurse or other home services: No Alcohol intake: never Patient Tobacco Use Status: Former Tobacco user Tobacco use type: Cigarette Years Smoked: 10 years e-Cigarette/Vaping Use: Never Used Second Hand Smoke Exposure: No Advance Directives: Yes Advance Directives on File: Yes Advance Directives Date on File: 12/21/21 service: No Current occupational status: retired Cognitive needs: No Hearing needs: No Vision needs: Yes Physical Exam 2 Vital Signs: Vital Signs: Last Vital Signs Temp 99 F 07/11/24 03:25 Pulse 73 07/11/24 03:25 Resp 15 07/11/24 03:25 BP 132/73 07/11/24 03:25 Pulse Ox 98 07/11/24 03:25 O2 Del Method Room Air 07/11/24 03:25 BMI result Body Mass Index 19.1 Const: Other: Appearance: Alert. Oriented X3. Looks uncomfortable Eyes: Pupils equal, round and reactive to light. ENT: Pharynx normal. Neck: Normal inspection. Neck supple. No lymph nodes noted. No crepitus CVS: Normal heart rate and rhythm. Pulses normal. Normal S1 and S2 Respiratory: No respiratory distress. Breath sounds normal. No Wheezing. No rales Abdomen: Soft and nontender. No rigidity. No distention. Skin: Skin warm and dry. Normal skin color. Normal skin turgor. Extremities: No lower extremity edema. No Lacerations. No Rash Neuro: Oriented X 3. No motor deficit. No sensory deficit. Moving all extremities. No slurred speech. CN 2 through 12 grossly intact Psych: calm, cooperative, normal affect Course Course Course Narrative: All labs pending Medications Administered Discontinued Medications Generic Name Dose Route Start Last Admin Trade Name Freq PRN Reason Stop Dose Admin Sodium Chloride 1,000 mls @ 999 mls/hr 07/11/24 00:35 07/11/24 00:45 Ns IVCONT 07/11/24 01:35 999 mls/hr .Q1H1M ONE Administration Ondansetron HCl 4 mg 07/11/24 00:35 07/11/24 00:49 Ondansetron Hcl 4 Mg/2 Ml Vial IVPUSH 07/11/24 00:36 4 mg ONCE ONE Administration Medical Decision Making Medical Decision Making [facility] Narrative: My interpretation of labs: Patient's white blood cell count within normal limits. Patient's hemoglobin is a bit higher than usual, patient chronically anemic, creatinine is elevated 1.92 which is new for the patient -patient received IV fluids, Zofran, no episodes of diarrhea in the ED no further vomiting -BNP creatinine improved to 1.66, patient still needs more hydration. -I discussed the patient with Dr. Nguyen, patient being admitted Differential Diagnosis Differential Diagnoses: The differential diagnosis associated with the presentation includes (gastroenteritis, viral syndrome) Admission/Observation Consideration of admission/observation: Escalation of care including admission/observation considered Consult Healthcare Provider Management of the patient was discussed with: Hospitalist Lab Data [facility] Lab Attestation statement: I reviewed the patient's lab results. 07/10/24 23:37 07/11/24 03:22 Labs: Lab Results 07/10/24 07/10/24 07/11/24 Range/Units 23:37 23:38 01:08 WBC 5.0 (4.8-10.8) X10*3/uL RBC 3.98 L D (4.20-5.50) X10*6/uL Hgb 11.3 L D (12.0-16.0) g/dl Hct 34.4 L (37.0-47.0) % MCV 86.4 (80.0-98.0) fL MCH 28.4 (27.0-33.0) pg MCHC 32.8 (31.0-35.0) g/dl RDW 14.7 (11.0-16.0) % Plt Count 373 (160-400) X10*3/uL MPV 8.9 L (9.4-12.3) fL Immature Gran % (Auto) 0.4 (0.0-0.4) % Neut % (Auto) 69.9 (45-73) % Lymph % (Auto) 12.2 L (20-40) % [place] % (Auto) 13.9 H (2-11) % Eos % (Auto) 2.8 (0-4) % Baso % (Auto) 0.8 (0-2) % Lymph # (Auto) 0.6 L (1.2-4.9) X10*3/uL [place] # (Auto) 0.7 (0.1-1.2) X10*3/uL Eos # (Auto) 0.1 (0.0-0.4) X10*3/uL Baso # (Auto) 0.0 (0.0-0.2) X10*3/uL Abs Immat Gran (auto) 0.02 (0.00-0.03) X10*3/uL Absolute Neuts (auto) 3.5 (2.0-8.3) x10*3/uL Absolute Nucleated RBC 0.000 (0.0-0.012) X10*3/uL Nucleated RBC % (auto) 0.0 (0.0-0.2) /100WBC PT 12.0 (10.9-12.4) SEC INR 1.0 (0.9-1.1) Sodium 136 (135-145) mmol/L Potassium 5.1 D (3.3-5.1) mmol/L Chloride 105 (96-108) mmol/L Carbon Dioxide 19 L (22-29) mmol/L Anion Gap 17 (12-20) BUN 21 H (9-16) mg/dL Creatinine 1.92 H (0.5-1.4) mg/dL Estim Creat Clear Calc 20.8 Estimated GFR 25 Random Glucose 96 (60-115) mg/dL Calcium 9.7 (8.4-10.2) mg/dL Magnesium 2.0 (1.6-2.6) mg/dL Total Bilirubin 0.3 (0.0-1.0) mg/dL Direct Bilirubin 0.1 (0.0-0.5) mg/dL AST 20 (5-31) U/L ALT < 6 (0-31) U/L Alkaline Phosphatase 106 (39-117) U/L Troponin I High Sens 6.6 D (<3.5-17.0) ng/L Total Protein 6.4 L (6.5-8.0) g/dL Albumin 3.5 (3.5-5.0) g/dL Lipase 34 (8-78) U/L TSH 18.55 H (0.32-4.0) uIU/mL Free T4 0.85 (0.71-1.85) ng/dL Urine Color Yellow Urine Appearance Cloudy Urine pH 5.0 (5.0-9.0) Ur Specific [place] 1.020 (1.005-1.025) Urine Protein 100 (2+) H (Neg-Trace) mg/dL Urine Glucose (UA) Negative (Negative) mg/dL Urine Ketones Trace (Negative) mg/dL Urine Blood Negative (Negative) Urine Nitrite Negative (Negative) Ur Leukocyte Esterase Small (1+) H (Negative) Urine RBC 0-2 (0-2) /HPF Urine WBC 21-50 H (0-5) /HPF Ur Squamous Epith Cells >20 (0-2) /HPF Urine Bacteria 4+ (None Seen) Hyaline Casts 3-5 (0-2) /LPF 07/11/24 Range/Units 03:22 WBC (4.8-10.8) X10*3/uL RBC (4.20-5.50) X10*6/uL Hgb (12.0-16.0) g/dl Hct (37.0-47.0) % MCV (80.0-98.0) fL MCH (27.0-33.0) pg MCHC (31.0-35.0) g/dl RDW (11.0-16.0) % Plt Count (160-400) X10*3/uL MPV (9.4-12.3) fL Immature Gran % (Auto) (0.0-0.4) % Neut % (Auto) (45-73) % Lymph % (Auto) (20-40) % [place] % (Auto) (2-11) % Eos % (Auto) (0-4) % Baso % (Auto) (0-2) % Lymph # (Auto) (1.2-4.9) X10*3/uL [place] # (Auto) (0.1-1.2) X10*3/uL Eos # (Auto) (0.0-0.4) X10*3/uL Baso # (Auto) (0.0-0.2) X10*3/uL Abs Immat Gran (auto) (0.00-0.03) X10*3/uL Absolute Neuts (auto) (2.0-8.3) x10*3/uL Absolute Nucleated RBC (0.0-0.012) X10*3/uL Nucleated RBC % (auto) (0.0-0.2) /100WBC PT (10.9-12.4) SEC INR (0.9-1.1) Sodium 138 (135-145) mmol/L Potassium 4.9 (3.3-5.1) mmol/L Chloride 109 H (96-108) mmol/L Carbon Dioxide 18 L (22-29) mmol/L Anion Gap 16 (12-20) BUN 21 H (9-16) mg/dL Creatinine 1.66 H (0.5-1.4) mg/dL Estim Creat Clear Calc 24.1 Estimated GFR 30 Random Glucose 82 (60-115) mg/dL Calcium 9.0 D (8.4-10.2) mg/dL Magnesium (1.6-2.6) mg/dL Total Bilirubin (0.0-1.0) mg/dL Direct Bilirubin (0.0-0.5) mg/dL AST (5-31) U/L ALT (0-31) U/L Alkaline Phosphatase (39-117) U/L Troponin I High Sens (<3.5-17.0) ng/L Total Protein (6.5-8.0) g/dL Albumin (3.5-5.0) g/dL Lipase (8-78) U/L TSH (0.32-4.0) uIU/mL Free T4 (0.71-1.85) ng/dL Urine Color Urine Appearance Urine pH (5.0-9.0) Ur Specific [place] (1.005-1.025) Urine Protein (Neg-Trace) mg/dL Urine Glucose (UA) (Negative) mg/dL Urine Ketones (Negative) mg/dL Urine Blood (Negative) Urine Nitrite (Negative) Ur Leukocyte Esterase (Negative) Urine RBC (0-2) /HPF Urine WBC (0-5) /HPF Ur Squamous Epith Cells (0-2) /HPF Urine Bacteria (None Seen) Hyaline Casts (0-2) /LPF Independent Interpretation I performed an independent interpretation of an: CT Scan Radiology Impression Discussion of test interpretation with radiology: I have reviewed the radiologist's reading. Radiologist Impression: FINDINGS: LUNG BASES: The visualized lung bases are unremarkable. LIVER, GALLBLADDER, AND BILIARY TREE: The liver is normal in size, shape, and attenuation. No focal hepatic lesion or biliary ductal dilatation is present. The gallbladder is unremarkable with no evidence of radiopaque gallstones, gallbladder wall thickening, or obvious pericholecystic inflammatory changes. PANCREAS: Unremarkable. SPLEEN: Unremarkable. ADRENAL GLANDS: Unremarkable. KIDNEYS AND URETERS: The kidneys are normal in size, shape, and attenuation. No hydronephrosis, hydroureter, or calculi seen. No perinephric stranding. BLADDER: Unremarkable. GASTROINTESTINAL TRACT: The small and large bowel are unremarkable. The appendix is unremarkable. ABDOMINAL WALL: There is a small umbilical hernia containing fat. LYMPH NODES: Normal. VASCULAR: There is atherosclerotic plaque of the abdominal aorta and proximal branches. PELVIC VISCERA: Unremarkable. OSSEOUS STRUCTURES: Unremarkable. CT/CT abdomen pelvis wo IV con IMPRESSION: 1. No acute abnormality. 2. Atherosclerotic plaque of the abdominal aorta and proximal branches. 3. Small umbilical hernia containing fat. Fleischner guidelines were followed. Critical Care Time Critical Care Time Critical Care Time: Yes Total Critical Care Time: 60 Attestation: I have personally provided critical care time. Time includes review of lab data, radiology results, discussion with consultants, and monitoring for potential decompensation. Intervention performed as documented. Discharge Plan Discharge Clinical Impression: Vomiting, NERY (acute kidney injury) Patient Disposition: Admitted As Inpatient Prescriptions: No Action (DME) Wedge Pillow See Rx Instructions .Route .MEDSUPPLY Qty: 1 0RF Rx Instructions: As directed for positioning while sleeping amlodipine 10 mg tablet 10 mg PO DAILY Qty: 90 2RF omeprazole 20 mg capsule,delayed release(DR/EC) 20 mg PO BID 30 Days Qty: 180 2RF spironolactone 50 mg tablet 50 mg PO DAILY Qty: 90 2RF metoprolol succinate 50 mg tablet extended release 24 hr 50 mg PO BID 30 Days Qty: 180 2RF folic acid 1 mg tablet 1 mg PO DAILY Qty: 90 2RF trazodone 100 mg tablet 200 mg PO BEDTIME 90 Days Qty: 180 2RF venlafaxine 75 mg capsule,extended release 24hr 75 mg PO DAILY 30 Days Qty: 90 2RF albuterol sulfate 0.63 mg/3 mL solution for nebulization 0.63 mg inhalation QID PRN (Reason: shortness of breath or wheezing) Qty: 75 0RF (DME) diaper,brief,-jason,disp Misc See Rx Instructions .ROUTE Rx Instructions: As directed (DME) bed liners 0 .ROUTE .MEDSUPPLY albuterol sulfate 90 mcg/actuation HFA aerosol inhaler 1 inh inhalation QID PRN (Reason: shortness of breath or wheezing) 30 Days Qty: 18 3RF fluticasone propionate 50 mcg/actuation spray,suspension 1 spray intranasal BID Qty: 16 3RF fluticasone furoate-vilanterol [Breo Ellipta] 200-25 mcg/dose blister with device 1 inh inhalation DAILY 30 Days Qty: 60 2RF levothyroxine 137 mcg tablet 137 mcg PO DAILY 90 Days Qty: 90 5RF (DME) Updraft machine See Rx Instructions .Route .MEDSUPPLY Qty: 1 0RF Rx Instructions: As directed Print Language: Polish
--- NOTE | 2024-07-10 23:12 | ECG_ITS ---
Test Reason : weakness Blood Pressure : / mmHG Vent. Rate : 080 BPM Atrial Rate : 000 BPM P-R Int : 000 ms QRS Dur : 062 ms QT Int : 374 ms P-R-T Axes : 000 -04 080 degrees QTc Int : 431 ms Artifact in tracing Atrial fibrillation with premature ventricular or aberrantly conducted complexes Nonspecific ST and T wave abnormality Abnormal ECG When compared with ECG of 17-MAR-2023 03:07, No significant changes seen Referred By: Daniela Perla Electronically Signed By:CAROLEE SANTOS
[2024-07-10 23:42] LABS: MANUAL DIFF FLAG NO
[2024-07-10 23:43] LABS: Basophils Percent Auto 0.8 % (0-2); Eosinophils Absolute Auto 0.1 X10*3/uL (0.0-0.4); Eosinophils Percent Auto 2.8 % (0-4); Hematocrit 34.4 % (37.0-47.0); Hemoglobin 11.3 g/dl (12.0-16.0); Imm Gran Abs Auto 0.02 X10*3/uL (0.00-0.03); Imm Gran Pct Auto 0.4 % (0.0-0.4); Lymphocytes Absolute Auto 0.6 X10*3/uL (1.2-4.9); Lymphocytes Percent Auto 12.2 % (20-40); Mean Corpuscular HGB Conc 32.8 g/dl (31.0-35.0); Mean Corpuscular Hemoglobin 28.4 pg (27.0-33.0); Mean Corpuscular Volume 86.4 fL (80.0-98.0); Mean Platelet Volume 8.9 fL (9.4-12.3); Monocytes Absolute Auto 0.7 X10*3/uL (0.1-1.2); Monocytes Percent Auto 13.9 % (2-11); Neutrophils Absolute Auto 3.5 x10*3/uL (2.0-8.3); Neutrophils Percent Auto 69.9 % (45-73); Platelet Count 373 X10*3/uL (160-400); Red Blood Count 3.98 X10*6/uL (4.20-5.50); Red Cell Distribution Width 14.7 % (11.0-16.0)
[2024-07-11] VITALS (11 sets, daily range): BP systolic 104–135; BP diastolic 55–91; PULSE 65–82; RESP 14–19; TEMP 36.2–37.2; O2SAT 92–100; BMI 19.7; BMI 23.1
[2024-07-11 00:01] LABS: Troponin-I High Sensitivity 6.6 ng/L (<3.5-17.0)
[2024-07-11 00:12] LABS: Alanine Aminotransferase < 6 U/L (0-31); Albumin Level 3.5 g/dL (3.5-5.0); Alkaline Phosphatase 106 U/L (39-117); Anion Gap 17 (12-20); Aspartate Amino Transferase 20 U/L (5-31); Bilirubin Direct 0.1 mg/dL (0.0-0.5); Bilirubin Total 0.3 mg/dL (0.0-1.0); Blood Urea Nitrogen 21 mg/dL (9-16); Calcium 9.7 mg/dL (8.4-10.2); Carbon Dioxide 19 mmol/L (22-29); Chloride 105 mmol/L (96-108); Creatinine Clr Calc Pharmacy 20.8; Estimated Glomerular Filt Rate 25; Glucose Random 96 mg/dL (60-115); Lipase 34 U/L (8-78); Potassium 5.1 mmol/L (3.3-5.1); Sodium 136 mmol/L (135-145); Total Protein 6.4 g/dL (6.5-8.0)
[2024-07-11 00:16] LABS: TSH reflex Free T4 18.55 uIU/mL (0.32-4.0)
[2024-07-11] MEDS: 0.9 % Sodium Chloride 1,000 ML 999 ML IVCONT (00:45)
[2024-07-11] MEDS: ondansetron HCL 4 MG/2 ML VIAL IVPUSH ×2 (00:49→06:17)
[2024-07-11 00:52] LABS: Free T4 (Free Thyroxine) 0.85 ng/dL (0.71-1.85)
[2024-07-11 01:15] LABS: Appearance Urine Cloudy; Color Urine Yellow; Glucose Urine UA Negative (Negative); Leukocyte Esterase Urine Small (1+) (Negative); Nitrite Urine Negative (Negative); UMIC TRIGGER UACC YES; Urine Blood Negative (Negative); Urine Ketones Trace mg/dL (Negative); Urine Protein 100 (2+) mg/dL (Neg-Trace)
[2024-07-11 01:24] LABS: Bacteria Urine 4+ (None Seen); RBC Urine 0-2 /HPF (0-2); Squamous Epithelial Cell Urine >20 /HPF (0-2); UACC Culture Trigger YES; WBC Urine 21-50 /HPF (0-5)
--- NOTE | 2024-07-11 02:36 | PC.NURSE ---
Patient requested and given water. Okayed by Dr. Perla.
[2024-07-11 03:41] LABS: Anion Gap 16 (12-20); Blood Urea Nitrogen 21 mg/dL (9-16); Carbon Dioxide 18 mmol/L (22-29); Chloride 109 mmol/L (96-108); Creatinine Clr Calc Pharmacy 24.1; Estimated Glomerular Filt Rate 30; Glucose Random 82 mg/dL (60-115); Potassium 4.9 mmol/L (3.3-5.1); Sodium 138 mmol/L (135-145)
--- NOTE | 2024-07-11 05:26 | P.HPHOSP_ITS ---
History of Present Illness Date of Service: 07/11/24 Attending physician on admission: Isha Basilio Chief Complaint: Vomiting Sharon Lara is a 79 years old woman with past medical history significant for stroke, atrial fibrillation, HFpEF and hypertension presents to the emergency department complaining of multiple events of vomiting that started several days ago. She reported just 1 episode of diarrhea and generalized abdominal discomfort. She also reports poor appetite. She did not report any headache, dizziness, constipation or any acute urinary changes. She denied fevers or chills. Patient denied any acute cardiopulmonary symptoms. She takes spironolactone. She is Jehovah Witness. There is no history of tobacco smoking, alcohol abuse or illicit drug use. In the ED she was found to have normal vital signs. Blood workup showed no leukocytosis. Hemoglobin is 11.3. Platelets are 373. Creatinine was initially 192 and decreased to 166. There are no significant electrolyte imbalances. LFTs are normal. TSH is 18.55 and free T4 0.85. Urinalysis showed finding consistent with urinary tract infection. Abdominal pelvis CT scan showed no acute intra-abdominal abnormality. ECG showed atrial fibrillation, heart rate [address] and T-wave changes. ED tx: Zofran 4 mg IV, NS 1 L bolus Review of Systems 2 Review of Systems: Limited due to patient's confusion. [facility] Medical History Atrial fibrillation with slow ventricular response Gait instability History of stroke Hypertension, essential Expressive aphasia Right sided weakness Myxedema Anemia Bradycardia Chronic diastolic (congestive) heart failure Atherosclerotic cardiovascular disease Diastolic congestive heart failure Fever of unknown origin Persistent atrial fibrillation Chronic anemia A-fib Major depression, recurrent Anxiety and depression Chronic kidney disease Anemia Acute kidney injury superimposed on CKD Stroke Hypertension Family History Father Tuberculosis Mother No problems noted. Other Substance use disorder Surgical History History of knee surgery Social History Household Members: Children Housing: Apartment Do you presently have visiting nurse or other home services: No Alcohol intake: never Patient Tobacco Use Status: Former Tobacco user Tobacco use type: Cigarette Years Smoked: 10 years e-Cigarette/Vaping Use: Never Used Second Hand Smoke Exposure: No Advance Directives: Yes Advance Directives on File: Yes Advance Directives Date on File: 12/21/21 service: No Current occupational status: retired Cognitive needs: No Hearing needs: No Vision needs: Yes Meds Allergies Allergy/AdvReac Type Severity Reaction Status Date / Time latex [Latex] Allergy Mild UNKNOWN Verified 07/10/24 22:56 morphine [Morphine] Allergy Mild VOMITING Verified 07/10/24 22:56 penicillin G Allergy Unknown Rash Verified 07/10/24 22:56 codeine [Codeine] AdvReac Mild VOMITING Verified 07/10/24 22:56 procaine [From Novocain] AdvReac Mild VOMITING Verified 07/10/24 22:56 Active Medications: Current Medications Acetaminophen (Acetaminophen 325 Mg Tablet) 975 mg PO Q6H PRN PRN Reason: Pain, Mild (Pain Scale 1-3), fever or headache Heparin Sodium (Porcine) (Heparin Sodium,Porcine 5,000 Unit/Ml Vial) 5,000 unit SUBCUT Q12H [place] Sodium Chloride (Ns) 1,000 mls @ 100 mls/hr IVCONT .Q10H [place] Ondansetron HCl (Ondansetron Hcl 4 Mg/2 Ml Vial) 4 mg IVPUSH Q8H PRN PRN Reason: Nausea and Vomiting Pantoprazole Sodium (Pantoprazole Sodium 40 Mg/10 Ml Vial) 40 mg IVPUSH DAILY [place] Sodium Chloride (0.9 % Sodium Chloride Flush 3 Ml Syringe) 3 ml IVFLUSH QSHIFT [place] Home Medications ?Medication ?Instructions ?Recorded ?Confirmed ?Last Taken ?Type bed liners 01/13/24 Unknown History diaper,brief,-jason,disp 01/13/24 Unknown History Physical Exam 2 Vital Signs and Narrative: Vital Signs: Last Vital Signs Temp 99 F 07/11/24 03:25 Pulse 73 07/11/24 03:25 Resp 15 07/11/24 03:25 BP 132/73 07/11/24 03:25 Pulse Ox 98 07/11/24 03:25 O2 Del Method Room Air 07/11/24 03:25 BMI result Body Mass Index 19.1 Constitutional - Awake and Alert, No apparent distress. HEENT - PERRL, EOMI Heart - Irregular, normal rate. No murmurs. Lungs - Normal lung expansion, Normal respiratory effort, No respiratory distress, CTA bilaterally Abdomen - Nondisteneded. Generalized discomfort to palpation. No rebound. No guarding. Extremities - no calf tenderness bilaterally, no swelling Musculoskeletal - Normal inspection, normal ROM Skin - Warm/Dry Neurological - Alert & oriented x3, CN III - XII intact, left-sided hemiparesis. Psychological - Depressed affect Results Labs 07/10/24 23:37 07/11/24 03:22 Labs: Laboratory Results - last 24 hr 07/10/24 07/10/24 07/11/24 23:37 23:38 01:08 MCV 86.4 MCH 28.4 MCHC 32.8 RDW 14.7 Plt Count 373 MPV 8.9 L Immature Gran % (Auto) 0.4 Neut % (Auto) 69.9 Lymph % (Auto) 12.2 L [place] % (Auto) 13.9 H Eos % (Auto) 2.8 Baso % (Auto) 0.8 Lymph # (Auto) 0.6 L [place] # (Auto) 0.7 Eos # (Auto) 0.1 Baso # (Auto) 0.0 Abs Immat Gran (auto) 0.02 Absolute Neuts (auto) 3.5 Absolute Nucleated RBC 0.000 Nucleated RBC % (auto) 0.0 PT 12.0 INR 1.0 Anion Gap 17 Estim Creat Clear Calc 20.8 Estimated GFR 25 Random Glucose 96 Calcium 9.7 Magnesium 2.0 Total Bilirubin 0.3 Direct Bilirubin 0.1 AST 20 ALT < 6 Alkaline Phosphatase 106 Troponin I High Sens 6.6 D Total Protein 6.4 L Albumin 3.5 Lipase 34 TSH 18.55 H Free T4 0.85 Urine Color Yellow Urine Appearance Cloudy Urine pH 5.0 Ur Specific [place] 1.020 Urine Protein 100 (2+) H Urine Glucose (UA) Negative Urine Ketones Trace Urine Blood Negative Urine Nitrite Negative Ur Leukocyte Esterase Small (1+) H Urine RBC 0-2 Urine WBC 21-50 H Ur Squamous Epith Cells >20 Urine Bacteria 4+ Hyaline Casts 3-5 07/11/24 03:22 MCV MCH MCHC RDW Plt Count MPV Immature Gran % (Auto) Neut % (Auto) Lymph % (Auto) [place] % (Auto) Eos % (Auto) Baso % (Auto) Lymph # (Auto) [place] # (Auto) Eos # (Auto) Baso # (Auto) Abs Immat Gran (auto) Absolute Neuts (auto) Absolute Nucleated RBC Nucleated RBC % (auto) PT INR Anion Gap 16 Estim Creat Clear Calc 24.1 Estimated GFR 30 Random Glucose 82 Calcium 9.0 D Magnesium Total Bilirubin Direct Bilirubin AST ALT Alkaline Phosphatase Troponin I High Sens Total Protein Albumin Lipase TSH Free T4 Urine Color Urine Appearance Urine pH Ur Specific [place] Urine Protein Urine Glucose (UA) Urine Ketones Urine Blood Urine Nitrite Ur Leukocyte Esterase Urine RBC Urine WBC Ur Squamous Epith Cells Urine Bacteria Hyaline Casts Imaging Radiologist's Impressions: Impressions Abdomen/Pelvis CT 07/11/24 02:04 IMPRESSION: 1. No acute abnormality. 2. Atherosclerotic plaque of the abdominal aorta and proximal branches. 3. Small umbilical hernia containing fat. Fleischner guidelines were followed. Electronically signed by: Donny Mcdowell MD 07/11/2024 03:28 AM [facility] [place] Assessment and Plan (1) NERY (acute kidney injury): Status: Acute (2) Vomiting: Qualifiers: Vomiting type: unspecified Nausea presence: with nausea Qualified Code(s): R11.2 - Nausea with vomiting, unspecified Status: Acute Plan Sharon Lara is a 79 y/o woman admitted with: * Acute kidney injury secondary to vomiting. Admit to hospitalist service. IV fluids. Hold spironolactone. Continue to monitor renal function. Avoid nephrotoxic agents. * Vomiting, gastritis? Improving. Continue IV fluids and start treatment with Protonix IV. Antiemetic therapy as needed. * Urinary tract infection. Started empiric IV antibiotic therapy with ceftriaxone. Obtain urine culture and follow results. * Essential hypertension. Continue amlodipine and metoprolol. Spironolactone hold due to NERY. * Subclinical hypothyroidism. Continue levothyroxine. * Mood disorder. Continue home medications. * Chronic anemia. Continue to monitor hemoglobin. Patient is Yarsani. * AFib, rate controlled. Continue metoprolol. Not in anticoagulation. Hx of bleeding. * HFpEF. Euvolemic. * Asthma/COPD. Nebs as needed. DVT prophylaxis: Heparin Code status: Full Patient will need hospitalization for at least 2 midnights for NERY treatment with IV fluids and antiemetic therapy in the setting of multiple medical comorbidities. Quality Stroke Does the patient have a stroke diagnosis?: No VTE Prior VTE?: No VTE Risk Level:: Medical - moderate - high VTE Device Contraindication: Treatment Not Indicated VTE Drug Contraindication: N/A - Med Ordered
[2024-07-11] MEDS: cefTRIAXone sodium 1 GM VIAL IVPUSH (06:17)
[2024-07-11] MEDS: Acetaminophen 325 MG TABLET 975 MG PO ×2 (06:18→20:57)
[2024-07-11] MEDS: 0.9 % Sodium Chloride 1,000 ML 100 ML IVCONT ×2 (06:19→17:33)
[2024-07-11] MEDS: Pantoprazole Sodium 40 MG/10 ML VIAL IVPUSH (06:19)
--- NOTE | 2024-07-11 06:20 | PC.NURSE ---
Patient given Tylenol 975mg due to multiple allergies to Morphine & Codeine. Pt states that she normally takes Tylenol when she gets this pain, and it works. Reporting 7/10 pain at this time. No grimacing or obvious signs of distress noted despite stated pain level. Medicated per Tylenol PRN orders. Care ongoing by this RN.
--- NOTE | 2024-07-11 07:34 | PC.NURSE ---
Resumed care of pt at 0700. Pt resting in bed quietly, a/ox3, respirations even and unlabored, lung sounds cta bilaterally, no increased wob/sob noted, s1 and s2 heard, NSR on cardiac nurse practitioner, HR-70s, abdomen soft, non-tender. Plan for pt to be admitted and room upstairs. Call gutierrez within reach, all needs met at this time.
--- NOTE | 2024-07-11 07:57 | PC.NURSE ---
Resumed care of pt at 0700. Pt resting in bed quietly, a/ox3, respirations even and unlabored, lung sounds cta bilaterally, no increased wob/sob noted, s1 and s2 heard, a-fib on cardiac specialist, HR-70s, abdomen soft, non-tender. Plan for pt to be admitted and room upstairs. Call gutierrez within reach, all needs met at this time.
[2024-07-11] MEDS: Folic Acid 1 MG TABLET PO (08:12)
[2024-07-11] MEDS: Metoprolol Succinate ER 50 MG TAB.ER.24H PO ×2 (08:16→20:56)
[2024-07-11] MEDS: amLODIPine Besylate 10 MG TABLET PO (08:16)
[2024-07-11] MEDS: Venlafaxine HCl ER 75 MG CAP.ER.24H PO (08:16)
[2024-07-11] MEDS: Heparin Sodium,Porcine 5,000 UNIT/ML VIAL 5000 UNIT SUBCUT ×2 (08:24→20:55)
--- NOTE | 2024-07-11 09:15 | MHC.CM.PN ---
PT REPORTS SHE LIVES WITH HER DAUGHTER, MARAYNA SHE REPORTS BEING INDEPENDENT WITH CARE AND USING WIPES FOR BATHING SHE REPORTS USING A WHEEL CHAIR AT [facility] HCP ON FILE PCP: RACHEL VALIENTE IMM DELIVERED DCP: HOME NO SERVICES PT STATES SHE IS NOT ELIGIBLE FOR SERVICES THROUGH [facility], MESSAGE LEFT FOR [facility]IA[facility] TO CONFIRM BLS TRANSPORT
--- NOTE | 2024-07-11 10:43 | PHA.MEDREC ---
Addendum entered by Marla Peters RPh 07/11/24 11:06: MED REC REVIEWED BY [facility] Original Note: Pharmacy Consult ? Medication Reconciliation Pharmacy has completed the medication reconciliation. Spoke to pt's daughter (Anel [phone]) to confirm meds. Per pt's daughter, the patient refuses to take levothyroxine 137 mcg (hasn't taken in couple months) or Breo Ellipta. Only uses ventolin for SOB, but is not able to administer it on their own due to dexterity issues.
--- NOTE | 2024-07-11 12:35 | PM.EVENT ---
Event Note Date of Service: 07/11/24 Event Note: Seen and evaluated Feels better Cr improving pending cultures continue IV and IV antibiotics Refusing to take Thyroxine, TSG 18, T4 of 0.85 Time Spent With Patient Time: Total time managing care of this patient today ____ minutes.
[2024-07-11] MEDS: traZODone HCL 100 MG TABLET 200 MG PO (20:56)
[2024-07-12] MEDS: 0.9 % Sodium Chloride 1,000 ML 100 ML IVCONT ×2 (01:45→13:21)
[2024-07-12 03:51] VITALS: BP 101/57; PULSE 60; RESP 18; TEMP 36.2; O2SAT 92
[2024-07-12 05:52] LABS: MANUAL DIFF FLAG NO
[2024-07-12 05:53] LABS: Basophils Percent Auto 0.9 % (0-2); Eosinophils Absolute Auto 0.2 X10*3/uL (0.0-0.4); Eosinophils Percent Auto 6.5 % (0-4); Hematocrit 28.2 % (37.0-47.0); Hemoglobin 9.1 g/dl (12.0-16.0); Imm Gran Abs Auto 0.02 X10*3/uL (0.00-0.03); Imm Gran Pct Auto 0.6 % (0.0-0.4); Lymphocytes Absolute Auto 0.8 X10*3/uL (1.2-4.9); Lymphocytes Percent Auto 22.6 % (20-40); Mean Corpuscular HGB Conc 32.3 g/dl (31.0-35.0); Mean Corpuscular Hemoglobin 28.7 pg (27.0-33.0); Mean Platelet Volume 8.6 fL (9.4-12.3); Monocytes Absolute Auto 0.6 X10*3/uL (0.1-1.2); Monocytes Percent Auto 17.9 % (2-11); Neutrophils Absolute Auto 1.8 x10*3/uL (2.0-8.3); Neutrophils Percent Auto 51.5 % (45-73); Platelet Count 239 X10*3/uL (160-400); Red Blood Count 3.17 X10*6/uL (4.20-5.50); White Blood Count 3.4 X10*3/uL (4.8-10.8)
[2024-07-12] MEDS: Levothyroxine Sodium 112 MCG TABLET PO (05:56)
[2024-07-12] MEDS: Levothyroxine Sodium 25 MCG TABLET PO (05:57)
[2024-07-12] MEDS: cefTRIAXone sodium 1 GM VIAL IVPUSH (05:57)
[2024-07-12 06:13] LABS: Alanine Aminotransferase 6 U/L (0-31); Albumin Level 2.8 g/dL (3.5-5.0); Alkaline Phosphatase 85 U/L (39-117); Anion Gap 9 (12-20); Aspartate Amino Transferase 16 U/L (5-31); Bilirubin Total 0.2 mg/dL (0.0-1.0); Blood Urea Nitrogen 15 mg/dL (9-16); Calcium 8.2 mg/dL (8.4-10.2); Carbon Dioxide 20 mmol/L (22-29); Chloride 114 mmol/L (96-108); Creatinine Clr Calc Pharmacy 35.5; Estimated Glomerular Filt Rate 42; Glucose Random 74 mg/dL (60-115); Potassium 4.3 mmol/L (3.3-5.1); Sodium 139 mmol/L (135-145)
[2024-07-12 07:17] VITALS: BP 117/62; PULSE 65; RESP 12; TEMP 36.8; O2SAT 98
[2024-07-12] MEDS: Folic Acid 1 MG TABLET PO (08:44)
[2024-07-12] MEDS: amLODIPine Besylate 10 MG TABLET PO (08:44)
[2024-07-12] MEDS: Venlafaxine HCl ER 75 MG CAP.ER.24H PO (08:44)
[2024-07-12] MEDS: Metoprolol Succinate ER 50 MG TAB.ER.24H PO ×2 (08:44→19:42)
[2024-07-12] MEDS: Heparin Sodium,Porcine 5,000 UNIT/ML VIAL 5000 UNIT SUBCUT ×2 (08:45→19:43)
[2024-07-12] MEDS: Pantoprazole Sodium 40 MG/10 ML VIAL IVPUSH (08:45)
--- NOTE | 2024-07-12 14:00 | HO.PM.IMPN ---
Subjective Subjective Date of Service: 07/12/24 Interval History: seen and evaluated looks better denies fever , diarrhea or vomiting Cr improving Review of Systems Review of Systems: Yes all other systems are reviewed and are negative Physical Exam Vital Signs: Vital Signs: Last Vital Signs Temp 98.2 F 07/12/24 07:17 Pulse 65 07/12/24 07:17 Resp 12 07/12/24 07:17 BP 117/62 07/12/24 07:17 Pulse Ox 98 07/12/24 07:17 O2 Del Method Room Air 07/12/24 07:17 BMI result Body Mass Index 23.1 Const: Other: Constitutional : interactive, not in distress Cardiovascular : no JVP, no lower extremity edema Respiratory : bilateral chest movement, not in resp distress Gastrointestinal: soft, lax, Non tender Skin : Warm, Dry Neurological : Alert & oriented , No focal deficit Objective Data Active Medications Acetaminophen (Acetaminophen 325 Mg Tablet) 975 mg PO Q6H PRN PRN Reason: Pain, Mild (Pain Scale 1-3), fever or headache Last Admin: 07/11/24 20:57 Dose: 975 mg Documented By: JOSÉ Albuterol Sulfate (Albuterol Sulfate 90 Mcg 8 Gm Inhaler) 2 puff INHALE Q6H PRN PRN Reason: Shortness Of Breath Or Wheezing Amlodipine Besylate (Amlodipine Besylate 10 Mg Tablet) 10 mg PO DAILY [facility]; Protocol Last Admin: 07/12/24 08:44 Dose: 10 mg Documented By: LATASHA Ceftriaxone Sodium (Ceftriaxone Sodium 1 Gm Vial) 1 gm IVPUSH Q24H [facility] Last Admin: 07/12/24 05:57 Dose: 1 gm Documented By: JOSÉ Fluticasone Propionate (Fluticasone Propionate Nasal 16 Gm [place]) 1 spray NOSTRIL-B BID [facility] Last Admin: 07/12/24 11:33 Dose: Not Given Documented By: LATASHA Non-Admin Reason: Patient Refused Fluticasone/Vilanterol (Fluticasone/Vilanterol 200/25 Blst.W.Dev) 1 puff INHALE DAILY [facility] Last Admin: 07/12/24 07:46 Dose: Not Given Documented By: BARRY Non-Admin Reason: Patient Refused Folic Acid (Folic Acid 1 Mg Tablet) 1 mg PO DAILY [facility] Last Admin: 07/12/24 08:44 Dose: 1 mg Documented By: LATASHA Heparin Sodium (Porcine) (Heparin Sodium,Porcine 5,000 Unit/Ml Vial) 5,000 unit SUBCUT Q12H [facility] Last Admin: 07/12/24 08:45 Dose: 5,000 unit Documented By: LATASHA Sodium Chloride (Ns) 1,000 mls @ 100 mls/hr IVCONT .Q10H [facility] Last Admin: 07/12/24 13:21 Dose: 100 mls/hr Documented By: LATASHA Levothyroxine Sodium (Levothyroxine Sodium 112 Mcg Tablet) 112 mcg PO DAILY@0600 [facility] Last Admin: 07/12/24 05:57 Dose: 112 mcg Documented By: ANN-MARIEILMellisa Levothyroxine Sodium (Levothyroxine Sodium 25 Mcg Tablet) 25 mcg PO DAILY@0600 [facility] Last Admin: 07/12/24 05:57 Dose: 25 mcg Documented By: JOSÉ Metoprolol Succinate (Metoprolol Succinate Er 50 Mg Tab.Er.24h) 50 mg PO BID [facility]; Protocol Last Admin: 07/12/24 08:44 Dose: 50 mg Documented By: LATASHA Ondansetron HCl (Ondansetron Hcl 4 Mg/2 Ml Vial) 4 mg IVPUSH Q8H PRN PRN Reason: Nausea and Vomiting Last Admin: 07/11/24 06:17 Dose: 4 mg Documented By: MARIVEL Pantoprazole Sodium (Pantoprazole Sodium 40 Mg/10 Ml Vial) 40 mg IVPUSH DAILY [facility] Last Admin: 07/12/24 08:45 Dose: 40 mg Documented By: LATASHA Sodium Chloride (0.9 % Sodium Chloride Flush 3 Ml Syringe) 3 ml IVFLUSH QSHIFT [facility] Last Admin: 07/12/24 08:51 Dose: Not Given Documented By: LATASHA Non-Admin Reason: IV Running Trazodone HCl (Trazodone Hcl 100 Mg Tablet) 200 mg PO BEDTIME [facility] Last Admin: 07/11/24 20:56 Dose: 200 mg Documented By: JOSÉ Venlafaxine HCl (Venlafaxine Hcl Er 75 Mg Cap.Er.24h) 75 mg PO DAILY [facility] Last Admin: 07/12/24 08:44 Dose: 75 mg Documented By: LATASHA Labs 07/12/24 05:44 07/12/24 05:44 Labs: Laboratory Results - last 24 hr 07/12/24 05:44 MCV 89.0 MCH 28.7 MCHC 32.3 RDW 15.0 Plt Count 239 D MPV 8.6 L Immature Gran % (Auto) 0.6 H Neut % (Auto) 51.5 Lymph % (Auto) 22.6 [place] % (Auto) 17.9 H Eos % (Auto) 6.5 H Baso % (Auto) 0.9 Lymph # (Auto) 0.8 L [place] # (Auto) 0.6 Eos # (Auto) 0.2 Baso # (Auto) 0.0 Abs Immat Gran (auto) 0.02 Absolute Neuts (auto) 1.8 L Absolute Nucleated RBC 0.000 Nucleated RBC % (auto) 0.0 Anion Gap 9 L Estim Creat Clear Calc 35.5 Estimated GFR 42 Random Glucose 74 Calcium 8.2 L D Total Bilirubin 0.2 AST 16 ALT 6 Alkaline Phosphatase 85 Total Protein 5.0 L Albumin 2.8 L Microbiology Microbiology Results: Microbiology 07/11/24 Unknown Urine Culture - Final Urine clean catch - Clean Catch Midstream Assessment and Plan (1) NERY (acute kidney injury): Status: Acute (2) Vomiting: Status: Acute (3) Acute UTI: Status: Acute Plan Sharon Lara is a 79 y/o woman admitted with: Acute kidney injury secondary to vomiting. Improving with IVF, to dc Hold spironolactone. monitor renal function. Avoid nephrotoxic agents. Vomiting, gastritis? Improving. Protonix IV. change to PO Antiemetic therapy as needed. Urinary tract infection IV antibiotic therapy with ceftriaxone. cultures pending Essential hypertension. Continue amlodipine and metoprolol. Spironolactone hold due to NERY. Subclinical hypothyroidism. Continue levothyroxine. Mood disorder. Continue home medications. Chronic anemia. Continue to monitor hemoglobin. Patient is [place]. AFib, rate controlled. Continue metoprolol. Not in anticoagulation. Hx of bleeding. HFpEF. Euvolemic. Asthma/COPD. Nebs as needed. DVT prophylaxis: Heparin Code status: Full Patient will need hospitalization overnight for NERY treatment with IV fluids and antiemetic therapy in the setting of multiple medical comorbidities.pending final cultures and PT evaluation Quality Stroke Does the patient have a stroke diagnosis?: No VTE Prior VTE?: No VTE Risk Level:: Medical - moderate - high VTE Device Contraindication: Treatment Not Indicated VTE Drug Contraindication: N/A - Med Ordered
[2024-07-12 15:26] VITALS: BP 119/57; PULSE 64; RESP 15; TEMP 36; O2SAT 98
[2024-07-12] MEDS: 0.9 % Sodium Chloride Flush 3 ML SYRINGE IVFLUSH ×2 (17:32→19:43)
[2024-07-12 19:27] VITALS: BP 118/65; PULSE 69; RESP 15; TEMP 36.6; O2SAT 99
[2024-07-12] MEDS: traZODone HCL 100 MG TABLET 200 MG PO (19:42)
[2024-07-13 03:01] VITALS: BP 122/57; PULSE 72; RESP 18; TEMP 36.1; O2SAT 97
[2024-07-13] MEDS: cefTRIAXone sodium 1 GM VIAL IVPUSH (05:40)
[2024-07-13 07:54] VITALS: BP 139/68; PULSE 69; RESP 16; TEMP 37.5; O2SAT 99
[2024-07-13] MEDS: Fluticasone/Vilanterol 200/25 BLST.W.DEV 1 PUFF INHALE (08:48)
[2024-07-13 08:49] VITALS: PULSE 64; RESP 16; O2SAT 100
[2024-07-13] MEDS: amLODIPine Besylate 10 MG TABLET PO (08:57)
[2024-07-13] MEDS: Venlafaxine HCl ER 75 MG CAP.ER.24H PO (08:58)
[2024-07-13] MEDS: Metoprolol Succinate ER 50 MG TAB.ER.24H PO (08:58)
[2024-07-13] MEDS: Folic Acid 1 MG TABLET PO (08:58)
[2024-07-13] MEDS: Heparin Sodium,Porcine 5,000 UNIT/ML VIAL 5000 UNIT SUBCUT (09:02)
[2024-07-13] MEDS: 0.9 % Sodium Chloride Flush 3 ML SYRINGE IVFLUSH (09:03)
--- NOTE | 2024-07-13 11:33 | P.DS_ITS ---
DS: Providers Provider Date of Service: 07/13/24 Date of admission: 07/11/24 04:57 Date of discharge: 07/13/24 Primary care physician: Shravan Grant MD DS: Diagnosis Discharge Diagnosis (1) NERY (acute kidney injury): Status: Acute (2) Vomiting: Status: Acute (3) Acute UTI: Status: Acute DS: Summary Hospital Course Hospital Course: Admission note HPI Sharon Lara is a 79 years old woman with past medical history significant for stroke, atrial fibrillation, HFpEF and hypertension presents to the emergency department complaining of multiple events of vomiting that started several days ago. She reported just 1 episode of diarrhea and generalized abdominal discomfort. She also reports poor appetite. She did not report any headache, dizziness, constipation or any acute urinary changes. She denied fevers or chills. Patient denied any acute cardiopulmonary symptoms. She takes spironolactone. She is Jehovah Witness. There is no history of tobacco smoking, alcohol abuse or illicit drug use. In the ED she was found to have normal vital signs. Blood workup showed no leukocytosis. Hemoglobin is 11.3. Platelets are 373. Creatinine was initially 192 and decreased to 166. There are no significant electrolyte imbalances. LFTs are normal. TSH is 18.55 and free T4 0.85. Urinalysis showed finding consistent with urinary tract infection. Abdominal pelvis CT scan showed no acute intra-abdominal abnormality. ECG showed atrial fibrillation, heart rate [address] and T-wave changes. Hospital course The patient was treated for Acute kidney injury secondary to vomiting which Improved back to baseline with IVF and Holding spironolactone. To be followed as outpatient. The Vomiting could be from urine infection or gastritis. She was treated with IV Ceftriaxone and Protonix IV which was later changed to PO with good tolerance of food and no reported vomiting. cultures remained negative. Discharge plan Continue antbiotics as prescribed keep yourself well hydrated Time Attestation Discharge Coordination Time (in mins): 34 Quality: Safe Use of Opioids Does Pt have an Active Cancer Diagnosis on the Problem List?: No Quality: Stroke Does the patient have a stroke diagnosis?: No Physical Exam Vital Signs: Vital Signs: Last Vital Signs Temp 99.5 F 07/13/24 07:54 Pulse 64 07/13/24 08:49 Resp 16 07/13/24 08:49 BP 139/68 07/13/24 07:54 Pulse Ox 99 07/13/24 07:54 O2 Del Method Room Air 07/13/24 07:54 BMI result Body Mass Index 23.1 Const: Other: Constitutional : interactive, not in distress Cardiovascular : no JVP, no lower extremity edema Respiratory : bilateral chest movement, not in resp distress Gastrointestinal: soft, lax, Non tender Skin : Warm, Dry Neurological : Alert & oriented , No focal deficit DS: Data Data Completed and Pending Completed studies during hospitalization [Text1]: Procedures Control Bleeding in Gastrointestinal Tract, Via Natural or Artificial Opening Endoscopic (12/21/21) Excision of Cecum, Via Natural or Artificial Opening Endoscopic, Diagnostic (12/21/21) Excision of Duodenum, Via Natural or Artificial Opening Endoscopic, Diagnostic (12/21/21) Excision of Stomach, Pylorus, Via Natural or Artificial Opening Endoscopic, Diagnostic (12/21/21) Imaging Chest x-ray: Radiologist's impression: ITS Impressions Abdomen/Pelvis CT 07/11/24 02:04 IMPRESSION: 1. No acute abnormality. 2. Atherosclerotic plaque of the abdominal aorta and proximal branches. 3. Small umbilical hernia containing fat. Fleischner guidelines were followed. Electronically signed by: Donny Mcdowell MD 07/11/2024 03:28 AM [facility] [place] Discharge Plan Discharge Anticipated Discharge Date/Time: 07/13/24 11:31 Patient Disposition: Home Health Service Discharge Diagnosis: Urine infection kidney injury Referrals: Shravan Grant MD [Primary Care Provider] - 1 Week Discharge Medications: New cefuroxime axetil 250 mg tablet 250 mg PO BID Qty: 6 0RF Continued (DME) Wedge Pillow See Rx Instructions .Route .MEDSUPPLY Qty: 1 0RF Rx Instructions: As directed for positioning while sleeping amlodipine 10 mg tablet 10 mg PO DAILY Qty: 90 2RF omeprazole 20 mg capsule,delayed release(DR/EC) 20 mg PO BID 30 Days Qty: 180 2RF spironolactone 50 mg tablet 50 mg PO DAILY Qty: 90 2RF metoprolol succinate 50 mg tablet extended release 24 hr 50 mg PO BID 30 Days Qty: 180 2RF folic acid 1 mg tablet 1 mg PO DAILY Qty: 90 2RF trazodone 100 mg tablet 200 mg PO BEDTIME 90 Days Qty: 180 2RF venlafaxine 75 mg capsule,extended release 24hr 75 mg PO DAILY 30 Days Qty: 90 2RF (DME) diaper,brief,infant-jason,disp Misc See Rx Instructions .ROUTE Rx Instructions: As directed (DME) bed liners 0 .ROUTE .MEDSUPPLY albuterol sulfate [Ventolin HFA] 90 mcg/actuation HFA aerosol inhaler 2 puff inhalation Q6H PRN (Reason: Shortness Of Breath Or Wheezing) fluticasone propionate 50 mcg/actuation spray,suspension 1 spray intranasal BID PRN (Reason: Allergy Symptoms) (DME) Updraft machine See Rx Instructions .Route .MEDSUPPLY Qty: 1 0RF Rx Instructions: As directed Discharge Orders: Discharge Order (Routine); Ordered 07/13/24 Ordered By: Marcelle Washington Diet: Advance to usual diet Activity on Discharge: As tolerated Stand Alone Forms: Patient Portal Discharge page Print Language: Swiss Other Ambulatory Orders: Basic Metabolic Panel (Routine) Timeframe: 1 Week Facility: [facility] - Location: Laboratory Ordered By: Marcelle Washington Care Plan Goals: Continue antbiotics as prescribed keep yourself well hydrated Health Concerns: urine infection Plan of Treatment: antibiotics Assessment: as above
--- NOTE | 2024-07-13 12:09 | MHC.CM.PN ---
Addendum entered by Mirta Flores 07/13/24 14:07: CM SPOKE TO PTS DAUGHTER, YOLA, WHO CONFIRMS SHE WILL BE HOME WHEN PT ARRIVES Addendum entered by Mirta Flores 07/13/24 12:56: PT WILL DC HOME TODAY WITH [facility] BLS TRANSPORT BOOKED WITH [facility] FOR 1600 HOURS Original Note: PT WILL DC HOME TODAY, [facility] ORDERED, REFERRALS OUT
--- NOTE | 2024-07-13 12:20 | W.MHC.F2F ---
Service Date Service Date: 07/13/24 Encounter Date of encounter: 07/13/24 Reasons for Services Signs and symptoms assessed: physical deconditioning Reason for physical therapy: home safety and mobility and therapeutic exercises Homebound: Leaving the home is medically contraindicated at this time without the asist of a device and/or another person due th the listed conditions above and below. Reason homebound: unsteady gait / fall risk Certification: Based on the above findings, I certify that this patient is confined to the home and needs intermittent shelter care, physical therapy and/or speech therapy, or continues to need occupational therapy. The patient is under my care, and I have initiated the establishment of the plan of care. The patient will be followed by a physician who will periodically review the plan of care. Time Spent With Patient Time: Total time managing care of this patient today ____ minutes.
--- NOTE | 2024-07-13 15:58 | P.CDIM_ITS ---
PROVIDER RESPONSE TEXT: To clarify, the appropriate diagnosis supported by the clinical indicators: Chronic QUERY TEXT: PHYSICIAN'S DOCUMENTATION REQUEST Date of Query: 07/13/2024 10:10 AM EST Patient Name: Sharon Lara Admit Date: 07/11/2024 Dear Marcelle Washington MD, A review of the medical record indicates additional documentation may be needed. Please review below and update the documentation accordingly. Clinical Indicators: Progress notes within the Plan: Vomiting, Gastritis? Protonix IV. Change to PO. Clarify which of the following accurately represents the acuity of the Gastritis, if treating: Possible options might include: Acute Chronic Other (explain) Clinically unable to determine (explain) Thank you, Francine Rooney, CCS, CDIS Use of terms such as suspected, likely, concern for, or probable (associated with a specific diagnosi s that is being evaluated, monitored, or treated as if it exists) are acceptable and can be coded in the inpatient se tting, when documented at the time of discharge. Please use your independent medical judgment in providing your response. THIS QUERY IS PART OF THE PERMANENT MEDICAL RECORD
--- NOTE | 2024-07-13 15:58 | P.CDIM_ITS ---
PROVIDER RESPONSE TEXT: To clarify, the appropriate diagnosis supported by the clinical indicators: CKD, please provide stage: CKD3a QUERY TEXT: PHYSICIAN'S DOCUMENTATION REQUEST Date of Query: 07/13/2024 11:05 AM EST Patient Name: Sharon Lara Admit Date: 07/11/2024 Dear Marcelle Washington MD, A review of the medical record indicates additional documentation may be needed. Please review below and update the documentation accordingly. Clinical Indicators: ED 07/10 - PMH - NERY on superimposed CKD H&P: PMH - Chronic kidney disease Progress note within the Plan: Acute kidney injury secondary to vomiting. Improving with IVF. Cr: 1.92 1.66 1.24 Gfr: 25 30 42 Bun: 21 21 15 Avoid nephrotoxic agents. Please clarify which of the following accurately represents the patient's Stage of the documented CKD within the medical record: CKD, please provide stage 1, 2, 3a, 3b, 4 etc. Other (explain) Clinically unable to determine (explain) Thank you, Francine Rooney, CCS, CDIS Use of terms such as suspected, likely, concern for, or probable (associated with a specific diagnosi s that is being evaluated, monitored, or treated as if it exists) are acceptable and can be coded in the inpatient se tting, when documented at the time of discharge. Please use your independent medical judgment in providing your response. THIS QUERY IS PART OF THE PERMANENT MEDICAL RECORD
[2024-07-13 16:00] VITALS: BP 129/62; PULSE 74; RESP 17; TEMP 37.3; O2SAT 99
--- NOTE | 2024-07-22 23:33 | PC.NURSE ---
Addendum for 07/11/24 , Pt c/o CASTAÑEDA 12/18, pt preferred Tylenol for pain, Tylenol 975 mg po given at 2056, pt had a good effect after.
== END 2024-07-13 17:17 | disposition home health service (06) | DRG 683 ==
LOC: HO.ED 07-11 04:10 → HO.EDOVER 07-11 05:05 → HO.S3 07-11 07:47
PROVIDERS: Admitting Provider Internal Medicine; Emergency Provider Emergency Medicine; PCP Internal Medicine; Visit Provider Student in an Organized Health Care Education/Training Program
DX: N17.9 Acute kidney failure, unspecified (principal); I13.0 Hypertensive heart and chronic kidney disease with heart failure and stage 1 through stage 4 chronic kidney disease, or unspecified chronic kidney disease; N39.0 Urinary tract infection, site not specified; I50.32 Chronic diastolic (congestive) heart failure; K29.50 Unspecified chronic gastritis without bleeding; D63.1 Anemia in chronic kidney disease; J44.9 Chronic obstructive pulmonary disease, unspecified; I48.91 Unspecified atrial fibrillation; E03.8 Other specified hypothyroidism; N18.31 Chronic kidney disease, stage 3a; Z87.891 Personal history of nicotine dependence; Z79.890 Hormone replacement therapy; Z79.899 Other long term (current) drug therapy
CPT/HCPCS: 36415; 74176; 80048; 80053; 80076; 81001; 83690; 83735; 84439; 84443; 84484; 85025; 85610; 87086; 93005; 94640; 97162; 99285; J0696; J1644; J2405; J2470

== ENCOUNTER → 2024-07-10 23:12 | Outpatient (BNV) | payer OTHER, SELFPAY | PROVIDERS: Admitting Provider Internal Medicine; Emergency Provider Emergency Medicine; Visit Provider Internal Medicine | DX: R94.31 Abnormal electrocardiogram [ECG] [EKG] (principal) | CPT/HCPCS: 93010 ==

== ENCOUNTER → 2024-07-11 04:57 | Outpatient (BNV) | payer OTHER, SELFPAY | PROVIDERS: Admitting Provider Internal Medicine; Emergency Provider Emergency Medicine; Visit Provider Internal Medicine | DX: N17.9 Acute kidney failure, unspecified (principal); R11.2 Nausea with vomiting, unspecified | CPT/HCPCS: 99223; 99232; 99239; 99499; G0180 ==

== ENCOUNTER 2024-09-02 08:16 | Outpatient (AMB) | payer OTHER, SELFPAY ==
--- OUTSIDE RECORDS SUMMARY | 2024-09-02 08:30 | XMS_ITS | Data Portability ---
Author Organization [employer], [place] in [place] Address [address] [place] [address] Care Team Providers Care Repairer Handtools Name Role Phone [facility] Referring Provider Assessment No assessment recorded. Plan of Treatment Reminders Order Date Submit Date Provider Last Modified By Organization Details Last Modified Time Details Appointments None record ed. Lab None record ed. Referral None record ed. Procedures None record ed. Surgeries None record ed. Imaging None record ed. Medication Orders None record ed. Patient TargetsNo targets recorded. Patient InstructionsNo instructions recorded. Reason for Referral None Reported. Medical Equipment None Reported. Medications Name Sig Start Date Stop Date Status Note LastModified by Organization Details LastModified Time levothyroxine 137 mcg tablet active Not Available Not Availab le Not Available metoprolol succinate ER 50 mg tablet,extended release 24 hr active Not Available Not Availabl e Not Available venlafaxine ER 150 mg capsule,extended release 24 hr active Not Available Not Availabl e Not Available topiramate 25 mg tablet active Not Available Not Available Not Available metronidazole 500 mg tablet active Not Available Not Availabl e Not Available amlodipine 5 mg tablet active Not Available Not Available Not Available levothyroxine 150 mcg tablet active Not Available Not Availab le Not Available metoprolol tartrate 50 mg tablet active Not Available Not Available Not Available metoprolol succinate ER 25 mg tablet,extended release 24 hr active Not Available Not Availabl e Not Available cefuroxime axetil 500 mg tablet active Not Available Not Available Not Available Vitamin D2 1,250 mcg (50,000 unit) capsule active Not Available Not Availabl e Not Available fluticasone propionate 50 mcg/actuation nasal spray,suspension active Not Available Not Avail able Not Available spironolactone 50 mg tablet active Not Available Not Available Not Available rosuvastatin 10 mg tablet active Not Available Not Available No t Available tizanidine 6 mg capsule active Not Available Not Available Not Available ferrous sulfate 324 mg (65 mg iron) tablet,delayed release active Not Available Not Available Not Available Eliquis 5 mg tablet active Not Available Not Available Not Available Breo Ellipta 200 mcg-25 mcg/dose powder for inhalation active Not Available Not Available N ot Available Vitals Date Recorded Body temperature Heart rate Body height Body weight Respiratory rate Oxygen saturation Oxygen saturation in Arterial blood by Pulse oximetry Body height Heart rate Respiratory rate Oxygen saturation Oxygen saturation in Arterial blood by Pulse oximetry Body weight Body temperature Systolic blood pressure Diastolic blood pressure Systolic blood pressure Diastolic blood pressure Provider Name and Address Organization Details Last Updated DateTime 3 98.8 [degF] 72 /min 167.64 cm 24632.3 52 g 18 /min 96 % 96 % 167.64 cm 72 /min 18 /min 96 % 96 % 87981.3 52 g 98.8 [degF] 148 mm[Hg] 73 mm[Hg] 148 mm[Hg] 73 mm[Hg] Not Available [facility] - production 3 13:38:46 Social History None recorded. Functional Status None recorded. Mental Status None recorded. Family History Nothing Reported. Medical History No medical history recorded. Gynecological HistoryNo gynecological history recorded. Obstetrics History GPAL:G 0 P 0 0 0 0 Past Encounters Encounter ID Performer Location Encounter Start Date Encounter Closed Date Diagnosis/Indication Diagnosis SNOMED-CT Code Diagnosis ICD10 Code Diagnosis Note [id number] Richar Jorgensen MD [facility] - [facility] [address] [place] [phone] 11/14/2022 12:53:43 11/18/2022 10:02:51 Post-discharge follow-up [id number] Z09 Patient seen after AMA discharge from rehab. She is doing well at home. She has been off several of her medication s for at least several months if not longer. There are no safety concerns at home. She has an appointmen t with her PCP early next week where she will get her medication s refilled. No acute issues at this time, recommende d continued outpatient care. Health Concerns Section Related Observation LastModified by Organization Detai ls LastModified Time None Recorded Concern Status LastModified by Organization Details LastModified Time None Recorded Advance Directives Directive None Recorded Payers Encounter Date Sequence Insurance Name Policy Number Policy Looney Covered Member ID Looney Member ID Guarantor Name 11/14/2022 1 [facility] - DOS PRIOR TO 2022 - DUAL ELIGIBLE (MEDICARE REPLACEMENT/ADV ANTAGE - HMO) Sharon Lara [id number] Sharon Lara Notes Date Note Type Note Provider Name and Address Organization Details Recorded Time 11/14/2022 text/html HPI: 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 Member left rehab AMA , moderate assist. Member does not have any medications due to leaving AMA. CP wanted a wellness visit to assess safety. Member did not give a reason for leaving rehab Verified identify with lives alone but daughter , member does not have a follow up with PCP until Friday and will not prescribe medications. CP is aware we do not prescribe daily medications. ................... ................... ................... ................... ................... ................... ................... ........ CRC Nursing Assessment: Comments: CRC RN transcribed for CP > paige ................... ................... ................... ................... ................... ................... ................... ........ Crane Operator Note From Jacqueline Ruby: Sent to a call for a pt wellness check(requested by child day care center worker) after leaving rehab AMA after recent CVA. SC8 arrives on scene, pt is alert and oriented, airway is patent. Pt hasn't taken blood thinner (possibly Eliquis) since stating she had trouble getting prescription refill. Pt had a CVA approx 10/31 resulting in dysarthria and right arm weakness. Pt is able to use both arms and hands. Pt states she left rehab AMA a couple days ago, because she was being given mashed food and didn't like the way she was treated. Pt states symptoms are improving, she is eating/drinking normally. Pt denies headache, dizziness, cp, sob, n/v/d, abd pain, fever, or loc. Pt's daughter is staying with pt. Daughter states pt's PCP is going to try to see her on /Fri, and they will get confirmation on Friday. Pt states PCP will get pt's prescriptions in order at [facility]. Pt also has a [facility] nurse coming tomorrow to set up Occupational/Physic al Therapy plans. BP:148/73, P:72, RR:18, SpO2:96% RA, T:98.8; Head: unremarkable; Lung sounds: clear bilaterally; Abdomen: soft, non-tender, no distention; Back: unremarkable; Extremities: slight left arm weakness (previous stroke), slight right arm weakness (recent stroke), Lower extremities: unremarkable; Skin: pink, warm, dry; C consulted and has no orders. Red flags discussed. Pt/daughter have no further questions. ................... ................... ................... ................... ................... ................... ................... ........ Disposition: Fulfilled Richar Jorgensen MD [address] [facility],[address], [place], [address], [employer] 11/14/2022 13:45:20 OBGyn Episode No OBEpisode recorded.
--- NOTE | 2024-09-02 10:23 | MHC.PC.OV ---
Intake Visit Reasons: Discuss Concerns Allergies latex [Latex] Allergy (Mild, Verified 07/10/24 22:56) UNKNOWN morphine [Morphine] Allergy (Mild, Verified 07/10/24 22:56) VOMITING penicillin G Allergy (Unknown, Verified 07/10/24 22:56) Rash codeine [Codeine] Adverse Reaction (Mild, Verified 07/10/24 22:56) VOMITING procaine [From Novocain] Adverse Reaction (Mild, Verified 07/10/24 22:56) VOMITING Medication List - Last Reconciled 09/02/24 by Shravan Grant MD albuterol sulfate 90 mcg/actuation (Ventolin HFA) 2 puffs inhalation Q6H PRN amlodipine 10 mg PO DAILY [bed liners ] cefuroxime axetil 250 mg PO BID diaper,brief,-jason,disp As directed fluticasone propionate 50 mcg/actuation 1 spray intranasal BID folic acid 1 mg PO DAILY metoprolol succinate ER 50 mg PO BID 30 days omeprazole 20 mg PO BID 30 days spironolactone 50 mg PO DAILY trazodone 200 mg (2 x 100 mg) PO BEDTIME 90 days [Updraft machine As directed] venlafaxine ER 75 mg PO DAILY 30 days [Wedge Pillow As directed for positioning while sleeping] Tobacco use date assessed: 11/19/23 Dental Screening Dental Screen Date: 11/19/23 HPI Discuss Concerns HPI Details Patient is 79 years old woman who was last seen by me December of 2023 and after that missed several appointments she was in [facility] 07/10[facility]24 for 3 days following is the discharge summary She has H/o stroke, atrial fibrillation, HFpEF and hypertension presented to the emergency department complaining of multiple events of vomiting that started several days ago. She reported just 1 episode of diarrhea and generalized abdominal discomfort. She also reported poor appetite. She did not report any headache, dizziness, constipation or any acute urinary changes. She denied fevers or chills. Patient denied any acute cardiopulmonary symptoms. She takes spironolactone. She is Jehovah Witness. There is no history of tobacco smoking, alcohol abuse or illicit drug use. In the ED she was found to have normal vital signs. Blood workup showed no leukocytosis. Hemoglobin is 11.3. Platelets are 373. Creatinine was initially 192 and decreased to 166. There are no significant electrolyte imbalances. LFTs were normal. TSH was 18.55 and free T4 0.85. Urinalysis showed finding consistent with urinary tract infection. Abdominal pelvis CT scan showed no acute intra-abdominal abnormality. ECG showed atrial fibrillation, heart rate [address] and T-wave changes. Hospital course The patient was treated for Acute kidney injury secondary to vomiting which Improved back to baseline with IVF and Holding spironolactone. To be followed as outpatient. The Vomiting could be from urine infection or gastritis. She was treated with IV Ceftriaxone and Protonix IV which was later changed to PO with good tolerance of food and no reported vomiting. cultures remained negative. spoke to patient and her daughter , all meds sent including Levothyroxine that patient has not been taking for a while we will repeat labs again thru [facility] script of diapers sent as patient is bedridden, she is having PT twice a week c/o Pain all over body and want pain meds bill before PT ... tramadol sent 30 tabs she already have constipaton for that i have sent Lactulose Rx we will make another apt in a week time [facility] Medical History Atrial fibrillation with slow ventricular response Gait instability History of stroke Hypertension, essential Expressive aphasia Right sided weakness Myxedema Anemia Bradycardia Chronic diastolic (congestive) heart failure Atherosclerotic cardiovascular disease Diastolic congestive heart failure Fever of unknown origin Persistent atrial fibrillation Chronic anemia A-fib Major depression, recurrent Anxiety and depression Chronic kidney disease Anemia Acute kidney injury superimposed on CKD Stroke Hypertension Surgical History History of knee surgery Family History Father Tuberculosis Mother No problems noted. Other Substance use disorder Social History Household Members: Family Housing: Apartment Do you presently have visiting nurse or other home services: No Alcohol intake: never Patient Tobacco Use Status: Former Tobacco user Tobacco use type: Cigarette Years Smoked: 10 years e-Cigarette/Vaping Use: Never Used Second Hand Smoke Exposure: No Advance Directives Date on File: 12/21/21 service: No Current occupational status: retired Cognitive needs: No Hearing needs: No Vision needs: Yes Questionnaire Thrive Questionnaire Date Thrive assessed: 07/11/24 MARY-7 AMB Questionnaire MARY-7 Date MARY - 7 assessed: 11/19/23 Source: Developed by Drs. Boris Lazo, Sonia Cortes, Behzad Quick and colleagues, with an educational portillo from [employer]. Review of Systems Const Denies chills and Denies fever(s) ENT Denies epistaxis and Denies nasal discharge Card Denies chest pain Resp Denies chest congestion, Denies cough and Denies hemoptysis GI Denies diarrhea and Denies nausea Skin/Breast Denies rash Neuro Reports no additional complaints Psych Reports no additional complaints Endo Reports no additional complaints Physical exam (Primary Care) Tobacco/Smoking Status: Tobacco use Status Tobacco use date assessed 11/19/23 01/02/24 13:24 Patient Tobacco Use Status Former Tobacco user 07/13/24 11:33 Tobacco use type Cigarette 01/02/24 13:24 e-Cigarette/Vaping Use Never Used 01/02/24 13:24 Thrive Assessment: Date of Thrive Assessment Date Thrive assessed 07/11/24 07/14/24 13:10 Telehealth Telehealth Telehealth Platform: [facility] Location of provider rendering services: practice address Location of patient: address on file Patient Identification confirmed using: Name, : Yes Telehealth method: video (attempted) Patient verbally consented to treatment: Yes Patient verbally consented to billing insurance company: Yes Patient informed of any privacy concerns related to visit: Yes Coding Level of Care Code Tele Est Pt Level 4 (93546) Complex EM visit Add On G2211 Diagnoses Bedridden Z74.01 Atrophy of muscle of lower leg, unspecified laterality M62.569 Muscle atrophy area: lower leg Laterality: unspecified laterality Other specified hypothyroidism E03.8 Noncompliance Z91.19 Hypertension, essential I10 Atrial fibrillation with slow ventricular response I48.91 Functional urinary incontinence R39.81 Urinary Incontinence type: functional incontinence Assessment & Plan Assessment & Plan (1) Bedridden: Code(s): Z74.01 - Bed confinement status Category: Medical (2) Muscle wasting: Code(s): M62.50 - Muscle wasting and atrophy, not elsewhere classified, unspecified site Category: Medical Qualifiers: Muscle atrophy area: lower leg Laterality: unspecified laterality Qualified Code(s): M62.569 - Muscle wasting and atrophy, not elsewhere classified, unspecified lower leg (3) Other specified hypothyroidism: Code(s): E03.8 - Other specified hypothyroidism Category: Medical (4) Noncompliance: Code(s): Z91.19 - Patient's noncompliance with other medical treatment and regimen Category: Medical (5) Hypertension, essential: Code(s): I10 - Essential (primary) hypertension Category: Medical (6) Atrial fibrillation with slow ventricular response: Code(s): I48.91 - Unspecified atrial fibrillation Category: Medical (7) Urine incontinence: Code(s): R32 - Unspecified urinary incontinence Category: Medical Qualifiers: Urinary Incontinence type: functional incontinence Qualified Code(s): R39.81 - Functional urinary incontinence Plan Patient is 79 years old woman who was last seen by me December of 2023 and after that missed several appointments she was in [facility] 07/10/24 for 3 days following is the discharge summary She has H/o stroke, atrial fibrillation, HFpEF and hypertension presented to the emergency department complaining of multiple events of vomiting that started several days ago. She reported just 1 episode of diarrhea and generalized abdominal discomfort. She also reported poor appetite. She did not report any headache, dizziness, constipation or any acute urinary changes. She denied fevers or chills. Patient denied any acute cardiopulmonary symptoms. She takes spironolactone. She is Jehovah Witness. There is no history of tobacco smoking, alcohol abuse or illicit drug use. In the ED she was found to have normal vital signs. Blood workup showed no leukocytosis. Hemoglobin is 11.3. Platelets are 373. Creatinine was initially 192 and decreased to 166. There are no significant electrolyte imbalances. LFTs were normal. TSH was 18.55 and free T4 0.85. Urinalysis showed finding consistent with urinary tract infection. Abdominal pelvis CT scan showed no acute intra-abdominal abnormality. ECG showed atrial fibrillation, heart rate [address] and T-wave changes. Hospital course The patient was treated for Acute kidney injury secondary to vomiting which Improved back to baseline with IVF and Holding spironolactone. To be followed as outpatient. The Vomiting could be from urine infection or gastritis. She was treated with IV Ceftriaxone and Protonix IV which was later changed to PO with good tolerance of food and no reported vomiting. cultures remained negative. spoke to patient and her daughter , all meds sent including Levothyroxine that patient has not been taking for a while we will repeat labs again thru [facility] script of diapers sent as patient is bedridden, she is having PT twice a week c/o Pain all over body and want pain meds bill before PT ... tramadol sent 30 tabs she already have constipaton for that i have sent Lactulose Rx we will make another apt in a week time 31 min spent in care of this patient Orders: Orders Complete Blood Count Auto Diff Today E03.8 - Other specified hypothyroidism, I10 - Essential (primary) hypertension, I48.91 - Unspecified atrial fibrillation, M62.569 - Muscle wasting and atrophy, not elsewhere classified, unspecified lower leg, R32 - Unspecified urinary incontinence, Z74.01 - Bed confinement status Comprehensive Met. Panel Today E03.8 - Other specified hypothyroidism, I10 - Essential (primary) hypertension, I48.91 - Unspecified atrial fibrillation, M62.569 - Muscle wasting and atrophy, not elsewhere classified, unspecified lower leg, R32 - Unspecified urinary incontinence, Z74.01 - Bed confinement status TSH reflex Free T4 Today E03.8 - Other specified hypothyroidism, I10 - Essential (primary) hypertension, I48.91 - Unspecified atrial fibrillation, M62.569 - Muscle wasting and atrophy, not elsewhere classified, unspecified lower leg, R32 - Unspecified urinary incontinence, Z74.01 - Bed confinement status Ferritin Today E03.8 - Other specified hypothyroidism, I10 - Essential (primary) hypertension, I48.91 - Unspecified atrial fibrillation, M62.569 - Muscle wasting and atrophy, not elsewhere classified, unspecified lower leg, R32 - Unspecified urinary incontinence, Z74.01 - Bed confinement status Vitamin B12 Today E03.8 - Other specified hypothyroidism, I10 - Essential (primary) hypertension, I48.91 - Unspecified atrial fibrillation, M62.569 - Muscle wasting and atrophy, not elsewhere classified, unspecified lower leg, R32 - Unspecified urinary incontinence, Z74.01 - Bed confinement status Medications: New tramadol one hour before physical therapy 50 mg PO DAILY PRN 30 tabs 0RF pain lactulose 20 grams (30 mL) PO BID PRN 3,000 mL 2RF constipation [diapers adult] 4 times a day 100 ea 6RF bed ridden R32 - Unspecified urinary incontinence, Z74.01 - Bed confinement status Changed From metoprolol succinate ER 50 mg PO BID 30 days 180 tabs 0RF To metoprolol succinate ER 50 mg PO BID 90 days 180 tabs 1RF From omeprazole 20 mg PO BID 30 days 180 caps 0RF To omeprazole 20 mg PO BID 90 days 180 caps 1RF From venlafaxine ER 75 mg PO DAILY 30 days 90 caps 0RF To venlafaxine ER 75 mg PO DAILY 90 days 90 caps 0RF From levothyroxine 150 mcg PO DAILY 30 tabs 0RF 30 days To levothyroxine 150 mcg PO DAILY 90 days 90 tabs 1RF Refilled fluticasone propionate 50 mcg/actuation 1 spray intranasal BID 16 grams 5RF for congestion amlodipine 10 mg PO DAILY 90 tabs 0RF folic acid 1 mg PO DAILY 90 tabs 0RF spironolactone 50 mg PO DAILY 90 tabs 1RF trazodone 200 mg (2 x 100 mg) PO BEDTIME 90 days 180 tabs 1RF Discontinued cefuroxime axetil Discontinued Reason: Doctor's Order 250 mg PO BID 6 tabs 0RF
== END 2024-09-02 10:35 | disposition home or self-care (01) ==
LOC: HO.HMCC 08:16
PROVIDERS: PCP Internal Medicine; Visit Provider Internal Medicine
DX: I48.91 Unspecified atrial fibrillation (principal); Z74.01 Bed confinement status; M62.569 Muscle wasting and atrophy, not elsewhere classified, unspecified lower leg; E03.8 Other specified hypothyroidism; Z91.199 Patient's noncompliance with other medical treatment and regimen due to unspecified reason; I10 Essential (primary) hypertension; R39.81 Functional urinary incontinence

== ENCOUNTER 2024-09-09 06:47 | Outpatient (REF) | payer OTHER, SELFPAY ==
[2024-09-09 10:14] LABS: MANUAL DIFF FLAG NO
[2024-09-09 10:17] LABS: Basophils Percent Auto 0.5 % (0-2); Eosinophils Absolute Auto 0.5 X10*3/uL (0.0-0.4); Eosinophils Percent Auto 6.8 % (0-4); Hematocrit 27.8 % (37.0-47.0); Imm Gran Abs Auto 0.04 X10*3/uL (0.00-0.03); Imm Gran Pct Auto 0.5 % (0.0-0.4); Lymphocytes Absolute Auto 1.5 X10*3/uL (1.2-4.9); Lymphocytes Percent Auto 20.4 % (20-40); Mean Corpuscular HGB Conc 32.4 g/dl (31.0-35.0); Mean Corpuscular Volume 86.6 fL (80.0-98.0); Mean Platelet Volume 9.3 fL (9.4-12.3); Monocytes Absolute Auto 0.6 X10*3/uL (0.1-1.2); Monocytes Percent Auto 8.7 % (2-11); Neutrophils Absolute Auto 4.7 x10*3/uL (2.0-8.3); Neutrophils Percent Auto 63.1 % (45-73); Platelet Count 389 X10*3/uL (160-400); Red Blood Count 3.21 X10*6/uL (4.20-5.50); Red Cell Distribution Width 14.2 % (11.0-16.0); White Blood Count 7.4 X10*3/uL (4.8-10.8)
[2024-09-09 10:55] LABS: Alanine Aminotransferase 8 U/L (0-31); Albumin Level 3.4 g/dL (3.5-5.0); Alkaline Phosphatase 71 U/L (39-117); Anion Gap 8 (12-20); Aspartate Amino Transferase 7 U/L (5-31); Bilirubin Total 0.2 mg/dL (0.0-1.0); Blood Urea Nitrogen 20 mg/dL (9-16); Calcium 9.3 mg/dL (8.4-10.2); Carbon Dioxide 24 mmol/L (22-29); Chloride 112 mmol/L (96-108); Estimated Glomerular Filt Rate > 60; Glucose Random 96 mg/dL (60-115); Potassium 4.2 mmol/L (3.3-5.1); Sodium 140 mmol/L (135-145); Total Protein 6.1 g/dL (6.5-8.0)
[2024-09-09 11:02] LABS: Vitamin B12 228 pg/mL (200-900)
[2024-09-09 11:16] LABS: Ferritin 348 ng/mL (10-250); TSH reflex Free T4 28.11 uIU/mL (0.32-4.0)
[2024-09-09 11:58] LABS: Free T4 (Free Thyroxine) 0.65 ng/dL (0.71-1.85)
== END 2024-09-09 06:48 | disposition home or self-care (01) ==
LOC: HO.LHD 06:47
PROVIDERS: Visit Provider Internal Medicine
DX: I10 Essential (primary) hypertension (principal); Z74.01 Bed confinement status; R32 Unspecified urinary incontinence; M62.569 Muscle wasting and atrophy, not elsewhere classified, unspecified lower leg; I48.91 Unspecified atrial fibrillation; E03.8 Other specified hypothyroidism
CPT/HCPCS: 36415; 80053; 82607; 82728; 84439; 84443; 85025

== ENCOUNTER 2024-09-09 08:21 | Outpatient (AMB) | payer OTHER, SELFPAY ==
--- NOTE | 2024-09-09 08:52 | A.OFFPC_ITS ---
Intake Visit Reasons: Follow Up Allergies latex [Latex] Allergy (Mild, Verified 09/09/24 08:52) UNKNOWN morphine [Morphine] Allergy (Mild, Verified 09/09/24 08:52) VOMITING penicillin G Allergy (Unknown, Verified 09/09/24 08:52) Rash codeine [Codeine] Adverse Reaction (Mild, Verified 09/09/24 08:52) VOMITING procaine [From Novocain] Adverse Reaction (Mild, Verified 09/09/24 08:52) VOMITING Medication List - Last Reconciled 09/09/24 by hSravan Grant MD albuterol sulfate 90 mcg/actuation (Ventolin HFA) 2 puffs inhalation Q6H PRN amlodipine 10 mg PO DAILY [diapers adult 4 times a day] [diapers adult 4 times a day] disposable gloves Use As directed NS [facial/body wipes Use As directed] fluticasone propionate 50 mcg/actuation 1 spray intranasal BID folic acid 1 mg PO DAILY lactulose 20 grams (30 mL) PO BID PRN levothyroxine 150 mcg PO DAILY 90 days metoprolol succinate ER 50 mg PO BID 90 days omeprazole 20 mg PO BID 90 days [re-useable bed pads use As directed NS] spironolactone 50 mg PO DAILY tramadol 50 mg PO DAILY PRN trazodone 200 mg (2 x 100 mg) PO BEDTIME 90 days [Updraft machine As directed] venlafaxine ER 75 mg PO DAILY 90 days [Wedge Pillow As directed for positioning while sleeping] Tobacco use date assessed: 09/09/24 Fall risk assessment: No Falls in past year Last assessed Fall Risk: 09/09/24 Dental Screening Dental Screen Date: 09/09/24 Did you have a dental visit in the last 12 months?: Yes Did you have a dental problem in the last 6 months where you did not have access to dental care?: No Was dental information given to patient?: Patient has dentist HPI Follow Up HPI Details History - The patient is a 79-year-old female pr esenting with chronic pain and insomnia management issues. - Pain has significantly affected mobili ty, and interaction risks with tramadol due to concurrent medications (venlafaxine and trazodone) prevent its use. - Insomnia remains unresolved with trazo done, and a substitution with zolpidem is being considered. - Constipation is reportedly managed wit hout current complaints. - finally patient had labs drawn by miriam ferrera today we will set up another apt coming week to go over labs and to see if she is able to sleep better with Zolpidem Problem List - Chronic Pain - Insomnia - Constipation Patient Instructions - Discontinue taking trazodone at bedtim e. - Begin using Ambien (zolpidem) before b edtime as directed for sleep, ensuring not to use trazodone simultaneously. - Monitor response to the new sleeping m edication and report any concerns. - Await further instructions on pain man agement at the next follow-up visit. - Be prepared for a follow-up call isaac bruon blood test results and further management planning. Review of Systems - Neurological: Reports insomnia. - Gastrointestinal: Reports current effe ctive management of constipation. - General: No fever no chills - Ear nose throat: No sore throat no hearing difficulty no ear pain - Cardiovascular: No syncope, no chest pain, no palpitation - Endocrine: No polyuria polydipsia no heat intolerance - Genitourinary: No dysuria , no blood in urine [facility] Medical History Atrial fibrillation with slow ventricular response Gait instability History of stroke Hypertension, essential Expressive aphasia Right sided weakness Myxedema Anemia Bradycardia Chronic diastolic (congestive) heart failure Atherosclerotic cardiovascular disease Diastolic congestive heart failure Fever of unknown origin Persistent atrial fibrillation Chronic anemia A-fib Major depression, recurrent Anxiety and depression Chronic kidney disease Anemia Acute kidney injury superimposed on CKD Stroke Hypertension Surgical History History of knee surgery Family History Father Tuberculosis Mother No problems noted. Other Substance use disorder Social History Household Members: Family Housing: Apartment Do you presently have visiting nurse or other home services: No Alcohol intake: never Patient Tobacco Use Status: Former Tobacco user Tobacco use type: Cigarette Years Smoked: 10 years e-Cigarette/Vaping Use: Never Used Second Hand Smoke Exposure: No Advance Directives Date on File: 12/21/21 service: No Current occupational status: retired Cognitive needs: No Hearing needs: No Vision needs: Yes Questionnaire Thrive Questionnaire Date Thrive assessed: 07/11/24 AUDIT C Alcohol Use Questionnaire (AUDIT-C) 1. How often do you have a drink containing alcohol?: Never 3. How often do you have six or more drinks on one occasion?: Never Total Score: 0 Score Reviewed/Action Taken: Yes MARY-7 AMB Questionnaire MARY-7 Date MARY - 7 assessed: 11/19/23 Source: Developed by Drs. Boris Lazo, Sonia Cortes, Behzad Quick and colleagues, with an educational portillo from [employer]. Physical exam (Primary Care) Tobacco/Smoking Status: Tobacco use Status Tobacco use date assessed 09/09/24 09/09/24 08:53 Patient Tobacco Use Status Former Tobacco user 09/09/24 08:53 Tobacco use type Cigarette 09/09/24 08:53 e-Cigarette/Vaping Use Never Used 09/09/24 08:53 Thrive Assessment: Date of Thrive Assessment Date Thrive assessed 07/11/24 09/09/24 08:53 Telehealth Telehealth Telehealth Platform: [facility] Location of provider rendering services: practice address Location of patient: address on file Patient Identification confirmed using: Name, : Yes Telehealth method: voice only Patient verbally consented to treatment: Yes Patient verbally consented to billing insurance company: Yes Patient informed of any privacy concerns related to visit: Yes Minutes spent on Phone/Video with Pt.: 13 Coding Level of Care Code Tele Est Pt Level 3 (56513) Diagnoses Bedridden Z74.01 Atrophy of muscle of lower leg, unspecified laterality M62.569 Muscle atrophy area: lower leg Laterality: unspecified laterality Other insomnia G47.09 Insomnia type: other insomnia Whole body pain R52 Assessment & Plan Assessment & Plan (1) Bedridden: Code(s): Z74.01 - Bed confinement status Category: Medical (2) Muscle wasting: Code(s): M62.50 - Muscle wasting and atrophy, not elsewhere classified, unspecified site Category: Medical Qualifiers: Muscle atrophy area: lower leg Laterality: unspecified laterality Qualified Code(s): M62.569 - Muscle wasting and atrophy, not elsewhere classified, unspecified lower leg (3) Insomnia: Code(s): G47.00 - Insomnia, unspecified Category: Medical Qualifiers: Insomnia type: other insomnia Qualified Code(s): G47.09 - Other insomnia (4) Whole body pain: Code(s): R52 - Pain, unspecified Category: Medical Plan History - The patient is a 32-year-old female presenting with management of chronic sinus and migraine headaches. - There is a history of nasal congestion improving with Montelukast. - The patient has been offered allergen immunotherapy but expressed concerns about worsening symptoms, although reassured regarding its process and benefits. - Reports history of migraine headaches, often triggered by sinus congestion, with current headache attributed to sinus factors primarily. Problem List - Sinus Headache - Migraine Headache - Nasal Congestion - Asthma - Allergic Rhinitis Patient Instructions - Continue Montelukast as prescribed for nasal congestion relief. - Understand that allergy shots involve gradual introduction of allergens, aiming to build immunity, not to worsen symptoms. - Allergy shots are adjustable and can be discontinued if necessary.. - Monitor headache occurrences, and note any potential sinus congestion contributing to headache episodes. - Contact healthcare provider if symptoms do not improve or if there are concerns regarding treatment. Medications: New zolpidem (Ambien) 10 mg PO BEDTIME 30 days PRN 30 tabs 0RF sleep Discontinued tramadol one hour before physical therapy Discontinued Reason: Doctor's Order 50 mg PO DAILY PRN 30 tabs 0RF pain trazodone Discontinued Reason: Doctor's Order 200 mg (2 x 100 mg) PO BEDTIME 90 days 180 tabs 1RF
--- OUTSIDE RECORDS SUMMARY | 2024-09-09 11:12 | XMS_ITS | Data Portability ---
Author Organization [employer] [employer] Address [address] [place] [address] Care Team Providers Care Welding Pantograph Machine Operator Name Role Phone [facility] Referring Provider [phone] Assessment No assessment recorded. Plan of Treatment [...] 3 98.8 [degF] 72 /min 167.64 cm 20380.3 52 g 18 /min 96 % 96 % 167.64 cm 72 /min 18 /min 96 % 96 % 85643.3 52 g 98.8 [degF] 148 mm[Hg] 73 [...] [id number] Richar Jorgensen MD Main - instED [address] [place] [phone] 11/14/2022 12:53:43 11/18/2022 10:02:51 Post-discharge follow-up [id number] Patient seen after AMA discharge from [...] Looney Member ID Guarantor Name 11/14/2022 1 [facility] - DOS PRIOR TO 2022 - DUAL ELIGIBLE (MEDICARE REPLACEMENT/ADV ANTAGE - HMO) Sharon Lara [id number] Sharon Lara Notes Date Note Type Note [...] ................... ................... ................... ................... ................... ................... ........ Accounts Payable Assistant Note From Jacqueline Ruby: Sent to a call for a pt wellness check(requested by managed care analyst) after leaving rehab AMA after recent CVA. [...] will get pt's prescriptions in order at [facility]. Pt also has a CCA nurse coming [...] ........ Disposition: Fulfilled Richar Jorgensen MD [address] [facility],[address], [place], [address], [employer] - Eve 11/14/2022 13:45:20 OBGyn Episode No OBEpisode recorded.
--- OUTSIDE RECORDS SUMMARY | 2024-09-09 11:12 | XMS_ITS | Patient Health Record ---
[facility] Organization [facility] Address [address] [place] [address] Care Team Providers Care Associate Professor Of Forestry Name Role Phone Rudy TELLEZ, Asma Primary Care Provider Boris Hollingsworth [phone] REASON FOR REFERRAL No Information SOCIAL HISTORY Sex Assigned At : Social History Observation Description Sex Assigned At Unknown PROBLEMS Problem Type ICD Code Onset Dates Problem Status W/U Status Risk SNOMED Code Notes Problem Iron deficiency anemia (D50.9) Active confirmed Iron deficiency anemia (24708215) Problem Iron deficiency anemia 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
--- OUTSIDE RECORDS SUMMARY | 2024-09-09 11:12 | XMS_ITS | Clinical Summary ---
Author Organization [facility] Address [address] [place] [address] Care Team Providers Care Janitorial Assistant Name Role Phone Unavailable Primary Care Provider Unavailabl e Social History Tobacco Use Types Packs/Day Years Used Date Smoking Tobacco: Never Assessed Sex and Gender Information Value Date Recorded Sex Assigned at Not on file Gender Identity Not on file Sexual Orientation Not on file Plan of Treatment Health Maintenance Due Date Last Done Comments Hepatitis C Virus Screening 1945 DTaP/Tdap/Td Vaccines (1 - Tdap) 1966 Pneumococcal Vaccines 50+ (1 of 1 - PCV) 1997 Zoster (Shingles) Vaccine (1 of 2) 1997 RSV Vaccine 60 years and old er and Patients (1 - 1-dose 75+ series) 2022 COVID-19 Vaccine ( - 2023-2 5 season) 2024 Hepatitis B Vaccines Aged Out No long er eligible based on patient's age to complete this topic
--- OUTSIDE RECORDS SUMMARY | 2024-09-09 11:12 | XMS_ITS ---
Author Organization [facility] Address [address] [place] [address] Care Team Providers Care Room Service Bellhop Name Role Phone Rudy TELLEZ, Asma Primary Care Provider Boris Hollingsworth [phone] PROBLEMS Problem Type ICD Code Onset Dates Problem Status W/U Status Risk SNOMED Code Notes Problem Iron deficiency anemia due to chronic blood loss (D50.0) Active confirmed 052255115 Problem Heme + stool (R19.5) Active confirmed 12200677 Encounters Encounter [facility] Date [facility] [address] [place] [phone] 03/23/2023 Boris Castillo Iron deficiency anemia due to chronic blood loss D50.0 and Heme + stool R19.5 ASSESSMENTS Encounter Date Diagnosis Assessment Notes Treatment Notes Treatment Clinical Notes 03/23/2023 Iron deficiency anemia due to chronic blood loss (ICD-10 - D50.0) 03/23/2023 Heme + stool (ICD-10 - R19.5) PLAN OF TREATMENT No Information
--- OUTSIDE RECORDS SUMMARY | 2024-09-09 11:12 | XMS_ITS | Clinical Summary ---
Author Organization [facility] Address [address] [facility] [address] [place] [address] Phone Care Team Providers Care Bakery Worker Name Role Phone Shravan Grant MD Primary Care Provider [phone] Allergies Active Allergy Reactions Criticality Noted Date Comments Codeine 03/28/2020 Latex 03/28/2020 Morphine 03/28/2020 Penicillins 03/28/2020 Topiramate 06/18/2022 Medications tiZANidine (ZANAFLEX) 6 MG capsule Take 6 mg by mouth every night Active levothyroxine (SYNTHROID, LEVOTHROID) 150 MCG tablet Take 150 mcg by mouth 1 (one) time each day Active fluticasone (FLONASE) 50 MCG/ACT nasal spray Administer 1 spray into each nostril 1 (one) time each day Active venlafaxine XR (EFFEXOR-XR) 150 MG 24 hr capsule Take 150 mg by mouth 1 (one) time each day Active Breo Ellipta 200-25 MCG/INH aerosol powder 1 Active albuterol 0.63 MG/3ML nebulizer solution 1 Active amLODIPine (NORVASC) 5 MG tablet Take 1 tablet (5 mg total) by mouth 1 (one) time each day 90 tablet 3 1 Active metoprolol succinate XL (TOPROL XL) 25 MG 24 hr tablet TAKE 1 TABLET BY MOUTH DAILY 90 tablet 5 1 Active spironolactone (Aldactone) 50 MG tablet Take 1 tablet (50 mg total) by mouth 1 (one) time each day 90 tablet 3 2 Active ergocalciferol (Drisdol) 1.25 MG (41596 UT) capsuleIndicati ons:Chronic kidney disease, stage 4 (severe) ([facility]) Take 1 capsule (50,000 Units total) by mouth 1 (one) time per week 12 capsule 3 3 Active Active Problems Problem Noted Date Diagnosed Date Persistent proteinuria 07/03/2021 Hypertension 07/03/2021 Renal artery stenosis 07/02/2021 Chronic kidney disease, stage 4 (severe) 020 Benign hypertension Hypertensive nephrosclerosis Hypothyroidism Impaired fasting glycemia Serum creatinine above reference range Lipid storage disorder, not otherwise specified Acute nontraumatic kidney injury Anemia Dehydration Diabetes mellitus Edema of lower extremity Urinary tract infection caused by Escherichia co li Hypokalemia Hypotension Increased liver function Pyelonephritis Sepsis Social History Tobacco Use Types Packs/Day Years Used Date Smoking Tobacco: Former Smokeless Tobacco: Never Alcohol Use Standard Drinks/Week Comments Never 0 (1 standard drink = 0.6 oz pur e alcohol) Comments Unknown Sex and Gender Information Value Date Recorded Sex Assigned at Not on file Legal Sex Female 10:16 AM EDT Gender Identity Not on file Sexual Orientation Not on file Last Filed Vital Signs Vital Sign Reading Time Taken Comments Blood Pressure 130/70 06/18/2022 4:09 PM EST Pulse 83 06/18/2022 4:09 PM EST Temperature - - Respiratory Rate - - Oxygen Saturation 98% 06/18/2022 4:09 PM EST Inhaled Oxygen Concentration - - Weight 81.4 kg (179 lb 6.4 oz) 06/18/2022 4:09 P M EST Height 167.6 cm (5' 6 ) 06/18/2022 4:09 PM EST Body Mass Index 28.96 06/18/2022 4:09 PM EST Plan of Treatment Health Maintenance Due Date Last Done Comments Pneumococcal Vaccine: 65+ Ye ars (1 of 2 - PCV) 1953 Diabetes: Ophthalmology Exam 12/18/2020 Diabetes: Pedal Pulse Checked 12/18/2020 Diabetes: Sensory Foot Exam 12/18/2020 Diabetes: Visual Foot Exam 12/18/2020 Diabetes: Hemoglobin A1C 08/23/2021 05/23/2021 Influenza Vaccine (#1) 2024 Hepatitis B Vaccine Aged Out No longe r eligible based on patient's age to complete this topic Procedures Procedure Name Priority Date/Time Associated Diagnosis Comments HEMOGLOBIN A1C Routine 05/23/2021 4:26 PM EDT Chronic kidney disease, stage 4 (severe) (HCC) Benign hypertension from Last 3 Months or Most Recently Relevant to Health Maintenance Results * (ABNORMAL) Hemoglobin A1c (05/23/2021 4:26 PM EDT) Hemoglobin A1C 5.9(H) (4.0-5.6) % [facility] Comment: MONITORING: In known diabetic patients, hemoglobin A1c targets should be discussed with health care provider. DIAGNOSTIC USE: ??The [place] Diabetes Association (ADA) and the World Health Organization (WHO) recommend the use of HbA1c to diagnose diabetes using a threshold of 6.5%. Patients who have an HbA1c between 5.7% and 6.4% are considered at increased risk for developing diabetes in the future. CAUTION: Falsely low HbA1c results may be observed in patients with hemolytic anemia, homozygous forms of abnormal hemoglobin (e.g. SS, CC, SC), , recent blood loss or hemoglobin F greater than 7%. Fructosamine may be used as an alternate test in these cases. REFERENCE: ADA: Standards of Medical Care in Diabetes 2020, The Journal of Clinical and Applied Research and Education Volume 43, Supplement 1 Testing performed or reported by [facility], a Service of [facility], [address] [place] [address] Avila Treviño MD, Desktop Manager [facility]# [id number] Blood (Blood, Venous) 05/23/2021 4:26 PM EDT 05/23/2021 4:28 PM EDT us Sarmad Cortez MD LAB BLOOD ORDERABLES Final Re sult [facility] from Last 3 Months or Most Recently Relevant to Health Maintenance Insurance [address] [place] [id number] [facility] Care Teams Bakery Worker Relationship Specialty Start Date End Date Shravan Grant MD [address] [place] [address] PCP - General Internal Medicine 05/23/21
== END 2024-09-09 10:10 | disposition home or self-care (01) ==
LOC: HO.HMCC 08:22
PROVIDERS: PCP Internal Medicine; Visit Provider Internal Medicine
DX: G47.09 Other insomnia (principal); Z74.01 Bed confinement status; M62.569 Muscle wasting and atrophy, not elsewhere classified, unspecified lower leg; R52 Pain, unspecified

== ENCOUNTER 2024-09-16 08:19 | Outpatient (AMB) | payer OTHER, SELFPAY ==
--- OUTSIDE RECORDS SUMMARY | 2024-09-16 08:25 | XMS_ITS | Data Portability ---
Author Organization [employer] Address [address] [place] [address] Care Team Providers Care Agricultural Technical Officer Name Role Phone [facility] Referring Provider [phone] Assessment No assessment recorded. Plan of Treatment [...] 3 98.8 [degF] 72 /min 167.64 cm 90541.3 52 g 18 /min 96 % 96 % 167.64 cm 72 /min 18 /min 96 % 96 % 83236.3 52 g 98.8 [degF] 148 mm[Hg] 73 [...] [id number] Richar Jorgensen MD Main - instED [address] [place] [phone] 11/14/2022 12:53:43 11/18/2022 10:02:51 Post-discharge follow-up [id number] Z09 Patient seen after AMA discharge from [...] Looney Member ID Guarantor Name 11/14/2022 1 [facility] - DOS PRIOR TO 2022 - DUAL ELIGIBLE (MEDICARE REPLACEMENT/ADV ANTAGE - HMO) Sharon Lara [id number] Sharon Lara Notes Date Note Type Note [...] ................... ................... ................... ................... ................... ................... ........ Sanitarian Note From Jacqueline Ruby: Sent to a call for a pt wellness check(requested by critical care cns) after leaving rehab AMA after recent CVA. [...] will get pt's prescriptions in order at [facility]. Pt also has a CCA [...] ........ Disposition: Fulfilled Richar Jorgensen MD [address] [facility],[address], [place], [address], [employer] [employer] 11/14/2022 13:45:20 OBGyn Episode No OBEpisode recorded.
--- OUTSIDE RECORDS SUMMARY | 2024-09-16 08:25 | XMS_ITS | Clinical Summary ---
Author Organization [facility] Address [address] [facility] [address] [place] [address] Phone Care Team Providers Care Stock Checkerer Name Role Phone Shravan Grant MD Primary Care Provider [phone] Allergies Active Allergy Reactions Criticality Noted Date [...] 3 2 Active ergocalciferol (Drisdol) 1.25 MG (43871 UT) capsuleIndicati ons:Chronic kidney disease, stage 4 (severe) ([facility]) Take 1 capsule (50,000 Units total) [...] PM EDT) Hemoglobin A1C 5.9(H) (4.0-5.6) % [facility] Comment: MONITORING: In known diabetic patients, hemoglobin A1c targets should be discussed with health care provider. DIAGNOSTIC USE: ??The [place] Diabetes Association (ADA) and the World Health [...] Supplement 1 Testing performed or reported by [facility], a Service of [facility], [address] [place] [address] Avila Treviño MD, Automobile Glass Technician [facility]# [id number] Blood (Blood, Venous) 05/23/2021 4:26 PM EDT 05/23/2021 4:28 PM EDT us Sarmad Cortez MD LAB BLOOD ORDERABLES Final Re sult [facility] from Last 3 Months or Most Recently Relevant to Health Maintenance Insurance [address] [place] [id number] [facility] Care Teams Stock Checkerer Relationship Specialty Start Date End Date Shravan Grant MD [address] [place] [address] PCP - General Internal Medicine 05/23/21
--- OUTSIDE RECORDS SUMMARY | 2024-09-16 08:25 | XMS_ITS | Clinical Summary ---
Author Organization [facility] Address [address] [place] [address] Care Team Providers Care Tube Sizer And Cutter Operator Name Role Phone Unavailable Primary Care Provider [...]
--- NOTE | 2024-09-16 10:11 | A.OFFPC_ITS ---
Intake Visit Reasons: 1Wk F/U Allergies latex [Latex] Allergy (Mild, Verified 09/09/24 08:52) UNKNOWN morphine [Morphine] Allergy (Mild, Verified 09/09/24 08:52) VOMITING penicillin G Allergy (Unknown, Verified 09/09/24 08:52) Rash codeine [Codeine] Adverse Reaction (Mild, Verified 09/09/24 08:52) VOMITING procaine [From Novocain] Adverse Reaction (Mild, Verified 09/09/24 08:52) VOMITING Medication List - Last Reconciled 09/16/24 by Shravan Grant MD albuterol sulfate 90 mcg/actuation (Ventolin HFA) 2 puffs inhalation Q6H PRN amlodipine 10 mg PO DAILY [diapers adult 4 times a day] [diapers adult 4 times a day] disposable gloves Use As directed NS [facial/body wipes Use As directed] fluticasone propionate 50 mcg/actuation 1 spray intranasal BID folic acid 1 mg PO DAILY lactulose 20 grams (30 mL) PO BID PRN levothyroxine 150 mcg PO DAILY 90 days metoprolol succinate ER 50 mg PO BID 90 days omeprazole 20 mg PO BID 90 days [re-useable bed pads use As directed NS] spironolactone 50 mg PO DAILY [Updraft machine As directed] venlafaxine ER 75 mg PO DAILY 90 days [Wedge Pillow As directed for positioning while sleeping] zolpidem (Ambien) 10 mg PO BEDTIME PRN 30 days Tobacco use date assessed: 09/09/24 Dental Screening Dental Screen Date: 09/09/24 HPI 1Wk F/U HPI Details - The patient is a 79-year-old female pr esenting with insomnia and hypothyroidis m. - Current management of insomnia with pr escribed sleeping pills Ambien, has been effective. - The patient has experienced adverse re actions to levothyroxine, leading to non-compliance. She reported being unable to sleep for two days after taking the medication. - A switch to Synthroid, a brand name al ternative to levothyroxine, is being considered to mitigate adverse reactions and ensure compliance. Problem List - Insomnia - Hypothyroidism Patient Instructions - Continue taking the prescribed sleepin g pills as they are effectively helping with sleep. - Administer Synthroid once it is approv ed, without informing the patient about the specific medication to ensure adherence. - Monitor for any side effects from Synt hroid and report any concerns immediately. - Follow prescribed medication regimen s trictly to manage hypothyroidism effectively. Review of Systems - General: No fever no chills - Neurological: No headaches no dizziness - Ear nose throat: No sore throat no hearing difficulty no ear pain - Cardiovascular: No syncope, no chest pain, no palpitations - Gastrointestinal: No nausea vomiting or diarrhea - Endocrine: No polyuria polydipsia no heat intolerance - Genitourinary: No dysuria , no blood in urine [facility] Medical History Atrial fibrillation with slow ventricular response Gait instability History of stroke Hypertension, essential Expressive aphasia Right sided weakness Myxedema Anemia Bradycardia Chronic diastolic (congestive) heart failure Atherosclerotic cardiovascular disease Diastolic congestive heart failure Fever of unknown origin Persistent atrial fibrillation Chronic anemia A-fib Major depression, recurrent Anxiety and depression Chronic kidney disease Anemia Acute kidney injury superimposed on CKD Stroke Hypertension Surgical History History of knee surgery Family History Father Tuberculosis Mother No problems noted. Other Substance use disorder Social History Household Members: Family Housing: Apartment Do you presently have visiting nurse or other home services: No Alcohol intake: never Patient Tobacco Use Status: Former Tobacco user Tobacco use type: Cigarette Years Smoked: 10 years e-Cigarette/Vaping Use: Never Used Second Hand Smoke Exposure: No Advance Directives Date on File: 12/21/21 service: No Current occupational status: retired Cognitive needs: No Hearing needs: No Vision needs: Yes Questionnaire Thrive Questionnaire Date Thrive assessed: 07/11/24 MARY-7 AMB Questionnaire MARY-7 Date MARY - 7 assessed: 11/19/23 Source: Developed by Drs. Boris Lazo, Sonia Cortes, Behzad Quick and colleagues, with an educational portillo from [employer]. Physical exam (Primary Care) Tobacco/Smoking Status: Tobacco use Status Tobacco use date assessed 09/09/24 09/16/24 10:13 Patient Tobacco Use Status Former Tobacco user 09/16/24 10:13 Tobacco use type Cigarette 09/16/24 10:13 e-Cigarette/Vaping Use Never Used 09/16/24 10:13 Thrive Assessment: Date of Thrive Assessment Date Thrive assessed 07/11/24 09/16/24 10:13 Telehealth Telehealth Telehealth Platform: [employer] Location of provider rendering services: practice address Location of patient: address on file Patient Identification confirmed using: Name, : Yes Telehealth method: voice only Patient verbally consented to treatment: Yes Patient verbally consented to billing insurance company: Yes Patient informed of any privacy concerns related to visit: Yes Minutes spent on Phone/Video with Pt.: 13 Coding Level of Care Code Tele Est Pt Level 3 (48723) Diagnoses Other insomnia G47.09 Insomnia type: other insomnia Other specified hypothyroidism E03.8 Assessment & Plan Assessment & Plan (1) Insomnia: Code(s): G47.00 - Insomnia, unspecified Category: Medical Qualifiers: Insomnia type: other insomnia Qualified Code(s): G47.09 - Other in somnia (2) Other specified hypothyroidism: Code(s): E03.8 - Other specified hypothyroidism Category: Medical Plan - The patient is a 79-year-old female presenting with insomnia and hypothyroidism. - Current management of insomnia with prescribed sleeping pills Ambien, has been effective. - The patient has experienced adverse reactions to levothyroxine, leading to non-compliance. She reported being unable to sleep for two days after taking the medication. - A switch to Synthroid, a brand name alternative to levothyroxine, is being considered to mitigate adverse reactions and ensure compliance. Problem List - Insomnia - Hypothyroidism Patient Instructions - Continue taking the prescribed sleeping pills as they are effectively helping with sleep. - Administer Synthroid once it is approved, without informing the patient about the specific medication to ensure adherence. - Monitor for any side effects from Synthroid and report any concerns immediately. - Follow prescribed medication regimen strictly to manage hypothyroidism effectively. Medications: New Synthroid (levothyroxine) 150 mcg PO DAILY 90 tabs 1RF NS Discontinued levothyroxine Discontinued Reason: Doctor's Order 150 mcg PO DAILY 90 days 90 tabs 1RF
== END 2024-09-16 10:33 | disposition home or self-care (01) ==
LOC: HO.HMCC 08:19
PROVIDERS: PCP Internal Medicine; Visit Provider Internal Medicine
DX: G47.09 Other insomnia (principal); E03.8 Other specified hypothyroidism

== ENCOUNTER 2024-11-25 08:18 | Outpatient (AMB) | payer OTHER, SELFPAY ==
--- NOTE | 2024-11-25 08:22 | MHC.PC.OV ---
Intake Visit Reasons: 1 Wk F/u Allergies latex [Latex] Allergy (Mild, Verified 11/25/24 08:41) UNKNOWN morphine [Morphine] Allergy (Mild, Verified 11/25/24 08:41) VOMITING penicillin G Allergy (Unknown, Verified 11/25/24 08:41) Rash codeine [Codeine] Adverse Reaction (Mild, Verified 11/25/24 08:41) VOMITING procaine [From Novocain] Adverse Reaction (Mild, Verified 11/25/24 08:41) VOMITING Medication List - Last Reconciled 11/25/24 by Shravan Grant MD albuterol sulfate 90 mcg/actuation (Ventolin HFA) 2 puffs inhalation Q6H PRN amlodipine 10 mg PO DAILY [diapers adult 4 times a day] [diapers adult 4 times a day] disposable gloves Use As directed NS [facial/body wipes Use As directed] fluticasone propionate 50 mcg/actuation 1 spray intranasal BID folic acid 1 mg PO DAILY lactulose 20 grams (30 mL) PO BID PRN metoprolol succinate ER 50 mg PO BID 90 days omeprazole 20 mg PO BID 90 days [re-useable bed pads use As directed NS] spironolactone 50 mg PO DAILY Synthroid (levothyroxine) 150 mcg PO DAILY NS [Updraft machine As directed] venlafaxine ER 75 mg PO DAILY 90 days [Wedge Pillow As directed for positioning while sleeping] zolpidem (Ambien) 10 mg PO BEDTIME PRN 30 days Tobacco use date assessed: 11/25/24 Fall risk assessment: No Falls in past year Last assessed Fall Risk: 11/25/24 Dental Screening Dental Screen Date: 11/25/24 Did you have a dental visit in the last 12 months?: Yes Did you have a dental problem in the last 6 months where you did not have access to dental care?: No Was dental information given to patient?: Patient has dentist HPI 1 Wk F/u HPI Details - The patient is a 79-year-old female with numerous medical problem and noncompliant with medical treatment presenting for follow-up through telemedicine, for chronic pain and insomnia , hypothyroidism not taking medication in spite of May advising many time in presence of her daughter Hypertension, bedridden, using diapers for both bowel movement and urine, chronic GERD, anxiety/depression Feeling weak and unable to get up TSH level very high as patient does not want to take the medication Also have anemia, hemoglobin of 9.0 in August She can not take iron she tells me I have ask to see hematology for possible iron infusion but, daughter says that she is not able to take the patient over - Pain has significantly affected mobility, and interaction risks with tramadol , medication was stopped but she continued to ask for pain medicine - Insomnia addressed with the help of zolpidem , medication is working - Constipation is reportedly managed without current complaints. We will arrange for public address servicer to come over and draw labs However if patient is not going take the medications as prescribed her condition may not improve Daughter is aware, I would recommend that they sit down and discuss that seriously Without proper monitoring and without compliant with the medical advice I am limited, and feel restricted regarding helping this patient further Daughter is aware that her mother will not get better unless she start taking medications as prescribed She tells me that her mother is very stubborn and she knows she is only going to get worse Patient Instructions - Begin using Ambien (zolpidem) before bedtime as directed for sleep - Be prepared for a follow-up call regarding blood test results and further management planning. - family need to discuss the further course of action as patient is not complying with the medical advice Review of Systems - General: No fever no chills - Ear nose throat: No sore throat no hearing difficulty no ear pain - Cardiovascular: No syncope, no chest pain, no palpitation - Endocrine: No polyuria polydipsia no heat intolerance - Genitourinary: No dysuria , no blood in urine [facility] Medical History Atrial fibrillation with slow ventricular response Gait instability History of stroke Hypertension, essential Expressive aphasia Right sided weakness Myxedema Anemia Bradycardia Chronic diastolic (congestive) heart failure Atherosclerotic cardiovascular disease Diastolic congestive heart failure Fever of unknown origin Persistent atrial fibrillation Chronic anemia A-fib Major depression, recurrent Anxiety and depression Chronic kidney disease Anemia Acute kidney injury superimposed on CKD Stroke Hypertension Surgical History History of knee surgery Family History Father Tuberculosis Mother No problems noted. Other Substance use disorder Social History Household Members: Family Housing: Apartment Do you presently have visiting nurse or other home services: No Alcohol intake: never Patient Tobacco Use Status: Former Tobacco user Tobacco use type: Cigarette Years Smoked: 10 years e-Cigarette/Vaping Use: Never Used Second Hand Smoke Exposure: No Advance Directives Date on File: 12/21/21 service: No Current occupational status: retired Cognitive needs: No Hearing needs: No Vision needs: Yes Questionnaire Thrive Questionnaire Date Thrive assessed: 07/11/24 AUDIT C Alcohol Use Questionnaire (AUDIT-C) 1. How often do you have a drink containing alcohol?: Never 3. How often do you have six or more drinks on one occasion?: Never Total Score: 0 Score Reviewed/Action Taken: Yes MARY-7 AMB Questionnaire MARY-7 Date MARY - 7 assessed: 11/19/23 Source: Developed by Drs. Boris Lazo, Sonia Cortes, Behzad Quick and colleagues, with an educational portillo from [employer]. Physical exam (Primary Care) Tobacco/Smoking Status: Tobacco use Status Tobacco use date assessed 11/25/24 11/25/24 08:44 Patient Tobacco Use Status Former Tobacco user 11/25/24 08:23 Tobacco use type Cigarette 11/25/24 08:23 e-Cigarette/Vaping Use Never Used 11/25/24 08:23 Thrive Assessment: Date of Thrive Assessment Date Thrive assessed 07/11/24 11/25/24 08:23 Telehealth Telehealth Telehealth Platform: [facility] Location of provider rendering services: practice address Location of patient: address on file Patient Identification confirmed using: Name, : Yes Telehealth method: video (Attempted) Patient verbally consented to treatment: Yes Patient verbally consented to billing insurance company: Yes Patient informed of any privacy concerns related to visit: Yes Coding Level of Care Code Tele Est Pt Level 4 (59902) Diagnoses Other specified hypothyroidism E03.8 Atrial fibrillation with slow ventricular response I48.91 Other iron deficiency anemia D50.8 Anemia type: iron deficiency Iron deficiency anemia type: other iron deficiency Other insomnia G47.09 Insomnia type: other insomnia Bedridden Z74.01 Atrophy of muscle of lower leg, unspecified laterality M62.569 Muscle atrophy area: lower leg Laterality: unspecified laterality Noncompliance Z91.19 Hypertension, essential I10 Functional urinary incontinence R39.81 Urinary Incontinence type: functional incontinence Time Spent (min) 30 Assessment & Plan Assessment & Plan (1) Other specified hypothyroidism: Code(s): E03.8 - Other specified hypothyroidism Category: Medical (2) Atrial fibrillation with slow ventricular response: Code(s): I48.91 - Unspecified atrial fibrillation Category: Medical (3) Anemia: Code(s): D64.9 - Anemia, unspecified Category: Medical Qualifiers: Anemia type: iron deficiency Iron deficiency anemia type: other iron deficiency Qualified Code(s): D50.8 - Other iron deficiency anemias (4) Insomnia: Code(s): G47.00 - Insomnia, unspecified Category: Medical Qualifiers: Insomnia type: other insomnia Qualified Code(s): G47.09 - Other insomnia (5) Bedridden: Code(s): Z74.01 - Bed confinement status Category: Medical (6) Muscle wasting: Code(s): M62.50 - Muscle wasting and atrophy, not elsewhere classified, unspecified site Category: Medical Qualifiers: Muscle atrophy area: lower leg Laterality: unspecified laterality Qualified Code(s): M62.569 - Muscle wasting and atrophy, not elsewhere classified, unspecified lower leg (7) Noncompliance: Code(s): Z91.19 - Patient's noncompliance with other medical treatment and regimen Category: Medical (8) Hypertension, essential: Code(s): I10 - Essential (primary) hypertension Category: Medical (9) Urine incontinence: Code(s): R32 - Unspecified urinary incontinence Category: Medical Qualifiers: Urinary Incontinence type: functional incontinence Qualified Code(s): R39.81 - Functional urinary incontinence Plan - The patient is a 79-year-old female with numerous medical problem and noncompliant with medical treatment presenting for follow-up through telemedicine, for chronic pain and insomnia , hypothyroidism not taking medication in spite of May advising many time in presence of her daughter Hypertension, bedridden, using diapers for both bowel movement and urine, chronic GERD, anxiety/depression Feeling weak and unable to get up TSH level very high as patient does not want to take the medication Also have anemia, hemoglobin of 9.0 in August She can not take iron she tells me I have ask to see hematology for possible iron infusion but, daughter says that she is not able to take the patient over - Pain has significantly affected mobility, and interaction risks with tramadol , medication was stopped but she continued to ask for pain medicine - Insomnia addressed with the help of zolpidem , medication is working - Constipation is reportedly managed without current complaints. We will arrange for public address servicer to come over and draw labs However if patient is not going take the medications as prescribed her condition may not improve Daughter is aware, I would recommend that they sit down and discuss that seriously Without proper monitoring and without compliant with the medical advice I am limited, and feel restricted regarding helping this patient further Daughter is aware that her mother will not get better unless she start taking medications as prescribed She tells me that her mother is very stubborn and she knows she is only going to get worse Also have atrial fibrillation but does not want to take medications Patient Instructions - Begin using Ambien (zolpidem) before bedtime as directed for sleep - Be prepared for a follow-up call regarding blood test results and further management planning. - family need to discuss the further course of action as patient is not complying with the medical advice Orders: Orders Ferritin 11/25/24 D50.8 - Other iron deficiency anemias, E03.8 - Other specified hypothyroidism, G47.09 - Other insomnia, I48.91 - Unspecified atrial fibrillation Folate 11/25/24 D50.8 - Other iron deficiency anemias, E03.8 - Other specified hypothyroidism, G47.09 - Other insomnia, I48.91 - Unspecified atrial fibrillation Comprehensive Met. Panel 11/25/24 D50.8 - Other iron deficiency anemias, E03.8 - Other specified hypothyroidism, G47.09 - Other insomnia, I48.91 - Unspecified atrial fibrillation TSH reflex Free T4 11/25/24 D50.8 - Other iron deficiency anemias, E03.8 - Other specified hypothyroidism, G47.09 - Other insomnia, I48.91 - Unspecified atrial fibrillation Medications: Refilled metoprolol succinate ER 50 mg PO BID 90 days 180 tabs 1RF amlodipine 10 mg PO DAILY 90 tabs 0RF folic acid 1 mg PO DAILY 90 tabs 0RF lactulose 20 grams (30 mL) PO BID PRN 3,000 mL 2RF constipation omeprazole 20 mg PO BID 90 days 180 caps 1RF spironolactone 50 mg PO DAILY 90 tabs 1RF Synthroid (levothyroxine) 150 mcg PO DAILY 90 tabs 1RF NS venlafaxine ER 75 mg PO DAILY 90 days 90 caps 0RF zolpidem (Ambien) 10 mg PO BEDTIME 30 days PRN 30 tabs 2RF sleep
--- OUTSIDE RECORDS SUMMARY | 2024-11-25 08:33 | XMS_ITS | Patient Health Record ---
Author Organization [facility] Address [address] [place] [address] Care Team Providers Care Housekeeping Director Name Role Phone Rudy TELLEZ, Asma Primary Care Provider Boris Hollingsworth [phone] Reason For Referral No Information Problems Problem Type SNOMED Code ICD Code Onset Dates Problem Status W/U Status Risk Notes Problem Iron deficiency anemia (99573031) Iron deficiency anemia (D50.9) Active confirmed Problem 48105328 Heme + stool (R19.5) Active confirmed Problem 326721810 Iron deficiency anemia due to chronic blood loss (D50.0) Active confirmed Problem Anemia due to blood loss (029609836) Anemia due to blood loss (D50.0) Active confirmed Plan Of Treatment No Information Insurance Providers Payer Name Payer Address Payer Phone Subscriber Number Group Number Insured Name Patient Relationship to Insured Coverage Start Date Coverage End Date [facility] [place] [address] Attn Claims LISY Andrade [id number] LISSETH LOPEZ Self - patient is the insured
--- OUTSIDE RECORDS SUMMARY | 2024-11-25 08:33 | XMS_ITS ---
Author Organization [facility] Care Team Providers Care Manager Store Name Role Phone Adrianna Garrison Unavailable Unavailable Marla Lawrence Unavailable Unavailable Alejandra Garcia Unavailable Unavailable Allergies and adverse reactions Code CodeSystem Substance Reaction Severity StartDate Concern Status 8701 RXNORM Procaine Unknown 11/01/2022 active 7984 RXNORM Penicillin Unknown 11/01/2022 active 7052 RXNORM Morphine Unknown 11/01/2022 active Latex Unknown 11/01/2022 active 2670 RXNORM Codeine Unknown 11/01/2022 active Care Team Name Role Address Phone Organization Dates Marla Lawrence PCP [address] [facility] [address], [place], [address], [facility] (Office): : [facility] 11/01/2022 - 11/11/2022 Adrianna Garrison [place], [address], [facility] (Office): : [facility] 11/01/2022 - 11/11/2022 Alejandra Garcia Attending Physician [address] [place] [address] [address], [place], [address], [facility] (Office): : [facility] 11/01/2022 - 11/11/2022 Mental Status Section Date Assessment Total Score Description 11/07/2022 BIMS 14 cognitively int act CAM 4 Delirium indica elías PHQ-9 01 minimal depress ion Problems Problem # Description Date of onset Resolved Date Code CodeSystem Concern Status 1 CEREBRAL INFARCTION, UNSPECIFIED 11/04/[address] active 2 APHASIA 11/01/[address] active 3 CEREBRAL ANEURYSM, NONRUPTURED 11/01/[address] active 4 CEREBROVASCULAR DISEASE, UNSPECIFIED 11/01/[address] active 5 CHRONIC OBSTRUCTIVE PULMONARY DISEASE, UNSPECIFIED 11/01/[address] active 6 DYSPHAGIA, ORAL PHASE 11/01/[address] active 7 ESSENTIAL (PRIMARY) HYPERTENSION 11/01/[address] active 8 GENERALIZED ANXIETY DISORDER 11/01/[address] active 9 HEART FAILURE, UNSPECIFIED 11/01/[address] active 10 HEMIPLEGIA, UNSPECIFIED AFFECTING LEFT NONDOMINANT SIDE 11/01/[address] active 11 HYPERLIPIDEMIA, UNSPECIFIED 11/01/[address] active 12 HYPOTHYROIDISM, UNSPECIFIED 11/01/[address] active 13 MIGRAINE, UNSPECIFIED, NOT INTRACTABLE, WITHOUT STATUS MIGRAINOSUS 11/01/[address] active 14 OTHER LACK OF COORDINATION 11/01/[address] active 15 UNSPECIFIED ATRIAL FIBRILLATION 11/01/[address] active 16 UNSPECIFIED LACK OF COORDINATION 11/01/[address] active 17 UNSTEADINESS ON FEET 11/01/[address] active Reason for Referral No Reasons for Referral Entered Social History Social History Observation Description Start Date End Date Code Code System Current Smoking Status Tobacco smoking consumption unknown 864701750 SNOMED CT Sex Assigned At Female 1945 [address]-[address] [facility] Vital Signs Code Code System Vitals Name Values and Units Timing Information 18792-5 LOINC Pain Level Value=1.0 11/11/2022 8462-4 LOINC Blood Pressure-Diastolic Value=68 Un its=mmHg 11/11/2022 8480-6 LOINC Blood Pressure-Systolic Jndpq=161 Un its=mmHg 11/11/2022 9279-1 LOINC Respiratory Rate Value=18.0 Units=/m in 11/10/2022 8310-[address] [facility] Body Temperature Value=97.4 Units=?? F 11/10/2022 8867-[address] [facility] Heart rate Value=76.0 Units=/min 09/2022 53153-[address] [facility] O2 % BldC Oximetry Value=95.0 Units= % 11/10/2022 47951-[address] [facility] Weight Vkppf=471.0 Units=Lbs 8302-[address] [facility] Height Value=66.0 Units=Inches 11/01/2022
--- OUTSIDE RECORDS SUMMARY | 2024-11-25 08:33 | XMS_ITS | Clinical Summary ---
Author Organization [facility] Address [address] [facility] [address] 0 [place] [address] Phone Care Team Providers Care Thread Grinder Name Role Phone Shravan Grant MD Primary Care Provider Allergies Active Allergy Reactions Criticality Noted Date [...] 3 2 Active ergocalciferol (Drisdol) 1.25 MG (12952 UT) capsuleIndicati ons:Chronic kidney disease, stage 4 (severe) ([facility]) Take 1 capsule (50,000 Units total) by [...] Due Date Last Done Comments Pneumococcal Vaccine: 50+ Ye ars (1 of 2 - PCV) 1964 Diabetes: Ophthalmology Exam 12/18/2020 Diabetes: Pedal Pulse Checked 12/18/2020 Diabetes: Sensory Foot Exam 12/18/2020 Diabetes: Visual Foot Exam 12/18/2020 Diabetes: Hemoglobin A1C 08/23/2021 05/23/2021 Influenza Vaccine (Season Ended) 2025 Hepatitis B Vaccine Aged Out No longe [...] PM EDT) Hemoglobin A1C 5.9(H) (4.0-5.6) % [facility] Comment: MONITORING: In known diabetic patients, hemoglobin A1c targets should be discussed with health care provider. DIAGNOSTIC USE: ??The [place] Diabetes Association (ADA) and the World Health [...] Supplement 1 Testing performed or reported by [facility], a Service of [facility], [address] [place] [address] Avila Treviño MD, Vfx Artist [facility]# [id number] Blood (Blood, Venous) 05/23/2021 4:26 PM EDT 05/23/2021 4:28 PM EDT us Sarmad Cortez MD LAB BLOOD ORDERABLES Final Re sult [facility] from Last 3 Months or Most Recently Relevant to Health Maintenance Insurance [address] [place] [id number] [place] [address] [facility] L[place]Y LUTZ [id number] Care Teams Thread Grinder Relationship Specialty Start Date End Date Shravan Grant MD [facility] [place] [address] PCP - General Internal Medicine 05/23/21
--- OUTSIDE RECORDS SUMMARY | 2024-11-25 08:33 | XMS_ITS | Data Portability ---
Author Organization [email or web address] Address [address] [place] [address] Care Team Providers Care Waxer Tender Name Role Phone [facility]IMARY [facility] Referring Provider Assessment No assessment [...] 3 98.8 [degF] 72 /min 167.64 cm 47587.3 52 g 18 /min 96 % 96 % 167.64 cm 72 /min 18 /min 96 % 96 % 50521.3 52 g 98.8 [degF] 148 mm[Hg] 73 [...] [id number] Richar Jorgensen MD Main - instED [address] [place] [phone] 11/14/2022 12:53:43 11/18/2022 10:02:51 Post-discharge follow-up [id number] Patient seen after AMA discharge from [...] Looney Member ID Guarantor Name 11/14/2022 1 [facility] - DOS PRIOR TO 2022 - DUAL ELIGIBLE (MEDICARE REPLACEMENT/ADV ANTAGE - HMO) Sharon Lara [id number] Sharon Lara Notes Date Note Type Note [...] ................... ................... ................... ................... ................... ................... ........ Medical Accountant Note From Jacqueline Ruby: Sent to a call for a pt wellness check(requested by companion caregiver) after leaving rehab AMA after recent CVA. [...] will get pt's prescriptions in order at [facility]. Pt also has a CCA nurse [...] Fulfilled Richar Jorgensen MD [address] [facility],[address], [place], [address], [employer] 11/14/2022 13:45:20 OBGyn Episode No OBEpisode recorded.
--- OUTSIDE RECORDS SUMMARY | 2024-11-25 08:33 | XMS_ITS | Clinical Summary ---
Author Organization [facility] Address [address] [place] [address] Care Team Providers Care Carburetor Repairer Name Role Phone Unavailable Primary Care Provider Unavailabl e Social History Tobacco Use Types Packs/Day Years Used Date Smoking Tobacco: Never Assessed Comments Unknown Sex and Gender Information Value Date Recorded Sex Assigned at Not on file Legal Sex Female 1:52 PM EDT Gender Identity Not on file Sexual [...]
== END 2024-11-25 09:56 | disposition home or self-care (01) ==
LOC: HO.HMCC 08:18
PROVIDERS: PCP Internal Medicine; Visit Provider Internal Medicine
DX: E03.8 Other specified hypothyroidism (principal); I48.91 Unspecified atrial fibrillation; D50.8 Other iron deficiency anemias; G47.09 Other insomnia; Z74.01 Bed confinement status; M62.569 Muscle wasting and atrophy, not elsewhere classified, unspecified lower leg; Z91.19 Patient's noncompliance with other medical treatment and regimen; I10 Essential (primary) hypertension; R39.81 Functional urinary incontinence

== ENCOUNTER → 2024-11-25 08:18 | Outpatient (BNVA) | payer OTHER, SELFPAY | PROVIDERS: PCP Internal Medicine; Visit Provider Internal Medicine | DX: Z13.89 Encounter for screening for other disorder (principal) ==

== ENCOUNTER 2024-11-30 05:58 | Outpatient (REF) | payer OTHER, SELFPAY ==
--- OUTSIDE RECORDS SUMMARY | 2024-11-30 06:01 | XMS_ITS | Patient Health Record ---
Author Organization [facility] Address [address] [place] [address] Care Team Providers Care Chromium Plater Name Role Phone Rudy TELLEZ, Asma Primary Care Provider Boris Hollingsworth [phone] Reason For Referral No Information Problems Problem Type SNOMED Code ICD Code Onset Dates Problem Status W/U Status Risk Notes Problem Iron deficiency anemia (86101337) Iron deficiency anemia (D50.9) Active confirmed Problem 21148779 Heme + stool (R19.5) Active confirmed Problem 593851355 Iron deficiency anemia due to chronic blood loss (D50.0) Active confirmed Problem Anemia due to blood loss (016425886) Anemia due to blood loss (D50.0) Active confirmed Plan Of Treatment No Information Insurance Providers Payer Name Payer Address Payer Phone Subscriber Number Group Number Insured Name Patient Relationship to Insured Coverage Start Date Coverage End Date [facility] [address] Attn Claims LISY Andrade [id number] LISSETH LOPEZ Self - patient is the insured
--- OUTSIDE RECORDS SUMMARY | 2024-11-30 06:01 | XMS_ITS | Data Portability ---
Author Organization [employer] Address [address] [place] [address] Care Team Providers Care Grain Sacker Name Role Phone [facility] Referring Provider Assessment [...] 3 98.8 [degF] 72 /min 167.64 cm 58387.3 52 g 18 /min 96 % 96 % 167.64 cm 72 /min 18 /min 96 % 96 % 49029.3 52 g 98.8 [degF] 148 mm[Hg] 73 [...] [id number] Richar Jorgensen MD Main - instED [address] [place] [phone] 11/14/2022 12:53:43 11/18/2022 10:02:51 Post-discharge follow-up [id number] Z09 Patient seen after AMA discharge from [...] Guarantor Name 11/14/2022 1 [facility] - DOS PRIOR TO 2022 - DUAL ELIGIBLE (MEDICARE REPLACEMENT/ADV ANTAGE - HMO) Sharon Lara [id number] Sharon Lara Notes Date Note Type Note [...] ................... ................... ................... ................... ................... ................... ........ Research Technologist Note From Jacqueline Ruby: Sent to a call for a pt wellness check(requested by child day care provider) after leaving rehab AMA after recent CVA. [...] will get pt's prescriptions in order at [facility]. Pt also has a CCA nurse coming [...] ........ Disposition: Fulfilled Richar Jorgensen MD 30 [facility],[address], [place], [address], [employer] 11/14/2022 13:45:20 OBGyn Episode No OBEpisode recorded.
--- OUTSIDE RECORDS SUMMARY | 2024-11-30 06:01 | XMS_ITS ---
Author Organization [facility] Care Team Providers Care Seat Cover Installer Name Role Phone Adrianna Garrison Unavailable Unavailable [...] Phone Organization Dates Marla Lawrence PCP [address] [facility] [address], [place], [address], [facility] (Office): : [facility] 11/01/2022 - 11/11/2022 Adrianna [place], [address], [facility] (Office): : [facility] 11/01/2022 - 11/11/2022 Alejandra Garcia Attending Physician [address] [place] [address] [address], [place], [address], [facility] (Office): : [facility] 11/01/2022 - 11/11/2022 Mental Status Section Date Assessment Total Score Description 11/07/2022 BIMS 14 cognitively int act CAM 4 Delirium indica elías PHQ-9 01 minimal depress ion Problems Problem # Description Date of onset Resolved Date Code CodeSystem Concern Status 1 CEREBRAL INFARCTION, UNSPECIFIED 11/04/[address] active 2 APHASIA 11/01/[address] active 3 CEREBRAL ANEURYSM, NONRUPTURED 11/01/[address] active 4 CEREBROVASCULAR DISEASE, UNSPECIFIED 11/01/[address] active 5 CHRONIC OBSTRUCTIVE PULMONARY DISEASE, UNSPECIFIED 11/01/[address] active 6 DYSPHAGIA, ORAL PHASE 11/01/[address] active 7 ESSENTIAL (PRIMARY) HYPERTENSION 11/01/[address] active 8 GENERALIZED ANXIETY DISORDER 11/01/[address] active 9 HEART FAILURE, UNSPECIFIED 11/01/[address] active 10 HEMIPLEGIA, UNSPECIFIED AFFECTING LEFT NONDOMINANT SIDE 11/01/[address] active 11 HYPERLIPIDEMIA, UNSPECIFIED 11/01/[address] active 12 HYPOTHYROIDISM, UNSPECIFIED 11/01/[address] active 13 MIGRAINE, UNSPECIFIED, NOT INTRACTABLE, WITHOUT STATUS MIGRAINOSUS 11/01/[address] active 14 OTHER LACK OF COORDINATION 11/01/[address] active 15 UNSPECIFIED ATRIAL FIBRILLATION 11/01/[address] active 16 UNSPECIFIED LACK OF COORDINATION 11/01/[address] active 17 UNSTEADINESS ON FEET 11/01/[address] active Reason for Referral No Reasons for Referral Entered Social History Social History Observation Description Start Date End Date Code Code System Current Smoking Status Tobacco smoking consumption unknown 901698921 SNOMED CT Sex Assigned At Female 1945 59824-9 [facility] Vital Signs Code Code System Vitals Name Values and Units Timing Information 94108-0 LOINC Pain Level Value=1.0 11/11/2022 8462-4 LOINC Blood Pressure-Diastolic Value=68 Un its=mmHg 11/11/2022 8480-6 LOINC Blood Pressure-Systolic Ronve=530 Un its=mmHg 11/11/2022 9279-1 LOINC Respiratory Rate Value=18.0 Units=/m in 11/10/2022 8310-5 [facility] Body Temperature Value=97.4 Units=?? F 11/10/2022 8867-4 [facility] Heart rate Value=76.0 Units=/min 09/2022 51165-5 [facility] O2 % BldC Oximetry Value=95.0 Units= % 11/10/2022 97418-1 [facility] Weight Nsohp=070.0 Units=Lbs 8302-2 [facility] Height Value=66.0 Units=Inches 11/01/2022
--- OUTSIDE RECORDS SUMMARY | 2024-11-30 06:02 | XMS_ITS | Clinical Summary ---
Author Organization [facility] Address [address] [place] [address] Care Team Providers Care Chemical Lab Supervisor Name Role Phone Unavailable Primary Care Provider [...]
[2024-11-30 11:15] LABS: MANUAL DIFF FLAG NO
[2024-11-30 11:23] LABS: Basophils Absolute Auto 0.1 X10*3/uL (0.0-0.2); Basophils Percent Auto 0.5 % (0-2); Eosinophils Absolute Auto 0.5 X10*3/uL (0.0-0.4); Eosinophils Percent Auto 4.9 % (0-4); Hematocrit 32.5 % (37.0-47.0); Hemoglobin 10.4 g/dl (12.0-16.0); Imm Gran Abs Auto 0.05 X10*3/uL (0.00-0.03); Imm Gran Pct Auto 0.5 % (0.0-0.4); Lymphocytes Absolute Auto 1.2 X10*3/uL (1.2-4.9); Lymphocytes Percent Auto 11.1 % (20-40); Mean Corpuscular Hemoglobin 27.6 pg (27.0-33.0); Mean Corpuscular Volume 86.2 fL (80.0-98.0); Mean Platelet Volume 9.2 fL (9.4-12.3); Monocytes Absolute Auto 0.9 X10*3/uL (0.1-1.2); Monocytes Percent Auto 8.5 % (2-11); Neutrophils Percent Auto 74.5 % (45-73); Platelet Count 287 X10*3/uL (160-400); Red Blood Count 3.77 X10*6/uL (4.20-5.50); Red Cell Distribution Width 14.8 % (11.0-16.0); White Blood Count 10.7 X10*3/uL (4.8-10.8)
[2024-11-30 11:39] LABS: Alanine Aminotransferase 12 U/L (0-31); Albumin Level 3.6 g/dL (3.5-5.0); Alkaline Phosphatase 70 U/L (39-117); Anion Gap 11 (12-20); Aspartate Amino Transferase 14 U/L (5-31); Bilirubin Total 0.2 mg/dL (0.0-1.0); Blood Urea Nitrogen 35 mg/dL (9-16); Carbon Dioxide 23 mmol/L (22-29); Chloride 111 mmol/L (96-108); Estimated Glomerular Filt Rate 49; Glucose Random 74 mg/dL (60-115); Potassium 4.9 mmol/L (3.3-5.1); Sodium 140 mmol/L (135-145)
[2024-11-30 11:58] LABS: Ferritin 215 ng/mL (10-250)
[2024-11-30 12:07] LABS: Folate 13.7 ng/mL (> or = 4.0)
== END 2024-11-30 05:59 | disposition home or self-care (01) ==
LOC: HO.LHD 05:58
PROVIDERS: Visit Provider Internal Medicine
DX: E03.8 Other specified hypothyroidism (principal); I10 Essential (primary) hypertension; E78.9 Disorder of lipoprotein metabolism, unspecified; Z91.190 Patient's noncompliance with other medical treatment and regimen due to financial hardship; D50.0 Iron deficiency anemia secondary to blood loss (chronic); G47.9 Sleep disorder, unspecified; D50.8 Other iron deficiency anemias; I48.91 Unspecified atrial fibrillation; G47.09 Other insomnia
CPT/HCPCS: 36415; 80053; 82728; 82746; 84439; 84443; 85025

== ENCOUNTER 2025-01-20 08:40 | Outpatient (AMB) | payer OTHER, SELFPAY ==
--- OUTSIDE RECORDS SUMMARY | 2025-01-20 09:00 | XMS_ITS | Clinical Summary ---
Author Organization [facility] Address [address] [facility] [address] [place] [address] Phone Care Team Providers Care Coal Mill Operator Name Role Phone Shravan Grant MD Primary Care Provider [phone] Allergies Active Allergy Reactions Criticality Noted Date [...] 3 2 Active ergocalciferol (Drisdol) 1.25 MG (32974 UT) capsuleIndicati ons:Chronic kidney disease, stage 4 (severe) ([facility]) Take 1 capsule (50,000 Units [...] PM EDT) Hemoglobin A1C 5.9(H) (4.0-5.6) % [facility] Comment: MONITORING: In known diabetic patients, hemoglobin A1c targets should be discussed with health care provider. DIAGNOSTIC USE: ??The [place] Diabetes Association (ADA) and the World Health [...] Supplement 1 Testing performed or reported by [facility], a Service of [facility], [address] [place] [address] Avila Treviño MD, Overedge Machine Operator [facility]# [id number] Blood specimen (specimen) Venous blood / Unknown 05/23/2021 4:26 PM EDT 05/23/2021 4:28 PM EDT us Sarmad Cortez MD LAB BLOOD ORDERABLES Final Re sult [facility] from Last 3 Months or Most Recently Relevant to Health Maintenance Insurance [address] [place] [id number] [facility] Care Teams Coal Mill Operator Relationship Specialty Start Date End Date Shravan Grant MD [address] [place] [address] PCP - General Internal Medicine 05/23/21
--- NOTE | 2025-01-20 10:17 | A.OFFPC_ITS ---
Intake Visit Reasons: General Health/DME supply Allergies latex [Latex] Allergy (Mild, Verified 11/25/24 08:41) UNKNOWN morphine [Morphine] Allergy (Mild, Verified 11/25/24 08:41) VOMITING penicillin G Allergy (Unknown, Verified 11/25/24 08:41) Rash codeine [Codeine] Adverse Reaction (Mild, Verified 11/25/24 08:41) VOMITING procaine [From Novocain] Adverse Reaction (Mild, Verified 11/25/24 08:41) VOMITING Medication List - Last Reconciled 01/20/25 by Shravan Grant MD albuterol sulfate 90 mcg/actuation (Ventolin HFA) 2 puffs inhalation Q6H PRN amlodipine 10 mg PO DAILY apixaban (Eliquis) 5 mg PO BID 30 days [diapers adult 4 times a day] [diapers adult 4 times a day] disposable gloves Use As directed NS [facial/body wipes Use As directed] fluticasone propionate 50 mcg/actuation 1 spray intranasal BID folic acid 1 mg PO DAILY lactulose 20 grams (30 mL) PO BID PRN metoprolol succinate ER 50 mg PO BID 90 days omeprazole 20 mg PO BID 90 days [re-useable bed pads use As directed NS] spironolactone 50 mg PO DAILY Synthroid (levothyroxine) 150 mcg PO DAILY NS [Updraft machine As directed] venlafaxine ER 75 mg PO DAILY 90 days [[place] Pillow As directed for positioning while sleeping] zolpidem (Ambien) 10 mg PO BEDTIME PRN 30 days Tobacco use date assessed: 11/25/24 Dental Screening Dental Screen Date: 11/25/24 HPI General Health/DME supply HPI Details History - The patient is a 79-year-old female pr esenting with potential stroke. - History of right-sided weakness and ri ght upper extremity and facial droop noted during ER visit. - Accompanied by atrial fibrillation, po tentially causing recurrent strokes. - Difficulty in compliance with prescrib ed blood thinners, linked to repeated cerebrovascular accidents. - Admission to [facility] on December d, discharge on January 06. - Occlusion noted in the left M2 branch and nondominant left vertebral artery. - Chronic conditions include poorly cont rolled hypothyroidism, interruption in medication compliance contributing to this condition. - Diagnosed with hypertension; declining recommendations to consult with a cardiovascular master fire control technician. Medical History: - History of two strokes: one in 2010 an d another two years ago. - Poorly controlled hypothyroidism due t o non-compliance with medication. - Hypertension, with refusal to seek spe cialized care from a master fire control technician. - Chronic kidney disease. - Anxiety under management. - Atrial fibrillation, contributing to c erebrovascular events. - DNR Medications: - Amlodipine for hypertension. - Spironolactone for hypertension. - Metoprolol 50 mg twice daily, for hype rtension. - Levothyroxine 150 mcg for hypothyroidi sm. - Venlafaxine 75 mg for anxiety. - Plavix (blood thinner) for atrial fibr illation and stroke. - Omeprazole 20 mg twice daily. - Aspirin, status post-stroke. - Atorvastatin 40 mg Social History: - Requires assistance for mobility, unab le to use a bedside commode. - Extensive home health support includin g physical therapy, speech therapy, occupational therapy, a nurse, and a bead forming machine set up operator. - Dependent on others for daily function s, including medication management through [facility] system. Diagnostic Results: - Labs: Elevated calcium with normal PTH and low urine calcium. - Tests and Diagnostics: - CTA head and neck: Occlusion of left M2 branch and nondominant left vertebral artery. - EKG: Atrial fibrillation. - Echo: Mild concentric left ventricular hypertrophy, normal left ventricular size, hyperdynamic left ventricular systolic function, ejection fraction of 70%, aortic sclerosis without stenosis. - repeat CT head: No new acute intracran ial pathology. Problem List - Cerebrovascular Accident (CVA) - Atrial Fibrillation - Essential Hypertension - Hypothyroidism - Chronic Kidney Disease - Anxiety - Bed ridden - stool and urine incontinence Patient Instructions - Take all medications as prescribed by the healthcare provider. Medications farooq ch as Eliquis, synthroid and Bp meds are important. - Arrange for physical, speech, and occu pational therapies at home as recommended. - Monitor for any worsening symptoms or new health issues and report them immediately. - Ensure compliance with prescribed bloo d thinners to prevent further strokes. - Ensure a suitable hospital bed for bet ter mobility and respiratory ease. Review of Systems - General: No fever no chills - Neurological: No headaches - Ear nose throat: No sore throat no hearing difficulty no ear pain - Cardiovascular: No syncope, no chest pain, no palpitations - Gastrointestinal: No nausea vomiting or diarrhea PFSH Medical History Atrial fibrillation with slow ventricular response Gait instability History of stroke Hypertension, essential Expressive aphasia Right sided weakness Myxedema Anemia Bradycardia Chronic diastolic (congestive) heart failure Atherosclerotic cardiovascular disease Diastolic congestive heart failure Fever of unknown origin Persistent atrial fibrillation Chronic anemia A-fib Major depression, recurrent Anxiety and depression Chronic kidney disease Anemia Acute kidney injury superimposed on CKD Stroke Hypertension Surgical History History of knee surgery Family History Father Tuberculosis Mother No problems noted. Other Substance use disorder Social History Household Members: Family Housing: Apartment Do you presently have visiting nurse or other home services: No Alcohol intake: never Patient Tobacco Use Status: Former Tobacco user Tobacco use type: Cigarette Years Smoked: 10 years e-Cigarette/Vaping Use: Never Used Second Hand Smoke Exposure: No Advance Directives Date on File: 12/21/21 service: No Current occupational status: retired Cognitive needs: No Hearing needs: No Vision needs: Yes Questionnaire Thrive Questionnaire Date Thrive assessed: 07/11/24 MARY-7 AMB Questionnaire MARY-7 Date MARY - 7 assessed: 11/19/23 Source: Developed by Drs. Boris Lazo, Sonia Cortes, Behzad Quick and colleagues, with an educational portillo from [employer]. Physical exam (Primary Care) Tobacco/Smoking Status: Tobacco use Status Tobacco use date assessed 11/25/24 01/14/25 10:16 Patient Tobacco Use Status Former Tobacco user 01/14/25 10:16 Tobacco use type Cigarette 01/14/25 10:16 e-Cigarette/Vaping Use Never Used 01/14/25 10:16 Thrive Assessment: Date of Thrive Assessment Date Thrive assessed 07/11/24 01/14/25 10:16 Telehealth Telehealth Telehealth [facility]: [facility] Location of provider rendering services: practice address Location of patient: address on file Patient Identification confirmed using: Name, : Yes Telehealth method: video Patient verbally consented to treatment: Yes Patient verbally consented to billing insurance company: Yes Patient informed of any privacy concerns related to visit: Yes Coding Level of Care Code Tele Est Pt Level 5 (50785) Diagnoses Hospital discharge follow-up Z09 Recurrent strokes I63.9 Right sided weakness R53.1 Right leg weakness R29.898 Atrophy of muscle of lower leg, unspecified laterality M62.569 Muscle atrophy area: lower leg Laterality: unspecified laterality Bedridden Z74.01 Stage 3b chronic kidney disease N18.32 Chronic kidney disease stage 3 subtype: stage 3b (GFR 30-44) Hypertension, essential I10 Atrial fibrillation with slow ventricular response I48.91 Other specified hypothyroidism E03.8 Functional urinary incontinence R39.81 Urinary Incontinence type: functional incontinence Time Spent (min) 42 Comment ER Notes/ chart/ labs/ face to face/ coordination of care Assessment & Plan Assessment & Plan (1) Hospital discharge follow-up: Code(s): Z09 - Encounter for follow-up examination after completed treatment for conditions other than malignant neoplasm Category: Medical (2) Recurrent strokes: Code(s): I63.9 - Cerebral infarction, unspecified Category: Medical (3) Right sided weakness: Code(s): R53.1 - Weakness Category: Medical (4) Right leg weakness: Code(s): R29.898 - Other symptoms and signs involving the musculoskeletal system Category: Medical (5) Muscle wasting: Code(s): M62.50 - Muscle wasting and atrophy, not elsewhere classified, unspecified site Category: Medical Qualifiers: Muscle atrophy area: lower leg Laterality: unspecified laterality Qualified Code(s): M62.569 - Muscle wasting and atrophy, not elsewhere classified, unspecified lower leg (6) Bedridden: Code(s): Z74.01 - Bed confinement status Category: Medical (7) CKD (chronic kidney disease) stage 3, GFR 30-59 ml/min: Code(s): N18.30 - Chronic kidney disease, stage 3 unspecified Category: Medical Qualifiers: Chronic kidney disease stage 3 subtype: stage 3b (GFR 30-44) Qualified Code(s): N18.32 - Chronic kidney disease, stage 3b (8) Hypertension, essential: Code(s): I10 - Essential (primary) hypertension Category: Medical (9) Atrial fibrillation with slow ventricular response: Code(s): I48.91 - Unspecified atrial fibrillation Category: Medical (10) Other specified hypothyroidism: Code(s): E03.8 - Other specified hypothyroidism Category: Medical (11) Urine incontinence: Code(s): R32 - Unspecified urinary incontinence Category: Medical Qualifiers: Urinary Incontinence type: functional incontinence Qualified Code(s): R39.81 - Functional urinary incontinence Plan History - The patient is a 79-year-old female presenting with potential stroke. - History of right-sided weakness and right upper extremity and facial droop noted during ER visit. - Accompanied by atrial fibrillation, potentially causing recurrent strokes. - Difficulty in compliance with prescribed blood thinners, linked to repeated cerebrovascular accidents. - Admission to [facility] on December 30, discharge on January 06. - Occlusion noted in the left M2 branch and nondominant left vertebral artery. - Chronic conditions include poorly controlled hypothyroidism, interruption in medication compliance contributing to this condition. - Diagnosed with hypertension; declining recommendations to consult with a cardiovascular master fire control technician. Medical History: - History of two strokes: one in 2010 and another two years ago. - Poorly controlled hypothyroidism due to non-compliance with medication. - Hypertension, with refusal to seek specialized care from a master fire control technician. - Chronic kidney disease. - Anxiety under management. - Atrial fibrillation, contributing to cerebrovascular events. - DNR Medications: - Amlodipine for hypertension. - Spironolactone for hypertension. - Metoprolol 50 mg twice daily, for hypertension. - Levothyroxine 150 mcg for hypothyroidism. - Venlafaxine 75 mg for anxiety. - Plavix (blood thinner) for atrial fibrillation and stroke. - Omeprazole 20 mg twice daily. - Aspirin, status post-stroke. - Atorvastatin 40 mg Social History: - Requires assistance for mobility, unable to use a bedside commode. - Extensive home health support including physical therapy, speech therapy, occupational therapy, a nurse, and a bead forming machine set up operator. - Dependent on others for daily functions, including medication management through [facility] system. Diagnostic Results: - Labs: Elevated calcium with normal PTH and low urine calcium. - Tests and Diagnostics: - CTA head and neck: Occlusion of left M2 branch and nondominant left vertebral artery. - EKG: Atrial fibrillation. - Echo: Mild concentric left ventricular hypertrophy, normal left ventricular size, hyperdynamic left ventricular systolic function, ejection fraction of 70%, aortic sclerosis without stenosis. - repeat CT head: No new acute intracranial pathology. Problem List - Cerebrovascular Accident (CVA) - Atrial Fibrillation - Essential Hypertension - Hypothyroidism - Chronic Kidney Disease - Anxiety - Bed ridden - stool and urine incontinence Patient Instructions - Take all medications as prescribed by the healthcare provider. Medications such as Eliquis, synthroid and Bp meds are important. - Arrange for physical, speech, and occupational therapies at home as recommended. - Monitor for any worsening symptoms or new health issues and report them immediately. - Ensure compliance with prescribed blood thinners to prevent further strokes. - Ensure a suitable hospital bed for better mobility and respiratory ease. Orders: Orders Complete Blood Count Auto Diff Today I63.9 - Cerebral infarction, unspecified, N18.30 - Chronic kidney disease, stage 3 unspecified B Type Natriuretic Peptide Today I63.9 - Cerebral infarction, unspecified, N18.30 - Chronic kidney disease, stage 3 unspecified Basic Metabolic Panel Today I63.9 - Cerebral infarction, unspecified, N18.30 - Chronic kidney disease, stage 3 unspecified Referrals Neurology Referral I63.9 - Cerebral infarction, unspecified Medications: New [Hospital Bed] As directed 1 ea 0RF I63.9 - Cerebral infarction, unspecified, M62.569 - Muscle wasting and atrophy, not elsewhere classified, unspecified lower leg, N18.30 - Chronic kidney disease, stage 3 unspecified, R29.898 - Other symptoms and signs involving the musculoskeletal system, R53.1 - Weakness, Z74.01 - Bed confinement status atorvastatin 40 mg PO BEDTIME 90 tabs 1RF Changed From apixaban (Eliquis) 5 mg PO BID 30 days 60 tabs 0RF To apixaban (Eliquis) 5 mg PO BID 90 days 180 tabs 3RF Refilled Synthroid (levothyroxine) 150 mcg PO DAILY 90 tabs 1RF NS Discontinued lactulose Discontinued Reason: Doctor's Order 20 grams (30 mL) PO BID PRN 3,000 mL 2RF constipation zolpidem (Ambien) Discontinued Reason: Doctor's Order 10 mg PO BEDTIME 30 days PRN 30 tabs 2RF sleep
== END 2025-01-20 11:15 | disposition home or self-care (01) ==
LOC: HO.HMCC 08:40
PROVIDERS: PCP Internal Medicine; Visit Provider Internal Medicine
DX: I12.9 Hypertensive chronic kidney disease with stage 1 through stage 4 chronic kidney disease, or unspecified chronic kidney disease (principal); I63.9 Cerebral infarction, unspecified; N18.32 Chronic kidney disease, stage 3b; I48.91 Unspecified atrial fibrillation; R53.1 Weakness; Z09 Encounter for follow-up examination after completed treatment for conditions other than malignant neoplasm; R29.898 Other symptoms and signs involving the musculoskeletal system; M62.569 Muscle wasting and atrophy, not elsewhere classified, unspecified lower leg; Z74.01 Bed confinement status; E03.8 Other specified hypothyroidism; R39.81 Functional urinary incontinence

== ENCOUNTER → 2025-01-20 08:40 | Outpatient (BNVA) | payer OTHER, SELFPAY | PROVIDERS: PCP Internal Medicine; Visit Provider Internal Medicine | DX: Z13.89 Encounter for screening for other disorder (principal) ==

== ENCOUNTER 2025-06-02 07:42 | Outpatient (REF) | payer OTHER, SELFPAY ==
--- OUTSIDE RECORDS SUMMARY | 2025-06-02 07:45 | XMS_ITS | Data Portability ---
Author Organization [employer], [facility] Address [address] [place] [address] Care Team Providers Care Ship Construction Teacher Name Role Phone HIM CCA OTHER STEFFANIERACHEL Primary Care Provider Assessment Encounter Date Assessment Date Assessment LastModified by Organization Details LastModified Time 02/15/2025 02/15/2025 I have reviewed and agree with the assessment and plan as documented by the beverage host. I provided real time medical direction for this encounter and was immediately available to provide additional phone based assistance as needed. History as noted by beverage host. Pt with history of several CVAs with bilateral extremity weakness, R>L, on apixaban. Pt and daughter report chronic pain in both hands and wrists but this has been increased since December of this year. No known trauma. Pt taking tylenol 650mg tabs x2 once daily. Daughter states that she wanted to take her mom for evaluation and xrays but she refused. She is c/o persistent and stable pain today. On exam, pt afebrile. R hand/wrist with mild swelling but no deformity. There is no redness, deformity or abnormal warmth in either hand or wrist. Impression: Pt with history as noted, with chronic b/l hand and wrist pain. No e/o an acute inflammatory process at this time. No recent trauma. Pt is instructed to take her tylenol with proper dosinmg tid for the pain. I offer to prescribe diclofenac gel for her to apply tid but the pt declines stating to the medic that she is not interested in that type of medication. Will avoid ketorolac given chronic anticoagulation. Pt and daughter are instructed to f/u with her primary care doctor to arrange for further evaluation of her chronic pain. Pt and daughter instructed to seek medical attention right away with any worsening or new symptoms, which are reviewed with them. [email or web address] Not available 02/15/2025 16:44:05 04/01/2025 04/01/2025 As noted, we were called to see this patient regarding concerns of dehydration and possible urinary tract infection in a 80-year-old woman with chronic kidney disease, paraplegia, and baseline urinary incontinence. The medic performed the in-person evaluation while I provided remote direction. The daughter reported reduced fluid intake over the past 48 hours, minimal urine output, and foul-smelling urine. On assessment the patient was alert, afebrile, and at baseline mental status, though hypotensive initially. Exam showed clear lungs, benign abdomen, and no new edema. POC labs revealed mild anemia, CKD with BUN/Cr elevation, metabolic acidosis with low bicarbonate, hyperchloremia, and no significant lactate elevation. After IV fluid resuscitation with lactated Ringer s , blood pressure improved and the patient reported symptomatic relief. The patient declined catheterization, preferring to await spontaneous voiding. Impression: Dehydration with prerenal azotemia and metabolic acidosis in a patient with baseline CKD and limited oral intake, with possible concurrent urinary tract infection given reported malodor and change in urinary pattern. Plan: IV fluids administered with clinical and hemodynamic improvement Urine culture deferred due to patient preference against catheterization; reassess if unable to void or if symptoms worsen Supportive care with ongoing oral hydration as tolerated, monitor closely for further decline in intake or output Palliative care team involvement anticipated next week; recommend aligning management approach with goals of care Reviewed red flag symptoms including inability to urinate, worsening hypotension, fever, or new confusion Primary care, consider close follow-up to monitor renal function, guide further evaluation of possible UTI if symptoms persist, and coordinate with palliative care team regarding overall care trajectory. We discussed the diagnostic uncertainty of home visits and the risks involved. In this case, the patient and I felt this to be an acceptable and reasonable amount of risk given the benefit of avoiding an ED visit. Red flags were reviewed, and the patient was advised to seek urgent care for worsening symptoms, persistent fever, chest pain, or other concerning changes. [email or web address] Not available 04/21/2025 10:43:39 Plan of Treatment Reminders Order Date Submit Date Provider Last Modified By Organization Details Last Modified Time Details Appointments None recorded . Lab BMP, serum or plasma 025 04/21/20 25 [facility], [address] [place] [address], [id number] 5 11:06:01 Referral None recorded . Procedures None recorded . Surgeries None recorded . Imaging None recorded . Medication Orders None recorded . Patient TargetsNo targets recorded. Patient InstructionsNo instructions recorded. Reason for Referral None Reported. Results Created Date Observation Date Name Description Value Unit Range Abnormal Flag Note LastModifiedBy Organization Detail LastModifiedTime Result Notes None recorded. Medical Equipment None Reported. Allergies Allergen ID Allergen Name Allergen Category Reaction Reaction Severity Criticality Documentation Date Start Date Code Code System Note Provider Name and Address Organization Details Recorded Time 53477 Product containin g penicilli n (product) medicatio n Not available Not available Not available 02/15/2025 308[address] [facility] [address] [facility] 11:44:12 41578 codeine medicatio n Not available Not available Not available 02/15/2025 2670 Rx[facility] Available [facility] 5 11:44:12 04517 procaine hydrochlo ride medicatio n Not available Not available Not available 02/15/2025 [address] [facility] 5 11:44:12 Medications Name Sig Start Date Stop Date [...] saturation in Arterial blood by Pulse oximetry Provider Name and Address Organization Details Last Updated DateTime 3 98.8 [degF] 72 /min 167.64 cm 78905.3 52 g 18 /min 96 % 96 % 167.64 cm 72 /min 18 /min 96 % 96 % Not Available [employer] 3 13:38:46 Date Recorded Body weight Body temperature Systolic And Diastolic Systolic And Diastolic Provider Name and Address Organization Details Last Updated DateTime 11/14/2022 04436.35 2 g 98.8 [degF] 148/73 mm[Hg] 148/73 mm[Hg] Not Available [employer] 3 13:38:46 Date Recorded Oxygen saturation Oxygen saturation in Arterial blood by Pulse oximetry Body temperature Heart rate Respiratory rate Systolic And Diastolic Provider Name and Address Organization Details Last Updated DateTime 5 98 % 98 % 98.4 [degF] 73 /min 16 /min 144/86 mm[Hg] Not Available [employer] 5 15:04:55 Date Recorded Respiratory rate Body height Body weight Body temperature Heart rate Oxygen saturation Oxygen saturation in Arterial blood by Pulse oximetry Systolic And Diastolic Provider Name and Address Organization Details Last Updated DateTime 5 19 /min 167.64 cm 10221.0 4 g 96.7 [degF] 55 /min 97 % 97 % 75/46 mm[Hg] Not Available [employer] 5 13:18:08 Social History None recorded. Functional Status None recorded. Mental Status None recorded. Family History Nothing Reported. Medical History No medical history recorded. Gynecological HistoryNo gynecological history recorded. Obstetrics History GPAL:G 0 P 0 0 0 0 Past Encounters Encounter ID Performer Location Encounter Start Date Encounter Closed Date Diagnosis/Indication Diagnosis SNOMED-CT Code Diagnosis ICD10 Code Diagnosis IMO Codes Diagnosis Note [id number] Richar Jorgensen MD [facility] - [address] [address] 11/14/2022 12:53:43 11/18/2022 10:02:51 Post-discharge follow-up [id number] Z09 Patient seen after AMA discharge from [...] this time, recommende d continued outpatient care. [id number] Amado Nuñez MD [facility] [address] [address] 02/15/2025 15:04:52 02/16/2025 21:29:45 Pain of bilateral hands [id number] 1768614 M79.641 M79.642 [id number] Deshawn Robles MD [address] [address] 04/01/2025 13:18:00 04/21/2025 11:07:47 Decreased urine output [id number] R34 1140210 Health Concerns Section Related Observation LastModified by Organization Detai ls LastModified Time None Recorded Concern Status LastModified by Organization Details LastModified Time None Recorded Advance Directives Directive None Recorded Payers Insurance Date Sequence Insurance Name Policy Number Policy Looney Covered Member ID Looney Member ID Guarantor Name 02/15/2025 1 [employer] [facility] [employer] - DOS PRIOR TO 2022 - DUAL ELIGIBLE (MEDICARE REPLACEMENT/ADV ANTAGE - HMO) Sharon Lara [id number] Sharon Lara 04/21/2025 1 [employer] [facility] [employer] - DOS ON OR AFTER 2022 - DUAL ELIGIBLE - HALF-WAY OPTIONS AND ONE CARE (MEDICARE REPLACEMENT/ADV ANTAGE - HMO) Sharon Lara [id number] Sharon Lara Notes Date Note Type Note [...] aware we do not prescribe daily medications. ...................... ...................... ...................... ...................... ...................... ...................... ......... CRC Nursing Assessment: Comments: CRC RN transcribed for CP > paige ...................... ...................... ...................... ...................... ...................... ...................... ......... Legal Aid Note From Jacqueline Ruby: Sent to a call for a pt wellness check(requested by acute care clinical nurse specialist) after leaving rehab AMA after recent CVA. [...] will get pt's prescriptions in order at [facility]. Pt also has a CCA nurse coming tomorrow to set up Occupational/Physical Therapy plans. BP:148/73, P:72, RR:18, SpO2:96% RA, T:98.8; Head: unremarkable; Lung sounds: clear bilaterally; Abdomen: soft, non-tender, no distention; Back: unremarkable; Extremities: slight left arm weakness (previous stroke), slight right arm weakness (recent stroke), Lower extremities: unremarkable; Skin: pink, warm, dry; C consulted and has no orders. Red flags discussed. Pt/daughter have no further questions. ...................... ...................... ...................... ...................... ...................... ...................... ......... Disposition: Fulfilled Richar Jorgensen MD [address] [facility],[address], [place], [address], [employer] 11/14/2022 13:45:20 02/15/2025 text/html ROS as noted in the HPI This was a supervised home visit with beverage host Luis Eduardo Blount. CRC Nurse Triage Notes (Crystal Villanueva): Reason For Request: Pt is in extreme pain, not verbally responsive. Pt is not answering when asked where the pain is but it is suspected to be in her hands and neck Chief Complaints: Extremity Pain PMH: Chronic Pain, Stroke, Chronic Kidney Disease, Hypothyroidism, Hypertension PMH Reviewed at 02/15/2025 Allergies Reviewed at 02/15/2025:44 Comments: 80 y.o female complains of Extremity Pain Physical Therapist calling for patient. Pt has a h/o neck and head pain, Pt has all over pain for a few weeks. She is not verbalizing where her pain is. She has had this pain in the past but seems it is worse. She has been tylenol for pain with no changes. She is bedbound, she is repo every 2-4 hours. She has right and left sided weakness due to 2 different strokes. She is on eliquis I provided information on the mobile health provider response time and advised the patient and/or caregiver to monitor reported signs and symptoms. I discussed the warning signs of when to seek emergency care. ...................... ...................... ...................... ...................... ...................... ...................... ......... Legal Aid Note From Luis Eduardo Blount: Dispatched to the call address for the female with wrist and hand pain. Pt states she has had 3 strokes and since her last one in December (2024) she has had wrist and hand pain bilaterally. She has spoken to her doctor about the issue but she states he won't do anything for her. She has been taking 1300mg PO Tylenol 1x daily without any relief. She is taking Eliquis and has Hx of kidney issues, is not a good candidate for NSAIDs. Pt denies chest pain, fevers, n/v/d, cough or other symptoms at this time. Pt was found sitting in bed, CAOx4, airway open and patent, breathing non labored, able to speak in full sentences, skin color appropriate for race/warm/dry with good turgor, mucous membranes pink and moist, -JVD, -HEENT, pupils PERRL, lungs CTA, afebrile, -edema, +swelling to right hand, abd soft non tender/distended. Chronic pain Pt was assessed. [facility] [place]. Pt stated she did not want any creams or lotions. Pt was advised to take 650mg PO Tylenol 3x daily rather than 1300mg once. Pt advised to follow up with PCP. Red flags discussed. ALL times are approx. ...................... ...................... ...................... ...................... ...................... ...................... ......... [facility] Consulted: Amado Nuñez ...................... ...................... ...................... ...................... ...................... ...................... ......... Disposition: Fulfilled Amado Nuñez MD [address] [facility],[address], [place], [address], [place] - [employer] [facility] 02/15/2025 16:44:22 04/01/2025 text/html CRC Nurse Triage Notes (Mariposa Kapadia): Reason For Request: Pt's daughter reporting dehydration>not having wet diapers>refusing to drink fluids>requesting to check for UTI Patient Reports: Inability to fully empty bladderDenies: Unable to void greater than 5 hours Erection that will not go away after 2 hours Fall or trauma that results in urinary incontinence in the setting of pain Fall or injury that results in incontinence in the absence of pain Lower back pain either unilateral or bilateral, unable to void, painful urination -hematuria Painful urination Frequent and increased urination with flank pain Painful urination with or without fever Chief Complaints: Urinary SymptomsPMH: Chronic Pain, Stroke, Chronic Kidney Disease, Hypothyroidism, Hypertension, Para or QuadriplegiaPMH Reviewed at 04/01/2025Allergies Reviewed at 04/01/2025Comments: 80 y.o female complains of Urinary Symptoms Daughter calling to report symptoms:Started noticing symptoms last night - minimal urine in diaper - baseline incontinentNot taking liquids unless with medications - just a few sips - usually drinks a lot of fluids - daughter concerned patient is dehydratedLethargic, but otherwise mental status status at baselineFoul smelling urineDenies pain with urination - minimal sensation due to paraplegiaDenies fever, sick contactReporting headache - PRN tylenol given a few mins prior - awaiting effectBedbound at baseline- denies recent falls/injuriesRequesti ng instED visit I provided information on the mobile health provider response time and advised the patient and/or caregiver to monitor reported signs and symptoms. I discussed the warning signs of when to seek emergency care. Legal Aid Organization Information for Elke Jay Dank Legal Name: [facility] TransportationAddress: [address] [place] [address], [place] [id number], Medical Director: Alexis Oscar [facility] No.: [id number] Legal Aid POC Test Results from Elke Jay [facility] (13:15:45)pH: 7.287pH unitspCO2: 38.4taLgjH4: 38.5mmHgNa: 138mmol/LK: 4.9mmol/LiCa: 1.40mmol/LCl: 114mmol/LTCO2: 17.7mEq/LHct: 33%Hb: 11.2g/dLGlu: 89mg/dLLac: 0.95mmol/LCr: 1.43mg/dLBUN: 36mg/dLAmmol/LHCO3: 18.3mmol/LAttachments uploaded as part of this test result can be found under Documents section. ...................... ...................... ...................... ...................... ...................... ...................... ......... Legal Aid Note From Elke Jay: Pt chief complaint today of dehydration as well as possible uti. Pt daughter called in to expresses concern that over the past 48 hours the pt has not had any urinary movement, daughter also expressed that the pt has not been intaking any fluids outside of this needed for her medication intake. No effect on pt appetite. Pt is entering palliative care starting next week. Pt has a history of stroke effecting her right side primarily. Pt is bed bound. Pt does not speak very much, however she Is fully comprehending of all question asked. Today pt would appreciate a general assessment as well as potential treatment, to MIH and daughter understand to expresses no current cp, sob, NVD, dizziness or changes in vision. Nonneural focal exam, afebrile, vitals are noted to be hypotensive. Pt is noted to be bed bound at baseline. Lungs noted to be clear bilaterally on auscultation. Benign abdominal assessment, pt advocates no pain and or pressure In Her bladder or lower abdomen. No new or worsening lower extremity Edema noted. 23 gauge iv placed in right wrist, POC lab work acquired. Pt is conscious alert and oriented to all events occurring around her. [facility] Robles consulted. 1 liter of lactated ringers provided through above mentioned iv access. Secondary bp checked with noted improvements. Pt request not to have a Straight catheter used and InstED would prefer to wait for a natural urinary movement, pt states that if needed she will contact [facility] for a urinary catheter. [facility]io Robles informed. Pt and daughter educated on red flag S&S and told to contact emergency services if any present. ...................... ...................... ...................... ...................... ...................... ...................... ......... [facility] Consulted: Celio Robles ...................... ...................... ...................... ...................... ...................... ...................... ......... Disposition: Fulfilled Deshawn Robles MD [address] [facility],[address], [place], [address], [facility] - [employer] [facility] 04/21/2025 10:44:12 OBGyn Episode No OBEpisode recorded.
--- OUTSIDE RECORDS SUMMARY | 2025-06-02 07:45 | XMS_ITS | Clinical Summary ---
Author Organization [facility] Address [address] [place] [address] Care Team Providers Care Duct Layer Supervisor Name Role Phone Unavailable Primary Care [...] Health Maintenance Due Date Last Done Comments Advance Care Planning 1945 Hepatitis C Virus Screening 1945 DTaP/Tdap/Td Vaccines (1 - Tdap) 1966 Pneumococcal Vaccines 50+ (1 of 1 - PCV) 1997 Zoster (Shingles) Vaccine (1 of 2) 1997 RSV Vaccine 50 years and old er and Patients (1 - 1-dose 75+ series) 2022 COVID-19 Vaccine ( - 2023-2 5 season) 2025 Hepatitis B Vaccines Aged Out No long er eligible based on patient's age to complete this topic
[2025-06-02 10:05] LABS: MANUAL DIFF FLAG NO
[2025-06-02 10:07] LABS: Hematocrit 35.5 % (37.0-47.0); Hemoglobin 11.4 g/dl (12.0-16.0); Imm Gran Abs Auto 0.03 X10*3/uL (0.00-0.03); Imm Gran Pct Auto 0.4 % (0.0-0.4); Lymphocytes Absolute Auto 1.3 X10*3/uL (1.2-4.9); Mean Corpuscular HGB Conc 32.1 g/dl (31.0-35.0); Mean Corpuscular Hemoglobin 28.9 pg (27.0-33.0); Mean Corpuscular Volume 90.1 fL (80.0-98.0); NRBC Abs Auto 0.000 X10*3/uL (0.0-0.012); NRBC Pct Auto 0.0 /100WBC (0.0-0.2); Platelet Count 284 X10*3/uL (160-400); Red Blood Count 3.94 X10*6/uL (4.20-5.50); White Blood Count 7.9 X10*3/uL (4.8-10.8)
[2025-06-02 10:32] LABS: Alanine Aminotransferase 10 U/L (0-31); Albumin Level 3.8 g/dL (3.5-5.0); Alkaline Phosphatase 58 U/L (39-117); Anion Gap 14 (12-20); Aspartate Amino Transferase 20 U/L (5-31); Blood Urea Nitrogen 28 mg/dL (9-16); Calcium 10.4 mg/dL (8.4-10.2); Carbon Dioxide 16 mmol/L (22-29); Chloride 115 mmol/L (96-108); Estimated Glomerular Filt Rate 52; Potassium 4.1 mmol/L (3.3-5.1); Sodium 141 mmol/L (135-145); Total Protein 6.2 g/dL (6.5-8.0)
[2025-06-02 11:32] LABS: Free T4 (Free Thyroxine) 1.48 ng/dL (0.71-1.85)
== END 2025-06-02 07:43 | disposition home or self-care (01) ==
LOC: HO.LHD 07:42
PROVIDERS: Visit Provider Internal Medicine
DX: I12.9 Hypertensive chronic kidney disease with stage 1 through stage 4 chronic kidney disease, or unspecified chronic kidney disease (principal); N18.32 Chronic kidney disease, stage 3b; E78.9 Disorder of lipoprotein metabolism, unspecified; E03.8 Other specified hypothyroidism
CPT/HCPCS: 36415; 80053; 83721; 84439; 84443; 85025